=== PATIENT | female | born 1945 | race Caucasian/White ===

== ENCOUNTER → 2016-09-01 | Outpatient (CLI) | payer OTHER, MEDICARE ==
[~2016-09-01] MED LIST: ASPI81TA28 PO; ATOR-26 PO; BIOT1TAB5 PO; BUPR-79 PO; CALC500C70 PO; CHOL2000 PO; IBUP-1050 PO; LANS15CA15 PO; LEVO25TA5 PO; LUTE15CA PO; MILK140C PO; NTRGSL/4 UT; PRED-301 PO; PRED20TA PO; REGADENOSON 0.4 MG/5 ML SYR ONE; TYLER650 PO; VITACAP38 PO
--- NOTE | 2016-09-01 18:57 | MYOCARDIAL PERFUSION SCAN ---
ORDERING PHYSICIAN: Dr. Wyatt Vazquez. TIME: 1830 p.m. PROCEDURES: 1. Myocardial perfusion study performed in multiple views/images. 2. Lexiscan pharmacologic stress test. DATE OF PROCEDURE: 09/01/2016. CONSENT: Informed written consent was obtained prior to the procedure. INDICATIONS: 1. Preoperative cardiac assessment. 2. Poor exercise tolerance. 3. Shortness of breath. ECG AND VITALS: Baseline ECG demonstrated sinus bradycardia at 58 beats per minute. Lexiscan ECG demonstrated no significant ST changes. There were no arrhythmias. No high grade block or pauses. There was no chest pain or shortness of breath. Maximum heart rate was 79 beats per minute representing 52% maximum predicted heart rate. The resting blood pressure was 136/94 mmHg. Peak blood pressure was 142/72 mmHg. PROCEDURAL DETAILS: For the stress portion of the study, Lexiscan 0.4 mg was intravenously administered over 10-15 seconds followed by saline flush. This was followed by 33 mCi of technetium-99m Cardiolite at 11:22 a.m. on 09/01/2016. Thirty minutes following the injection, imaging of the heart was performed in multiple projections. For the rest portion of the study, 11 mCi of technetium-99m Cardiolite was injected intravenously at 9:48 a.m. on the same day. One hour following the injection, imaging of the heart was performed in the same projections. FINDINGS: Rotating raw imaging demonstrated no significant motion artifact or lung uptake. There did appear to be some breast attenuation artifact, more so in the stress compared to the rest imaging. Heart size appeared normal. Myocardial perfusion demonstrated a small area of mildly reduced uptake involving the distal anteroseptum and apex which appeared to be reversible on rest imaging. There was another small area of mildly reduced uptake in the inferolateral nicole from base to apex which was predominantly fixed with a reversible component distally. There was no significant transient ischemic dilation. Ejection fraction was 51%. There was possible mild hypokinesis in the distal anterior septum but otherwise normal wall motion in stress images. IMPRESSION: 1. Abnormal myocardial perfusion study suggesting distal anteroseptal and apical ischemia as well as distal inferolateral ischemia. 2. Fixed inferolateral defect from base to mid left ventricle may be attenuation artifact given normal wall motion in that area but cannot rule out small infarct. 3. Low normal left ventricular systolic function with an ejection fraction of 51%. 4. Possible mild hypokinesis involving the distal anteroseptum, but otherwise normal wall motion. 5. No chest pain or shortness of breath during or following Lexiscan infusion. 6. Nondiagnostic Lexiscan ECG.
== END | disposition home or self-care (01) ==
LOC: C.NUCL 09:06
PROVIDERS: ATTEND Thoracic Surgery (Cardiothoracic Vascular Surgery)
DX: I21.3 ST elevation (STEMI) myocardial infarction of unspecified site (principal); K21.9 Gastro-esophageal reflux disease without esophagitis; R06.02 Shortness of breath; Z01.818 Encounter for other preprocedural examination

== ENCOUNTER → 2016-09-08 | Outpatient (CLI) | payer OTHER, MEDICARE ==
[~2016-09-08] MED LIST changes: -REGADENOSON 0.4 MG/5 ML SYR ONE
--- NOTE | 2016-09-10 10:48 | PULMONARY FUNCTION TEST ---
CLINICAL DATA: A 71-year-old female with height of 61 inches and a weight of 175 pounds referred for presurgical workup for autoimmune lung disease/fibrosis by Dr. Vazquez and August Gipson. Spirometry pre and post-bronchodilator and DLCO were performed. FINDINGS: Prebronchodilator spirometry demonstrates mild obstructive airways disease. FVC was 72% of predicted. FEV1 was 70% of predicted. [id number] was 62% of predicted. There was significant improvement in spirometry after inhaled bronchodilator. FEV1 improved 10% to 78% of predicted. [id number] improved 61% to 100% of predicted. DLCO was severely reduced at 36% of predicted. IMPRESSION: Mild obstructive airways disease with improvement after inhaled bronchodilator with severe reduction in diffusing capacity for carbon monoxide(DLCO). MTDD
== END | disposition home or self-care (01) ==
LOC: C.RC 09:10
PROVIDERS: ATTEND Thoracic Surgery (Cardiothoracic Vascular Surgery)
DX: Z01.818 Encounter for other preprocedural examination (principal); I21.3 ST elevation (STEMI) myocardial infarction of unspecified site; K21.9 Gastro-esophageal reflux disease without esophagitis; R06.02 Shortness of breath

== ENCOUNTER → 2016-11-12 | Outpatient (CLI) | payer OTHER, MEDICARE ==
[2016-11-12 16:43] LABS: BASO % 0.4 %; BASO ABS # 0.03 K/uL (0-0.2); COMPLETE YES; EOS % 4.5 %; HEMATOCRIT 35.6 % (37-47); IG% 0.1 %; LYMPH % 9.4 %; LYMPH ABS # 0.78 K/uL (1.2-3.4); MEAN CELL VOLUME 91.3 fL (80-100); MEAN CORPUSCULAR HEMOGLOBIN 29.7 pg (25-34); MEAN CORPUSCULAR HGB CONC 32.6 g/dl (32-36); MEAN PLATELET VOLUME 9.9 fL (7.4-10.4); MONO % 4.8 %; NEUT % 80.8 %; PLATELET COUNT 178 K/uL (130-400); WHITE BLOOD COUNT 8.31 K/uL (4.8-10.8)
[2016-11-12 16:53] LABS: ALT/SGPT 23 U/L (12-78); BLOOD UREA NITROGEN 21 mg/dl (7-18); BUN/CREATININE RATIO 21.7 (10-20); CALCIUM 8.6 mg/dl (8.5-10.1); CARBON DIOXIDE 28 mmol/L (21-32); CHLORIDE 107 mmol/L (98-107); CREATININE 0.96 mg/dl (0.60-1.20); GLUCOSE 116 mg/dl (70-99); POTASSIUM 3.8 mmol/L (3.5-5.1); SODIUM 143 mmol/L (136-145)
[2016-11-12 16:55] LABS: ALB/GLOB RATIO 1.1 (0.9-2); ALKALINE PHOSPHATASE 78 U/L (45-117); AST/SGOT 18 U/L (15-37)
== END | disposition home or self-care (01) ==
LOC: C.LAB1850 15:26
PROVIDERS: ATTEND Internal Medicine Hematology & Oncology
DX: C83.09 Small cell B-cell lymphoma, extranodal and solid organ sites (principal)

== ENCOUNTER → 2017-01-26 | Outpatient (CLI) | payer OTHER, MEDICARE ==
[~2017-01-26] MED LIST changes: -PRED20TA PO
--- NOTE | 2017-01-26 10:06 | DIAGNOSTIC IMAGING REPORT ---
CT SCAN OF THE CHEST WITHOUT IV CONTRAST CLINICAL HISTORY: Myocardial infarction. COMPARISON STUDY: Chest x-ray dated 06/14/2016. Chest CT dated 11/15/2015. TECHNIQUE: CT scan of the thorax was performed from the thoracic inlet to the upper abdomen. Images are reviewed in the axial, sagittal, and coronal planes. IV contrast was not administered for this examination as per the referring clinician. CT DOSE: 294.73 mGy.cm FINDINGS: Thyroid: Atrophic. Thoracic aorta: The thoracic aorta is normal in caliber and demonstrates standard 3-vessel arch anatomy. Heart: The heart is markedly enlarged and without pericardial effusion. The coronary arteries are densely calcified. The main pulmonary arteries are markedly dilated suggesting pulmonary artery hypertension. Lungs and pleural spaces: There is volume loss in the right lung suggesting a history of surgical resection. Postoperative change and suture material is also seen at the left lung base. Changes of interstitial lung disease are similar appearance to the 11/15/2015 examination. There is extensive subpleural reticulation with associated traction bronchiectasis. This is greatest in the lower lobe. There is associated groundglass change. Foci of honeycombing are present bilaterally, right greater than left. No evidence of superimposed pneumonia is identified. There is no pleural effusion. The trachea is clear. Mediastinum: There are numerous mildly enlarged mediastinal lymph nodes measure up to 1.0 cm in short axis. Neeru: Not well assessed without IV contrast. Axillae: There is no axillary lymphadenopathy. Upper abdomen: There is a large hiatal hernia, with at least half of the stomach located in the thoracic cavity. The visualized kidneys demonstrate cortical atrophy. Skeletal structures: The skeletal structures are osteopenic. Degenerative change and hyperkyphosis are noted in the thoracic spine. There are compression deformities with evidence of previous vertebroplasty in the lower thoracic and upper lumbar spine. No lytic or blastic bony lesions are seen. IMPRESSION: 1. Findings of interstitial lung disease with a usual interstitial pneumonitis (UIP) pattern are similar to 11/15/2015 examination. 2. There is no evidence of superimposed pneumonia and no pleural effusion is seen. 3. Postoperative change is present in both lungs. Correlation with the surgical history will be required. 4. Cardiomegaly with evidence of pulmonary artery hypertension. 5. Mildly enlarged mediastinal lymph nodes are likely related to chronic lung disease. 6. Large hiatal hernia. 7. Additional findings as above. Electronically signed by: Haider Pedersen M.D. 01/26/2017 10:05 AM Dictated Date/Time: 01/26/2017 9:56 AM
== END | disposition home or self-care (01) ==
LOC: C.CTS 09:12
PROVIDERS: ATTEND Internal Medicine Advanced Heart Failure and Transplant Cardiology
DX: M35.1 Other overlap syndromes (principal); I21.29 ST elevation (STEMI) myocardial infarction involving other sites

== ENCOUNTER → 2017-01-27 | Outpatient (CLI) | payer OTHER, MEDICARE ==
[~2017-01-27] MED LIST changes: +REGADENOSON 0.4 MG/5 ML SYR ONE
--- NOTE | 2017-01-28 07:40 | MYOCARDIAL PERFUSION SCAN ---
ORDERING PHYSICIAN: Dr. Wyatt Bravo. PROCEDURE: 1. Myocardial perfusion study performed in multiple views/images. 2. Lexiscan stress ECG. INDICATIONS: 1. Myocardial infarction. 2. Preoperative evaluation. 3. Shortness of breath. CONSENT: Informed written consent was obtained. DATE OF PROCEDURE: 01/27/2017 PROCEDURAL DETAILS: For the stress portion of the study, Lexiscan 0.4 mg was administered, followed by saline flush. This was followed by 31.3 mCi of technetium-99m Cardiolite injected intravenously at 11:40 a.m. on 01/27/2017. Thirty minutes following the injection, imaging of the heart was performed in multiple projections. For the rest portion of the study, 11 mCi of technetium-99m Cardiolite was injected intravenously at 9:40 a.m. on the same day. One hour following the injection, imaging of the heart was performed in the same projections. LEXISCAN ECG: Baseline ECG demonstrated sinus bradycardia at 57 beats per minute. Lexiscan ECG demonstrated no significant ST changes. No arrhythmia. No significant pauses. No symptoms were reported. Maximum heart rate was 80 beats per minute, representing 53% maximum predicted heart rate. Maximum blood pressure was 163/88 mmHg. Minimum blood pressure was 143/78 mmHg. FINDINGS: Rotating raw imaging demonstrated no significant motion artifact or lung uptake. Heart size appeared normal. Myocardial perfusion demonstrated a small area of mildly reduced uptake involving the inferolateral wall from base to distal wall segments. This defect was fixed. There was also a small area of mildly reduced uptake involving the mid to distal anterior septum. This was also fixed in post-stress and rest imaging. Calculated ejection fraction was 83%. Wall motion demonstrated possible hypokinesis of the mid to distal anterior septum, otherwise normal wall motion. IMPRESSION: 1. Abnormal myocardial perfusion study suggesting small mid to distal anteroseptal infarct. 2. Small base to distal inferolateral fixed defect, maybe due to attenuation artifact given normal wall motion. Cannot rule out myocardial infarction. 3. No significant reversible defect to suggest ischemia. 4. No symptoms reported. 5. Hyperdynamic left ventricular systolic function with calculated EF of 83%. 6. Possible hypokinesis of the mid to distal anterior septum, otherwise normal wall motion. 7. Nondiagnostic Lexiscan ECG. [facility]
== END | disposition home or self-care (01) ==
LOC: C.NUCL 09:18
PROVIDERS: ATTEND Thoracic Surgery (Cardiothoracic Vascular Surgery)
DX: I21.3 ST elevation (STEMI) myocardial infarction of unspecified site (principal); K21.9 Gastro-esophageal reflux disease without esophagitis; R06.02 Shortness of breath; Z01.818 Encounter for other preprocedural examination

== ENCOUNTER → 2017-02-17 | Outpatient (CLI) | payer OTHER, MEDICARE ==
[~2017-02-17] MED LIST changes: -REGADENOSON 0.4 MG/5 ML SYR ONE
[2017-02-22 21:29] LABS: ANTI-SS-A <1.0 NEG AI (<1.0 NEG); ANTI-SS-B <1.0 NEG AI (<1.0 NEG); FREE KAPPA/LAMBDA RATIO 1.13 (0.26-1.65); FREE LAMBDA 19.5 MG/L (5.7-26.3)
== END | disposition home or self-care (01) ==
LOC: C.LAB 09:14
PROVIDERS: ATTEND Internal Medicine Rheumatology
DX: Z51.81 Encounter for therapeutic drug level monitoring (principal); M89.9 Disorder of bone, unspecified

== ENCOUNTER → 2017-02-17 | Outpatient (CLI) | payer OTHER, MEDICARE | END | disposition home or self-care (01) | LOC: C.MAMM 10:55 | PROVIDERS: ATTEND Internal Medicine Rheumatology | DX: M85.851 Other specified disorders of bone density and structure, right thigh (principal); M85.852 Other specified disorders of bone density and structure, left thigh; M85.839 Other specified disorders of bone density and structure, unspecified forearm ==

== ENCOUNTER → 2017-04-05 | Outpatient (CLI) | payer OTHER, MEDICARE ==
--- NOTE | 2017-04-06 13:20 | MAMMOGRAPHY REPORT ---
BILATERAL DIGITAL SCREENING MAMMOGRAM 3D/2D WITH CAD: 04/05/2017 CLINICAL HISTORY: Routine screening examination. TECHNIQUE: Breast tomosynthesis in addition to standard 2D mammography was performed. Current study was also evaluated with a Computer Aided Detection (CAD) system. COMPARISON: Comparison is made to exams dated: 04/02/2016 mammogram - [facility], mammogram, 10/31/2012 mammogram, and 10/12/2011 mammogram - [facility]. BREAST COMPOSITION: The tissue of both breasts is heterogeneously dense, which may obscure small mas ses. FINDINGS: There is a stable metallic biopsy marker in the right upper outer quadrant. Stable asymmet ileana in the inferior right breast and superior left breast. No suspicious mass, architectural distor tion or cluster of suspicious microcalcifications is seen. ACR BI-RADS CATEGORY 1: NEGATIVE There is no mammographic evidence of malignancy. A 1 year screening mammogram is recommended. The pa tient will receive written notification of the results. Approximately 10% of breast cancers are not detected with mammography. A negative mammographic report should not delay biopsy if a clinically suggestive mass is present. Екатерина Delacruz M.D. ay/:04/05/2017 16:03:55 Fiber Worker: Debra FISCHER(Lilliana)(Nataliia), [facility] letter sent: Normal 1/2 BI-RADS Code: ACR BI-RADS Category 1: Negative
== END | disposition home or self-care (01) ==
LOC: C.MAMM 10:57
PROVIDERS: ATTEND Internal Medicine
DX: Z12.31 Encounter for screening mammogram for malignant neoplasm of breast (principal)

== ENCOUNTER → 2017-05-26 | Outpatient (CLI) | payer OTHER, MEDICARE ==
[2017-05-26 12:22] LABS: BASO % 0.5 %; BASO ABS # 0.03 K/uL (0-0.2); COMPLETE YES; EOS % 9.1 %; HEMATOCRIT 37.3 % (37-47); IG% 0.2 %; LYMPH % 26.4 %; LYMPH ABS # 1.72 K/uL (1.2-3.4); MEAN CELL VOLUME 89.9 fL (80-100); MEAN CORPUSCULAR HEMOGLOBIN 28.2 pg (25-34); MEAN CORPUSCULAR HGB CONC 31.4 g/dl (32-36); MEAN PLATELET VOLUME 9.3 fL (7.4-10.4); MONO % 10.3 %; NEUT % 53.5 %; PLATELET COUNT 189 K/uL (130-400); RED BLOOD COUNT 4.15 M/uL (4.2-5.4); WHITE BLOOD COUNT 6.51 K/uL (4.8-10.8)
[2017-05-26 12:48] LABS: ALT/SGPT 28 U/L (12-78); AST/SGOT 21 U/L (15-37); BLOOD UREA NITROGEN 23 mg/dl (7-18); BUN/CREATININE RATIO 25.1 (10-20); CALCIUM 9.1 mg/dl (8.5-10.1); CARBON DIOXIDE 28 mmol/L (21-32); CHLORIDE 107 mmol/L (98-107); CREATININE 0.91 mg/dl (0.60-1.20); GLUCOSE 88 mg/dl (70-99); POTASSIUM 3.9 mmol/L (3.5-5.1); SODIUM 142 mmol/L (136-145)
[2017-05-26 12:50] LABS: ALKALINE PHOSPHATASE 79 U/L (45-117)
== END | disposition home or self-care (01) ==
LOC: C.LAB 10:57
PROVIDERS: ATTEND Internal Medicine Hematology & Oncology
DX: C83.09 Small cell B-cell lymphoma, extranodal and solid organ sites (principal)

== ENCOUNTER → 2017-08-04 | Outpatient (CLI) | payer OTHER, MEDICARE ==
[~2017-08-04] MED LIST changes: +AMOX1TAB43 PO; +BUPRTAB51 PO; +FRRS300 PO; +LANS30CA41 PO; +LCTX PO; +MILK175C3 PO; +OSEL75CA12 PO; +OXGN; +PRED10TA PO; +PRVHFAIN PO; +SPACMIS7 PO; +VBRT100 PO
--- NOTE | 2017-08-04 12:08 | DIAGNOSTIC IMAGING REPORT ---
ABD/PELVIS ORAL CONT ONLY CLINICAL HISTORY: 71 years-old Female presenting with K21.9,R06.02, gastroesophageal reflux, shortness of breath. TECHNIQUE: Multidetector CT of the abdomen and pelvis was performed after the administration of oral contrast only. IV contrast: None. A dose lowering technique was used consistent with the principles of ALARA (as low as reasonably achievable). COMPARISON: CT of the pelvis from 12/09/2015. CT DOSE (mGy.cm): The estimated cumulative dose is 1020.36. FINDINGS: Director Project Management topogram: Cardiomegaly and kyphoplasty. Lung bases: Extensive honeycombing at the lung bases, right greater than left. Multichamber enlargement of the heart. Coronary artery calcification. No pericardial or pleural effusion. Liver: Normal morphology. Normal density. Biliary: No gross biliary ductal dilatation allowing for noncontrast technique. Gallbladder contains gallstones. Pancreas: Mild parenchymal atrophy. Spleen: Normal noncontrast appearance. Splenule noted. Adrenal glands: Normal noncontrast appearance. Kidneys and ureters: Normal noncontrast appearance. No nephrolithiasis. No hydronephrosis. Normal ureters. Bladder: Incompletely evaluated secondary to underdistention. Pelvic organs: Uterus surgically absent. No adnexal masses. Bowel: Limited diverticulosis of the descending colon. Oral contrast has transited to the descending colon. No bowel obstruction. The appendix is normal. Moderate hiatal hernia. Peritoneal cavity: No free fluid or intraperitoneal gas. Lymph nodes: No gross lymphadenopathy allowing for noncontrast technique. Vasculature: Atherosclerosis of the normal caliber abdominal aorta. Abdominal wall: Small fat-containing umbilical hernia. Nonspecific minimal edema in the lumbar region. Musculoskeletal: Degenerative changes of the spine. Evidence of old right inferior pubic ramus fracture. Evidence of kyphoplasty at multiple levels including the sacrum. Osteopenia. IMPRESSION: 1. Findings consistent with usual interstitial pneumonia pattern. 2. No acute intra-abdominal pathology allowing for noncontrast technique. 3. Diverticulosis. 4. Moderate hiatal hernia. Electronically signed by: Fernie Kendrick M.D. 08/04/2017 12:07 PM Dictated Date/Time: 08/04/2017 11:59 AM
--- NOTE | 2017-08-04 12:26 | DIAGNOSTIC IMAGING REPORT ---
(CHEST) THORAX WITHOUT CT DOSE: 1020.36 mGy.cm HISTORY: Emphysema. Reflux. Dyspnea. K21.9,R06.02 TECHNIQUE: Multiaxial CT images of the chest were performed without contrast. A dose lowering technique was utilized adhering to the principles of ALARA. COMPARISON: 06/09/2017 FINDINGS: Diffuse emphysematous changes again noted. Superimposed extensive fibrotic changes noted primarily in the mid to lower lung regions. Honeycombing at the right base is stable. There does not appear to be a significant change from the prior exam. Buckle findings present potentially are chronic. Moderate abscess chronic change thoracic aorta. Moderate stable cardiomegaly. Calcification of the coronary arterial vasculature. Fixed lateral hernia unchanged. Degenerative changes of the thoracic spine including prior vertebroplasty is unchanged. Shoulder degenerative changes stable. IMPRESSION: 1. Diffuse emphysematous change with extensive fibrosis and bronchiectasis considered unaltered from the prior study. 2. No evidence for superimposed infiltrative process based on the unchanged exam. 3. Stable moderate cardiomegaly and fixed lateral hernia. The above report was generated using voice recognition software. It may contain grammatical, syntax or spelling errors. Electronically signed by: Jose Ascencio M.D. 08/04/2017 12:24 PM Dictated Date/Time: 08/04/2017 12:19 PM
== END | disposition home or self-care (01) ==
LOC: C.CTS 11:41
PROVIDERS: ATTEND Thoracic Surgery (Cardiothoracic Vascular Surgery)
DX: K21.9 Gastro-esophageal reflux disease without esophagitis (principal); R06.02 Shortness of breath; K57.90 Diverticulosis of intestine, part unspecified, without perforation or abscess without bleeding; K44.9 Diaphragmatic hernia without obstruction or gangrene; I51.7 Cardiomegaly; J43.9 Emphysema, unspecified

== ENCOUNTER → 2017-08-06 | Outpatient (CLI) | payer OTHER, MEDICARE ==
[~2017-08-06] MED LIST changes: -AMOX1TAB43 PO; -BUPRTAB51 PO; -FRRS300 PO; -LANS30CA41 PO; -LCTX PO; -MILK175C3 PO; -OSEL75CA12 PO; -OXGN; -PRED10TA PO; -PRVHFAIN PO; -SPACMIS7 PO; -VBRT100 PO
--- NOTE | 2017-08-06 11:48 | DIAGNOSTIC IMAGING REPORT ---
LEFT KNEE MRI HISTORY: LEFT KNEE PAIN COMPARISON STUDY: None. TECHNIQUE: Multiplanar multisequence MRI of the left knee was performed according to standard department protocol without the use of contrast. FINDINGS: Menisci: Near nondiagnostic evaluation due to the extensive metallic artifact. Suspect a complex tear within the majority of the medial meniscus. There appear to be free edge tears within the majority of the lateral meniscus. Ligaments: Nondiagnostic evaluation of the cruciate ligaments and MCL due to the metallic artifact. The LCL is intact. Extensor mechanism: The quadriceps tendon and patellar ligament are intact. Articular cartilage and bone: Nondiagnostic evaluation the distal femur due to the metallic artifact. There appears to be severe cartilage space narrowing within the medial and lateral compartment of the knee with mild to moderate cartilage space narrowing at the patellofemoral joint. However, these areas are suboptimally evaluated. Multiple screws through the distal femur. Large tricompartmental osteophytes. No fractures within the proximal tibia or fibula. Joint effusion: Moderate. Soft tissues: A 2.8 x 1.7 cm cyst adjacent to the popliteus musculotendinous junction. This contains multiple loose bodies. IMPRESSION: 1. Near nondiagnostic evaluation of the knee due to the extensive metallic artifact within the distal femur. 2. There appear to be bilateral meniscal tears as described above. 3. The cruciate ligaments and medial collateral ligament are obscured by the artifact. 4. Moderate joint effusion. 5. Moderate to severe tricompartmental osteoarthritis. Electronically signed by: Mert Mcleod M.D. 08/06/2017 11:46 AM Dictated Date/Time: 08/06/2017 11:39 AM
== END | disposition home or self-care (01) ==
LOC: C.MRI 09:46
PROVIDERS: ATTEND Physician Assistant
DX: M17.12 Unilateral primary osteoarthritis, left knee (principal); Z96.7 Presence of other bone and tendon implants

== ENCOUNTER → 2017-09-27 | Outpatient (CLI) | payer OTHER, MEDICARE | LOC: C.RDSM 11:30 | PROVIDERS: ATTEND Physical Medicine & Rehabilitation Sports Medicine | DX: M25.562 Pain in left knee (principal) ==

== ENCOUNTER → 2017-11-01 | Outpatient (CLI) | payer OTHER, MEDICARE ==
[~2017-11-01] MED LIST changes: +BUPRTAB51 PO; +MILK175C3 PO; +OSEL75CA12 PO; +VBRT100 PO
[2017-11-01 14:37] LABS: BASO % 0.2 %; BASO ABS # 0.02 K/uL (0-0.2); EOS % 1.5 %; EOS ABS # 0.13 K/uL (0-0.5); HEMATOCRIT 35.3 % (37-47); HEMOGLOBIN 10.9 g/dL (12.0-16.0); IG# 0.02 K/uL (0.00-0.02); LYMPH % 7.8 %; LYMPH ABS # 0.66 K/uL (1.2-3.4); MEAN CELL VOLUME 86.3 fL (80-100); MEAN CORPUSCULAR HEMOGLOBIN 26.7 pg (25-34); MEAN CORPUSCULAR HGB CONC 30.9 g/dl (32-36); MEAN PLATELET VOLUME 8.8 fL (7.4-10.4); MONO % 2.8 %; MONO ABS # 0.24 K/uL (0.11-0.59); NEUT % 87.5 %; NEUT ABS # 7.44 K/uL (1.4-6.5); PLATELET COUNT 196 K/uL (130-400); RED CELL DISTRIBUTION WIDTH CV 16.6 % (11.5-14.5); WHITE BLOOD COUNT 8.51 K/uL (4.8-10.8)
[2017-11-01 15:05] LABS: ALBUMIN 3.4 gm/dl (3.4-5.0); ALT/SGPT 25 U/L (12-78); BLOOD UREA NITROGEN 20 mg/dl (7-18); CARBON DIOXIDE 28 mmol/L (21-32); CREATININE 0.96 mg/dl (0.60-1.20); GLUCOSE 156 mg/dl (70-99); POTASSIUM 3.9 mmol/L (3.5-5.1); SODIUM 137 mmol/L (136-145)
[2017-11-01 15:08] LABS: ALKALINE PHOSPHATASE 95 U/L (45-117); AST/SGOT 26 U/L (15-37); TOTAL PROTEIN 7.7 gm/dl (6.4-8.2)
== END | disposition home or self-care (01) ==
LOC: C.LAB 14:04
PROVIDERS: ATTEND Internal Medicine Hematology & Oncology
DX: C83.09 Small cell B-cell lymphoma, extranodal and solid organ sites (principal)

== ENCOUNTER 2017-11-06 13:31 | Emergency (ER) | payer OTHER, MEDICARE ==
[~2017-11-06] VITALS: Ht 154.9 cm; Wt 78.0 kg
[~2017-11-06 13:31] MED LIST changes: -BUPRTAB51 PO; -MILK175C3 PO; -OSEL75CA12 PO; -VBRT100 PO
[2017-11-06 13:41] VITALS: TEMP 37.5; Ht 154.9 cm; Wt 78.0 kg
--- NOTE | 2017-11-06 14:12 | EMERGENCY ROOM VISIT NOTE ---
History Report prepared by Brock: Kim Tamayo Under the Supervision of: Dr. Ted Arnold M.D. First contact with patient: 14:05 Chief Complaint: FLU LIKE SX Stated Complaint: FLU/COLD - LUNGS History of Present Illness The patient is a 72 year old female who presents to the Emergency Room with complaints of worsening flu symptoms for the past 2 to 3 days. She believes she developed a fever last night. She also complains of a productive cough and body aches. She states her granddaughter has been sick with similar symptoms recently. The patient has a history of pulmonary fibrosis and uses Oxygen as needed, mostly when she's up and moving around. She does not use Nebulizers. NyQuil has provided minimal relief for her symptoms. Her states her PCP placed her on Doxycycline 2 days ago. The patient admits to a sore throat last night but states it has resolved. She denies any vomiting or swelling in her legs but has been nauseous. 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 A total of 10 systems reviewed and were otherwise negative. Past Medical & Surgical Medical Problems: (1) Pulmonary fibrosis Social History Smoking Status: Never Smoker Alcohol Use: none Drug Use: none Marital Status: Housing Status: lives with family Occupation Status: retired Current/Historical Medications Scheduled Aspirin (Aspirin Ec), 81 MG PO QAM Atorvastatin (Lipitor), 80 MG PO HS Bupropion (Wellbutrin-Xl), 300 MG PO QAM Calcium/Vitamin D (Os-Young 500 Plus D), 1 TAB PO QAM Cholecalciferol (Vitamin D3), 1 CAP PO QAM Doxycycline Hyclate (Doxycycline Hyclate), 100 MG PO BID Lansoprazole (Prevacid), 1 CAP PO QAM Levothyroxine Sodium (Levothyroxine Sodium), 1 TAB PO QAM Lutein-Zeaxanthin (Lutein), 1 CAP PO QAM Milk Thistle (Silybum Marianum (Milk Thistle), 1 CAP PO QAM Nitroglycerin (Nitrostat), 0.4 MG UT PRN Oseltamivir (Tamiflu), 75 MG PO BID Prednisone (Prednisone), 7.5 MG PO QAM Vitamin E (E-1000), 1,000 UNITS PO QAM Scheduled PRN Ibuprofen (Advil), 200-600 MG PO Q4H PRN for Pain Allergies Coded Allergies: Tramadol (Verified Allergy, Intermediate, rash, 11/06/17) Uncoded Allergies: TAPE (Allergy, Intermediate, blisters from "old fashioned medical tape", ) Physical Exam Vital Signs Date Time Temp Pulse Resp B/P (MAP) Pulse Ox O2 Delivery O2 Flow Rate FiO2 11/06/17 15:40 71 16 131/66 99 11/06/17 13:41 37.5 78 18 116/75 96 Nasal Cannula 4.0 Physical Exam GENERAL: Patient is well appearing and in mild distress with noted rhinorrhea. EYES: No scleral icterus, unremarkable pupils. ENT: Mucous membranes moist, no nasal congestion. NECK: No masses appreciated, no meningismus, trachea is midline. RESPIRATORY: No dyspnea. Mildly prolonged expiratory phase. No crackles, no wheeze, no rhonchi. CARDIOVASCULAR: Regular rate and rhythm. No murmurs, rubs, gallops appreciated. GASTROINTESTINAL: Abdomen soft, nontender, no peritonitis. Bowel sounds positive. No masses appreciated. BACK: No midline tenderness, no CVA tenderness EXTREMITIES: Normal motion all extremities, no cyanosis, no edema. NEUROLOGIC: Alert and oriented, no acute motor or sensory deficits, no focal weakness, cranial nerves grossly intact. SKIN: No rash, no jaundice, no diaphoresis. Medical Decision & Procedures Medications Administered Medications (Trade) Dose Ordered Sig/Gordon Route Start Time Stop Time Status Last Admin Dose Admin Oseltamivir Phosphate (Tamiflu Cap) 75 mg NOW STAT PO 11/06/17 15:14 11/06/17 15:15 DC 11/06/17 15:34 75 MG ED Course 1406: The patient was evaluated in room A10. A complete history and physical exam was performed. 1514: Tamiflu Cap 75 mg PO. 1517: I reevaluated the patient. She is feeling well and resting comfortably. I discussed her results and discharge instructions and she verbalized complete understanding and agreement. Medical Decision Differential: Infectious, Reactive Airway Disease, Pneumonia, Pneumothorax, COPD , CHF, ACS, Pulmonary Embolism, MSK, GI, Dissection, amongst other etiologies entertained. 71 yr old female arrives for evaluation of productive cough. Quite severe pulm fibrosis already known and was just started on Doxy for presumed infection. She is not wheezing here and is not in respiratory distress. Her symptoms are consistent with influenza and she has exposure to such. CXR without evidence of clear infiltrate though possible lower lobe which I advised will need repeat imaging for check. Vitals look good and patient prefers to avoid labs thus will hold on them. No evidence this is PE, CHF, dissection. Symptoms not consistent with ACS. Will empirically start Tamiflu and I noted that continued doxy seems reasonable. Comfortable with discharge and monitoring. Tolerating PO without issue per patient. Medication Reconcilliation Current Medication List: was personally reviewed by me Blood Pressure Screening Patient's blood pressure: Normal blood pressure Blood pressure disposition: Did not require urgent referral Impression Primary Impression: Influenza Additional Impression: Pulmonary fibrosis Scribe Attestation The scribe's documentation has been prepared under my direction and personally reviewed by me in its entirety. I confirm that the note above accurately reflects all work, treatment, procedures, and medical decision making performed by me. Departure Information Dispostion Home / Self-Care Prescriptions Oseltamivir (Tamiflu) 75 Mg Cap 75 MG PO BID, #10 CAP Prov: Ted Arnold M.D. 11/06/17 Referrals No Doctor, Assigned (PCP) Patient Instructions ED Flu, My [facility] Problem Qualifiers
[2017-11-06] MEDS ORDERED: VBRT100 PO (14:36)
[2017-11-06] MEDS ORDERED: BUPRTAB51 PO (14:36)
--- NOTE | 2017-11-06 14:57 | DIAGNOSTIC IMAGING REPORT ---
SINGLE VIEW CHEST CLINICAL HISTORY: Productive cough FINDINGS: An AP, portable, upright chest radiograph is compared to study dated 06/14/2016 and correlated with chest CT dated 08/04/2017. The examination is degraded by portable technique and patient rotation. The cardiomediastinal silhouette is unremarkable. Changes of chronic interstitial lung disease/fibrosis are similar to prior studies. There are questionable superimposed airspace opacities at the left lung base. No large pleural effusion or pneumothorax is seen. The skeletal structures are osteopenic. Numerous thoracolumbar compression deformities are identified with evidence of previous multilevel vertebroplasty. Hyperkyphosis is noted in the thoracic spine. IMPRESSION: 1. Advanced chronic interstitial/fibrotic lung disease is similar to prior studies. 2. Question superimposed airspace consolidation at the left lung base. Correlate clinically for evidence of pneumonia/aspiration pneumonitis. Short-term radiographic follow-up is recommended. Electronically signed by: Haider Pedersen M.D. 11/06/2017 2:56 PM Dictated Date/Time: 11/06/2017 2:53 PM
[2017-11-06] MEDS ORDERED: OSELTAMIVIR PHOSPHATE 75 MG CAP PO STA (15:14)
[2017-11-06] MEDS ORDERED: OSEL75CA12 PO (15:15)
[2017-11-06 15:40] VITALS: BP 131/66; PULSE 71; O2SAT 99
== END 2017-11-06 15:40 | disposition home or self-care (01) ==
LOC: C.EDB 13:32 → C.EDA 15:40
DX: J11.1 Influenza due to unidentified influenza virus with other respiratory manifestations (principal); J84.10 Pulmonary fibrosis, unspecified; Z79.82 Long term (current) use of aspirin; Z79.899 Other long term (current) drug therapy; Z88.6 Allergy status to analgesic agent; Z88.8 Allergy status to other drugs, medicaments and biological substances

== ENCOUNTER 2017-11-16 20:49 | Inpatient (IN) | payer OTHER, MEDICARE ==
[~2017-11-16] VITALS: Ht 154.9 cm; Wt 75.6 kg
[~2017-11-16 20:49] MED LIST changes: -BIOT1TAB5 PO; -BUPR-79 PO; +BUPRTAB51 PO; +OSEL75CA12 PO; -TYLER650 PO; +VBRT100 PO
[2017-11-16] MEDS ORDERED: ALBUT/IPRATROP 3MG/0.5MG NEB 3 ML VIAL INH STA (21:44)
[2017-11-16] MEDS ORDERED: SODIUM CHLORIDE 0.9% 500ML 500 ML IV STA (21:44)
[2017-11-16] MEDS ORDERED: DEXAMETHASONE **PF** INJ 10 MG/ML VIAL IV ONE (21:45)
[2017-11-16] MEDS ORDERED: CEFTRIAXONE SOD INJ 1 GM ADDVIAL IV STA (22:07)
[2017-11-16] MEDS ORDERED: LEVAQUIN 750MG / 150ML D5W IV STA (22:07)
[2017-11-16 22:46] LABS: INFLUENZA B ANTIGEN Neg for Influ B (NEG)
--- NOTE | 2017-11-16 22:46 | DIAGNOSTIC IMAGING REPORT ---
CHEST ONE VIEW PORTABLE HISTORY: 72 years-old Female Sepsis acute sepsis COMPARISON: Chest radiographs 11/06/2017 TECHNIQUE: Portable AP view of the chest FINDINGS: Study is limited secondary to patient positioning and rotation. Cardiac silhouette is within normal limits and unchanged. There is no pneumothorax or large pleural effusion. Chronic reticular opacities are again seen within the bilateral lungs, right greater than left. There are new superimposed patchy alveolar opacities throughout the right lung. Degenerative changes are noted throughout the spine and shoulders. Multiple vertebral plasties. IMPRESSION: Chronic interstitial lung disease with new superimposed patchy alveolar opacities throughout the right lung suspicious for superimposed pneumonia The above report was generated using voice recognition software. It may contain grammatical, syntax or spelling errors. Electronically signed by: Franc Bermudez M.D. 11/16/2017 10:44 PM Dictated Date/Time: 11/16/2017 10:42 PM
[2017-11-16] MEDS ORDERED: MILK175C3 PO (22:59)
[2017-11-16 23:28] LABS: BASO % 0.2 %; BASO ABS # 0.01 K/uL (0-0.2); EOS % 0.7 %; EOS ABS # 0.04 K/uL (0-0.5); HEMATOCRIT 33.2 % (37-47); HEMOGLOBIN 10.4 g/dL (12.0-16.0); IG# 0.01 K/uL (0.00-0.02); LYMPH % 7.3 %; LYMPH ABS # 0.42 K/uL (1.2-3.4); MEAN CELL VOLUME 84.3 fL (80-100); MEAN CORPUSCULAR HEMOGLOBIN 26.4 pg (25-34); MEAN CORPUSCULAR HGB CONC 31.3 g/dl (32-36); MONO % 5.4 %; MONO ABS # 0.31 K/uL (0.11-0.59); NEUT % 86.2 %; NEUT ABS # 4.93 K/uL (1.4-6.5); PLATELET COUNT 329 K/uL (130-400); RED CELL DISTRIBUTION WIDTH CV 16.9 % (11.5-14.5); RED CELL DISTRIBUTION WIDTH SD 51.6 fL (36.4-46.3); WHITE BLOOD COUNT 5.72 K/uL (4.8-10.8)
[2017-11-16 23:39] LABS: PTT PATIENT 26.6 SECONDS (21.0-31.0)
[2017-11-16 23:49] LABS: ALBUMIN 2.7 gm/dl (3.4-5.0); ALT/SGPT 35 U/L (12-78); AST/SGOT 46 U/L (15-37); BLOOD UREA NITROGEN 11 mg/dl (7-18); CALCIUM 8.5 mg/dl (8.5-10.1); CARBON DIOXIDE 27 mmol/L (21-32); CREATININE 0.63 mg/dl (0.60-1.20); GLUCOSE 137 mg/dl (70-99); POTASSIUM 4.1 mmol/L (3.5-5.1); SODIUM 136 mmol/L (136-145)
[2017-11-16 23:54] LABS: ALKALINE PHOSPHATASE 100 U/L (45-117); TOTAL PROTEIN 6.5 gm/dl (6.4-8.2)
[2017-11-17] VITALS (12 sets, daily range): BP systolic 99–141; BP diastolic 63–91; PULSE 66–95; TEMP 36.5–36.8; O2SAT 90–99; Ht 154.9 cm; Wt 75.6 kg
--- NOTE | 2017-11-17 01:10 | EMERGENCY ROOM VISIT NOTE ---
History First contact with patient: 21:29 Chief Complaint: COUGH Stated Complaint: SEVERE COUGHING, FLU Nursing Triage Summary: Patient states she was seen in the ER one week ago flu like symptoms nausea, aches chills cough. patient states she continues with cough. History of pulmonary fibrosis on chronic O2. History of Present Illness The patient is a 72 year old female who presents to the Emergency Room with complaints of subjective fever and chills with worsening cough and congestion for the past week and a half that was seen here last week and placed on Tamiflu. Patient was on doxycycline prior to this by the family care doctor. Patient states she feels worse. She has pulmonary fibrosis. She follows in [place] for this. No recent temperature was taken. Patient denies exertional chest pain, abdominal pain, diarrhea, sore throat, leg pain or swelling. No history of heart failure. She has a history of heart disease. She has received her pneumonia and flu vaccines. Review of Systems An 10 system review of systems was completed with positives and pertinent negatives listed in the HPI. Past Medical/Surgical History Medical Problems: (1) Pulmonary fibrosis Coronary artery disease, lymphoma, hyperlipidemia Social History Smoking Status: Never Smoker Alcohol Use: none Drug Use: none Marital Status: Housing Status: lives with family Occupation Status: retired Current/Historical Medications Scheduled Aspirin (Aspirin Ec), 81 MG PO QAM Atorvastatin (Lipitor), 80 MG PO HS Bupropion (Wellbutrin-Xl), 300 MG PO QAM Calcium/Vitamin D (Os-Young 500 Plus D), 1 TAB PO QAM Cholecalciferol (Vitamin D3), 1 CAP PO QAM Lansoprazole (Prevacid), 1 CAP PO QAM Levothyroxine Sodium (Levothyroxine Sodium), 1 TAB PO QAM Lutein-Zeaxanthin (Lutein), 1 CAP PO QAM Milk Thistle (Silybum Marianum (Milk Thistle), 175 MG PO QAM Nitroglycerin (Nitrostat), 0.4 MG UT PRN Prednisone (Prednisone), 7.5 MG PO QAM Vitamin E (E-1000), 1,000 UNITS PO QAM Scheduled PRN Ibuprofen (Advil), 200-600 MG PO Q4H PRN for Pain Physical Exam Vital Signs Date Time Temp Pulse Resp B/P (MAP) Pulse Ox O2 Delivery O2 Flow Rate FiO2 11/16/17 22:44 77 18 107/73 100 Nasal Cannula 4.0 11/16/17 22:11 98 Nasal Cannula 4.0 11/16/17 20:59 Nasal Cannula 11/16/17 20:56 36.7 87 16 90/68 98 Nasal Cannula Physical Exam PHYSICAL EXAM: Vital Signs: Reviewed Nurse's notes. Oxygen saturation was 98% on 4L NC. GENERAL: pleasant female with audible wheeze, Alert, oriented and coherent. The patient is able to speak in complete sentences. NECK: Supple, non -tender. CHEST: Symmetrical expansion. no retractions no accessory muscle use. HEART: Regular rate and normal heart sounds LUNGS: Breath sounds equal but significantly diminished in intensity on both sides. Bilateral wheezes heard but no rales or pleuritic rub. SKIN: The skin was without rashes, erythema, edema, or bruising. There is no tenting of the skin. Capillary reflex less than 2 seconds. HEAD: Normocephalic atraumatic. EARS: External auditory canals clear, tympanic membranes pearly mercado without erythema or effusion bilaterally. EYES: Pupils equal round and reactive to light and accommodation. Conjunctivae without injection, sclerae without icterus. Extraocular movements intact. NOSE: Patent, turbinates without inflammation or discharge. MOUTH: Mucous membranes moist. Pharynx without erythema or exudate. Uvula midline. Airway patent. Tongue does not deviate. ABDOMEN: Positive bowel sounds x 4. Normal tympanic percussion. Soft, nontender, without masses or organomegaly. Navarro sign negative. No guarding or rebound tenderness. MUSCULOSKELETAL: No muscle atrophy, erythema, or edema noted. NEURO: Patient was alert and oriented to person place and time. Normal sensation to light and sharp touch. No focal neurological deficits. Medical Decision & Procedures Laboratory Results 11/16/17 22:16 Red Blood Count 3.94, Mean Corpuscular Volume 84.3, Mean Corpuscular Hemoglobin 26.4, Mean Corpuscular Hemoglobin Concent 31.3, Mean Platelet Volume 10.0, Neutrophils (%) (Auto) 86.2, Lymphocytes (%) (Auto) 7.3, Monocytes (%) (Auto) 5.4, Eosinophils (%) (Auto) 0.7, Basophils (%) (Auto) 0.2, Neutrophils # (Auto) 4.93, Lymphocytes # (Auto) 0.42, Monocytes # (Auto) 0.31, Eosinophils # (Auto) 0.04, Basophils # (Auto) 0.01 11/16/17 22:16 Test 11/16/17 22:02 11/16/17 22:16 11/16/17 23:15 11/16/17 23:16 Influenza Type A Antigen Neg for Influ A (NEG) Influenza Type B Antigen Neg for Influ B (NEG) White Blood Count 5.72 K/uL (4.8-10.8) Red Blood Count 3.94 M/uL (4.2-5.4) Hemoglobin 10.4 g/dL (12.0-16.0) Hematocrit 33.2 % (37-47) Mean Corpuscular Volume 84.3 fL (80-100) Mean Corpuscular Hemoglobin 26.4 pg (25-34) Mean Corpuscular Hemoglobin Concent 31.3 g/dl (32-36) Platelet Count 329 K/uL (130-400) Mean Platelet Volume 10.0 fL (7.4-10.4) Neutrophils (%) (Auto) 86.2 % Lymphocytes (%) (Auto) 7.3 % Monocytes (%) (Auto) 5.4 % Eosinophils (%) (Auto) 0.7 % Basophils (%) (Auto) 0.2 % Neutrophils # (Auto) 4.93 K/uL (1.4-6.5) Lymphocytes # (Auto) 0.42 K/uL (1.2-3.4) Monocytes # (Auto) 0.31 K/uL (0.11-0.59) Eosinophils # (Auto) 0.04 K/uL (0-0.5) Basophils # (Auto) 0.01 K/uL (0-0.2) RDW Standard Deviation 51.6 fL (36.4-46.3) RDW Coefficient of Variation 16.9 % (11.5-14.5) Immature Granulocyte % (Auto) 0.2 % Immature Granulocyte # (Auto) 0.01 K/uL (0.00-0.02) Prothrombin Time 11.0 SECONDS (9.0-12.0) Prothromb Time International Ratio 1.0 (0.9-1.1) Activated Partial Thromboplast Time 26.6 SECONDS (21.0-31.0) Partial Thromboplastin Ratio 1.0 Anion Gap 5.0 mmol/L (3-11) Est Creatinine Clear Calc Drug Dose 74.3 ml/min Estimated GFR () 104.6 Estimated GFR (Non- 90.2 BUN/Creatinine Ratio 17.0 (10-20) Calcium Level 8.5 mg/dl (8.5-10.1) Magnesium Level 1.8 mg/dl (1.8-2.4) Total Bilirubin 0.6 mg/dl (0.2-1) Aspartate Amino Transf (AST/SGOT) 46 U/L (15-37) Alanine Aminotransferase (ALT/SGPT) 35 U/L (12-78) Alkaline Phosphatase 100 U/L (45-117) Troponin I < 0.015 ng/ml (0-0.045) Pro-B-Type Natriuretic Peptide 191 pg/ml (0-900) Total Protein 6.5 gm/dl (6.4-8.2) Albumin 2.7 gm/dl (3.4-5.0) Globulin 3.8 gm/dl (2.5-4.0) Albumin/Globulin Ratio 0.7 (0.9-2) Bedside Lactic Acid Venous 1.24 mmol/L (0.90-1.70) Bedside Troponin I < 0.030 ng/ml (0-0.045) Medications Administered Medications (Trade) Dose Ordered Sig/Gordon Route Start Time Stop Time Status Last Admin Dose Admin Albuterol/ Ipratropium (Duoneb) 3 ml NOW STAT INH 11/16/17 21:44 11/16/17 21:46 DC 11/16/17 22:08 3 ML Sodium Chloride 500 ml @ 999 mls/hr Q31M STAT IV 11/16/17 21:44 11/16/17 22:14 DC 11/16/17 22:17 999 MLS/HR Dexamethasone Sodium Phosphate (Dexamethasone Inj Pf) 10 mg NOW ONCE IV 11/16/17 21:45 11/16/17 21:46 DC 11/16/17 22:18 10 MG Ceftriaxone Sodium (Rocephin Inj) 1 gm NOW STAT IV 11/16/17 22:07 11/16/17 22:08 DC 11/16/17 23:26 1 GM Levofloxacin (Levaquin / D5W) 750 mg NOW STAT IV 11/16/17 22:07 11/16/17 22:08 DC 11/16/17 23:27 750 MG ED Course Prior records/ancillary studies reviewed. Triage Nursing notes reviewed. Additional history obtained from the family. The patient's history was concerning for respiratory difficulties. Differential diagnosis: Etiologies such as infections, reactive airway disease, pneumonia, pneumothorax , COPD, CHF, cardiac ischemia, pulmonary embolism, musculoskeletal, gastrointestinal, as well as others were entertained. Physical examination: As above. ER treatment provided: Nebulizer, Decadron, IV fluids, Rocephin, Levaquin On reassessment the patient felt better. Diagnostic interpretation by me: The electrocardiogram was negative for acute ischemic or pathologic change. Normal sinus, normal intervals, no acute ST-T wave changes, rate of 72. Impression normal sinus rhythm interpreted by myself The labs revealed no worrisome leukocytosis. Blood cultures pending. Negative lactic acid Imaging studies: Chest x-ray as above. CHEST ONE VIEW PORTABLE HISTORY: 72 years-old Female Sepsis acute sepsis COMPARISON: Chest radiographs 11/06/2017 TECHNIQUE: Portable AP view of the chest FINDINGS: Study is limited secondary to patient positioning and rotation. Cardiac silhouette is within normal limits and unchanged. There is no pneumothorax or large pleural effusion. Chronic reticular opacities are again seen within the bilateral lungs, right greater than left. There are new superimposed patchy alveolar opacities throughout the right lung. Degenerative changes are noted throughout the spine and shoulders. Multiple vertebral plasties. IMPRESSION: Chronic interstitial lung disease with new superimposed patchy alveolar opacities throughout the right lung suspicious for superimposed pneumonia The above report was generated using voice recognition software. It may contain grammatical, syntax or spelling errors. Electronically signed by: Franc Bermudez M.D. 11/16/2017 10:44 PM Consultation: A consultation was placed with Dr Villarreal, hospitalist. This appears to be consistent with pneumonia who has already been on Tamiflu and doxycycline. Patient felt better after being medicated as above. She does suffer from pulmonary hypoxic and is on chronic oxygen as needed. She follows with pulmonology in [place]. Blood cultures are pending. No leukocytosis. She is on chronic prednisone. Negative flu. She will be evaluated by medicine for possible admission. By the evaluation outlined above emergent etiologies such as CHF, cardiac ischemia, pulmonary embolism, pneumothorax, musculoskeletal , as well as others were deemed relatively unlikely. The pt informed about the findings as listed above. All questions were answered and pleased with the treatment. Case reviewed with my attending The chart was completed utilizing [employer] Speech voice recognition software. Grammatical errors, random word insertions, pronoun errors, and incomplete sentences are an occassional consequence of this system due to software limitations, ambient noise, and hardware issues. Any formal questions or concerns about the content, text, or information contained within the body of this dictation should be directly addressed to the physician emergency veterinary assistant for clarification. Medical Decision As above Medication Reconcilliation Current Medication List: was personally reviewed by me Blood Pressure Screening Patient's blood pressure: Normal blood pressure Impression Primary Impression: Pneumonia Additional Impression: Failure of outpatient treatment Departure Information Dispostion Being Evaluated By Hospitalist Condition FAIR Referrals Fernie Alas M.D. (PCP) Patient Instructions My [facility] Problem Qualifiers Primary Impression: Pneumonia Pneumonia type: due to unspecified organism Laterality: right Lung location : unspecified part of lung Qualified Codes: J18.9 - Pneumonia, unspecified organism
--- NOTE | 2017-11-17 01:31 | EMERGENCY ROOM VISIT NOTE ---
ED Visit Note First contact with patient: 21:29 Physician Material Specialist Supervision Note: I interviewed and examined the patient. Discussed with Joelle Dawson PA-C and agree with findings and plan as documented in the note. Any exceptions or clarifications are listed here: [None] Documented By: Nori Craig
[2017-11-17] MEDS ORDERED: ALBUTEROL 0.083% NEBU SOLN 3 ML VIAL INH PRN (04:30)
[2017-11-17] MEDS ORDERED: MAGNESIUM HYDROXIDE SUSP 30 ML UDC PO PRN (04:30)
[2017-11-17] MEDS ORDERED: ACETAMINOPHEN 325 MG TAB PO PRN (04:30)
[2017-11-17] MEDS ORDERED: IBUPROFEN 200 MG TAB PO PRN (04:30)
[2017-11-17] MEDS ORDERED: ONDANSETRON INJ 2 MG/ML 2 ML VIAL IV PRN (04:30)
[2017-11-17] MEDS ORDERED: ALUMINUM/MAGNESIUM/SIMETH (MAALOX MAX) 30 ML UDC PO PRN (04:30)
[2017-11-17] MEDS ORDERED: POLYETHYLENE (MIRALAX) 17 GM PACK PO PRN (04:30)
--- NOTE | 2017-11-17 05:23 | History and Physical ---
History & Physical Date & Time of Service: Nov 17, 2017 at 04:49 Chief Complaint: Severe Coughing, Flu Primary Care Physician: Fernie Alas M.D. History of Present Illness Source: patient 73 y/o F Hx Hypothyroidism, CAD, HPL, pulmonary fibrosis - 2l home 02. Pt was recently treated for influenza and presumed PNM with Tamiflu and Doxycycline. Despite compliance, she relates progressive SOB and states that her 02 requirements have increased to 4l. She reports a productive cough. She could not confirm a fever. A CXR is consistent with R sided pneumonia. Initial labs are notable for anemia. She denies CP, N/V/D or dysuria. Past Medical/Surgical History 1) Pulmonary fibrosis - diagnosed 2008 - 2L home 02 2) CAD - [place] and 3 stents 2013 3) HPL 4) GERD 5) Hypothyroidism Family History Mother had breast CA Daughter has breast CA and underwent BL mastectomy due to (+) BRCA Her father and one daughter from an unidentified lung disease Social History Smoking Status: Never Smoker Drug Use: none Marital Status: Occupational Status: retired Allergies Coded Allergies: Adhesives (Verified Allergy, Intermediate, ITCHY, "BLISTERY" SKIN, 11/16/17 ) Tramadol (Verified Allergy, Intermediate, rash, 11/16/17) Home Medications Scheduled Aspirin (Aspirin Ec), 81 MG PO QAM Atorvastatin (Lipitor), 80 MG PO HS Bupropion (Wellbutrin-Xl), 300 MG PO QAM Calcium/Vitamin D (Os-Young 500 Plus D), 1 TAB PO QAM Cholecalciferol (Vitamin D3), 1 CAP PO QAM Lansoprazole (Prevacid), 1 CAP PO QAM Levothyroxine Sodium (Levothyroxine Sodium), 1 TAB PO QAM Lutein-Zeaxanthin (Lutein), 1 CAP PO QAM Milk Thistle (Silybum Marianum (Milk Thistle), 175 MG PO QAM Nitroglycerin (Nitrostat), 0.4 MG UT PRN Prednisone (Prednisone), 7.5 MG PO QAM Vitamin E (E-1000), 1,000 UNITS PO QAM Scheduled PRN Ibuprofen (Advil), 200-600 MG PO Q4H PRN for Pain Review of Systems Constitutional: No fever, No chills, No sweats Eyes: No worsening of vision ENT: No hearing loss, No unusual epistaxis, No nasal symptoms Respiratory: + cough, + sputum, + shortness of breath, + dyspnea on exertion, + dyspnea at rest Cardiovascular: No chest pain, No orthopnea, No PND Abdomen: No pain, No nausea, No vomiting Musculoskeletal: No joint pain Genitourinary - Female: No dysuria, No urinary frequency Neurologic: No memory loss, No paralysis Psychiatric: No depression symptoms Endocrine: + fatigue Hematologic / Lymphatic: No abnormal bleeding/bruising Integumentary: No rash Physical Exam Vital Signs Date Time Temp Pulse Resp B/P (MAP) Pulse Ox O2 Delivery O2 Flow Rate FiO2 11/17/17 02:37 68 17 100/65 100 Nasal Cannula 2.0 11/17/17 01:30 70 18 105/69 100 Nasal Cannula 2.0 11/17/17 00:40 71 17 127/80 100 Room Air 11/16/17 22:44 77 18 107/73 100 Nasal Cannula 4.0 11/16/17 22:11 98 Nasal Cannula 4.0 11/16/17 20:59 Nasal Cannula 11/16/17 20:56 36.7 87 16 90/68 98 Nasal Cannula General Appearance: WD/WN, no apparent distress, + pertinent finding (PLeasant , elderly female in no distress) Head: normocephalic ENT: normal ENT inspection Neck: supple, no JVD Respiratory/Chest: chest non-tender, + pertinent finding (Poor air movement - BL crackles, mild end expiratory wheezing) Cardiovascular: regular rate, rhythm, no edema, no gallop Abdomen/GI: normal bowel sounds, non tender, soft Back: normal inspection, no CVA tenderness Extremities/Musculoskelatal: normal inspection, no calf tenderness, normal capillary refill Neurologic/Psych: transition program manager II-XII nml as tested, no motor/sensory deficits, alert, oriented x 3 Skin: + pallor Diagnostics Laboratory Results Results Past 24 Hours Test 11/16/17 22:02 11/16/17 22:16 11/16/17 23:15 11/16/17 23:16 Range/Units Influenza Type A Antigen Neg for Influ A NEG Influenza Type B Antigen Neg for Influ B NEG White Blood Count 5.72 4.8-10.8 K/uL Red Blood Count 3.94 4.2-5.4 M/uL Hemoglobin 10.4 12.0-16.0 g/dL Hematocrit 33.2 37-47 % Mean Corpuscular Volume 84.3 80-100 fL Mean Corpuscular Hemoglobin 26.4 25-34 pg Mean Corpuscular Hemoglobin Concent 31.3 32-36 g/dl Platelet Count 329 130-400 K/uL Mean Platelet Volume 10.0 7.4-10.4 fL Neutrophils (%) (Auto) 86.2 % Lymphocytes (%) (Auto) 7.3 % Monocytes (%) (Auto) 5.4 % Eosinophils (%) (Auto) 0.7 % Basophils (%) (Auto) 0.2 % Neutrophils # (Auto) 4.93 1.4-6.5 K/uL Lymphocytes # (Auto) 0.42 1.2-3.4 K/uL Monocytes # (Auto) 0.31 0.11-0.59 K/uL Eosinophils # (Auto) 0.04 0-0.5 K/uL Basophils # (Auto) 0.01 0-0.2 K/uL RDW Standard Deviation 51.6 36.4-46.3 fL RDW Coefficient of Variation 16.9 11.5-14.5 % Immature Granulocyte % (Auto) 0.2 % Immature Granulocyte # (Auto) 0.01 0.00-0.02 K/uL Prothrombin Time 11.0 9.0-12.0 SECONDS Prothromb Time International Ratio 1.0 0.9-1.1 Activated Partial Thromboplast Time 26.6 21.0-31.0 SECONDS Partial Thromboplastin Ratio 1.0 Sodium Level 136 136-145 mmol/L Potassium Level 4.1 3.5-5.1 mmol/L Chloride Level 104 98-107 mmol/L Carbon Dioxide Level 27 21-32 mmol/L Anion Gap 5.0 3-11 mmol/L Blood Urea Nitrogen 11 7-18 mg/dl Creatinine 0.63 0.60-1.20 mg/dl Est Creatinine Clear Calc Drug Dose 74.3 ml/min Estimated GFR () 104.6 Estimated GFR (Non- 90.2 BUN/Creatinine Ratio 17.0 10-20 Random Glucose 137 70-99 mg/dl Calcium Level 8.5 8.5-10.1 mg/dl Magnesium Level 1.8 1.8-2.4 mg/dl Total Bilirubin 0.6 0.2-1 mg/dl Aspartate Amino Transf (AST/SGOT) 46 15-37 U/L Alanine Aminotransferase (ALT/SGPT) 35 12-78 U/L Alkaline Phosphatase 100 45-117 U/L Troponin I < 0.015 0-0.045 ng/ml Pro-B-Type Natriuretic Peptide 191 0-900 pg/ml Total Protein 6.5 6.4-8.2 gm/dl Albumin 2.7 3.4-5.0 gm/dl Globulin 3.8 2.5-4.0 gm/dl Albumin/Globulin Ratio 0.7 0.9-2 Bedside Lactic Acid Venous 1.24 0.90-1.70 mmol/L Bedside Troponin I < 0.030 0-0.045 ng/ml Microbiology Results 11/16/17 Blood Culture, Received Pending 11/16/17 Blood Culture, Received Pending Diagnostic Radiology CXR: IMPRESSION: Chronic interstitial lung disease with new superimposed patchy alveolar opacities throughout the right lung suspicious for superimposed pneumonia. Impression Assessment and Plan 73 y/o F Hx Hypothyroidism, CAD, HPL, pulmonary fibrosis - 2l home 02. Pt was recently treated for influenza and presumed PNM with Tamiflu and Doxycycline. Despite compliance, she relates progressive SOB and states that her 02 requirements have increased to 4l. She reports a productive cough. She could not confirm a fever. A CXR is consistent with R sided pneumonia. She denies CP , N/V/D or dysuria. 1) SOB - URI - pulmonary fibrosis. It is difficult to discern if her infiltrates represent an acute PNM or if her increased 02 requirement are residual owing to her recent flu and presumed PNM. Pending culture results, we will treat with broad spectrum antibiotics. We will include Vancomycin for possible post-viral PNM. Due to her underlying lung disease and increased 02 requirements, we will treat with scheduled nebs and steroids. 2) CAD - no evidence of ACS - cont ASA, statin, NTG PRN. 3) Hypothyroidism - cont Synthroid 4) Hyperlipidemia - cont Lipitor 5) Anemia is present on labs - worsening from previous - we will trend her HB, check iron level, stool guiac and TIBC Full code - Lovenox prophylaxis Total time for this admit including review of labs, meds, imaging - discussion with pt and ER attending - 40 min Resuscitation Status VTE Prophylaxis Will order VTE Prophylaxis: Yes
[2017-11-17] MEDS ORDERED: VANCOMYCIN CONSULT ACTIVE PRN (05:30)
[2017-11-17] MEDS ORDERED: VANCOMYCIN IV 1,750 MG in SODIUM CHLORIDE 0.9% 500ML 500 ML IV SCH (06:00)
[2017-11-17] MEDS: METHYLPREDNISOLONE IV 40 MG in SYRINGE 0 ML IV SCH ×3 (06:16→17:53)
[2017-11-17] MEDS: LEVOTHYROXINE 25 MCG TAB PO SCH (06:19)
[2017-11-17] MEDS: ALBUT/IPRATROP 3MG/0.5MG NEB 3 ML VIAL INH SCH ×3 (07:18→19:24)
[2017-11-17] MEDS: CEFEPIME IV 1,000 MG in SYRINGE 0 ML IV SCH ×2 (08:12→15:49)
[2017-11-17] MEDS: BuPROPion XL 300 MG TABCR PO SCH (08:13)
[2017-11-17] MEDS: ASPIRIN 81 MG ECTAB PO SCH (08:13)
[2017-11-17] MEDS: CALCIUM 600MG + VIT D 400 IU TAB PO SCH (08:13)
[2017-11-17] MEDS: PANTOprazole SOD 40 MG TAB PO SCH (08:14)
[2017-11-17] MEDS: ENOXAPARIN 40 MG/0.4 ML SYR SQ SCH (08:14)
[2017-11-17 08:22] LABS: HEMATOCRIT 32.1 % (37-47); HEMOGLOBIN 10.1 g/dL (12.0-16.0); MEAN CELL VOLUME 84.3 fL (80-100); MEAN CORPUSCULAR HEMOGLOBIN 26.5 pg (25-34); MEAN CORPUSCULAR HGB CONC 31.5 g/dl (32-36); MEAN PLATELET VOLUME 9.4 fL (7.4-10.4); PLATELET COUNT 305 K/uL (130-400); RED CELL DISTRIBUTION WIDTH CV 16.5 % (11.5-14.5); RED CELL DISTRIBUTION WIDTH SD 50.4 fL (36.4-46.3); WHITE BLOOD COUNT 3.87 K/uL (4.8-10.8)
[2017-11-17 08:57] LABS: CALCIUM 8.5 mg/dl (8.5-10.1); CREATININE 0.69 mg/dl (0.60-1.20); POTASSIUM 3.2 mmol/L (3.5-5.1)
--- NOTE | 2017-11-17 09:45 | Pharmacy Progress Note ---
Pharmacy Antibiotic Consult Date of Service: Nov 17, 2017. Pharmacy Dosing Scope Pharmacy is consulted to initiate vancomycin IV dosing therapy, order appropriate labs and adjust drug dose/frequency. Subjective The patient is a 72 year old female admitted on Nov 17, 2017 at 04:30. Objective Height (Feet): 5 Height (Inches): 1.00 Weight (Kilograms): 73.900 Lab Results (24hrs): Test 11/16/17 22:02 11/16/17 22:16 11/16/17 23:15 11/16/17 23:16 Influenza Type A Antigen Neg for Influ A (NEG) Influenza Type B Antigen Neg for Influ B (NEG) White Blood Count 5.72 K/uL (4.8-10.8) Red Blood Count 3.94 M/uL (4.2-5.4) Hemoglobin 10.4 g/dL (12.0-16.0) Hematocrit 33.2 % (37-47) Mean Corpuscular Volume 84.3 fL (80-100) Mean Corpuscular Hemoglobin 26.4 pg (25-34) Mean Corpuscular Hemoglobin Concent 31.3 g/dl (32-36) Platelet Count 329 K/uL (130-400) Mean Platelet Volume 10.0 fL (7.4-10.4) Neutrophils (%) (Auto) 86.2 % Lymphocytes (%) (Auto) 7.3 % Monocytes (%) (Auto) 5.4 % Eosinophils (%) (Auto) 0.7 % Basophils (%) (Auto) 0.2 % Neutrophils # (Auto) 4.93 K/uL (1.4-6.5) Lymphocytes # (Auto) 0.42 K/uL (1.2-3.4) Monocytes # (Auto) 0.31 K/uL (0.11-0.59) Eosinophils # (Auto) 0.04 K/uL (0-0.5) Basophils # (Auto) 0.01 K/uL (0-0.2) RDW Standard Deviation 51.6 fL (36.4-46.3) RDW Coefficient of Variation 16.9 % (11.5-14.5) Immature Granulocyte % (Auto) 0.2 % Immature Granulocyte # (Auto) 0.01 K/uL (0.00-0.02) Prothrombin Time 11.0 SECONDS (9.0-12.0) Prothromb Time International Ratio 1.0 (0.9-1.1) Activated Partial Thromboplast Time 26.6 SECONDS (21.0-31.0) Partial Thromboplastin Ratio 1.0 Sodium Level 136 mmol/L (136-145) Potassium Level 4.1 mmol/L (3.5-5.1) Chloride Level 104 mmol/L (98-107) Carbon Dioxide Level 27 mmol/L (21-32) Anion Gap 5.0 mmol/L (3-11) Blood Urea Nitrogen 11 mg/dl (7-18) Creatinine 0.63 mg/dl (0.60-1.20) Est Creatinine Clear Calc Drug Dose 74.3 ml/min Estimated GFR () 104.6 Estimated GFR (Non- 90.2 BUN/Creatinine Ratio 17.0 (10-20) Random Glucose 137 mg/dl (70-99) Calcium Level 8.5 mg/dl (8.5-10.1) Magnesium Level 1.8 mg/dl (1.8-2.4) Total Bilirubin 0.6 mg/dl (0.2-1) Aspartate Amino Transf (AST/SGOT) 46 U/L (15-37) Alanine Aminotransferase (ALT/SGPT) 35 U/L (12-78) Alkaline Phosphatase 100 U/L (45-117) Troponin I < 0.015 ng/ml (0-0.045) Pro-B-Type Natriuretic Peptide 191 pg/ml (0-900) Total Protein 6.5 gm/dl (6.4-8.2) Albumin 2.7 gm/dl (3.4-5.0) Globulin 3.8 gm/dl (2.5-4.0) Albumin/Globulin Ratio 0.7 (0.9-2) Bedside Lactic Acid Venous 1.24 mmol/L (0.90-1.70) Bedside Troponin I < 0.030 ng/ml (0-0.045) Test 11/17/17 08:15 White Blood Count 3.87 K/uL (4.8-10.8) Red Blood Count 3.81 M/uL (4.2-5.4) Hemoglobin 10.1 g/dL (12.0-16.0) Hematocrit 32.1 % (37-47) Mean Corpuscular Volume 84.3 fL (80-100) Mean Corpuscular Hemoglobin 26.5 pg (25-34) Mean Corpuscular Hemoglobin Concent 31.5 g/dl (32-36) RDW Standard Deviation 50.4 fL (36.4-46.3) RDW Coefficient of Variation 16.5 % (11.5-14.5) Platelet Count 305 K/uL (130-400) Mean Platelet Volume 9.4 fL (7.4-10.4) Sodium Level 136 mmol/L (136-145) Potassium Level 3.2 mmol/L (3.5-5.1) Chloride Level 103 mmol/L (98-107) Carbon Dioxide Level 24 mmol/L (21-32) Anion Gap 9.0 mmol/L (3-11) Blood Urea Nitrogen 8 mg/dl (7-18) Creatinine 0.69 mg/dl (0.60-1.20) Est Creatinine Clear Calc Drug Dose 68.7 ml/min Estimated GFR () 101.5 Estimated GFR (Non- 87.6 BUN/Creatinine Ratio 11.9 (10-20) Random Glucose 211 mg/dl (70-99) Calcium Level 8.5 mg/dl (8.5-10.1) Magnesium Level 1.7 mg/dl (1.8-2.4) Iron Level 33 mcg/dl (35-150) Total Iron Binding Capacity 212 mcg/dl (250-450) Hepatitis C Antibody Screen NEG (NEG) Micro Results: Date/Time Source Procedure Growth Status 11/16/17 23:07 Blood Blood Culture Pending Received 11/16/17 22:16 Blood Blood Culture Pending Received Recent Pertinent Medications Doxycycline, tamiflu Assessment & Plan Assessment: 73 yo F with recent treatment for influenza/pneumonia with tamiflu doxycycline presenting with SOB, increased O2 requirements and productive cough CXR with "with new superimposed patchy alveolar opacities throughout the right lung suspicious for superimposed pneumonia" WBC 3.9, Afebrile Starting vancomycin, levofloxacin, cefepime Plan Loading dose: 1750 mg (25 mg/kg) IV X 1 dose then: 750 mg (10 mg/kg) IV every 12 hours. Population PK: estimated T1/2 ~11-13 hours Goal trough level estimate: between 15-20 mcg/mL. Trough has been ordered for 11/19 @ 0330 Pharmacy will continue to follow and will adjust dose/frequency as necessary. Thank you
--- NOTE | 2017-11-17 13:01 | Hospitalist Progress Note ---
Hospitalist Progress Note Date of Service Nov 17, 2017. (Breanne Butler PA-C) Subjective Pt evaluation today including: conversation w/ patient, physical exam, chart review, lab review, review of studies, review of inpatient medication list Pain: None PO Intake: Adequate Voiding: no voiding problems Patient seen and evaluated. Admitted early this AM. Reporting improvement already but lungs very course with crackles and exp. wheeze with generally poor aeration. She is sitting in room without O2 on and states she actually ambulated to the bathroom without it and felt ok but not completely baseline. She does use baseline 2 L Patient follows with [facility] at [facility] and reports they are considering lung transplantation in the future. Constitutional: No fever, No chills Respiratory: + cough, + sputum, + wheezing, + shortness of breath Cardiovascular: No chest pain Abdomen: + diarrhea (2 days ago but currently resolving), No pain, No nausea , No vomiting, No GI bleeding Musculoskeletal: No swelling, No calf pain Female : No dysuria Heme: No abnormal bleeding/bruising Skin: No rash (Breanne Butler, VAC) Medications Current Inpatient Medications Medications (Trade) Dose Ordered Sig/Gordon Route Start Time Stop Time Status Last Admin Dose Admin Aspirin (Ecotrin Tab) 81 mg QAM PO 11/17/17 08:00 12/17/17 08:59 11/17/17 08:13 81 MG Atorvastatin Calcium (Lipitor Tab) 80 mg HS PO 11/17/17 21:00 12/17/17 20:59 Bupropion HCl (Wellbutrin-Xl Tab) 300 mg QAM PO 11/17/17 08:00 12/17/17 08:59 11/17/17 08:13 300 MG Calcium/Vitamin D (Caltrate Plus Tab) 1 tab QAM PO 11/17/17 08:00 12/17/17 08:59 11/17/17 08:13 1 TAB Ibuprofen (Advil Tab) 400 mg Q4H PRN PO 11/17/17 04:30 12/17/17 04:29 Levothyroxine Sodium (Synthroid Tab) 25 mcg DAILYBB PO 11/17/17 06:30 12/17/17 06:59 11/17/17 06:19 25 MCG Prednisone (PredniSONE TAB) 7.5 mg QAM PO 11/17/17 08:00 12/17/17 08:59 Future Hold Pantoprazole Sodium (Protonix Tab) 40 mg QAM PO 11/17/17 08:00 12/17/17 08:59 11/17/17 08:14 40 MG Enoxaparin Sodium (Lovenox Inj) 40 mg Q24H SQ 11/17/17 09:00 12/17/17 08:59 11/17/17 08:14 40 MG Acetaminophen (Tylenol Tab) 650 mg Q4H PRN PO 11/17/17 04:30 12/17/17 04:29 Al Hydrox/Mg Hydrox/Simethicone (Maalox Max Susp) 15 ml Q4H PRN PO 11/17/17 04:30 12/17/17 04:29 Magnesium Hydroxide (Milk Of Magnesia Susp) 30 ml Q6H PRN PO 11/17/17 04:30 12/17/17 04:29 Polyethylene (Miralax Powder Packet) 17 gm DAILY PRN PO 11/17/17 04:30 12/17/17 04:29 Ondansetron HCl (Zofran Inj) 4 mg Q6H PRN IV 11/17/17 04:30 12/17/17 04:29 Albuterol/ Ipratropium (Duoneb) 3 ml Q6R INH 11/17/17 09:00 12/17/17 08:59 11/17/17 07:18 3 ML Albuterol Sulfate (Ventolin 0.083% 2.5MG/3ML Neb) 2.5 mg Q4H PRN INH 11/17/17 04:30 12/17/17 04:29 Methylprednisolone Sodium Succinate 40 mg/Syringe 0.64 ml @ 1.5 mls/min Q6H IV 11/17/17 04:45 12/17/17 04:44 11/17/17 11:22 1.5 MLS/MIN Cefepime HCl 1000 mg/Syringe 11 ml @ 5.5 mls/min Q8H IV 11/17/17 08:00 11/24/17 07:59 11/17/17 08:12 5.5 MLS/MIN Levofloxacin 750 mg/Prmx 150 ml @ 100 mls/hr Q24H IV 11/17/17 23:00 11/24/17 22:59 Miscellaneous Information (Consult) 1 ea UD PRN N/A 11/17/17 05:30 12/17/17 05:29 Vancomycin HCl 750 mg/Sodium Chloride 265 ml @ 125 mls/hr Q12H IV 11/17/17 16:00 11/24/17 15:59 (Breanne Butler PA-C) Objective Vital Signs Date Time Temp Pulse Resp B/P (MAP) Pulse Ox O2 Delivery O2 Flow Rate FiO2 11/17/17 11:33 36.8 85 18 112/72 (85) 90 Room Air 11/17/17 08:00 95 Nasal Cannula 2.0 11/17/17 07:28 36.6 66 16 120/74 (89) 95 Nasal Cannula 2.0 11/17/17 05:51 36.6 75 18 130/83 97 Nasal Cannula 2.0 11/17/17 05:17 36.7 68 17 114/75 100 11/17/17 04:37 123/80 100 11/17/17 02:37 68 17 100/65 100 Nasal Cannula 2.0 11/17/17 01:30 70 18 105/69 100 Nasal Cannula 2.0 11/17/17 00:40 71 17 127/80 100 Room Air 11/16/17 22:44 77 18 107/73 100 Nasal Cannula 4.0 11/16/17 22:11 98 Nasal Cannula 4.0 11/16/17 20:59 Nasal Cannula 11/16/17 20:56 36.7 87 16 90/68 98 Nasal Cannula (Breanne Butler PA-C) Physical Exam General Appearance: WD/WN, no apparent distress Eyes: sclerae normal ENT: hearing grossly normal Neck: supple, no JVD, trachea midline Respiratory/Chest: no respiratory distress, no accessory muscle use, + crackles (b/l), + wheezing (exp. diffuse), + pertinent finding (poor aeration diffusely) Cardiovascular: regular rate, rhythm, no gallop, no murmur Abdomen: normal bowel sounds, non tender, soft Extremities: no pedal edema Neurologic/Psychiatric: alert, oriented x 3 Skin: normal color, warm/dry (Breanne Butler PA-C) Laboratory Results Last 24 Hours Test 11/16/17 22:02 11/16/17 22:16 11/16/17 23:15 11/16/17 23:16 Influenza Type A Antigen Neg for Influ A Influenza Type B Antigen Neg for Influ B White Blood Count 5.72 K/uL Red Blood Count 3.94 M/uL Hemoglobin 10.4 g/dL Hematocrit 33.2 % Mean Corpuscular Volume 84.3 fL Mean Corpuscular Hemoglobin 26.4 pg Mean Corpuscular Hemoglobin Concent 31.3 g/dl Platelet Count 329 K/uL Mean Platelet Volume 10.0 fL Neutrophils (%) (Auto) 86.2 % Lymphocytes (%) (Auto) 7.3 % Monocytes (%) (Auto) 5.4 % Eosinophils (%) (Auto) 0.7 % Basophils (%) (Auto) 0.2 % Neutrophils # (Auto) 4.93 K/uL Lymphocytes # (Auto) 0.42 K/uL Monocytes # (Auto) 0.31 K/uL Eosinophils # (Auto) 0.04 K/uL Basophils # (Auto) 0.01 K/uL RDW Standard Deviation 51.6 fL RDW Coefficient of Variation 16.9 % Immature Granulocyte % (Auto) 0.2 % Immature Granulocyte # (Auto) 0.01 K/uL Prothrombin Time 11.0 SECONDS Prothromb Time International Ratio 1.0 Activated Partial Thromboplast Time 26.6 SECONDS Partial Thromboplastin Ratio 1.0 Sodium Level 136 mmol/L Potassium Level 4.1 mmol/L Chloride Level 104 mmol/L Carbon Dioxide Level 27 mmol/L Anion Gap 5.0 mmol/L Blood Urea Nitrogen 11 mg/dl Creatinine 0.63 mg/dl Est Creatinine Clear Calc Drug Dose 74.3 ml/min Estimated GFR () 104.6 Estimated GFR (Non- 90.2 BUN/Creatinine Ratio 17.0 Random Glucose 137 mg/dl Calcium Level 8.5 mg/dl Magnesium Level 1.8 mg/dl Total Bilirubin 0.6 mg/dl Aspartate Amino Transf (AST/SGOT) 46 U/L Alanine Aminotransferase (ALT/SGPT) 35 U/L Alkaline Phosphatase 100 U/L Troponin I < 0.015 ng/ml Pro-B-Type Natriuretic Peptide 191 pg/ml Total Protein 6.5 gm/dl Albumin 2.7 gm/dl Globulin 3.8 gm/dl Albumin/Globulin Ratio 0.7 Bedside Lactic Acid Venous 1.24 mmol/L Bedside Troponin I < 0.030 ng/ml Test 11/17/17 08:15 White Blood Count 3.87 K/uL Red Blood Count 3.81 M/uL Hemoglobin 10.1 g/dL Hematocrit 32.1 % Mean Corpuscular Volume 84.3 fL Mean Corpuscular Hemoglobin 26.5 pg Mean Corpuscular Hemoglobin Concent 31.5 g/dl RDW Standard Deviation 50.4 fL RDW Coefficient of Variation 16.5 % Platelet Count 305 K/uL Mean Platelet Volume 9.4 fL Sodium Level 136 mmol/L Potassium Level 3.2 mmol/L Chloride Level 103 mmol/L Carbon Dioxide Level 24 mmol/L Anion Gap 9.0 mmol/L Blood Urea Nitrogen 8 mg/dl Creatinine 0.69 mg/dl Est Creatinine Clear Calc Drug Dose 68.7 ml/min Estimated GFR () 101.5 Estimated GFR (Non- 87.6 BUN/Creatinine Ratio 11.9 Random Glucose 211 mg/dl Calcium Level 8.5 mg/dl Magnesium Level 1.7 mg/dl Iron Level 33 mcg/dl Total Iron Binding Capacity 212 mcg/dl Hepatitis C Antibody Screen NEG (Breanne Butler, HANNAH) Assessment and Plan 73 y/o F Hx Hypothyroidism, CAD, HPL, pulmonary fibrosis - 2l home 02. Pt was recently treated for influenza and presumed PNM with Tamiflu and Doxycycline. Despite compliance, she relates progressive SOB and states that her 02 requirements have increased to 4l. She reports a productive cough. She could not confirm a fever. A CXR is consistent with R sided pneumonia. She denies CP , N/V/D or dysuria. Acute on Chronic Hypoxic Respiratory Failure 2/2 Pneumonia vs Pulmonary Fibrosis vs Aspiration Pneumonitis: - Patient reports already starting to feel better since arriving to hospital; after discussion she does state she gets a lot of reflux and is due to Omid Fundiplication in the future and also reports intermittent chocking on foods; Question of possible supperimposed aspiration; given reduction in WBC question of possible viral component - Cefepime 1 g IV Q8H and Levaquin 750 mg IV daily and Vancomycin - Solu-Medrol 40 mg IV Q6H - Continue Duonbes CAD: STABLE - ASA 81 mg daily, Lipitor 80 mg daily Depression/Anxiety: - Wellbutrin 300 mg daily Hypothryoidism: - Synthroid 25 mcg daily Anemia - Normocytic: Baseline 10.9-11.7 - Mild reduction but no active signs of bleeding - Iron is mildly reduced on labs DVT Prophylaxis: Lovenox Code Status: FULL RESUSCITATION Disposition: Await clinical improvement Continued [facility] stay due to: multiple IV medications needed Discharge planning: home (Breanne Butler PA-C) Reviewed: Pt Seen/Exam by Me (Chantel Campoverde MD) 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 Discussed with CHLOE Butler and agree with findings and plan as documented in the note. Any exceptions or clarifications are listed here: Patient already feeling better, wean down to her home oxygen requirement of 2 L. She is a long history of severe reflux and is planning on undergoing a Dinh fundoplication in the near future. That is required prior to her lung transplantation. Cough is minimally productive. Afebrile here. Vitals reviewed Gen: AAOx3, NAD HEENT: anicteric sclerae, EOMI CV: RRR 2/6 systolic ejection murmur at the RUSB, nl S1S2 Pulm: Diffuse Velcro-like crackles in the lower and middle lung eaton bilaterally, some mild expiratory wheezes Abd: +BS soft NT ND no masses or hernias Ext: no edema, 2+ DP pulses Skin: no rashes, warm/dry Neuro: full strength throughout Patient is a 72-year-old female with history of interstitial lung disease, mild obstructive disease with reversibility with bronchodilators as on PFTs in 09/2016 , severe GERD with hiatal hernia, pulmonary lymphoma (patient thinks B-cell lymphoma, followed by Dr. Freire of oncology), and other history as above, admitted with right-sided post viral pneumonia. Suspect aspiration may play a role as well. -Add on clindamycin to cover for aspiration, continue Levaquin for community- acquired pneumonia and cover for atypicals, continue vancomycin for MRSA coverage given recent flulike symptoms -Continue supplemental O2 -Supportive care -Pulmonary consultation to ensure no further evaluation or treatment needs to be done given her considerable underlying chronic lung disease Documented By: Chantel Campoverde (Chantel Campoverde MD)
[2017-11-17] MEDS ORDERED: MAGNESIUM OXIDE 400 MG TAB PO ONE (13:15)
[2017-11-17] MEDS ORDERED: POTASSIUM CHLORIDE 20 MEQ TABCR PO ONE (13:15)
[2017-11-17] MEDS ORDERED: GLUCOSE 40% GEL 15 GM TUBE PO PRN (13:45)
[2017-11-17] MEDS ORDERED: GLUCAGON FOR INJ 1 MG VIAL SQ PRN (13:45)
[2017-11-17] MEDS ORDERED: GLUCOSE 10 TABS/TUBE PO PRN (13:45)
[2017-11-17] MEDS ORDERED: DEXTROSE 50% 50 ML SYR IV PRN (13:45)
[2017-11-17] MEDS: VANCOMYCIN IV 750 MG in SODIUM CHLORIDE 0.9% 250ML 250 ML IV SCH (15:49)
[2017-11-17] MEDS: INSULIN ASPART 100 UNITS/ML 3 ML PEN SC SCH ×2 (17:21→21:08)
[2017-11-17] MEDS: CLINDAMYCIN IV 600 MG in DEXTROSE 5% 50ML 50 ML IV SCH (17:56)
[2017-11-17] MEDS ORDERED: LACTOBACILLUS ACIDOPHILUS (FLORANEX) TAB PO ONE (19:30)
[2017-11-17] MEDS: ATORVASTATIN 40 MG TAB PO SCH (20:58)
[2017-11-17] MEDS ORDERED: LEVOFLOXACIN / D5W 750 MG in PREMIXED IN D5W 150 ML IV SCH (23:00)
[2017-11-18] VITALS (10 sets, daily range): BP systolic 100–135; BP diastolic 65–83; PULSE 68–90; TEMP 36.6–37.3; O2SAT 94–100
[2017-11-18] MEDS: METHYLPREDNISOLONE IV 40 MG in SYRINGE 0 ML IV SCH ×4 (00:04→18:08)
[2017-11-18] MEDS: ALBUT/IPRATROP 3MG/0.5MG NEB 3 ML VIAL INH SCH ×4 (01:41→19:23)
[2017-11-18] MEDS: VANCOMYCIN IV 750 MG in SODIUM CHLORIDE 0.9% 250ML 250 ML IV SCH (03:56)
[2017-11-18 06:03] LABS: BASO % 0.1 %; BASO ABS # 0.01 K/uL (0-0.2); HEMATOCRIT 26.2 % (37-47); HEMOGLOBIN 8.1 g/dL (12.0-16.0); IG# 0.07 K/uL (0.00-0.02); LYMPH % 3.4 %; LYMPH ABS # 0.46 K/uL (1.2-3.4); MEAN CELL VOLUME 84.8 fL (80-100); MEAN CORPUSCULAR HEMOGLOBIN 26.2 pg (25-34); MEAN CORPUSCULAR HGB CONC 30.9 g/dl (32-36); MEAN PLATELET VOLUME 9.3 fL (7.4-10.4); MONO % 3.1 %; MONO ABS # 0.43 K/uL (0.11-0.59); NEUT % 92.9 %; NEUT ABS # 12.74 K/uL (1.4-6.5); PLATELET COUNT 336 K/uL (130-400); RED CELL DISTRIBUTION WIDTH CV 16.9 % (11.5-14.5); RED CELL DISTRIBUTION WIDTH SD 52.2 fL (36.4-46.3); WHITE BLOOD COUNT 13.71 K/uL (4.8-10.8)
[2017-11-18] MEDS: LEVOTHYROXINE 25 MCG TAB PO SCH (06:18)
[2017-11-18] MEDS: CLINDAMYCIN IV 600 MG in DEXTROSE 5% 50ML 50 ML IV SCH (06:18)
[2017-11-18 06:48] LABS: CALCIUM 8.6 mg/dl (8.5-10.1); CREATININE 0.75 mg/dl (0.60-1.20); POTASSIUM 4.7 mmol/L (3.5-5.1)
[2017-11-18] MEDS: ASPIRIN 81 MG ECTAB PO SCH (08:40)
[2017-11-18] MEDS: CALCIUM 600MG + VIT D 400 IU TAB PO SCH (08:40)
[2017-11-18] MEDS: LACTOBACILLUS ACIDOPHILUS (FLORANEX) TAB PO SCH ×3 (08:40→17:11)
[2017-11-18] MEDS: PANTOprazole SOD 40 MG TAB PO SCH (08:40)
[2017-11-18] MEDS: ENOXAPARIN 40 MG/0.4 ML SYR SQ SCH (08:41)
[2017-11-18] MEDS: BuPROPion XL 300 MG TABCR PO SCH (08:41)
[2017-11-18] MEDS: INSULIN ASPART 100 UNITS/ML 3 ML PEN SC SCH ×4 (08:49→21:13)
--- NOTE | 2017-11-18 10:10 | Pulmonary Consultation ---
History General Date of Service: Nov 18, 2017. Stated Complaint: Pneumonia HPI The patient is a 72 year old female who presents to [facility] with complaints of Pneumonia. The patient's primary care provider is Fernie Alas M.D.. Previously followed by Dr. Angel Luis Rubin 72-year-old female admitted with acute on chronic respiratory insufficiency and possible pneumonia. Patient has a very complex PmHx: Has been followed by [facility] Dr. Albino Gipson for ILD/UIP/LIP and chronically on steroids at 7.5 mg daily. Patient initially underwent evaluation for biopsies in 2008 at [facility] with a possible diagnosis of mixed connective tissue disease. After the patient's pathology had been reviewed by Dr. Burroughs/pulmonary pathologist a diagnosis of LIP and UIP with made. Along with this the patient has been chronically steroid dependent with a diagnosis of chronic GERD/aspiration currently being worked up for Dinh fundoplication with CTS at [facility] and doctor Vazquez. Patient did undergo right heart catheterization: Pulmonary arterial pressures 27/8--14, PCWP-2, cardiac index 2.76, cardiac output by thermodilution 4.91. Along with this the patient has had multiple repeat pulmonary function studies both urine at [facility] the last performed at [facility] on 09/08/2016 and the previous 1 on 01/08/2016. Both of these pulmonary function studies show a mild restrictive possibly obstructive ventilatory disease with minimal reduction in lung volumes but a dramatic drop/ severe decrease in patient's diffusion capacity. Patient also underwent an EGD on 03/2016 with diagnosis of Schatzki's ring requiring dilation at that time. She has been evaluated multiple times for oxygen supplementation required 2 L at rest and 3-5 L with exertion which the patient is not notably poorly compliant. Once again the patient is chronically treated with prednisone, Advair and Flonase, antihistamines as well as aggressive dietary habits to reduce GERD intact. Patient is noting an overall increase in her pulmonary status but is not back to her baseline but does continue to have a mildly productive cough but currently denies: Fever, chills, pleurisy or classic cardiac chest pain. Work-up WBC: [id number] H/H: 04/03 Albumin: 2.7 Procalcitonin: <0.05 UA: Trace leukocyte esterase, WBCs 10--30, urine nitrite positive Influenza a and B antigen: Negative CXR compared to 11/06/2017 Chronic interstitial lung disease, new superimposed patchy alveolar opacifications throughout the right lung suspicious for superimposed pneumonia Treatment: 1. Levofloxacin 750 mg 2. Clindamycin 600 mg Q 12 3. Enoxaparin 40 mg subcutaneous 4. Duo nebs q.6 hours 5. Pantoprazole 40 mg 6. Methylprednisolone 40 mg q.6 hours 7. Albuterol nebulizer Q 4 p.r.n. shortness of breath PmHx: 1. CAD/3-vessel: PTCI-VIOLA 2. Sjogren syndrome 3. Lymphocytic interstitial pneumonitis 4. Depression 5. Gastroparesis 6. Hiatal hernia with gastroesophageal reflux 7. Hyperlipidemia 8. Hypothyroidism 9. Idiopathic lymphocytic interstitial pneumonitis 10. Lumbar compression fracture 11. Chronic prednisone therapy 12. Osteoporosis 13. Osteoporotic compression fracture of spine 14. Pelvic fracture 15. Post-nasal drainage 16. History of negative PPD 17. Primary pulmonary lymphoma 18. Schatzki's ring 19. Possible mixed connective tissue diseases lung Surgical History 1. Back Surgery 2. Section 3. Femur Repair--2006 4. Hysterectomy--1997 5. Knee Replacement 6. PCI 7. EGD 03/2016 undergoing dilation 8. Open lung biopsy [facility]--suggested mixed connective tissue disease Family History 1. Mother--breast cancer 2. Father-- Lung i disease 3. Older sister chronic dementia 4. asthma Social History Never a smoker/secondhand exposure from father and sister Retired [place] in [place] she lived until the age of 22, great deal exposure to animals/Gib[place], home heated by coal Two children: Current Meds 1. BuPROPion HCl ER (XL) 300 MG Oral Tablet Extended Release 24 Hour; QD 2. Nitrostat 0.4 MG Sublingual Tablet Sublingual; PLACE 1 TABLET UNDER THE TONGUE EVERY 5 MINUTES FOR UP TO 3 DOSES NEEDED FOR CHEST PAIN.CALL 3. Atorvastatin Calcium 80 MG Oral Tablet; TAKE ONE TABLET BY MOUTH ONCE DAILY; 4. Levothyroxine Sodium 25 MCG Oral Tablet; TAKE 1 TABLET Every morning 1 tab Q am on 5. PredniSONE 2.5 MG Oral Tablet; TAKE ONE TABLET BY MOUTH DAILY IN ADDITION TO 5MG TABLET 6. PredniSONE 5 MG Oral Tablet; TAKE 2 TABLET Daily 7. Diclofenac Sodium 1 % Transdermal Gel; APPLY TO LOWER EXTREMITIES, 4 GM OF GEL TO AFFECTED AREA 4 TIMES DAILY. DO NOT APPLY MORE THAN 16 GM DAILY TO ANY ONE AFFECTED JOINT; 8. Hydrocodone-Acetaminophen 5-325 MG Oral Tablet; TAKE 1 TABLET EVERY 6 HOURS 9. Azelastine HCl - 0.1 % Nasal Solution; INSTILL 1 SPRAY Twice daily in each nostril; 10. Advair Diskus 100-50 MCG/DOSE Inhalation BID 11. Aspirin 81 MG TABS; Take 1 tablet daily; 12. Calcium 1000 + D 1000-800 MG-UNIT Oral Tablet; Take 1 tablet daily; 13. Ibuprofen PM 200-38 MG Oral Tablet; TAKE 2 TABLETS AT BEDTIME; 14. Lutein CAPS 15. Milk Thistle 175 MG Oral Capsule; TAKE 1 CAPSULE Daily; 16. Prevacid 15 MG Oral Capsule Delayed Release; TAKE 1 CAPSULE Daily; 17. Stress B/Zinc Oral Tablet; TAKE 1 TABLET DAILY DIRECTED; 18. Vitamin D3 1000 UNIT Oral Tablet; Take 1 tablet daily; 19. Vitamin E 1000 UNIT Oral Capsule; TAKE 1 CAPSULE DAILY; Allergies 1. Adhesive Tape TAPE Review of Systems Constitutional: reports: as stated in HPI, weakness Eyes: reports: no symptoms ENT: reports: no symptoms Cardiovascular: reports: as stated in HPI Respiratory: reports: as stated in HPI Gastrointestinal: reports: no symptoms Genitourinary - Female: reports: no symptoms Musculoskeletal: reports: no symptoms Integumentary: reports: no symptoms Neurologic: reports: no symptoms Endocrine: no symptoms Hematologic / Lymphatic: no symptoms Allergic / Immunologic: no symptoms Past Medical History Past Medical History: Please refer to HPI Past Surgical History: Please refer to HPI Family History Please refer to HPI Social History Hx Tobacco Use In Past Year?: No Smoking Status: Never Smoker Marital status: Occupational Status: retired Allergies Coded Allergies: Adhesives (Verified Allergy, Intermediate, ITCHY, "BLISTERY" SKIN, 11/16/17 ) Tramadol (Verified Allergy, Intermediate, rash, 11/16/17) Current Medications Reported Home Medications Medications Dose Route/Sig Max Daily Dose Days Date Category Milk Thistle (Milk Thistle (Silybum Marianum) 175 Mg Cap 175 Mg PO QAM 11/16/17 Reported Wellbutrin-Xl (Bupropion HCl) 300 Mg Tabcr 300 Mg PO QAM 11/06/17 Reported Vitamin D3 (Cholecalciferol) 2,000 Unit Cap 1 Cap PO QAM 06/14/16 Reported E-1000 (Vitamin E) 1,000 Unit Cap 1,000 Units PO QAM 06/14/16 Reported Advil (Ibuprofen) 200 Mg Tab 200-600 Mg PO Q4H PRN 02/20/16 Reported Prednisone 5 Mg Tab 7.5 Mg PO QAM 02/20/16 Reported Nitrostat (Nitroglycerin) 0.4 Mg Tab 0.4 Mg UT PRN 02/20/16 Reported Lutein (Lutein-Zeaxanthin) 1 Cap Cap 1 Cap PO QAM 02/20/16 Reported Levothyroxine Sodium 25 Mcg Tab 1 Tab PO QAM 02/20/16 Reported Os-Young 500 Plus D (Calcium/Vitamin D) Tab 1 Tab PO QAM 02/20/16 Reported Prevacid (Lansoprazole) 15 Mg Cap 1 Cap PO QAM 11/21/15 Reported Lipitor (Atorvastatin Calcium) 80 Mg Tab 80 Mg PO HS 11/21/15 Reported Aspirin Ec (Aspirin) 81 Mg Tab 81 Mg PO QAM 11/21/15 Reported Physical Physical Exam Vital Signs: Date Time Temp Pulse Resp B/P (MAP) Pulse Ox O2 Delivery O2 Flow Rate FiO2 11/18/17 07:24 36.6 79 20 100/65 (77) 94 Nasal Cannula 2.0 11/18/17 07:04 70 16 94 Nasal Cannula 2.0 11/18/17 04:05 36.6 85 18 109/73 (85) 94 Room Air 11/18/17 01:41 90 16 95 Nasal Cannula 2.0 11/18/17 00:00 Nasal Cannula 2.0 11/17/17 23:11 36.8 89 18 102/67 (79) 94 Nasal Cannula 2.0 11/17/17 19:24 84 16 95 Nasal Cannula 2.0 11/17/17 19:19 36.6 84 20 99/63 (75) 95 Nasal Cannula 2.0 11/17/17 16:03 36.8 95 18 102/67 (79) 94 Nasal Cannula 2.0 11/17/17 16:00 94 Nasal Cannula 2.0 11/17/17 14:12 74 14 99 Nasal Cannula 2.0 11/17/17 11:33 36.8 85 18 112/72 (85) 90 Room Air General Appearance: WELL-APPEARING Head: NORMOCEPHALIC, ATRAUMATIC Eyes: PERRLA, NO DISCHARGE, EOMI ENT: NORMAL EAR EXAM, NORMAL NASAL EXAM, NORMAL MOUTH EXAM, NORMAL THROAT EXAM Neck: NORMAL RANGE OF MOTION, NO TENDERNESS, TRACHEA MIDLINE, NO STRIDOR Respiratory: other (Inspiratory Velcro rales bilaterally with some mild expiratory rhonchi) Cardiovasular: REGULAR RATE/RHYTHM, NORMAL S1S2, NO M/G/R, NO MURMUR Abdomen: NON TENDER, NORMAL BOWEL SOUNDS, NO REBOUND, NO MASSES, NO GUARDING Genitourinary - Female: EXTERNAL GENITALIA NORMAL Back: other (Moderate to severe kyphosis) Upper Extremities: NO EDEMA, NO DEFORMITY, NORMAL ROM Lower Extremities: NO EDEMA, NO DEFORMITY, NORMAL ROM Pulses: carotid (R) (2+), carotid (L) (2+), posterior tibial (R), posterior tibial (L) (2+) Neuro: ALERT, ORIENTED x 3, NORMAL MOTOR EXAM, NORMAL SENSATION, NORMAL CEREBELLAR EXAM Reflexes: biceps (R) (2+), bicpes (L) (2+), achilles (R) (2+), achilles (L) (2+ ) Babinski Testing: right (downgoing), left (downgoing) Psychiatric: NORMAL AFFECT, NO SUICIDAL IDEATION, CONTRACTS FOR SAFETY Diagnostics Labs Results Past 24 Hours Test 11/17/17 16:00 11/17/17 16:38 11/17/17 20:31 11/18/17 05:50 Range/Units Urine Color DK YELLOW Urine Appearance CLEAR CLEAR Urine pH 6.0 4.5-7.5 Urine Specific [place] 1.032 1.000-1.030 Urine Protein TRACE NEG Urine Glucose (UA) NEG NEG Urine Ketones TRACE NEG Urine Occult Blood NEG NEG Urine Nitrite POS NEG Urine Bilirubin NEG NEG Urine Urobilinogen NEG NEG Urine Leukocyte Esterase TRACE NEG Urine WBC (Auto) 10-30 0-5 /hpf Urine RBC (Auto) 0-4 0-4 /hpf Urine Hyaline Casts (Auto) 1-5 0-5 /lpf Urine Epithelial Cells (Auto) 10-20 0-5 /lpf Urine Bacteria (Auto) NEG NEG Bedside Glucose 172 203 70-90 mg/dl White Blood Count 13.71 4.8-10.8 K/uL Red Blood Count 3.09 4.2-5.4 M/uL Hemoglobin 8.1 12.0-16.0 g/dL Hematocrit 26.2 37-47 % Mean Corpuscular Volume 84.8 80-100 fL Mean Corpuscular Hemoglobin 26.2 25-34 pg Mean Corpuscular Hemoglobin Concent 30.9 32-36 g/dl Platelet Count 336 130-400 K/uL Mean Platelet Volume 9.3 7.4-10.4 fL Neutrophils (%) (Auto) 92.9 % Lymphocytes (%) (Auto) 3.4 % Monocytes (%) (Auto) 3.1 % Eosinophils (%) (Auto) 0.0 % Basophils (%) (Auto) 0.1 % Neutrophils # (Auto) 12.74 1.4-6.5 K/uL Lymphocytes # (Auto) 0.46 1.2-3.4 K/uL Monocytes # (Auto) 0.43 0.11-0.59 K/uL Eosinophils # (Auto) 0.00 0-0.5 K/uL Basophils # (Auto) 0.01 0-0.2 K/uL RDW Standard Deviation 52.2 36.4-46.3 fL RDW Coefficient of Variation 16.9 11.5-14.5 % Immature Granulocyte % (Auto) 0.5 % Immature Granulocyte # (Auto) 0.07 0.00-0.02 K/uL Hypochromasia PRESENT Ovalocytes 1+ Sodium Level 137 136-145 mmol/L Potassium Level 4.7 3.5-5.1 mmol/L Chloride Level 105 98-107 mmol/L Carbon Dioxide Level 28 21-32 mmol/L Anion Gap 4.0 3-11 mmol/L Blood Urea Nitrogen 35 7-18 mg/dl Creatinine 0.75 0.60-1.20 mg/dl Est Creatinine Clear Calc Drug Dose 63.7 ml/min Estimated GFR () 92.9 Estimated GFR (Non- 80.2 BUN/Creatinine Ratio 46.5 10-20 Random Glucose 175 70-99 mg/dl Calcium Level 8.6 8.5-10.1 mg/dl Magnesium Level 2.2 1.8-2.4 mg/dl Procalcitonin < 0.05 0-0.5 ng/ml Thyroid Stimulating Hormone (TSH) 0.322 0.300-4.500 uIu/ml Test 11/18/17 07:30 Range/Units Bedside Glucose 200 70-90 mg/dl Microbiology Results 11/17/17 MRSA DNA Surveillance Screen - Final, Complete Specimen Negative for MRSA by DNA Probe 11/17/17 Urine Culture, Received Pending Diagnostic Radiology Please refer to HPI EKG Interpretation: NORMAL EKG Impression Assessment and Plan The 72-year-old female admitted for acute on chronic respiratory insufficiency with changing her CXR: 1. Respiratory insufficiency: Patient at baseline is oxygen dependent secondary to ILD/UIP/LIP and chronically steroid dependent. It is possible the patient an acute pneumonia even possible aspiration. But is 90% of aspirations are chemical in nature and her procalcitonin is within normal limits I would like to discontinue her clindamycin at this time and continue the levofloxacin for a 7 day course. Along with this I will drop her prednisone down to 40 mg daily starting tomorrow. 2. 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 At this time would like to decrease the patient's prednisone starting 11/19/2017 down to 40 mg daily. Also like to continue on her outpatient medications with Advair, Flonase and antihistamines supplementation. [facility] has been working this patient aggressively to undergo Dinh fundoplication to help decrease the risk of chronic aspiration and UIP/ ILD/L IP exacerbations. Patient notes she like to go to [facility] after discharge to move forward with this intervention. 3. Hypoxemia: Prior to patient's discharge we should perform a 2 step to properly titrate her oxygen supplementation. Along with this I would like to perform an echo cardiogram/bubble study as I do not have report suggesting a shunt study was performed during the patient's right heart catheterization or previous bubble studies have been performed. If there is a shunt physiology this will better explain the patient's underlying hypoxemia/decreased diffusion capacity which is out of proportion to her current restrictive ventilatory disease.
--- NOTE | 2017-11-18 12:25 | ECHOCARDIOGRAM REPORT ---
*NOTICE TO RECEIVING CONSTITUTION PARTY AGENCY This information is strictly Confidential and protected under [place] law. [place] law prohibits you from making any further disclosure of this information unless further disclosure is expressly permitted by the written consent of the person to whom it pertains or is authorized by law. A general authorization for the release of medical or other information is not sufficient for this purpose. Hospital accepts no responsibility if the information is made available to any other person, INCLUDING THE PATIENT. Interpretation Summary * Name: ELDA CARTAGENA Study Date: 11/18/2017 10:34 AM BP: 100/65 mmHg * Patient Location: 4E\S\E415\S\1 HR: 97 * : 1945 (M/d/yyyy) Gender: Female Height: 61 in * Age: 72 yrs Ethnicity: CA Weight: 165 lb * Ordering Physician: Thang Sotelo * Referring Physician: Self, Referred * Performed By: Ermelinda Serrano RCS * * Reason For Study: HYPOXEMIA / BUBBLE STUDY EVAL FOR ABN SHUNT PHYSIOLOGY * BSA: 1.7 m2 * -- Conclusions -- * There is borderline concentric left ventricular hypertrophy. * Left ventricular systolic function is normal. * Grade I diastolic dysfunction, (abnormal relaxation pattern). * Borderline left atrial enlargement. * Injection of contrast documented no interatrial shunt. * No shunt identified with bubble study * Right ventricular systolic pressure is elevated at 30-40mmHg. * Compared to study from 2016, there is no current evidence of mitral regurgitation. Procedure Details * A complete two-dimensional transthoracic echocardiogram was performed (2D, M-mode, Doppler and color flow Doppler). * A saline contrast injection was performed to assess for cardiac shunting. * The injection was performed through an intravenous line in the right arm. * The attending nurse who injected the saline contrast was JOAN MENDES RN. * A total of 20 cc of agitated saline was given. Left Ventricle * The left ventricle is normal in size. * Focal thickening of the basal septum with no evidence of left ventricular outflow obstruction. * There is borderline concentric left ventricular hypertrophy. * Left ventricular systolic function is normal. * Ejection Fraction = 60-65%. * Grade I diastolic dysfunction, (abnormal relaxation pattern). * The left ventricular wall motion is normal. Right Ventricle * The right ventricle is grossly normal size. Atria * Borderline left atrial enlargement. * Right atrial size is normal. * Injection of contrast documented no interatrial shunt. * No shunt identified with bubble study Mitral Valve * The mitral valve is grossly normal. * Significant mitral regurgitation is absent. Tricuspid Valve * The tricuspid valve is not well visualized, but is grossly normal. * There is trace tricuspid regurgitation. * Right ventricular systolic pressure is elevated at 30-40mmHg. Aortic Valve * The aortic valve is normal in structure and function. * No hemodynamically significant valvular aortic stenosis. * No aortic regurgitation is present. Pulmonic Valve * The pulmonic valve is not well visualized. Great Vessels * The aortic root is normal size. Pericardium/Pleural * There is no pericardial effusion. Great Vessels * Normal inferior vena cava diameter and respiratory variation suggests normal central venous pressure. MMode 2D Measurements and Calculations IVSd 1.7 cm IVSs 2.0 cm LVIDd 3.0 cm LVIDs 2.1 cm LVPWd 1.3 cm LVPWs 1.2 cm IVS/LVPW 1.3 FS 28.4 % EDV(Teich) 33.8 ml ESV(Teich) 14.7 ml EF(Teich) 56.5 % EDV(cubed) 25.9 ml ESV(cubed) 9.5 ml EF(cubed) 63.3 % % IVS thick 15.8 % % LVPW thick -8.41 % LV mass(C)d 154.9 grams LV mass(C)dI 89.0 grams/m\S\2 LV mass(C)s 114.8 grams LV mass(C)sI 65.9 grams/m\S\2 SV(Teich) 19.1 ml SI(Teich) 11.0 ml/m\S\2 SV(cubed) 16.4 ml SI(cubed) 9.4 ml/m\S\2 Ao root diam 3.3 cm Ao root area 8.7 cm\S\2 ACS 2.4 cm LA dimension 4.0 cm LA/Ao 1.2 LVOT diam 2.0 cm LVOT area 3.2 cm\S\2 LVAd ap4 31.5 cm\S\2 LVLd ap4 8.1 cm EDV(MOD-sp4) 98.5 ml EDV(sp4-el) 104.2 ml LVAs ap4 17.5 cm\S\2 LVLs ap4 6.6 cm ESV(MOD-sp4) 39.2 ml ESV(sp4-el) 39.8 ml EF(MOD-sp4) 60.1 % EF(sp4-el) 61.8 % LVAd ap2 30.4 cm\S\2 LVLd ap2 7.9 cm EDV(MOD-sp2) 95.5 ml EDV(sp2-el) 99.2 ml LVAs ap2 15.1 cm\S\2 LVLs ap2 6.1 cm ESV(MOD-sp2) 30.6 ml ESV(sp2-el) 31.8 ml EF(MOD-sp2) 67.9 % EF(sp2-el) 68.0 % LVLd %diff -2.27 % EDV(MOD-bp) 96.4 ml LVLs %diff -7.80 % ESV(MOD-bp) 35.1 ml EF(MOD-bp) 63.6 % SV(MOD-sp4) 59.2 ml SI(MOD-sp4) 34.0 ml/m\S\2 SV(MOD-sp2) 64.8 ml SI(MOD-sp2) 37.2 ml/m\S\2 SV(MOD-bp) 61.2 ml SI(MOD-bp) 35.2 ml/m\S\2 SV(sp4-el) 64.4 ml SI(sp4-el) 37.0 ml/m\S\2 SV(sp2-el) 67.5 ml SI(sp2-el) 38.8 ml/m\S\2 Doppler Measurements and Calculations MV E max mari 74.4 cm/sec MV A max mari 109.5 cm/sec MV E/A 0.68 MV P1/2t max mari 91.8 cm/sec MV P1/2t 94.6 msec MVA(P1/2t) 2.3 cm\S\2 MV dec slope 284.2 cm/sec\S\2 MV dec time 0.40 sec Ao V2 max 128.3 cm/sec Ao max PG 6.6 mmHg Ao max PG (full) 0.95 mmHg LANCE(V,A) 3.0 cm\S\2 LANCE(V,D) 3.0 cm\S\2 LV V1 max PG 5.6 mmHg LV V1 max 118.6 cm/sec PA V2 max 116.5 cm/sec PA max PG 5.4 mmHg TR max mari 297.8 cm/sec
--- NOTE | 2017-11-18 15:38 | Hospitalist Progress Note ---
Hospitalist Progress Note Date of Service Nov 18, 2017. (Breanne Butler PA-C) Subjective Pt evaluation today including: conversation w/ patient, physical exam, lab review, review of inpatient medication list Patient seen and evaluated. Feeling much better today than yesterday and continues to improve. Lung sounds are better but still course which would suspect this may be baseline. Pulmonology is on the case. Procalcitonin negative and antibiotics are being reduced. Constitutional: No fever, No chills Respiratory: + cough, No sputum, No shortness of breath Cardiovascular: No chest pain Abdomen: No pain, No nausea, No vomiting, No diarrhea, No constipation Musculoskeletal: No swelling, No calf pain Female : No dysuria Heme: No abnormal bleeding/bruising (Breanne Butler PA-C) Medications Current Inpatient Medications Medications (Trade) Dose Ordered Sig/Gordon Route Start Time Stop Time Status Last Admin Dose Admin Aspirin (Ecotrin Tab) 81 mg QAM PO 11/17/17 08:00 12/17/17 08:59 11/18/17 08:40 81 MG Atorvastatin Calcium (Lipitor Tab) 80 mg HS PO 11/17/17 21:00 12/17/17 20:59 11/17/17 20:58 80 MG Bupropion HCl (Wellbutrin-Xl Tab) 300 mg QAM PO 11/17/17 08:00 12/17/17 08:59 11/18/17 08:41 300 MG Calcium/Vitamin D (Caltrate Plus Tab) 1 tab QAM PO 11/17/17 08:00 12/17/17 08:59 11/18/17 08:40 1 TAB Ibuprofen (Advil Tab) 400 mg Q4H PRN PO 11/17/17 04:30 12/17/17 04:29 Levothyroxine Sodium (Synthroid Tab) 25 mcg DAILYBB PO 11/17/17 06:30 12/17/17 06:59 11/18/17 06:18 25 MCG Pantoprazole Sodium (Protonix Tab) 40 mg QAM PO 11/17/17 08:00 12/17/17 08:59 11/18/17 08:40 40 MG Enoxaparin Sodium (Lovenox Inj) 40 mg Q24H SQ 11/17/17 09:00 12/17/17 08:59 11/18/17 08:41 40 MG Acetaminophen (Tylenol Tab) 650 mg Q4H PRN PO 11/17/17 04:30 12/17/17 04:29 Al Hydrox/Mg Hydrox/Simethicone (Maalox Max Susp) 15 ml Q4H PRN PO 11/17/17 04:30 12/17/17 04:29 11/18/17 01:39 15 ML Magnesium Hydroxide (Milk Of Magnesia Susp) 30 ml Q6H PRN PO 11/17/17 04:30 12/17/17 04:29 Polyethylene (Miralax Powder Packet) 17 gm DAILY PRN PO 11/17/17 04:30 12/17/17 04:29 Ondansetron HCl (Zofran Inj) 4 mg Q6H PRN IV 11/17/17 04:30 12/17/17 04:29 11/18/17 00:11 4 MG Albuterol/ Ipratropium (Duoneb) 3 ml Q6R INH 11/17/17 09:00 12/17/17 08:59 11/18/17 14:41 3 ML Albuterol Sulfate (Ventolin 0.083% 2.5MG/3ML Neb) 2.5 mg Q4H PRN INH 11/17/17 04:30 12/17/17 04:29 Methylprednisolone Sodium Succinate 40 mg/Syringe 0.64 ml @ 1.5 mls/min Q6H IV 11/17/17 04:45 11/19/17 08:00 11/18/17 12:15 1.5 MLS/MIN Levofloxacin 750 mg/Prmx 150 ml @ 100 mls/hr Q24H IV 11/17/17 23:00 11/24/17 22:59 11/17/17 22:31 100 MLS/HR Insulin Aspart (novoLOG ASPART) SLIDING SCALE If C... ACHS SC 11/17/17 16:30 12/17/17 16:29 11/18/17 17:14 2 UNITS Glucose (Glucose 40% Gel) 15-30 GRAMS 15 GRAMS... UD PRN PO 11/17/17 13:45 12/17/17 13:44 Glucose (Glucose Chew Tab) 4-8 Tablets 4 Tabl... UD PRN PO 11/17/17 13:45 5/11/18 13:44 Dextrose (Dextrose 50% 50ML Syringe) 25-50ML OF 50% DW IV FOR... UD PRN IV 11/17/17 13:45 12/17/17 13:44 Glucagon (Glucagon Inj) 1 mg UD PRN SQ 11/17/17 13:45 12/17/17 13:44 Lactobacillus Acidophilus (Floranex Tab) 4 tab TIDM PO 11/18/17 08:00 12/18/17 07:59 11/18/17 17:11 4 TAB Prednisone (PredniSONE TAB) 40 mg DAILY PO 11/19/17 08:00 12/01/17 10:09 (Breanne Butler PA-C) Objective Vital Signs Date Time Temp Pulse Resp B/P (MAP) Pulse Ox O2 Delivery O2 Flow Rate FiO2 11/18/17 14:41 78 16 98 Nasal Cannula 2.0 11/18/17 11:39 36.6 77 18 109/71 (84) 98 Nasal Cannula 2.0 11/18/17 08:45 94 Nasal Cannula 2.0 11/18/17 07:24 36.6 79 20 100/65 (77) 94 Nasal Cannula 2.0 11/18/17 07:04 70 16 94 Nasal Cannula 2.0 11/18/17 04:05 36.6 85 18 109/73 (85) 94 Room Air 11/18/17 01:41 90 16 95 Nasal Cannula 2.0 11/18/17 00:00 Nasal Cannula 2.0 11/17/17 23:11 36.8 89 18 102/67 (79) 94 Nasal Cannula 2.0 11/17/17 19:24 84 16 95 Nasal Cannula 2.0 11/17/17 19:19 36.6 84 20 99/63 (75) 95 Nasal Cannula 2.0 11/17/17 16:03 36.8 95 18 102/67 (79) 94 Nasal Cannula 2.0 11/17/17 16:00 94 Nasal Cannula 2.0 (Breanne Butler PA-C) Physical Exam General Appearance: WD/WN, no apparent distress Eyes: sclerae normal ENT: hearing grossly normal Neck: supple, no JVD, trachea midline Respiratory/Chest: no respiratory distress, no accessory muscle use, + wheezing (exp.), + pertinent finding (improving aeration) Cardiovascular: regular rate, rhythm Abdomen: normal bowel sounds, non tender, soft Neurologic/Psychiatric: alert Skin: normal color, warm/dry (Breanne Butler, HANNAH) Laboratory Results Last 24 Hours Test 11/17/17 16:00 11/17/17 16:38 11/17/17 20:31 11/18/17 05:50 Urine Color DK YELLOW Urine Appearance CLEAR Urine pH 6.0 Urine Specific Jackson 1.032 Urine Protein TRACE Urine Glucose (UA) NEG Urine Ketones TRACE Urine Occult Blood NEG Urine Nitrite POS Urine Bilirubin NEG Urine Urobilinogen NEG Urine Leukocyte Esterase TRACE Urine WBC (Auto) 10-30 /hpf Urine RBC (Auto) 0-4 /hpf Urine Hyaline Casts (Auto) 1-5 /lpf Urine Epithelial Cells (Auto) 10-20 /lpf Urine Bacteria (Auto) NEG Bedside Glucose 172 mg/dl 203 mg/dl White Blood Count 13.71 K/uL Red Blood Count 3.09 M/uL Hemoglobin 8.1 g/dL Hematocrit 26.2 % Mean Corpuscular Volume 84.8 fL Mean Corpuscular Hemoglobin 26.2 pg Mean Corpuscular Hemoglobin Concent 30.9 g/dl Platelet Count 336 K/uL Mean Platelet Volume 9.3 fL Neutrophils (%) (Auto) 92.9 % Lymphocytes (%) (Auto) 3.4 % Monocytes (%) (Auto) 3.1 % Eosinophils (%) (Auto) 0.0 % Basophils (%) (Auto) 0.1 % Neutrophils # (Auto) 12.74 K/uL Lymphocytes # (Auto) 0.46 K/uL Monocytes # (Auto) 0.43 K/uL Eosinophils # (Auto) 0.00 K/uL Basophils # (Auto) 0.01 K/uL RDW Standard Deviation 52.2 fL RDW Coefficient of Variation 16.9 % Immature Granulocyte % (Auto) 0.5 % Immature Granulocyte # (Auto) 0.07 K/uL Hypochromasia PRESENT Ovalocytes 1+ Sodium Level 137 mmol/L Potassium Level 4.7 mmol/L Chloride Level 105 mmol/L Carbon Dioxide Level 28 mmol/L Anion Gap 4.0 mmol/L Blood Urea Nitrogen 35 mg/dl Creatinine 0.75 mg/dl Est Creatinine Clear Calc Drug Dose 63.7 ml/min Estimated GFR () 92.9 Estimated GFR (Non- 80.2 BUN/Creatinine Ratio 46.5 Random Glucose 175 mg/dl Calcium Level 8.6 mg/dl Magnesium Level 2.2 mg/dl Procalcitonin < 0.05 ng/ml Thyroid Stimulating Hormone (TSH) 0.322 uIu/ml Test 11/18/17 07:30 11/18/17 11:42 Bedside Glucose 200 mg/dl 200 mg/dl (Breanne Butler, VAC) Assessment and Plan 73 y/o F Hx Hypothyroidism, CAD, HPL, pulmonary fibrosis - 2l home 02. Pt was recently treated for influenza and presumed PNM with Tamiflu and Doxycycline. Despite compliance, she relates progressive SOB and states that her 02 requirements have increased to 4l. She reports a productive cough. She could not confirm a fever. A CXR is consistent with R sided pneumonia. She denies CP , N/V/D or dysuria. Acute on Chronic Hypoxic Respiratory Failure 2/2 Pneumonia vs Pulmonary Fibrosis vs Aspiration Pneumonitis: - Due to Dinh Fundoplication in the future; does report significant reflux and intermittent chocking episodes but no overt aspiration - Levaquin 750 mg IV daily and Prednisone 40 mg po daily - Continue Duonebs Steroid-Induced Hyperglycemia: - Last A1c was 5.7 but will obtain updated labs - Continue SSI and hopefully will improve with reduction in steroids CAD: STABLE - ASA 81 mg daily, Lipitor 80 mg daily Depression/Anxiety: - Wellbutrin 300 mg daily Hypothyroidism: - Synthroid 25 mcg daily Anemia - Normocytic: Baseline 10.9-11.7 - Mild reduction but no active signs of bleeding - Iron is mildly reduced on labs DVT Prophylaxis: Lovenox Code Status: FULL RESUSCITATION Disposition: PT/OT evaluations - Possible D/C next 2-3 days Continued [facility] stay due to: abnormal vital signs, multiple IV medications needed Discharge planning: home (Breanne Butler, VAC) Attending Attestation - Pt seen/examined, chart reviewed, care plan d/w CHLOE Butler. I agree w/ the howard components of her documentation. Pt feels better Breathing improved Appetite better Cough less productive Confirms she is hoping to go back on lung transplant list in the future VSS afebrile gen - nad neck - no JVD heart - RRR lungs - bibasilar rales, no increased WOB abd - soft, NT ext - no edema A/P: Pulmonary fibrosis with exacerbation right-sided pneumonia Agree with tapering of steroids Cont antibiotics Agree with echo, r/o cor pulmonale & pulm HTN appreciate pulmonary consult PT, OT candelario SULLIVAN MD (Wyatt Sullivan MD)
[2017-11-18] MEDS ORDERED: LEVOFLOXACIN 750 MG TAB PO ONE (17:36)
[2017-11-18] MEDS: ATORVASTATIN 40 MG TAB PO SCH (21:07)
[2017-11-19] VITALS (11 sets, daily range): BP systolic 96–106; BP diastolic 62–68; PULSE 68–85; TEMP 36.5–36.8; O2SAT 90–100
[2017-11-19] MEDS: METHYLPREDNISOLONE IV 40 MG in SYRINGE 0 ML IV SCH ×2 (00:27→06:23)
[2017-11-19] MEDS: ALBUT/IPRATROP 3MG/0.5MG NEB 3 ML VIAL INH SCH ×4 (02:07→19:40)
[2017-11-19] MEDS ORDERED: VANCOMYCIN TROUGH ONE (03:30)
[2017-11-19] MEDS: LEVOTHYROXINE 25 MCG TAB PO SCH (06:23)
[2017-11-19 07:49] LABS: HEMOGLOBIN A1C 6.5 % (4.5-5.6)
[2017-11-19 07:50] LABS: CREATININE 0.8 mg/dl (0.60-1.20)
[2017-11-19] MEDS: CALCIUM 600MG + VIT D 400 IU TAB PO SCH (07:52)
[2017-11-19] MEDS: BuPROPion XL 300 MG TABCR PO SCH (07:52)
[2017-11-19] MEDS: LACTOBACILLUS ACIDOPHILUS (FLORANEX) TAB PO SCH ×3 (07:52→17:30)
[2017-11-19] MEDS: PANTOprazole SOD 40 MG TAB PO SCH (07:52)
[2017-11-19] MEDS: ENOXAPARIN 40 MG/0.4 ML SYR SQ SCH (07:53)
[2017-11-19] MEDS: ASPIRIN 81 MG ECTAB PO SCH (07:53)
[2017-11-19] MEDS: INSULIN ASPART 100 UNITS/ML 3 ML PEN SC SCH ×4 (08:40→20:42)
--- NOTE | 2017-11-19 10:25 | Pulmonology Progress Note ---
Pulmonary Progress Note Date of Service Nov 19, 2017. Attending Dr. Sotelo Subjective Patient is sitting up in a chair today doing well. She notes she has increasing cough but is unable to expectorate the sputum but notes overall decreased work of breathing Objective Patient is sitting up at the chair coughing intermittently withmucus production : Denies fever, chills, pleurisy, classic cardiac chest pain, [place] Vital signs: Stable on 2 L nasal cannula afebrile Respiratory: Inspiratory Velcro rales with some mild rhonchi Cardiac: S1-S2 regular rate regular rhythm but distant heart sounds unable to auscultate for murmurs rubs or gallops Abdomen: Positive bowel sounds soft nontender Extremities: No clubbing cyanosis or edema [employer] 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 Respiratory Insufficiency: Patient at baseline is oxygen dependent secondary to ILD/UIP/LIP and chronically steroid dependent. Patient did have an increase in her WBC count to 14K which is worrisome because of her history of aspiration as well as underlying pulmonary dysfunction. Patient is not showing signs of active infection clinically she is improving on her oxygen supplementation requiring is back to baseline. But due to her underlying history I like to initiate on a 10 day course of Augmentin at this time she does notably have a prolonged history of regurgitation. Patient has been moved to 40 mg of prednisone. 2. 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 At this time would like to decrease the patient's prednisone starting 11/19/2017 down to 40 mg daily. Also like to continue on her outpatient medications with Advair, Flonase and antihistamines supplementation. [facility] has been working this patient aggressively to undergo Dinh fundoplication to help decrease the risk of chronic aspiration and UIP/ ILD/L IP exacerbations. Patient notes she like to go to [facility] after discharge to move forward with this intervention. 3. Hypoxemia: Prior to patient's discharge we should perform a 2 step to properly titrate her oxygen supplementation. Bubble study shows no signs of intracardiac or intrapulmonary physiologically significant shunts. This time patient can follow-up with [facility] for repeat right heart cath if they feel warranted that she has had increasing oxygen requirements and does have known Sjogren's syndrome which has a higher propensity for pulmonary hypertension. Data Medications: Current Inpatient Medications Medications (Trade) Dose Ordered Sig/Gordon Route Start Time Stop Time Status Last Admin Dose Admin Aspirin (Ecotrin Tab) 81 mg QAM PO 11/17/17 08:00 12/17/17 08:59 11/19/17 07:53 81 MG Atorvastatin Calcium (Lipitor Tab) 80 mg HS PO 11/17/17 21:00 12/17/17 20:59 11/18/17 21:07 80 MG Bupropion HCl (Wellbutrin-Xl Tab) 300 mg QAM PO 11/17/17 08:00 12/17/17 08:59 11/19/17 07:52 300 MG Calcium/Vitamin D (Caltrate Plus Tab) 1 tab QAM PO 11/17/17 08:00 12/17/17 08:59 11/19/17 07:52 1 TAB Ibuprofen (Advil Tab) 400 mg Q4H PRN PO 11/17/17 04:30 12/17/17 04:29 Levothyroxine Sodium (Synthroid Tab) 25 mcg DAILYBB PO 11/17/17 06:30 12/17/17 06:59 11/19/17 06:23 25 MCG Pantoprazole Sodium (Protonix Tab) 40 mg QAM PO 11/17/17 08:00 12/17/17 08:59 11/19/17 07:52 40 MG Enoxaparin Sodium (Lovenox Inj) 40 mg Q24H SQ 11/17/17 09:00 12/17/17 08:59 11/19/17 07:53 40 MG Acetaminophen (Tylenol Tab) 650 mg Q4H PRN PO 11/17/17 04:30 12/17/17 04:29 Al Hydrox/Mg Hydrox/Simethicone (Maalox Max Susp) 15 ml Q4H PRN PO 11/17/17 04:30 12/17/17 04:29 11/18/17 01:39 15 ML Magnesium Hydroxide (Milk Of Magnesia Susp) 30 ml Q6H PRN PO 11/17/17 04:30 12/17/17 04:29 Polyethylene (Miralax Powder Packet) 17 gm DAILY PRN PO 11/17/17 04:30 5/11/18 04:29 Ondansetron HCl (Zofran Inj) 4 mg Q6H PRN IV 11/17/17 04:30 12/17/17 04:29 11/18/17 00:11 4 MG Albuterol/ Ipratropium (Duoneb) 3 ml Q6R INH 11/17/17 09:00 12/17/17 08:59 11/19/17 07:16 3 ML Albuterol Sulfate (Ventolin 0.083% 2.5MG/3ML Neb) 2.5 mg Q4H PRN INH 11/17/17 04:30 12/17/17 04:29 Insulin Aspart (novoLOG ASPART) SLIDING SCALE If C... ACHS SC 11/17/17 16:30 12/17/17 16:29 11/19/17 08:40 1 UNITS Glucose (Glucose 40% Gel) 15-30 GRAMS 15 GRAMS... UD PRN PO 11/17/17 13:45 12/17/17 13:44 Glucose (Glucose Chew Tab) 4-8 Tablets 4 Tabl... UD PRN PO 11/17/17 13:45 12/17/17 13:44 Dextrose (Dextrose 50% 50ML Syringe) 25-50ML OF 50% DW IV FOR... UD PRN IV 11/17/17 13:45 12/17/17 13:44 Glucagon (Glucagon Inj) 1 mg UD PRN SQ 11/17/17 13:45 12/17/17 13:44 Lactobacillus Acidophilus (Floranex Tab) 4 tab TIDM PO 11/18/17 08:00 12/18/17 07:59 11/19/17 07:52 4 TAB Prednisone (PredniSONE TAB) 40 mg DAILY PO 11/19/17 08:00 12/01/17 10:09 11/19/17 07:52 40 MG Levofloxacin (Levaquin Tab) 750 mg DAILY@11 PO 11/19/17 11:00 11/26/17 10:59 Vital Signs: Date Time Temp Pulse Resp B/P (MAP) Pulse Ox O2 Delivery O2 Flow Rate FiO2 11/19/17 08:30 99 Nasal Cannula 2.0 11/19/17 07:19 73 18 98 Nasal Cannula 2.0 11/19/17 06:55 36.5 68 19 105/68 (80) 99 Nasal Cannula 2.0 11/19/17 04:09 36.7 70 18 102/65 (77) 98 Nasal Cannula 2.0 11/19/17 00:00 Nasal Cannula 2.0 11/18/17 23:04 37.1 79 18 115/72 (86) 96 Nasal Cannula 2.0 11/18/17 19:23 68 16 94 Nasal Cannula 2.0 11/18/17 18:31 37.3 80 18 135/83 (100) 100 11/18/17 17:15 Room Air 11/18/17 14:41 78 16 98 Nasal Cannula 2.0 11/18/17 11:39 36.6 77 18 109/71 (84) 98 Nasal Cannula 2.0 Laboratory Results: Last 24 Hours Test 11/18/17 11:42 11/18/17 16:34 11/18/17 20:17 11/19/17 06:45 Bedside Glucose 200 mg/dl 213 mg/dl 193 mg/dl Creatinine 0.80 mg/dl Est Creatinine Clear Calc Drug Dose 59.7 ml/min Estimated GFR () 86.0 Estimated GFR (Non- 74.2 Estimated Average Glucose 140 mg/dl Hemoglobin A1c 6.5 % Test 11/19/17 07:26 Bedside Glucose 187 mg/dl
[2017-11-19] MEDS ORDERED: LEVOFLOXACIN 750 MG TAB PO SCH (11:00)
[2017-11-19] MEDS ORDERED: AMOXICILLIN/CLAVULANATE TAB 875 MG TAB PO ONE (11:00)
--- NOTE | 2017-11-19 15:39 | Hospitalist Progress Note ---
Hospitalist Progress Note Date of Service Nov 19, 2017. (Breanne Butler PA-C) Subjective Pt evaluation today including: conversation w/ patient, physical exam, lab review, review of inpatient medication list Patient seen and evaluated. No acute events overnight. Reports her cough is finally beginning to be productive of white sputum. Breathing much better. Pulmonology following. Dropped to 75% on 2 L with ambulation during PT evaluation Will need two step prior to D/C to assist with O2 titration Constitutional: No fever, No chills Respiratory: + cough, + sputum, + dyspnea on exertion, No dyspnea at rest Cardiovascular: No chest pain Abdomen: No pain, No nausea, No vomiting, No diarrhea, No constipation Musculoskeletal: No joint pain, No calf pain Female : No dysuria Heme: No abnormal bleeding/bruising Skin: No rash (Breanne Butler, VAC) Medications Current Inpatient Medications Medications (Trade) Dose Ordered Sig/Gordon Route Start Time Stop Time Status Last Admin Dose Admin Aspirin (Ecotrin Tab) 81 mg QAM PO 11/17/17 08:00 12/17/17 08:59 11/19/17 07:53 81 MG Atorvastatin Calcium (Lipitor Tab) 80 mg HS PO 11/17/17 21:00 12/17/17 20:59 11/18/17 21:07 80 MG Bupropion HCl (Wellbutrin-Xl Tab) 300 mg QAM PO 11/17/17 08:00 12/17/17 08:59 11/19/17 07:52 300 MG Calcium/Vitamin D (Caltrate Plus Tab) 1 tab QAM PO 11/17/17 08:00 12/17/17 08:59 11/19/17 07:52 1 TAB Ibuprofen (Advil Tab) 400 mg Q4H PRN PO 11/17/17 04:30 12/17/17 04:29 Levothyroxine Sodium (Synthroid Tab) 25 mcg DAILYBB PO 11/17/17 06:30 12/17/17 06:59 11/19/17 06:23 25 MCG Pantoprazole Sodium (Protonix Tab) 40 mg QAM PO 11/17/17 08:00 12/17/17 08:59 11/19/17 07:52 40 MG Enoxaparin Sodium (Lovenox Inj) 40 mg Q24H SQ 11/17/17 09:00 12/17/17 08:59 11/19/17 07:53 40 MG Acetaminophen (Tylenol Tab) 650 mg Q4H PRN PO 11/17/17 04:30 12/17/17 04:29 Al Hydrox/Mg Hydrox/Simethicone (Maalox Max Susp) 15 ml Q4H PRN PO 11/17/17 04:30 12/17/17 04:29 11/18/17 01:39 15 ML Magnesium Hydroxide (Milk Of Magnesia Susp) 30 ml Q6H PRN PO 11/17/17 04:30 12/17/17 04:29 Polyethylene (Miralax Powder Packet) 17 gm DAILY PRN PO 11/17/17 04:30 12/17/17 04:29 Ondansetron HCl (Zofran Inj) 4 mg Q6H PRN IV 11/17/17 04:30 12/17/17 04:29 11/18/17 00:11 4 MG Albuterol/ Ipratropium (Duoneb) 3 ml Q6R INH 11/17/17 09:00 12/17/17 08:59 11/19/17 14:19 3 ML Albuterol Sulfate (Ventolin 0.083% 2.5MG/3ML Neb) 2.5 mg Q4H PRN INH 11/17/17 04:30 12/17/17 04:29 Insulin Aspart (novoLOG ASPART) SLIDING SCALE If C... ACHS SC 11/17/17 16:30 12/17/17 16:29 11/19/17 11:43 1 UNITS Glucose (Glucose 40% Gel) 15-30 GRAMS 15 GRAMS... UD PRN PO 11/17/17 13:45 12/17/17 13:44 Glucose (Glucose Chew Tab) 4-8 Tablets 4 Tabl... UD PRN PO 11/17/17 13:45 12/17/17 13:44 Dextrose (Dextrose 50% 50ML Syringe) 25-50ML OF 50% DW IV FOR... UD PRN IV 11/17/17 13:45 12/17/17 13:44 Glucagon (Glucagon Inj) 1 mg UD PRN SQ 11/17/17 13:45 12/17/17 13:44 Lactobacillus Acidophilus (Floranex Tab) 4 tab TIDM PO 11/18/17 08:00 12/18/17 07:59 11/19/17 11:38 4 TAB Prednisone (PredniSONE TAB) 40 mg DAILY PO 11/19/17 08:00 12/01/17 10:09 11/19/17 07:52 40 MG Levofloxacin (Levaquin Tab) 750 mg DAILY@11 PO 11/19/17 11:00 11/26/17 10:59 11/19/17 11:16 750 MG Amoxicillin/ Clavulanate Potassium (Augmentin Tab) 875 mg BIDM PO 11/19/17 17:00 11/26/17 16:59 (Breanne Butler PA-C) Objective Vital Signs Date Time Temp Pulse Resp B/P (MAP) Pulse Ox O2 Delivery O2 Flow Rate FiO2 11/19/17 14:57 36.5 80 16 104/67 (79) 98 2.0 11/19/17 14:21 83 18 90 Nasal Cannula 2.0 11/19/17 14:07 95 11/19/17 11:52 36.8 85 20 96/62 (73) 95 Nasal Cannula 2.0 11/19/17 08:30 99 Nasal Cannula 2.0 11/19/17 07:19 73 18 98 Nasal Cannula 2.0 11/19/17 06:55 36.5 68 19 105/68 (80) 99 Nasal Cannula 2.0 11/19/17 04:09 36.7 70 18 102/65 (77) 98 Nasal Cannula 2.0 11/19/17 00:00 Nasal Cannula 2.0 11/18/17 23:04 37.1 79 18 115/72 (86) 96 Nasal Cannula 2.0 11/18/17 19:23 68 16 94 Nasal Cannula 2.0 11/18/17 18:31 37.3 80 18 135/83 (100) 100 11/18/17 17:15 Room Air (Breanne Butler PA-C) Physical Exam General Appearance: WD/WN, no apparent distress Eyes: sclerae normal ENT: hearing grossly normal Neck: supple, no JVD, trachea midline Respiratory/Chest: no respiratory distress, no accessory muscle use, + decreased breath sounds (bases b/l), + pertinent finding (improving aeration at mid-lung b/l but remains largely course) Cardiovascular: regular rate, rhythm Abdomen: normal bowel sounds, non tender, soft Extremities: no pedal edema Neurologic/Psychiatric: alert Skin: normal color (Breanne Butler PA-C) Laboratory Results Last 24 Hours Test 11/18/17 16:34 11/18/17 20:17 11/19/17 06:45 11/19/17 07:26 Bedside Glucose 213 mg/dl 193 mg/dl 187 mg/dl Creatinine 0.80 mg/dl Est Creatinine Clear Calc Drug Dose 59.7 ml/min Estimated GFR () 86.0 Estimated GFR (Non- 74.2 Estimated Average Glucose 140 mg/dl Hemoglobin A1c 6.5 % Test 11/19/17 11:30 Bedside Glucose 208 mg/dl (Breanne Butler PA-C) Assessment and Plan 73 y/o F Hx Hypothyroidism, CAD, HPL, pulmonary fibrosis - 2l home 02. Pt was recently treated for influenza and presumed PNM with Tamiflu and Doxycycline. Despite compliance, she relates progressive SOB and states that her 02 requirements have increased to 4l. She reports a productive cough. She could not confirm a fever. A CXR is consistent with R sided pneumonia. She denies CP , N/V/D or dysuria. Acute on Chronic Hypoxic Respiratory Failure 2/2 Pneumonia vs Pulmonary Fibrosis vs Aspiration Pneumonitis: - Due to Dinh Fundoplication in the future; does report significant reflux and intermittent chocking episodes but no overt aspiration - Desat to 75% with ambulation with PT evaluation even with 2 L NC - will need 2 -step prior to D/C for better titration - Echo did not reveal findings of shunt; EF 60-65% with grade I diastolic dysfunction; R ventricle systolic pressure mildly elevated to 30-40% - Augmentin BID x 10 day course and Prednisone 40 mg po daily - Continue Duonebs - Pulmonology following - plan as above - appreciate assistance Steroid-Induced Hyperglycemia: - A1c is 6.5 - Continue SSI and hopefully will improve with reduction in steroids CAD: STABLE - ASA 81 mg daily, Lipitor 80 mg daily Depression/Anxiety: - Wellbutrin 300 mg daily Hypothyroidism: - Synthroid 25 mcg daily Anemia - Normocytic: Baseline 10.9-11.7 - Mild reduction but no active signs of bleeding - Iron is mildly reduced on labs DVT Prophylaxis: Lovenox Code Status: FULL RESUSCITATION Disposition: PT/OT evaluations - Possible D/C next 2-3 days Continued [facility] stay due to: abnormal vital signs (desaturations with ambulation ) Discharge planning: home (Breanne Butler, PA-C) Attending Attestation - Pt seen/examined, chart reviewed, care plan d/w CHLOE Butler. I agree w/ the howard components of her documentation. again reports feeling better less cough main complaint actually is dysphagia - last EGD about 4 years ago to her knowledge showing Schatski's ring had dilatation at that time ambulating VSS afebrile gen - nad neck - no JVD heart - RRR lungs - bibasilar rales but actually improved today, no increased WOB abd - soft, NT ext - no edema A/P: Pulmonary fibrosis with exacerbation - weaning steroids right-sided pneumonia - augmentin course x 10 days; stop levaquin dysphagia - speech consult; change diet to mech soft in meantime; will investigate records and see how performed last EGD hopeful for d/c tomorrow Erin SULLIVAN MD (Wyatt Sullivan MD)
[2017-11-19] MEDS: AMOXICILLIN/CLAVULANATE TAB 875 MG TAB PO SCH (17:29)
[2017-11-19] MEDS: ATORVASTATIN 40 MG TAB PO SCH (20:39)
[2017-11-20] VITALS (17 sets, daily range): BP systolic 105–122; BP diastolic 62–79; PULSE 67–83; TEMP 36.4–37; O2SAT 95–100
[2017-11-20] MEDS: ALBUT/IPRATROP 3MG/0.5MG NEB 3 ML VIAL INH SCH ×4 (02:05→19:01)
[2017-11-20] MEDS: INSULIN ASPART 100 UNITS/ML 3 ML PEN SC SCH ×4 (06:30→21:43)
[2017-11-20] MEDS: LEVOTHYROXINE 25 MCG TAB PO SCH (06:31)
[2017-11-20 06:44] LABS: CREATININE 0.73 mg/dl (0.60-1.20)
[2017-11-20] MEDS: ASPIRIN 81 MG ECTAB PO SCH (07:47)
[2017-11-20] MEDS: BuPROPion XL 300 MG TABCR PO SCH (07:47)
[2017-11-20] MEDS: PANTOprazole SOD 40 MG TAB PO SCH (07:47)
[2017-11-20] MEDS: CALCIUM 600MG + VIT D 400 IU TAB PO SCH (07:47)
[2017-11-20] MEDS: ENOXAPARIN 40 MG/0.4 ML SYR SQ SCH (07:48)
[2017-11-20] MEDS: AMOXICILLIN/CLAVULANATE TAB 875 MG TAB PO SCH ×2 (07:48→17:05)
[2017-11-20] MEDS: LACTOBACILLUS ACIDOPHILUS (FLORANEX) TAB PO SCH ×3 (07:48→17:05)
[2017-11-20] MEDS ORDERED: PRED10TA PO (12:13)
[2017-11-20] MEDS ORDERED: AMOX1TAB43 PO (12:13)
[2017-11-20] MEDS ORDERED: LANS30CA41 PO ×2 (12:13→14:19)
[2017-11-20] MEDS ORDERED: LCTX PO (12:13)
[2017-11-20] MEDS ORDERED: OXGN (12:14)
--- NOTE | 2017-11-20 12:28 | Discharge Instructions ---
Discharge Instructions Date of Service Nov 20, 2017. Admission Reason for Admission: Pneumonia Discharge Discharge Diagnosis / Problem: Pulmonary Fibrosis "exacerbation"; pneumonia. Discharge Goals Goal(s): Learn about illness, Diagnostic testing, Therapeutic intervention Activity Recommendations Activity Limitations: resume your previous activity (as tolerated ) . Instructions / Follow-Up Instructions / Follow-Up From Dr. Mcrae - 1. For your pulmonary fibrosis "exacerbation" please take a prednisone "taper. " I called the prednisone taper to [facility] for you. Take as follows - * Starting 11/23/17, take as follows - day 1 take 3 tabs, days 2 and 3 take 2 tabs, days 4 and 5 take 1 tab * Any extra prednisone 10mg tabs from the new bottle simply discard * Then resume your normal, prior daily dose thereafter * Take the prednisone with food 2. For your suspected pneumonia - * amoxicillin-clavulanate 875mg by mouth twice a day for 5 more days * start this TONIGHT * the antibiotics can cause diarrhea so please take the probiotics (lactinex) tablets for 5 days * both the antibiotic and probiotic were sent to [facility] for you 3. Oxygen - * continue 2 liters at rest and sleep * use 3 liters with activity and when you leave your home 4. Swallowing difficulties - * please follow the recommendations of the speech therapist for your diet as follows - 1. SLIPPERY Mechanical soft diet 2. GERD ("heartburn"/reflux) / Esophageal dysmotility Precautions: Sit fully upright when eating and drinking, eat small frequent meals, alternate bites of solids and sips of liquids, take small bites, eat at a slow rate, avoid thick dry doughy or pasty foods * INCREASE your prevacid to 30mg twice a day; new prescription sent to [facility] for you * because of the iron deficiency please purchase [id number] iron (ferrous sulfate) and take 325mg twice a day on empty stomach if possible * you will likely have to take the iron for 2-3 months 5. Please stop any motrin at this time. Also do not take [id number] ibuprofen, naprosyn, alleve. TYLENOL IS OK FOR PAIN as this will not cause irritation to your GI tract. 6. STOP your aspirin for 1 week then may resume. 7. Constipation - use miralax once-twice daily. If needed you can also take senna (senakot) daily. Both products are [id number]. 8. Some of your blood work suggests you are at the cusp of being a full-blown, type 2 diabetic[address] Please speak with [address] Alas further about this. The prednisone has likely led to the diabetic state. This can likely be diet-controlled. 9. Follow-up - * see Dr. Alas THIS WEEK * see Dr. Sotelo within 1-2 weeks * see Dr. Wyatt Zepeda within 2-3 weeks as scheduled or directed 10. Return to [facility] if - * you have worsening shortness of breath despite taking all of your medications as directed * you have increasing oxygen requirements (that is, you have to turn up the oxygen on your tank at home because of worsening breathing) * severe diarrhea * fever over 100.5 degrees * recurrent black or tarry stools (note that iron supplementation can cause dark stools but typically not tarry or black) * any other concerns Current Hospital Diet Patient's current hospital diet: Regular Diet Discharge Diet Recommended Diet: Full Liquid Diet (for the next 2-3 days gradually increase the amount of solids in your diet; avoid caffeinated beverages, spicy foods, fried foods, fast foods; follow a "bland diet" for at least 1 week) Procedures Procedures Performed: chest x-ray echocardiogram - normal heart function; mild "pulmonary hypertension" related to your pulmonary fibrosis. Pending Studies Studies pending at discharge: no Laboratory Results Hemoglobin A1c Test 11/19/17 06:45 Range/Units Estimated Average Glucose 140 mg/dl Hemoglobin A1c 6.5 H 4.5-5.6 % Medical Emergencies . Who to Call and When: Medical Emergencies: If at any time you feel your situation is an emergency, please call 911 immediately. . Non-Emergent Contact Non-Emergency issues call your: Primary Care Provider, Dock Boss Call Non-Emergent contact if: temperature is above 100.5, you have any medication questions . . "Provider Documentation" section prepared by Wyatt Mcrae. .
[2017-11-20 12:44] LABS: HEMATOCRIT 24.8 % (37-47); HEMOGLOBIN 7.9 g/dL (12.0-16.0); MEAN CELL VOLUME 84.1 fL (80-100); MEAN CORPUSCULAR HEMOGLOBIN 26.8 pg (25-34); MEAN CORPUSCULAR HGB CONC 31.9 g/dl (32-36); MEAN PLATELET VOLUME 8.4 fL (7.4-10.4); PLATELET COUNT 304 K/uL (130-400); RED CELL DISTRIBUTION WIDTH CV 17.4 % (11.5-14.5); RED CELL DISTRIBUTION WIDTH SD 52.4 fL (36.4-46.3); WHITE BLOOD COUNT 10.38 K/uL (4.8-10.8)
--- NOTE | 2017-11-20 13:24 | Pulmonology Progress Note ---
Pulmonary Progress Note Date of Service Nov 20, 2017. Attending Dr. Sotelo Subjective Patient notes she is back to her baseline respiratory status Objective Patient is sitting up in a chair and her cough is notably improved as well as her mucus production: Denies fever, chills, pleurisy, classic cardiac chest pain , [place] Vital signs: Stable on 2 L nasal cannula afebrile Respiratory: Inspiratory Velcro rales with some mild rhonchi Cardiac: S1-S2 regular rate regular rhythm but distant heart sounds unable to auscultate for murmurs rubs or gallops Abdomen: Positive bowel sounds soft nontender Extremities: No clubbing cyanosis or edema [employer]ILD[employer]: Cranial nerves II through XII grossly intact orientated 3 Assessment & Plan The 72-year-old female admitted for acute on chronic respiratory insufficiency with changing her CXR: 1. Respiratory Insufficiency: Patient at baseline is oxygen dependent secondary to ILD/UIP/LIP and chronically steroid dependent. Patient did have an increase in her WBC count to 14K which is worrisome because of her history of aspiration as well as underlying pulmonary dysfunction. Patient is not showing signs of active infection clinically she is improving on her oxygen supplementation requiring is back to baseline. But due to her underlying history I like to initiate on a 10 day course of Augmentin at this time she does notably have a prolonged history of regurgitation. Patient has been moved to 40 mg of prednisone. 2. 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 At this time would like to decrease the patient's prednisone starting 11/19/2017 down to 40 mg daily. Also like to continue on her outpatient medications with Advair, Flonase and antihistamines supplementation. [facility] has been working this patient aggressively to undergo Dinh fundoplication to help decrease the risk of chronic aspiration and UIP/ ILD/L IP exacerbations. Patient notes she like to go to [facility] after discharge to move forward with this intervention. 3. Hypoxemia: Prior to patient's discharge we should perform a 2 step to properly titrate her oxygen supplementation. Bubble study shows no signs of intracardiac or intrapulmonary physiologically significant shunts. This time patient can follow-up with [facility] for repeat right heart cath if they feel warranted that she has had increasing oxygen requirements and does have known Sjogren's syndrome which has a higher propensity for pulmonary hypertension. Agree with discharge patient can be followed up by the [facility] Pulmonary Division or locally if she chooses Data Medications: Current Inpatient Medications Medications (Trade) Dose Ordered Sig/Gordon Route Start Time Stop Time Status Last Admin Dose Admin Aspirin (Ecotrin Tab) 81 mg QAM PO 11/17/17 08:00 12/17/17 08:59 11/20/17 07:47 81 MG Atorvastatin Calcium (Lipitor Tab) 80 mg HS PO 11/17/17 21:00 12/17/17 20:59 11/19/17 20:39 80 MG Bupropion HCl (Wellbutrin-Xl Tab) 300 mg QAM PO 11/17/17 08:00 12/17/17 08:59 11/20/17 07:47 300 MG Calcium/Vitamin D (Caltrate Plus Tab) 1 tab QAM PO 11/17/17 08:00 12/17/17 08:59 11/20/17 07:47 1 TAB Ibuprofen (Advil Tab) 400 mg Q4H PRN PO 11/17/17 04:30 12/17/17 04:29 Levothyroxine Sodium (Synthroid Tab) 25 mcg DAILYBB PO 11/17/17 06:30 12/17/17 06:59 11/20/17 06:31 25 MCG Pantoprazole Sodium (Protonix Tab) 40 mg QAM PO 11/17/17 08:00 12/17/17 08:59 11/20/17 07:47 40 MG Enoxaparin Sodium (Lovenox Inj) 40 mg Q24H SQ 11/17/17 09:00 12/17/17 08:59 11/20/17 07:48 40 MG Acetaminophen (Tylenol Tab) 650 mg Q4H PRN PO 11/17/17 04:30 12/17/17 04:29 Al Hydrox/Mg Hydrox/Simethicone (Maalox Max Susp) 15 ml Q4H PRN PO 11/17/17 04:30 12/17/17 04:29 11/18/17 01:39 15 ML Magnesium Hydroxide (Milk Of Magnesia Susp) 30 ml Q6H PRN PO 11/17/17 04:30 12/17/17 04:29 Polyethylene (Miralax Powder Packet) 17 gm DAILY PRN PO 11/17/17 04:30 12/17/17 04:29 11/19/17 17:31 17 GM Ondansetron HCl (Zofran Inj) 4 mg Q6H PRN IV 11/17/17 04:30 12/17/17 04:29 11/18/17 00:11 4 MG Albuterol/ Ipratropium (Duoneb) 3 ml Q6R INH 11/17/17 09:00 12/17/17 08:59 11/20/17 07:23 3 ML Albuterol Sulfate (Ventolin 0.083% 2.5MG/3ML Neb) 2.5 mg Q4H PRN INH 11/17/17 04:30 12/17/17 04:29 Insulin Aspart (novoLOG ASPART) SLIDING SCALE If C... ACHS SC 11/17/17 16:30 12/17/17 16:29 11/19/17 20:42 2 UNITS Glucose (Glucose 40% Gel) 15-30 GRAMS 15 GRAMS... UD PRN PO 11/17/17 13:45 12/17/17 13:44 Glucose (Glucose Chew Tab) 4-8 Tablets 4 Tabl... UD PRN PO 11/17/17 13:45 12/17/17 13:44 Dextrose (Dextrose 50% 50ML Syringe) 25-50ML OF 50% DW IV FOR... UD PRN IV 11/17/17 13:45 12/17/17 13:44 Glucagon (Glucagon Inj) 1 mg UD PRN SQ 11/17/17 13:45 12/17/17 13:44 Lactobacillus Acidophilus (Floranex Tab) 4 tab TIDM PO 11/18/17 08:00 12/18/17 07:59 11/20/17 12:52 4 TAB Prednisone (PredniSONE TAB) 40 mg DAILY PO 11/19/17 08:00 12/01/17 10:09 11/20/17 07:48 40 MG Amoxicillin/ Clavulanate Potassium (Augmentin Tab) 875 mg BIDM PO 11/19/17 17:00 11/26/17 16:59 11/20/17 07:48 875 MG Vital Signs: Date Time Temp Pulse Resp B/P (MAP) Pulse Ox O2 Delivery O2 Flow Rate FiO2 11/20/17 11:03 36.7 72 18 106/70 (82) 100 Nasal Cannula 2.0 4/14/18 08:00 99 Nasal Cannula 2.0 11/20/17 07:25 36.7 67 20 107/66 (80) 99 Nasal Cannula 2.0 11/20/17 07:23 72 18 98 Nasal Cannula 2.0 11/20/17 03:59 36.5 80 20 115/72 (86) 95 Nasal Cannula 2.0 11/20/17 00:00 Nasal Cannula 2.0 11/19/17 23:03 36.8 75 18 106/67 (80) 98 Nasal Cannula 2.0 11/19/17 19:43 79 18 98 Nasal Cannula 2.0 11/19/17 19:18 36.7 82 18 105/66 (79) 100 Room Air 11/19/17 16:00 Nasal Cannula 2.0 11/19/17 14:57 36.5 80 16 104/67 (79) 98 2.0 11/19/17 14:21 83 18 90 Nasal Cannula 2.0 11/19/17 14:07 95 Laboratory Results: Last 24 Hours Test 11/19/17 16:43 11/19/17 20:02 11/20/17 05:27 11/20/17 07:33 Bedside Glucose 165 mg/dl 233 mg/dl 132 mg/dl Creatinine 0.73 mg/dl Est Creatinine Clear Calc Drug Dose 65.8 ml/min Estimated GFR () 96.0 Estimated GFR (Non- 82.9 Test 11/20/17 11:48 11/20/17 12:35 Bedside Glucose 131 mg/dl White Blood Count 10.38 K/uL Red Blood Count 2.95 M/uL Hemoglobin 7.9 g/dL Hematocrit 24.8 % Mean Corpuscular Volume 84.1 fL Mean Corpuscular Hemoglobin 26.8 pg Mean Corpuscular Hemoglobin Concent 31.9 g/dl RDW Standard Deviation 52.4 fL RDW Coefficient of Variation 17.4 % Platelet Count 304 K/uL Mean Platelet Volume 8.4 fL Iron Level 17 mcg/dl Total Iron Binding Capacity 252 mcg/dl Transferrin 199 mg/dl Transferrin % Saturation 6 % Ferritin 31.5 ng/ml Vitamin B12 Level 1481 pg/mL Folate 12.15 ng/mL
[2017-11-20] MEDS ORDERED: PANTOprazole INJ 40 MG in SYRINGE 0 ML IV SCH (15:30)
[2017-11-20] MEDS: SUCRALFATE 1 GM/10 ML UDC PO SCH ×2 (17:05→21:44)
[2017-11-20 18:30] LABS: HEMATOCRIT 22.7 % (37-47)
[2017-11-20] MEDS: FERROUS SULFATE 325 MG TAB PO SCH ×2 (21:00→21:44)
--- NOTE | 2017-11-20 21:20 | Progress Note ---
Subjective Date of Service: Nov 20, 2017. Subjective Pt evaluation today including: conversation w/ patient, conversation w/ family ( at bedside), physical exam, chart review, lab review, conversation w/ senior information security consultant (GI by phone), review of inpatient medication list Pain: dysphagia; no abdominal pain PO Intake: tolerating liquids (patient restricting her own diet due to dysphagia) Voiding: no voiding problems I saw the patient 3 separate times today. During AM rounds she reported feeling well - cough was at baseline, dyspnea was at baseline, and 2-step showed need for 2 L NC at rest & 3 L w/ activity. She was excited for d/c home. I elected to check a CBC and iron studies/b12/folate today. CBC showed Hb 7.9 (was 8.1 two days ago). Iron studies c/w iron deficiency. about the time the labs came back the patient finally, after 5 days of constipation, had a large, melena, tarry stool. I went and visited with her a 2nd time - we discussed that the tarry stool indicates a likely upper GI bleed. I explained to her that the iron deficiency would suggest she had been losing blood in her stools for some time (months). she denied gross melena at home. she admitted to taking motrin multiple times each week in addition to her aspirin and daily prednisone. no etoh. during this visit I suggested she remain hospitalized rather than d/c home. I discussed the need for serial H/H's and GI consultation. during 3rd visit I obtained blood consent due to Hb of 7 late today. she gave permission for blood. denied any further melena stools. Problem List Medical Problems: (1) COPD exacerbation Status: Acute (2) Failure of outpatient treatment Status: Acute (3) Influenza Status: Acute (4) Pneumonia Status: Acute Review of Systems Constitutional: No fever, No chills Respiratory: + cough, + dyspnea on exertion, No sputum, No wheezing, No shortness of breath, No dyspnea at rest, No hemoptysis Cardiac: No chest pain Abdomen: + GI bleeding, No pain, No nausea, No vomiting Objective Vital Signs Date Time Temp Pulse Resp B/P (MAP) Pulse Ox O2 Delivery O2 Flow Rate FiO2 11/20/17 21:00 36.9 77 18 119/79 98 2.0 11/20/17 20:45 37.0 76 18 114/75 100 2.0 11/20/17 20:30 36.8 83 20 114/72 98 2.0 11/20/17 19:19 36.4 79 20 105/62 (76) 99 Nasal Cannula 2.0 11/20/17 19:01 78 18 99 Nasal Cannula 2.0 11/20/17 16:00 98 Nasal Cannula 2.0 11/20/17 15:17 36.6 81 20 112/72 (85) 97 Nasal Cannula 2.0 11/20/17 14:46 80 18 98 Nasal Cannula 2.0 11/20/17 11:03 36.7 72 18 106/70 (82) 100 Nasal Cannula 2.0 11/20/17 08:00 99 Nasal Cannula 2.0 11/20/17 07:25 36.7 67 20 107/66 (80) 99 Nasal Cannula 2.0 11/20/17 07:23 72 18 98 Nasal Cannula 2.0 11/20/17 03:59 36.5 80 20 115/72 (86) 95 Nasal Cannula 2.0 11/20/17 00:00 Nasal Cannula 2.0 11/19/17 23:03 36.8 75 18 106/67 (80) 98 Nasal Cannula 2.0 Physical Exam General Appearance: no apparent distress ENT: pharynx normal Neck: no JVD Respiratory/Chest: no respiratory distress, no accessory muscle use, + crackles (both bases - unchanged) Cardiovascular: regular rate, rhythm, no gallop Abdomen: normal bowel sounds, non tender, soft, no organomegaly Extremities: no pedal edema Neurologic/Psychiatric: alert, oriented x 3 Skin: + pallor Laboratory Results Last 24 Hours Test 11/20/17 05:27 11/20/17 07:33 11/20/17 11:48 11/20/17 12:35 Creatinine 0.73 mg/dl Est Creatinine Clear Calc Drug Dose 65.8 ml/min Estimated GFR () 96.0 Estimated GFR (Non- 82.9 Bedside Glucose 132 mg/dl 131 mg/dl White Blood Count 10.38 K/uL Red Blood Count 2.95 M/uL Hemoglobin 7.9 g/dL Hematocrit 24.8 % Mean Corpuscular Volume 84.1 fL Mean Corpuscular Hemoglobin 26.8 pg Mean Corpuscular Hemoglobin Concent 31.9 g/dl RDW Standard Deviation 52.4 fL RDW Coefficient of Variation 17.4 % Platelet Count 304 K/uL Mean Platelet Volume 8.4 fL Iron Level 17 mcg/dl Total Iron Binding Capacity 252 mcg/dl Transferrin 199 mg/dl Transferrin % Saturation 6 % Ferritin 31.5 ng/ml Vitamin B12 Level 1481 pg/mL Folate 12.15 ng/mL Test 11/20/17 16:51 11/20/17 18:21 11/20/17 20:06 Bedside Glucose 195 mg/dl 214 mg/dl Hemoglobin 7.0 g/dL Hematocrit 22.7 % Assessment and Plan 72yo female - 1. acute blood loss anemia in setting of chronic iron deficiency anemia (Hb was 13 in 2016, 11 or so in 2017, and has been continuing to trend down). Acute blood loss likely from upper GI bleeding (could have PUD, gastritis, etc from asa, motrin, prednisone usage). Iron studies c/w iron deficiency. B12/folate wnl. Repeat Hb late today 7 -- will transfuse 2 units PRBCs. Make full NPO. IV PPI. GI consult in AM for consideration of EGD. STOP aspirin; STOP motrin; CONTINUE prednisone (has been on such for years). Needs iron supplementation. 2. Pulmonary fibrosis with exacerbation - latter improved; cont to wean steroids; finish abx course. Patient reports NO improvement in any pulmonary symptom with nebs - will d/c. 3. right-sided pneumonia - augmentin course x 10 days; levaquin stopped. 4. dysphagia - speech consult appreciated; has previous h/o Schatzki's ring requiring dilatation; NPO for now due to the above. Needs EGD. 5. presumed upper GI bleeding w/ acute blood loss anemia - move to telemetry due to bleeding. 6. constipation - resolved. 7. hypothyroidism - continue synthroid. 8. CAD s/p stents several years ago - unfortunately need to hold aspirin due to GI bleeding. Cont statin. 9. 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 10. FEN - once PRBCs have completed start gentle hydration, NPO, and BMP in am. 11. DVT proph - STOP lovenox. SCDs only as chemical means are contraindicated. updated total time over 3 separate visits today about 70 minutes Continued [facility] stay due to: multiple IV medications needed, other (GI bleeding) Discharge planning: home
[2017-11-20] MEDS: ATORVASTATIN 40 MG TAB PO SCH (21:44)
[2017-11-21] VITALS (20 sets, daily range): BP systolic 95–123; BP diastolic 54–76; PULSE 65–86; TEMP 36.6–37.1; O2SAT 93–99
[2017-11-21] MEDS: ALBUT/IPRATROP 3MG/0.5MG NEB 3 ML VIAL INH SCH ×4 (03:00→21:25)
[2017-11-21 04:16] LABS: HEMATOCRIT 28.4 % (37-47); HEMOGLOBIN 9.4 g/dL (12.0-16.0)
[2017-11-21] MEDS: SUCRALFATE 1 GM/10 ML UDC PO SCH ×4 (06:30→20:43)
[2017-11-21] MEDS: LEVOTHYROXINE 25 MCG TAB PO SCH (06:30)
[2017-11-21 06:45] LABS: HEMATOCRIT 28.7 % (37-47); HEMOGLOBIN 9.3 g/dL (12.0-16.0)
[2017-11-21 07:12] LABS: CALCIUM 8.3 mg/dl (8.5-10.1); CREATININE 0.67 mg/dl (0.60-1.20); POTASSIUM 4.1 mmol/L (3.5-5.1)
[2017-11-21] MEDS: AMOXICILLIN/CLAVULANATE TAB 875 MG TAB PO SCH ×3 (08:00→16:27)
[2017-11-21] MEDS: LACTOBACILLUS ACIDOPHILUS (FLORANEX) TAB PO SCH ×3 (08:00→16:27)
[2017-11-21] MEDS: CALCIUM 600MG + VIT D 400 IU TAB PO SCH ×2 (08:41→11:08)
[2017-11-21] MEDS: FERROUS SULFATE 325 MG TAB PO SCH ×4 (08:41→20:44)
[2017-11-21] MEDS: INSULIN ASPART 100 UNITS/ML 3 ML PEN SC SCH ×4 (08:41→20:46)
[2017-11-21] MEDS: BuPROPion XL 300 MG TABCR PO SCH ×2 (08:42→11:08)
[2017-11-21] MEDS: PANTOprazole INJ 40 MG in SYRINGE 0 ML IV SCH ×2 (08:47→20:43)
[2017-11-21 12:26] LABS: HEMATOCRIT 31.6 % (37-47); HEMOGLOBIN 10.2 g/dL (12.0-16.0)
--- NOTE | 2017-11-21 14:14 | GASTROINTESTINAL CONSULTATION ---
DATE OF CONSULTATION: 11/21/2017 REFERRING PHYSICIAN: Wyatt Mcrae MD. I was asked by Dr. Mcrae to consult on this woman for GI bleeding. HISTORY OF PRESENT ILLNESS: The patient is a 72-year-old who is being discharged home yesterday and she had a melenic bowel movement. She had been on high dose prednisone and aspirin. She has a history of hiatal hernia. She had no abdominal pain. Overnight they gave her blood transfusion, stopped her aspirin, put her on b.i.d. Protonix and she has done well. She has had no bowel movements today. She is tolerating clears. She has had no further evidence of bleeding and her hemoglobin after transfusion has been stable at 10. At this point, I would just recommend that she go on twice a day oral PPI. She should stay on this for 2 months and then go on daily PPI. Her aspirin should be held for another week and she will follow up with her regular brim pouncing machine operator who knows her well. I would slowly advance her diet.
[2017-11-21] MEDS ORDERED: POTASSIUM CHLORIDE 10 MEQ TABCR PO STA (15:48)
[2017-11-21] MEDS ORDERED: FUROSEMIDE 20 MG TAB PO ONE (16:00)
[2017-11-21] MEDS: ATORVASTATIN 40 MG TAB PO SCH (20:44)
--- NOTE | 2017-11-21 20:46 | Progress Note ---
Subjective Date of Service: Nov 21, 2017. Subjective Pt evaluation today including: conversation w/ patient, conversation w/ family ( by phone), physical exam, chart review, lab review, review of inpatient medication list Pain: no abd pain PO Intake: tolerating clears Voiding: no voiding problems tele stable overnight no stools no overt GI bleeding tolerated PRBCs breathing is comfortable FERNANDEZ is at baseline Problem List Medical Problems: (1) COPD exacerbation Status: Acute (2) Failure of outpatient treatment Status: Acute (3) Influenza Status: Acute (4) Pneumonia Status: Acute Review of Systems Constitutional: No fever Respiratory: + cough, + dyspnea on exertion, No sputum, No wheezing, No shortness of breath, No dyspnea at rest Cardiac: + edema (minimal - legs) Objective Vital Signs Date Time Temp Pulse Resp B/P (MAP) Pulse Ox O2 Delivery O2 Flow Rate FiO2 11/21/17 20:00 98 Nasal Cannula 2.0 11/21/17 19:43 36.6 84 18 118/72 (87) 98 Nasal Cannula 2.0 11/21/17 16:15 36.8 80 18 123/76 (92) 93 Nasal Cannula 2.0 11/21/17 16:00 98 Nasal Cannula 2.0 11/21/17 14:50 74 18 98 Nasal Cannula 2.0 11/21/17 13:04 36.9 78 16 116/70 (85) 98 Room Air 11/21/17 12:00 98 Nasal Cannula 2.0 11/21/17 08:00 98 Nasal Cannula 2.0 11/21/17 07:27 65 18 98 Nasal Cannula 2.0 11/21/17 07:18 36.7 71 16 110/60 (77) 99 Nasal Cannula 2.0 11/21/17 06:00 36.8 66 18 115/75 (88) 97 Nasal Cannula 2.0 11/21/17 04:00 Nasal Cannula 2.0 11/21/17 02:56 36.9 71 16 118/70 97 2.0 11/21/17 02:20 37.0 70 18 117/71 97 2.0 11/21/17 01:20 37.1 72 18 122/75 96 2.0 11/21/17 00:50 36.8 73 20 123/75 97 2.0 11/21/17 00:20 36.9 73 20 118/63 97 2.0 4/15/18 00:05 36.9 74 18 119/72 96 2.0 11/21/17 00:03 37.0 74 18 118/69 (85) 96 Nasal Cannula 2.0 11/21/17 00:00 Nasal Cannula 2.0 11/20/17 23:47 37.0 74 18 118/69 96 11/20/17 23:00 37.0 74 18 122/74 96 2.0 11/20/17 22:00 37.0 76 20 115/72 97 2.0 11/20/17 21:30 36.9 73 18 116/69 97 2.0 11/20/17 21:00 36.9 77 18 119/79 98 2.0 11/20/17 20:45 Nasal Cannula 2.0 11/20/17 20:45 37.0 76 18 114/75 100 2.0 Physical Exam General Appearance: no apparent distress ENT: pharynx normal Neck: no JVD Respiratory/Chest: no respiratory distress, no accessory muscle use, + crackles (extensive, b/l, no change from prior exams) Cardiovascular: regular rate, rhythm, no gallop, no murmur Abdomen: normal bowel sounds, non tender, soft, no organomegaly Extremities: + pedal edema (trace b./l ) Neurologic/Psychiatric: alert, oriented x 3 Laboratory Results Last 24 Hours Test 11/21/17 04:05 11/21/17 06:21 11/21/17 07:42 11/21/17 11:52 Hemoglobin 9.4 g/dL 9.3 g/dL Hematocrit 28.4 % 28.7 % Sodium Level 137 mmol/L Potassium Level 4.1 mmol/L Chloride Level 104 mmol/L Carbon Dioxide Level 29 mmol/L Anion Gap 4.0 mmol/L Blood Urea Nitrogen 17 mg/dl Creatinine 0.67 mg/dl Est Creatinine Clear Calc Drug Dose 71.7 ml/min Estimated GFR () 102.5 Estimated GFR (Non- 88.4 BUN/Creatinine Ratio 25.3 Random Glucose 90 mg/dl Calcium Level 8.3 mg/dl Bedside Glucose 89 mg/dl 107 mg/dl Test 11/21/17 12:11 11/21/17 16:31 Hemoglobin 10.2 g/dL Hematocrit 31.6 % Bedside Glucose 185 mg/dl Assessment and Plan 72yo female - 1. acute blood loss anemia in setting of chronic iron deficiency anemia (Hb was 13 in 2016, 11 or so in 2017, and has been continuing to trend down) - s/p 2 units PRBCs overnight. H/H improved & stable since. Acute blood loss likely from upper GI bleeding (could have PUD, gastritis, etc from asa, motrin, prednisone usage). Iron studies c/w iron deficiency. B12/folate wnl. Aspirin/motrin held. Seen by GI - no plans for EGD at this time. Does have upcoming Dinh procedure in [place]. GI recommending holding aspirin x 1. NO NSAIDs at d/c. Cont PPI bid. Cont carafate qid. 2. Pulmonary fibrosis with exacerbation - wean prednisone to 30mg in am. finish abx course. 3. right-sided pneumonia - augmentin course x 10 days. stable. 4. dysphagia - speech consult appreciated; has previous h/o Schatzki's ring requiring dilatation; symptoms likely from such. slippery diet recommended. 5. presumed upper GI bleeding w/ acute blood loss anemia - see above. 6. constipation - resolved. 7. hypothyroidism - continue synthroid. 8. CAD s/p stents several years ago - unfortunately need to hold aspirin due to GI bleeding. Cont statin. No ischemic sx's at this time. 9. 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 10. FEN - advance diet to full liquids; BMP in am. 11. DVT proph - SCDs only as chemical means are contraindicated. 12. mild edema - lasix 20mg po x 1. I don't see/hear evidence of pulmonary edema despite PRBCs overnight. updated by phone this evening possible d/c tomorrow pending AM labs Continued [facility] stay due to: multiple IV medications needed, other (GI bleeding) Discharge planning: home
[2017-11-22] MEDS: ALBUT/IPRATROP 3MG/0.5MG NEB 3 ML VIAL INH SCH ×2 (02:01→07:28)
[2017-11-22 05:20] VITALS: BP 107/66; PULSE 62; TEMP 36.8; O2SAT 100
[2017-11-22] MEDS: LEVOTHYROXINE 25 MCG TAB PO SCH (05:38)
[2017-11-22] MEDS: SUCRALFATE 1 GM/10 ML UDC PO SCH ×2 (05:38→12:06)
[2017-11-22 06:46] LABS: HEMATOCRIT 31.2 % (37-47); HEMOGLOBIN 10.1 g/dL (12.0-16.0); MEAN CELL VOLUME 85.2 fL (80-100); MEAN CORPUSCULAR HEMOGLOBIN 27.6 pg (25-34); MEAN CORPUSCULAR HGB CONC 32.4 g/dl (32-36); MEAN PLATELET VOLUME 8.2 fL (7.4-10.4); PLATELET COUNT 260 K/uL (130-400); RED CELL DISTRIBUTION WIDTH CV 16.7 % (11.5-14.5); RED CELL DISTRIBUTION WIDTH SD 51.2 fL (36.4-46.3); WHITE BLOOD COUNT 8.14 K/uL (4.8-10.8)
[2017-11-22 07:20] LABS: CALCIUM 8.6 mg/dl (8.5-10.1); CREATININE 0.72 mg/dl (0.60-1.20); POTASSIUM 3.9 mmol/L (3.5-5.1)
[2017-11-22 07:29] VITALS: PULSE 67; O2SAT 96
[2017-11-22 08:13] VITALS: BP 130/81; PULSE 64; TEMP 36.8; O2SAT 100
[2017-11-22] MEDS: CALCIUM 600MG + VIT D 400 IU TAB PO SCH (08:32)
[2017-11-22] MEDS: AMOXICILLIN/CLAVULANATE TAB 875 MG TAB PO SCH (08:32)
[2017-11-22] MEDS: FERROUS SULFATE 325 MG TAB PO SCH ×2 (08:32→12:07)
[2017-11-22] MEDS: LACTOBACILLUS ACIDOPHILUS (FLORANEX) TAB PO SCH ×2 (08:32→12:06)
[2017-11-22] MEDS: BuPROPion XL 300 MG TABCR PO SCH (08:32)
[2017-11-22] MEDS: INSULIN ASPART 100 UNITS/ML 3 ML PEN SC SCH ×2 (08:33→12:07)
[2017-11-22] MEDS ORDERED: PANTOprazole SOD 40 MG TAB PO SCH (09:00)
--- NOTE | 2017-11-22 10:07 | Gastroenterology Progress Note ---
Progress Note Date of Service: Nov 22, 2017 Subjective Pt evaluation today including: conversation w/ patient, chart review, lab review, review of inpatient medication list Patient is currently without any GI complaints such as: abdominal pain, nausea with vomiting, or overt GIB. States she is planned to have an upper endoscopy at [facility] as an outpatient followed by hiatus hernia repair. Continues BID Protonix. H&H remains stable at 10.1 and 31.2 today. Review of Systems Constitutional: No problem reported Respiratory: No problem reported Cardiac: No problem reported Abdomen: + see HPI Medications Current Inpatient Medications Medications (Trade) Dose Ordered Sig/Gordon Route Start Time Stop Time Status Last Admin Dose Admin Atorvastatin Calcium (Lipitor Tab) 80 mg HS PO 11/17/17 21:00 12/17/17 20:59 11/21/17 20:44 80 MG Bupropion HCl (Wellbutrin-Xl Tab) 300 mg QAM PO 11/17/17 08:00 12/17/17 08:59 11/22/17 08:32 300 MG Calcium/Vitamin D (Caltrate Plus Tab) 1 tab QAM PO 11/17/17 08:00 12/17/17 08:59 11/22/17 08:32 1 TAB Levothyroxine Sodium (Synthroid Tab) 25 mcg DAILYBB PO 11/17/17 06:30 12/17/17 06:59 11/22/17 05:38 25 MCG Acetaminophen (Tylenol Tab) 650 mg Q4H PRN PO 11/17/17 04:30 12/17/17 04:29 Al Hydrox/Mg Hydrox/Simethicone (Maalox Max Susp) 15 ml Q4H PRN PO 11/17/17 04:30 12/17/17 04:29 11/18/17 01:39 15 ML Magnesium Hydroxide (Milk Of Magnesia Susp) 30 ml Q6H PRN PO 11/17/17 04:30 12/17/17 04:29 Polyethylene (Miralax Powder Packet) 17 gm DAILY PRN PO 11/17/17 04:30 12/17/17 04:29 11/19/17 17:31 17 GM Ondansetron HCl (Zofran Inj) 4 mg Q6H PRN IV 11/17/17 04:30 12/17/17 04:29 11/18/17 00:11 4 MG Albuterol/ Ipratropium (Duoneb) 3 ml Q6R INH 11/17/17 09:00 12/17/17 08:59 11/22/17 07:28 3 ML Albuterol Sulfate (Ventolin 0.083% 2.5MG/3ML Neb) 2.5 mg Q4H PRN INH 11/17/17 04:30 12/17/17 04:29 Insulin Aspart (novoLOG ASPART) SLIDING SCALE If C... ACHS SC 11/17/17 16:30 12/17/17 16:29 11/21/17 20:46 1 UNITS Glucose (Glucose 40% Gel) 15-30 GRAMS 15 GRAMS... UD PRN PO 11/17/17 13:45 12/17/17 13:44 Glucose (Glucose Chew Tab) 4-8 Tablets 4 Tabl... UD PRN PO 11/17/17 13:45 12/17/17 13:44 Dextrose (Dextrose 50% 50ML Syringe) 25-50ML OF 50% DW IV FOR... UD PRN IV 11/17/17 13:45 12/17/17 13:44 Glucagon (Glucagon Inj) 1 mg UD PRN SQ 11/17/17 13:45 12/17/17 13:44 Lactobacillus Acidophilus (Floranex Tab) 4 tab TIDM PO 11/18/17 08:00 12/18/17 07:59 11/22/17 08:32 4 TAB Amoxicillin/ Clavulanate Potassium (Augmentin Tab) 875 mg BIDM PO 11/19/17 17:00 11/26/17 16:59 11/22/17 08:32 875 MG Ferrous Sulfate (Feosol Tab) 325 mg TID PO 11/20/17 20:00 12/20/17 19:59 11/22/17 08:32 325 MG Sucralfate (Carafate Susp) 1 gm ACHS PO 11/20/17 16:30 12/20/17 16:29 11/22/17 05:38 1 GM Prednisone (PredniSONE TAB) 30 mg DAILY PO 11/22/17 09:00 12/01/17 10:09 11/22/17 08:32 30 MG Pantoprazole Sodium (Protonix Tab) 40 mg BID PO 11/22/17 09:00 12/22/17 08:59 11/22/17 08:32 40 MG Objective Vital Signs Date Time Temp Pulse Resp B/P (MAP) Pulse Ox O2 Delivery O2 Flow Rate FiO2 11/22/17 08:45 Nasal Cannula 2.0 11/22/17 08:13 36.8 64 20 130/81 (97) 100 2.0 11/22/17 07:29 67 16 96 Nasal Cannula 2.0 11/22/17 05:20 36.8 62 20 107/66 (80) 100 Room Air 11/22/17 04:00 Nasal Cannula 2.0 11/21/17 23:31 36.9 79 18 95/54 (68) 99 2.0 11/21/17 23:15 Nasal Cannula 2.0 11/21/17 21:27 86 16 98 Nasal Cannula 2.0 11/21/17 20:00 98 Nasal Cannula 2.0 11/21/17 19:43 36.6 84 18 118/72 (87) 98 Nasal Cannula 2.0 11/21/17 16:15 36.8 80 18 123/76 (92) 93 Nasal Cannula 2.0 11/21/17 16:00 98 Nasal Cannula 2.0 11/21/17 14:50 74 18 98 Nasal Cannula 2.0 11/21/17 13:04 36.9 78 16 116/70 (85) 98 Room Air 11/21/17 12:00 98 Nasal Cannula 2.0 Physical Exam General Appearance: no apparent distress Neck: supple Respiratory/Chest: lungs clear Cardiovascular: regular rate, rhythm Abdomen: normal bowel sounds, non tender, soft Extremities: no pedal edema Neurologic/Psych: alert, normal mood/affect, oriented x 3 Skin: warm/dry Laboratory Results Last 24 Hours Test 11/21/17 11:52 11/21/17 12:11 11/21/17 16:31 11/21/17 20:24 Bedside Glucose 107 mg/dl 185 mg/dl 203 mg/dl Hemoglobin 10.2 g/dL Hematocrit 31.6 % Test 11/22/17 06:16 11/22/17 07:54 White Blood Count 8.14 K/uL Red Blood Count 3.66 M/uL Hemoglobin 10.1 g/dL Hematocrit 31.2 % Mean Corpuscular Volume 85.2 fL Mean Corpuscular Hemoglobin 27.6 pg Mean Corpuscular Hemoglobin Concent 32.4 g/dl RDW Standard Deviation 51.2 fL RDW Coefficient of Variation 16.7 % Platelet Count 260 K/uL Mean Platelet Volume 8.2 fL Sodium Level 136 mmol/L Potassium Level 3.9 mmol/L Chloride Level 102 mmol/L Carbon Dioxide Level 32 mmol/L Anion Gap 2.0 mmol/L Blood Urea Nitrogen 16 mg/dl Creatinine 0.72 mg/dl Est Creatinine Clear Calc Drug Dose 66.6 ml/min Estimated GFR () 97.7 Estimated GFR (Non- 84.3 BUN/Creatinine Ratio 21.9 Random Glucose 87 mg/dl Calcium Level 8.6 mg/dl Magnesium Level 2.2 mg/dl Bedside Glucose 83 mg/dl Assessment and Plan Patient is a 72 year-old female seen yesterday by Dr. Sarmiento in regard to melena (now resolved) in the setting of high dose Prednisone and aspirin with planned outpatient GI work up at [facility] in [place], [place]. 1. Resume aspirin in [address] Sarmiento's recommendation. 2. Continue Pantoprazole 40 mg BID. 3. Follow up with [facility] upon discharge for ongoing GI work up. 4. Supportive care per primary team. Agree with MICHAEL Dowling as above Patient was discharged prior to my evaluation.
[2017-11-22 11:57] VITALS: BP 94/51; PULSE 68; TEMP 36.6; O2SAT 99
[2017-11-22 12:23] VITALS: BP 94/51; PULSE 68; TEMP 36.6; O2SAT 99
[2017-11-22] MEDS ORDERED: FRRS300 PO (12:32)
[2017-11-22] MEDS ORDERED: SPACMIS7 PO (12:32)
[2017-11-22] MEDS ORDERED: PRVHFAIN PO (12:32)
== END 2017-11-22 13:50 | disposition home or self-care (01) | DRG 177 ==
LOC: C.EDB 20:50 → C.4E 11-17 04:30 → ENRESERV 11-17 05:02 → C.MED 11-20 20:18
PROVIDERS: ADMIT Internal Medicine; ATTEND Internal Medicine
DX: J69.0 Pneumonitis due to inhalation of food and vomit (principal); J96.21 Acute and chronic respiratory failure with hypoxia; D62 Acute posthemorrhagic anemia; K92.2 Gastrointestinal hemorrhage, unspecified; E03.9 Hypothyroidism, unspecified; E78.5 Hyperlipidemia, unspecified; I25.10 Atherosclerotic heart disease of native coronary artery without angina pectoris; J84.10 Pulmonary fibrosis, unspecified; Z99.81 Dependence on supplemental oxygen; Z80.3 Family history of malignant neoplasm of breast; Z88.6 Allergy status to analgesic agent; Z79.52 Long term (current) use of systemic steroids; Z79.82 Long term (current) use of aspirin; F32.9 Major depressive disorder, single episode, unspecified; F41.9 Anxiety disorder, unspecified; D50.9 Iron deficiency anemia, unspecified; R13.10 Dysphagia, unspecified; K59.00 Constipation, unspecified; Z95.5 Presence of coronary angioplasty implant and graft; E09.9 Drug or chemical induced diabetes mellitus without complications; T38.0X5A Adverse effect of glucocorticoids and synthetic analogues, initial encounter; J84.17 Other interstitial pulmonary diseases with fibrosis in diseases classified elsewhere

== ENCOUNTER → 2017-11-24 | Outpatient (CLI) | payer OTHER, MEDICARE ==
[~2017-11-24] MED LIST changes: +AMOX1TAB43 PO; -ASPI81TA28 PO; +FRRS300 PO; -IBUP-1050 PO; -LANS15CA15 PO; +LANS30CA41 PO; +LCTX PO; -MILK140C PO; +MILK175C3 PO; -OSEL75CA12 PO; +OXGN; +PRED10TA PO; +PRVHFAIN PO; +SPACMIS7 PO; -VBRT100 PO
[2017-11-24 15:45] LABS: BASO % 0.1 %; BASO ABS # 0.01 K/uL (0-0.2); EOS % 1.5 %; EOS ABS # 0.16 K/uL (0-0.5); HEMATOCRIT 33.5 % (37-47); HEMOGLOBIN 10.7 g/dL (12.0-16.0); IG# 0.16 K/uL (0.00-0.02); LYMPH % 8.7 %; LYMPH ABS # 0.95 K/uL (1.2-3.4); MEAN CORPUSCULAR HEMOGLOBIN 27.8 pg (25-34); MEAN CORPUSCULAR HGB CONC 31.9 g/dl (32-36); MEAN PLATELET VOLUME 8.8 fL (7.4-10.4); MONO % 8.3 %; MONO ABS # 0.91 K/uL (0.11-0.59); NEUT % 79.9 %; NEUT ABS # 8.72 K/uL (1.4-6.5); PLATELET COUNT 274 K/uL (130-400); RED CELL DISTRIBUTION WIDTH CV 16.9 % (11.5-14.5); RED CELL DISTRIBUTION WIDTH SD 53.4 fL (36.4-46.3); WHITE BLOOD COUNT 10.91 K/uL (4.8-10.8)
== END | disposition home or self-care (01) ==
LOC: C.LAB 14:16
PROVIDERS: ATTEND Internal Medicine
DX: D64.9 Anemia, unspecified (principal)

== ENCOUNTER → 2017-11-25 | Outpatient (CLI) | payer OTHER, MEDICARE ==
[2017-11-25 13:44] LABS: HEMATOCRIT 34.5 % (37-47); MEAN CELL VOLUME 87.3 fL (80-100); MEAN CORPUSCULAR HEMOGLOBIN 27.8 pg (25-34); MEAN CORPUSCULAR HGB CONC 31.9 g/dl (32-36); PLATELET COUNT 265 K/uL (130-400); RED CELL DISTRIBUTION WIDTH CV 16.8 % (11.5-14.5); RED CELL DISTRIBUTION WIDTH SD 53.8 fL (36.4-46.3); WHITE BLOOD COUNT 11.38 K/uL (4.8-10.8)
== END | disposition home or self-care (01) ==
LOC: C.LABBC 12:09
PROVIDERS: ATTEND Physician Assistant Medical
DX: K92.2 Gastrointestinal hemorrhage, unspecified (principal)

== ENCOUNTER → 2017-12-16 | Outpatient (CLI) | payer OTHER, MEDICARE ==
--- NOTE | 2017-12-16 12:40 | DIAGNOSTIC IMAGING REPORT ---
CHEST 2 VIEWS ROUTINE CLINICAL HISTORY: COUGH COMPARISON STUDY: 11/16/2017 FINDINGS: The cardiac images so contours remain stable. There are extensive interstitial pulmonary fibrotic changes similar to the preceding study. There is no acute parenchymal consolidation. The bones are osteopenic. There is evidence for multiple prior lumbar and thoracic vertebroplasty's IMPRESSION: Interstitial pulmonary fibrotic change. No evidence of acute parenchymal consolidation Electronically signed by: Hai Mendez M.D. 12/16/2017 12:38 PM Dictated Date/Time: 12/16/2017 12:37 PM
[2017-12-16 13:05] LABS: HEMATOCRIT 34.9 % (37-47); HEMOGLOBIN 10.7 g/dL (12.0-16.0); MEAN CELL VOLUME 89.9 fL (80-100); MEAN CORPUSCULAR HEMOGLOBIN 27.6 pg (25-34); MEAN CORPUSCULAR HGB CONC 30.7 g/dl (32-36); MEAN PLATELET VOLUME 8.8 fL (7.4-10.4); PLATELET COUNT 265 K/uL (130-400); RED CELL DISTRIBUTION WIDTH CV 18.8 % (11.5-14.5); RED CELL DISTRIBUTION WIDTH SD 62.3 fL (36.4-46.3); WHITE BLOOD COUNT 7.83 K/uL (4.8-10.8)
== END | disposition home or self-care (01) ==
LOC: C.RADBC 11:15
PROVIDERS: ATTEND Physician Assistant
DX: R05 Cough (principal); D64.9 Anemia, unspecified; K92.2 Gastrointestinal hemorrhage, unspecified; J84.10 Pulmonary fibrosis, unspecified

== ENCOUNTER 2019-10-16 12:24 | Inpatient (IN) ==
[2019-10-16] MEDS ORDERED: ALBUT/IPRATROP 3MG/0.5MG NEB 3 ML VIAL NEB STA (12:42)
[2019-10-16 13:22] LABS: Basophils % (auto) 0.1 %; Eosinophils % (auto) 0.2 %; Hematocrit (blood only) 32.5 % (37-47); Hemoglobin 10.3 g/dL (12.0-16.0); Immature Granulocytes % (auto) 0.4 %; Lymphocytes # (auto) 0.88 K/uL (1.2-3.4); Lymphocytes % (auto) 6.6 %; Mean Corpuscular Hemoglobin 31.1 pg (25-34); Mean Corpuscular Hgb Conc 31.7 g/dL (32-36); Mean Corpuscular Volume 98.2 fL (80-100); Mean Platelet Volume 9.6 fL (7.4-10.4); Monocytes # (auto) 0.86 K/uL (0.11-0.59); Monocytes % (auto) 6.4 %; Neutrophils % (auto) 86.3 %; Platelet Count 184 K/uL (130-400); RDW Coefficient of Variation 13.8 % (11.5-14.5); RDW Standard Deviation 49.3 fL (36.4-46.3); Red Blood Count 3.31 M/uL (4.2-5.4); White Blood Count 13.34 K/uL (4.8-10.8)
[2019-10-16 13:23] LABS: Basophils # (auto) 0.01 K/uL (0-0.2); Eosinophils # (auto) 0.03 K/uL (0-0.5); Immature Granulocytes # (auto) 0.06 K/uL (0.00-0.02)
--- NOTE | 2019-10-16 13:24 | XRay Report ---
XR chest 1V portable CLINICAL HISTORY: SOB dyspnea COMPARISON STUDY: 09/13/2019 FINDINGS: Moderate cardiomegaly. Slightly progressive interstitial change of both hemithoraces. This suggests a component of congestive failure superimposed upon chronic fibrotic change. Diaphragms are smooth. IMPRESSION: Mild congestive failure superimposed upon diffuse chronic fibrotic change. ACT 112: Negative or not required by law. The above report was generated using voice recognition software. It may contain grammatical, syntax or spelling errors. Electronically signed by: Jose Ascencio M.D. 10/16/2019 1:23 PM
[2019-10-16 13:30] LABS: Base Excess VBG 6.3 mEq/L; Oxygen Saturation VBG 79.6 %; pH VBG 7.49 (7.36-7.41)
[2019-10-16 13:37] LABS: INR 1.2 (0.9-1.1); Partial Thromboplastin Ratio 0.9; Partial Thromboplastin Time 25.7 Seconds (21.0-31.0); Prothrombin Time 12.5 Seconds (9.0-12.0)
[2019-10-16 13:44] LABS: Albumin Level 2.7 gm/dl (3.4-5.0); BUN Creatinine Ratio 28.1 (10-20); Calcium 8.5 mg/dl (8.5-10.1); Creatinine Clr Calc Pharmacy 64.3 ml/min; Est GFR (African American) 101.6; Est GFR (Non-African American) 87.6; Magnesium 2.1 mg/dl (1.8-2.4); Potassium 3.6 mmol/L (3.5-5.1)
[2019-10-16] MEDS ORDERED: SODIUM CHLORIDE 0.9% 1000ML 250 ML IV ONE (13:46)
[2019-10-16 13:52] LABS: Albumin Globulin Ratio 0.7 (0.9-2); Bilirubin,Total 1.1 mg/dl (0.2-1); Globulin 3.8 gm/dl (2.5-4.0); Total Protein 6.5 gm/dl (6.4-8.2); Troponin I 0.3 ng/ml (0-0.045)
[2019-10-16] MEDS ORDERED: ONDANSETRON INJ 2 MG/ML 2 ML VIAL IV STA (14:07)
--- NOTE | 2019-10-16 15:45 | History & Physical Report ---
Date of Service October 16, 2019 Assessment & Plan (1) Acute and chronic respiratory failure: Admits to PCU on telemetry, Vital signs every 4 hours, Duo nebs every 4 hours scheduled and PRN 2 hours per RT, Solu-Medrol 40 mg IV twice daily and taper down Continue home inhalers:Albuterol sulfate 2 puffs every 6 hours as needed, Breo Ellipta 1 inhalation nightly, Started empirically Zosyn and doxycycline to cover for atypicals for possible pneumonia. Blood culture and sputum culture pending, If no further suspicion of pneumonia please discontinue antibiotics in 24 to 48 hours. Patient has leukocytosis of 13,000, continue monitoring and trending down. DVT prophylaxis Lovenox 40 mg subcu daily. Consult pulmonary for severe idiopathic pulmonary fibrosis Full code Present on Admission?: Yes (2) Elevated troponin: Elevated troponin to 0.3, likely due to demand ischemia related to acute on chronic respiratory failure. Trend down Consult cardiology TTE pending Aspirin 3241 p.o. Present on Admission?: Yes (3) Abnormal EKG: TTE pending As discussed above Present on Admission?: Yes (4) Interstitial lung disease: Consults pulmonary, Continue DuoNeb, steroids and taper down, BiPAP, albuterol HFA and Brio Ellipta. Patient was considering to have lung transplant and had evaluation in May 2019 by . We reviewed the letter from [facility]. There was concerns regarding her comorbidities related to coronary artery disease large, elevated panel reactive antibodies to 35 and fragility. There were also concerned that patient small size has a very narrow window and prolonged time on the transplant list. They made final decision from the committee that she cannot be listed for lung transplantation. They recommended her current medical regimen for interstitial lung disease and continue supplemental oxygen. Present on Admission?: Yes (5) Vertebral compression fracture: (6) Depression: Stable, continue bupropion 300 mg p.o. every morning. Present on Admission?: Yes (7) Hyperlipidemia: Lipid panel pending. Continue atorvastatin 80 mg p.o. nightly. Split into 2 pills for patient to be able to swallow. Present on Admission?: Yes (8) Hypothyroidism: TSH pending, continue levothyroxine 25 MCG's p.o. every morning. 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 Monitor electrolytes, Strict in and outs, Daily weight, Present on Admission?: Yes History of Present Illness Chief Complaint: worsening SOB, acute on chronic respiratory failure Primary Care Provider: Fernie Alas MD The patient is a 74 years old female with past medical history of severe interstitial lung disease, anemia, depression, hyperlipidemia, hypothyroidism, coronary artery disease, gastroparesis, hiatal hernia status post fundoplication at [facility], osteoporosis, primary pulmonary lymphoma, who was brought by EMS after her family called reporting that patient is increasingly short of breath and in the past 24 hours she required 15 L of oxygen. 1 week ago patient had fundoplication done at [facility] for hiatal hernia and that procedure went without issues. It is now that patient is recovering poorly and feeling increasingly short of breath. Patient denies fever, chills, chest pain, abdominal pain, frequency, urgency, hemoptysis, nausea, vomiting. Patient is using at home CPAP. In the ER patient needed to be placed on BiPAP to keep oxygenation above 88%. Labs are reviewed: WBC is 13.34, hemoglobin 10.3, hematocrit 32.5, platelets 184, PT 12.5, INR 1.2, APTT 25.7, VBG 7.49, PCO2 41, PO2 44, sodium 140, potassium 3.6, chloride 106, carbon dioxide 29, anion gap 5, BUN 19, creatinine 0.0 66, GFR 87, glucose 152, and hemoglobin A1c checked on September 07, 2018 was 6.1, calcium 8.5, magnesium 2.1, total bilirubin 1.1, AST 6 4, ALT 48, alkaline phosphatase 236, troponin 0.3, BNP 10,081, total protein 6.5, Albumin 2.7, globulin 3.8. Influenza A&B negative. Blood cultures pending, sputum cultures pending. Chest x-ray shows moderate cardiomegaly. Slightly progressive interstitial changes of both hemithoraces. This suggests a component of congestive failure superimposed upon chronic fibrotic change. Diaphragms are smooth. EKG normal sinus rhythm, with T wave abnormality considering ischemic inferior ischemia and anterior ischemia when compared to September 13, 2019 T wave inversion is obvious in the inferior and anterior leads. Decision was made to admit patient to PCU on telemetry for acute on chronic respiratory failure, congestive heart failure and possible pneumonia. Allergies Allergy/AdvReac Type Severity Reaction Status Date / Time adhesive Allergy Intermediate ITCHY, Verified 10/16/19 13:01 "BLISTERY" SKIN WITH SOME TAPE/BANDAIDS Home Medications Home Medications Medication Instructions Recorded Confirmed Type Breo Ellipta 1 inh INHALATION HS 08/30/18 10/16/19 History albuterol sulfate 1 - 2 puff INHALATION Q6H PRN 08/30/18 10/16/19 History aspirin [Aspir-81] 81 mg PO QAM 08/30/18 10/16/19 History calcium carbonate-vitamin D3 1,000 mg PO QAM 08/30/18 10/16/19 History [Calcium 500 + D] milk thistle 175 mg PO QAM 08/30/18 10/16/19 History Prolia 60 mg SUBCUT DIRECTED 09/06/18 10/16/19 History vit C,E,zinc,copper-veule9z 250 1 cap PO DAILY 02/15/19 10/16/19 History mg-lutein 5 mg-zeaxanthin 1 mg capsule bupropion HCl 300 mg 24 hr tablet, 300 mg PO QAM #90 tab 03/06/19 10/16/19 Rx extended release cholecalciferol (vitamin D3) 50 4,000 units PO QAM cap 03/07/19 10/16/19 History mcg (2,000 unit) capsule coenzyme Q10 60 mg tablet 60 mg PO DAILY 03/07/19 10/16/19 History lansoprazole 15 mg delayed 30 mg PO BID tab 03/07/19 10/16/19 History release,disintegrating tablet lidocaine 4 % topical patch 1 patch TOP DAILY PRN 03/07/19 10/16/19 History prednisone 1 mg tablet 10 mg PO DAILY tab 03/16/19 10/16/19 History levothyroxine 25 mcg tablet 25 mcg PO QAM #90 tab 03/27/19 10/16/19 Rx nitroglycerin 0.4 mg sublingual 0.4 mg SUBLINGUAL UD PRN #25 tab 03/31/19 10/16/19 Rx tablet atorvastatin 80 mg tablet 80 mg PO HS #90 tab 06/22/19 10/16/19 Rx acetaminophen 500 mg/15 mL oral 1,000 mg PO TID PRN #240 ml 10/13/19 10/16/19 Rx liquid ibuprofen 200 mg capsule 400 mg PO Q6H PRN cap 10/13/19 10/16/19 History magnesium hydroxide 400 mg/5 mL 30 ml PO DAILY PRN #360 ml 10/13/19 10/16/19 Rx oral suspension ondansetron 4 mg disintegrating 4 mg PO Q8H PRN #30 tab 10/13/19 10/16/19 Rx tablet oxycodone 5 mg/5 mL oral solution 5 mg PO Q6H PRN #15 ml 10/13/19 10/16/19 Rx pantoprazole 40 mg tablet,delayed 40 mg PO DAILY #30 tab 10/13/19 10/16/19 Rx release rituximab-pvvr 10 mg/mL 375 mg IV .Q3-4Months #50 ml 10/13/19 10/16/19 Rx concentrate,intravenous simethicone 80 mg chewable tablet 80 mg PO Q4H PRN #30 tab 10/13/19 10/16/19 Rx vitamin E (dl, acetate) 1,000 unit 1,000 units PO DAILY #30 cap 10/13/19 10/16/19 Rx capsule sennosides [senna] 10 ml PO HS 10/16/19 10/16/19 History Past Med/Surg History Medical History Anemia HX Chronic back pain Chronic steroid use SINCE 05/2009 Depression GERD (gastroesophageal reflux disease) GI bleed 12/2017 [facility] Hiatal hernia History of anesthesia reaction SLOW TO WAKE UP WITH TKA-2012 [facility] Hyperlipidemia Hypothyroidism Myocardial Infarction 2013 On home oxygen therapy 2L/MIN AT REST 3-6 L/MIN WITH ACTIVITY Pneumonia 12/[address] [facility] [place] Syncope HX- A RESULT OF HEART MED WAS ON IN THE PAST Surgical History History of cardiac cath 3 STENTS PLACED 2013 [facility] 2017 [facility] [place]-NO STENTS NEEDED History of section X 2 History of kyphoplasty X 6 TIMES (7 LEVELS WERE DONE TOTAL) History of laminectomy History of total knee replacement RIGHT Family History Unknown Cancer Dementia Asthma Hay fever Lung infection Mother Cancer Sister Dementia Father Lung infection Social History Preferred Language: Swedish Communication Ability: Effective Visual Impairment: Diminished Hearing Ability: Normal 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 Required: No Beliefs That Will Affect Care: None marital status: Current Living Situation: Spouse current occupational status: retired Other Information That Helps Us Care for You: No Feels Safe at Home: Yes Safety Concerns: Feels Safe At This Time Smoking Status: Never smoker Second Hand Exposure: No ( A CHILD) ; Hx Alcohol Use: Yes Alcohol type: wine and hard liquor Hx Substance Use: No Childhood Exposure to Second-Hand Smoke: Yes caffeine: Yes Dental Care, Regularly: Yes Physical Activity Frequency: Does not Exercise Physical Activity Frequency Comment: unable on regular basis Seatbelt Use: always Sunscreen Use: Yes Review of Systems Review of Systems: All systems reviewed & are unremarkable except as noted in HPI & below Physical Exam Constitutional: WD/WN, vitals as above well developed, + ill appearing and + obese Eyes: PERRL, conjunctivae normal, anicteric sclerae ENMT: external ear and nose normal, oropharynx normal Neck: trachea midline, no thyromegaly Respiratory: normal respiratory effort, + respiratory distress, + labored breathing, + uses accessory muscles, + hyperresonance to percussion, + tachypneic, + prolonged expiratory phase, + audible wheezes, + nasal flaring and + pursed lip breathing Auscultation: + crackles, + rales and + wheezes Cardiovascular: RRR, no murmur, no edema Gastrointestinal (Abdomen): normal bowel sounds, soft, nontender, no hepatosplenomegaly Musculoskeletal: no cyanosis or clubbing, extremities motor strength 5/5 Skin: no rashes, warm and dry Neurologic: patellar DTR's 2+ bilat, sensation intact Psychiatric: A+Ox3, euthymic affect Lymphatic: no cervical or axillary lymphadenopathy Results & Data Vital Signs (Past 12 Hours) Vital Signs Temp Pulse Pulse Resp BP Pulse Ox 10/16/19 15:00 81 31 H 88 L 10/16/19 14:54 81 33 H 123/86 83 L 10/16/19 14:30 80 34 H 99 10/16/19 14:16 82 38 H 91 10/16/19 14:00 81 26 H 92 10/16/19 13:30 88 34 H 97 10/16/19 13:00 87 36 H 93 10/16/19 12:58 36.7 C 90 34 H 116/73 44 L 10/16/19 12:57 86 37 H 92 10/16/19 12:43 91 H 30 H 10/16/19 12:35 87 39 H 95 10/16/19 12:29 91 H 36 H 116/73 Code Status & VTE Plan Code Status Full code VTE Prophylaxis Plan VTE Prophylaxis will be ordered: Yes PG Care Time/CCT Total # of Minutes Spent Total Time Spent with Patient: Total time spent is greater than 50% in coordination of care (as documented) at patient's floor/unit and/or counseling patient: Coding Level of Care Code 60656 Initial Inpt Care Lvl 3 Diagnoses Acute and chronic respiratory failure J96.20 Elevated troponin R79.89 Abnormal EKG R94.31 Interstitial lung disease J84.9 Vertebral compression fracture M48.50XA Depression F32.9 Hyperlipidemia E78.5 Hypothyroidism E03.9 3-vessel coronary artery disease I25.10 Impaired fasting glucose R73.01 Primary pulmonary lymphoma C85.99 Congestive heart failure I50.9
[2019-10-16] MEDS ORDERED: NITROGLYCERIN SL 0.4 MG/TAB TAB SL PRN (15:50)
[2019-10-16] MEDS ORDERED: RITUXIMAB PVVR IV SCH (15:50)
[2019-10-16] MEDS ORDERED: ALUMINUM/MAGNESIUM SUSP 30 ML UDC PO PRN (15:50)
[2019-10-16] MEDS ORDERED: ACETAMINOPHEN 325 MG TAB PO PRN (15:50)
[2019-10-16] MEDS ORDERED: ALBUT/IPRATROP 3MG/0.5MG NEB 3 ML VIAL NEB PRN (15:50)
[2019-10-16] MEDS ORDERED: IBUPROFEN 200 MG TAB PO PRN (15:50)
[2019-10-16] MEDS ORDERED: LIDOCAINE 5% 1 PATCH TD PRN (15:50)
[2019-10-16] MEDS ORDERED: PIPERACILL/TAZOBAC CONSULT ACTIVE PRN (15:50)
[2019-10-16] MEDS ORDERED: NON-FORMULARY MEDICATION (Denosumab 60 MG) SQ SCH (15:50)
[2019-10-16] MEDS ORDERED: MAGNESIUM HYDROXIDE SUSP 30 ML UDC PO PRN ×2 (15:50)
[2019-10-16] MEDS ORDERED: ALBUTEROL HFA 8 GM INHALER INH PRN (15:50)
[2019-10-16] MEDS ORDERED: ONDANSETRON 4 MG OD TAB PO PRN (15:50)
[2019-10-16] MEDS ORDERED: OXYCODONE HCL SOLN 5 MG/5 ML UDC PO PRN (15:50)
[2019-10-16] MEDS ORDERED: ASPIRIN 81 MG CHEW PO STA (16:01)
[2019-10-16] MEDS ORDERED: PIPERACILLIN/TAZOBACTAM 3.375 GM in DEXTROSE 5% 100 ML/100 ML BAG IV STA (16:16)
[2019-10-16] MEDS: FUROSEMIDE 40 MG in SYRINGE 0 ML IV SCH (16:57)
[2019-10-16] MEDS: ENOXAPARIN INJ 40 MG/0.4 ML SYR SQ SCH (17:00)
--- NOTE | 2019-10-16 18:47 | Emergency Department Note ---
Entered by Karin Mckenzie acting as a scribe for Haider Morrow MD History of Present Illness General Chief complaint: Shortness of Breath/Dyspnea Stated complaint: diff. breathing Time Seen by Provider: 10/16/19 12:25 Source: family (daughter) History of Present Illness Onset (ago): week(s) 1 Location: mouth (shortness of breath) Pain Consistency: + other (worsening) Relieved By: + other (sitting down) Associated symptoms: + other (low oxygen saturation) The patient is a 74 year old F who presents to the Emergency Room with complaints of worsening shortness of breath that started 1 week ago. The majority of the HPI was provided by the patients daughter. She states that the patient recently had surgery at [facility] in [place], [place], performed by Dr. Sidhu. She notes that the patient had fundoplication surgery. She adds that for the past week, ever since the surgery, the patient has been experiencing shortness of breath. She notes that the patients shortness of breath is better when the patient sits down. She notes that the patient had an oxygen saturation of 90%, prior to the surgery. She adds that ever since the surgery, the patients oxygen saturation has been dropping when the patient walks, sleeps, and in the morning. She adds that the patient receives 15L of oxygen while she walks. She states that today, the patients oxygen saturation was at 50%. She no carlos that she called [facility], due to the patients symptoms. She adds that she was told to bring the patient into the ED. She states that the patients pellet machine operator is Dr. Crowell at [facility] in [place], [place]. She adds that the patient has seen Dr. Yarbrough, pellet machine operator, locally. She notes that the patient is not yet able to eat solid food due to her surgery. She adds that the patient ate an ice pop and had water to drink, this morning. Home Medications Home Medications Medication Instructions Recorded Confirmed Type Breo Ellipta 1 inh INHALATION HS 08/30/18 10/16/19 History albuterol sulfate 1 - 2 puff INHALATION Q6H PRN 08/30/18 10/16/19 History aspirin [Aspir-81] 81 mg PO QAM 08/30/18 10/16/19 History calcium carbonate-vitamin D3 1,000 mg PO QAM 08/30/18 10/16/19 History [Calcium 500 + D] milk thistle 175 mg PO QAM 08/30/18 10/16/19 History Prolia 60 mg SUBCUT DIRECTED 09/06/18 10/16/19 History vit C,E,zinc,copper-fbpjx1y 250 1 cap PO DAILY 02/15/19 10/16/19 History mg-lutein 5 mg-zeaxanthin 1 mg capsule bupropion HCl 300 mg 24 hr tablet, 300 mg PO QAM #90 tab 03/06/19 10/16/19 Rx extended release cholecalciferol (vitamin D3) 50 4,000 units PO QAM cap 03/07/19 10/16/19 Hi story mcg (2,000 unit) capsule coenzyme Q10 60 mg tablet 60 mg PO DAILY 03/07/19 10/16/19 History lansoprazole 15 mg delayed 30 mg PO BID tab 03/07/19 10/16/19 History release,disintegrating tablet lidocaine 4 % topical patch 1 patch TOP DAILY PRN 03/07/19 10/16/19 History prednisone 1 mg tablet 10 mg PO DAILY tab 03/16/19 10/16/19 History levothyroxine 25 mcg tablet 25 mcg PO QAM #90 tab 03/27/19 10/16/19 Rx nitroglycerin 0.4 mg sublingual 0.4 mg SUBLINGUAL UD PRN #25 tab 03/31/19 10/16/19 Rx tablet atorvastatin 80 mg tablet 80 mg PO HS #90 tab 06/22/19 10/16/19 Rx acetaminophen 500 mg/15 mL oral 1,000 mg PO TID PRN #240 ml 10/13/19 10/16/19 Rx liquid ibuprofen 200 mg capsule 400 mg PO Q6H PRN cap 10/13/19 10/16/19 History magnesium hydroxide 400 mg/5 mL 30 ml PO DAILY PRN #360 ml 10/13/19 10/16/19 Rx oral suspension ondansetron 4 mg disintegrating 4 mg PO Q8H PRN #30 tab 10/13/19 10/16/19 Rx tablet oxycodone 5 mg/5 mL oral solution 5 mg PO Q6H PRN #15 ml 10/13/19 10/16/19 Rx pantoprazole 40 mg tablet,delayed 40 mg PO DAILY #30 tab 10/13/19 10/16/19 Rx release rituximab-pvvr 10 mg/mL 375 mg IV .Q3-4Months #50 ml 10/13/19 10/16/19 Rx concentrate,intravenous simethicone 80 mg chewable tablet 80 mg PO Q4H PRN #30 tab 10/13/19 10/16/19 Rx vitamin E (dl, acetate) 1,000 unit 1,000 units PO DAILY #30 cap 10/13/19 10/16/19 Rx capsule sennosides [senna] 10 ml PO HS 10/16/19 10/16/19 History Allergies Allergy/AdvReac Type Severity Reaction Status Date / Time adhesive Allergy Intermediate ITCHY, Verified 10/16/19 13:01 "BLISTERY" SKIN WITH SOME TAPE/BANDAIDS Past Med/Surg History Medical History Anemia HX Chronic back pain Chronic steroid use SINCE 05/2009 Depression GERD (gastroesophageal reflux disease) GI bleed 12/2017 [facility] Hiatal hernia History of anesthesia reaction SLOW TO WAKE UP WITH TKA-2012 [facility] Hyperlipidemia Hypothyroidism Myocardial Infarction 2013 On home oxygen therapy 2L/MIN AT REST 3-6 L/MIN WITH ACTIVITY Pneumonia 12/[address] [facility]OW[facility]LL [facility] Syncope HX- A RESULT OF HEART MED WAS ON IN THE PAST Surgical History History of cardiac cath 3 STENTS PLACED 2013 [facility] 2017 [facility]-NO STENTS NEEDED History of section X 2 History of kyphoplasty X 6 TIMES (7 LEVELS WERE DONE TOTAL) History of laminectomy History of total knee replacement RIGHT Family History Unknown Cancer Dementia Asthma Hay fever Lung infection Mother Cancer Sister Dementia Father Lung infection Social History Preferred Language: Salvadorean Communication Ability: Effective Visual Impairment: Diminished Hearing Ability: Normal Poultry Killer Required: No Beliefs That Will Affect Care: None marital status: Current Living Situation: Spouse current occupational status: retired Feels Safe at Home: Yes Smoking Status: Never smoker Second Hand Exposure: No ( A CHILD) ; Hx Alcohol Use: Yes Alcohol type: wine and hard liquor Hx Substance Use: No Childhood Exposure to Second-Hand Smoke: Yes caffeine: Yes Dental Care, Regularly: Yes Physical Activity Frequency: Does not Exercise Physical Activity Frequency Comment: unable on regular basis Seatbelt Use: always Sunscreen Use: Yes Review of Systems See HPI for pertinent positives & negatives. and A total of 10 systems reviewed and were otherwise negative Physical Exam Vital Signs Vital Signs - 24 hr 10/16/19 12:29 10/16/19 12:35 10/16/19 12:42 Temperature Temperature Source Pulse Rate 91 H 87 Pulse Rate [Forehead] Pulse Rate from SpO2 Sensor Respiratory Rate 36 H 39 H Respiratory Effort / Characteristics Spontaneous Respiratory Pattern Tachypnea Blood Pressure 116/73 Blood Pressure Mean 92 Pulse Oximetry 95 Oxygen Delivery Method BiPAP Fraction of Inspired Oxygen 100 Sepsis Recent Fever Within 48 Hours Sepsis New/Unexplained Change in Mental Status Sepsis Action Taken by Nursing 10/16/19 12:43 10/16/19 12:55 10/16/19 12:57 Temperature Temperature Source Pulse Rate 91 H Pulse Rate [Forehead] 86 Pulse Rate from SpO2 Sensor Respiratory Rate 30 H 37 H Respiratory Effort / Characteristics Spontaneous Respiratory Pattern Blood Pressure Blood Pressure Mean Pulse Oximetry 92 Oxygen Delivery Method BiPAP BiPAP Fraction of Inspired Oxygen 80 80 Sepsis Recent Fever Within 48 Hours Sepsis New/Unexplained Change in Mental Status Sepsis Action Taken by Nursing 10/16/19 12:58 10/16/19 13:00 10/16/19 13:30 Temperature 36.7 C Temperature Source Oral Pulse Rate 90 87 88 Pulse Rate [Forehead] Pulse Rate from SpO2 Sensor 82 83 Respiratory Rate 34 H 36 H 34 H Respiratory Effort / Characteristics Respiratory Pattern Blood Pressure 116/73 Blood Pressure Mean 87 Pulse Oximetry 44 L 93 97 Oxygen Delivery Method Fraction of Inspired Oxygen Sepsis Recent Fever Within 48 Hours No Sepsis New/Unexplained Change in Mental Status No Sepsis Action Taken by Nursing No Action Required 10/16/19 14:00 10/16/19 14:16 10/16/19 14:30 Temperature Temperature Source Pulse Rate 81 82 80 Pulse Rate [Forehead] Pulse Rate from SpO2 Sensor 82 79 Respiratory Rate 26 H 38 H 34 H Respiratory Effort / Characteristics Spontaneous Respiratory Pattern Tachypnea Blood Pressure Blood Pressure Mean Pulse Oximetry 92 91 99 Oxygen Delivery Method Fraction of Inspired Oxygen 80 Sepsis Recent Fever Within 48 Hours Sepsis New/Unexplained Change in Mental Status Sepsis Action Taken by Nursing GENERAL: Patient is in moderate respiratory distress. HEENT: No acute trauma, normocephalic atraumatic, mucous membranes moist, no nasal congestion, no scleral icterus. NECK: No stridor, no adenopathy, no meningismus, trachea is midline. LUNGS: Diminished breath sounds on right, crackles present, no wheezing, increased respiratory rate. Moderate respiratory distress. HEART: Without murmurs gallops or rubs, regular rate and rhythm. ABDOMEN: Soft, nontender, bowel sounds positive, no hernias, no peritonitis. EXTREMITIES: No cyanosis or edema, full range of motion of all the joints without pain or difficulty, no signs for acute trauma. NEUROLOGIC: Oriented x 3, no acute motor or sensory deficits, no focal weakness. SKIN: No rash, no jaundice, no diaphoresis. Course Course 1226: The patient was evaluated in room C6. A complete history and physical exam was performed. 1345: I updated the patient and her family on the patient's test results. The patient states that she is feeling well. I informed them that I will talk to [facility]. 1348: I reviewed the patient's case with Emily who is an geriatric nurse assistant for Dr. Sidhu, Surgeon [facility]. She states that she spoke with the patient's family this morning. She notes that they do not want the patient to go back to [place], [place]. She adds that the goal is to stabilize the patient and get the patient back home. 1355: The patient has an elevated troponin. 1403: I reviewed the patient's case with Dr. Leary, [facility] Hospitalist. She will evaluate the patient for further management. Administered Medications Albuterol (Duoneb) 3 ml NEB QIDR JAMES Stop: 11/15/19 18:59 Last Admin: 10/16/19 19:07 Dose: 3 ml Documented by: [id number] Enoxaparin Sodium (Lovenox) 40 mg SQ Q24H JAMES Stop: 11/15/19 17:59 Last Admin: 10/16/19 17:00 Dose: 40 mg Documented by: [id number] Furosemide 40 mg/ Syringe 4 mls @ 4 mls/min IV DAILY JAMES Stop: 11/15/19 16:29 Last Admin: 10/16/19 16:57 Dose: 4 mls/min Documented by: [id number] Discontinued Medications Albuterol (Duoneb) 3 ml NEB NOW STA Stop: 10/16/19 12:43 Last Admin: 10/16/19 12:53 Dose: 3 ml Documented by: [id number] Aspirin (Aspirin Chew) 324 mg PO NOW STA Stop: 10/16/19 16:02 Last Admin: 10/16/19 17:21 Dose: Not Given Documented by: [id number] Sodium Chloride (Nss 1000ml) 250 mls @ 999 mls/hr IV .Q16M ONE Stop: 10/16/19 14:01 Last Infusion: 10/16/19 14:38 Dose: 0 mls/hr Documented by: [id number] Admin: 10/16/19 14:22 Dose: 999 mls/hr Documented by: [id number] Piperacillin Sod/Tazobactam (Sod 3.375 gm/ Dextrose) 100 ml in 115 mls @ 230 mls/hr IV NOW STA Stop: 10/16/19 16:45 Last Infusion: 10/16/19 17:29 Dose: 0 mls/hr Documented by: [id number] Admin: 10/16/19 16:59 Dose: 230 mls/hr Documented by: [id number] Ondansetron HCl (Zofran) 4 mg IV NOW STA Stop: 10/16/19 14:08 Last Admin: 10/16/19 14:22 Dose: 4 mg Documented by: [id number] Critical Care Time Critical Care Time: Yes Total Critical Care Time: 47 I have personally spent 47 minutes of critical care time in the direct management of this patient. This includes bedside care, interpretation of diagnostic studies, and testing, discussion with consultants, patient, and family members, and other required patient management activities. This 47 minutes is in excess of all separately billable procedures. Medical Decision Making Differential Diagnosis Differential diagnosis includes: pneumothorax, CHF, PNA, bronchitis, exacerbation of pulmonary fibrosis, [place], cardiac ischemia, electrolyte imbalance Medical Records Attestation: I reviewed the patient's medical records. Home Medications Current Medication List: was personally reviewed by me Laboratory Data Attestation: I reviewed the patient's lab results. Result diagrams: 10/16/19 13:10 10/16/19 13:10 Lab Results 10/16/19 10/16/19 10/16/19 Range/Units 13:10 13:10 13:10 WBC 13.34 H (4.8-10.8) K/uL RBC 3.31 L (4.2-5.4) M/uL Hgb 10.3 L (12.0-16.0) g/dL Hct 32.5 L (37-47) % MCV 98.2 (80-100) fL MCH 31.1 (25-34) pg MCHC 31.7 L (32-36) g/dL RDW Std Deviation 49.3 H (36.4-46.3) fL RDW Coeff of [place] 13.8 (11.5-14.5) % Plt Count 184 (130-400) K/uL MPV 9.6 (7.4-10.4) fL Immature Gran % (Auto) 0.4 % Neut % (Auto) 86.3 % Lymph % (Auto) 6.6 % [place] % (Auto) 6.4 % Eos % (Auto) 0.2 % Baso % (Auto) 0.1 % Immature Gran # (Auto) 0.06 H (0.00-0.02) K/uL Neut # (Auto) 11.50 H (1.4-6.5) K/uL Lymph # (Auto) 0.88 L (1.2-3.4) K/uL [place] # (Auto) 0.86 H (0.11-0.59) K/uL Eos # (Auto) 0.03 (0-0.5) K/uL Baso # (Auto) 0.01 (0-0.2) K/uL PT 12.5 H (9.0-12.0) Seconds INR 1.2 H (0.9-1.1) APTT 25.7 (21.0-31.0) Seconds PTT Ratio 0.9 VBG pH (7.36-7.41) VBG pCO2 (38-50) mmHg VBG pO2 mmHg VBG HCO3 mmol/L VBG O2 Saturation % VBG Base Excess mEq/L Barometric Pressure mm/Hg Sodium 140 (136-145) mmol/L Potassium 3.6 (3.5-5.1) mmol/L Chloride 106 (98-107) mmol/L Carbon Dioxide 29 (21-32) mmol/L Anion Gap 5.0 (3-11) BUN 19 H (7-18) mg/dl Creatinine 0.66 (0.6-1.2) mg/dl Est Cr Clr Drug Dosing 64.3 ml/min Est GFR ( Amer) 101.6 Est GFR (Non-Af Amer) 87.6 BUN/Creatinine Ratio 28.1 H (10-20) Glucose 152 H (70-99) mg/dl Calcium 8.5 (8.5-10.1) mg/dl Magnesium 2.1 (1.8-2.4) mg/dl Total Bilirubin 1.1 H (0.2-1) mg/dl AST 64 H (15-37) U/L ALT 48 (12-78) U/L Alkaline Phosphatase 236 H (45-117) U/L Troponin I 0.300 H* (0-0.045) ng/ml NT-Pro-B Natriuret Pep (0-900) pg/ml Total Protein 6.5 (6.4-8.2) gm/dl Albumin 2.7 L (3.4-5.0) gm/dl Globulin 3.8 (2.5-4.0) gm/dl Albumin/Globulin Ratio 0.7 L (0.9-2) TSH (0.300-4.500) uIu/ml 10/16/19 10/16/19 10/16/19 Range/Units 13:10 13:10 13:10 WBC (4.8-10.8) K/uL RBC (4.2-5.4) M/uL Hgb (12.0-16.0) g/dL Hct (37-47) % MCV (80-100) fL MCH (25-34) pg MCHC (32-36) g/dL RDW Std Deviation (36.4-46.3) fL RDW Coeff of [place] (11.5-14.5) % Plt Count (130-400) K/uL MPV (7.4-10.4) fL Immature Gran % (Auto) % Neut % (Auto) % Lymph % (Auto) % [place] % (Auto) % Eos % (Auto) % Baso % (Auto) % Immature Gran # (Auto) (0.00-0.02) K/uL Neut # (Auto) (1.4-6.5) K/uL Lymph # (Auto) (1.2-3.4) K/uL [place] # (Auto) (0.11-0.59) K/uL Eos # (Auto) (0-0.5) K/uL Baso # (Auto) (0-0.2) K/uL PT (9.0-12.0) Seconds INR (0.9-1.1) APTT (21.0-31.0) Seconds PTT Ratio VBG pH 7.49 H (7.36-7.41) VBG pCO2 41 (38-50) mmHg VBG pO2 44 mmHg VBG HCO3 30 mmol/L VBG O2 Saturation 79.6 % VBG Base Excess 6.3 mEq/L Barometric Pressure 738.9 mm/Hg Sodium (136-145) mmol/L Potassium (3.5-5.1) mmol/L Chloride (98-107) mmol/L Carbon Dioxide (21-32) mmol/L Anion Gap (3-11) BUN (7-18) mg/dl Creatinine (0.6-1.2) mg/dl Est Cr Clr Drug Dosing ml/min Est GFR ( Amer) Est GFR (Non-Af Amer) BUN/Creatinine Ratio (10-20) Glucose (70-99) mg/dl Calcium (8.5-10.1) mg/dl Magnesium (1.8-2.4) mg/dl Total Bilirubin (0.2-1) mg/dl AST (15-37) U/L ALT (12-78) U/L Alkaline Phosphatase (45-117) U/L Troponin I (0-0.045) ng/ml NT-Pro-B Natriuret Pep 14533 H (0-900) pg/ml Total Protein (6.4-8.2) gm/dl Albumin (3.4-5.0) gm/dl Globulin (2.5-4.0) gm/dl Albumin/Globulin Ratio (0.9-2) TSH 2.690 (0.300-4.500) uIu/ml Imaging Data Radiologist's Impression: Radiology results as stated below per my review and the radiologist's interpretation: XR chest 1V portable CLINICAL HISTORY: SOB dyspnea COMPARISON STUDY: 09/13/2019 FINDINGS: Moderate cardiomegaly. Slightly progressive interstitial change of both hemithoraces. This suggests a component of congestive failure superimposed upon chronic fibrotic change. Diaphragms are smooth. IMPRESSION: Mild congestive failure superimposed upon diffuse chronic fibrotic change. ACT 112: Negative or not required by law. The above report was generated using voice recognition software. It may contain grammatical, syntax or spelling errors. Electronically signed by: Jose Ascencio M.D. 10/16/2019 1:23 PM ECG Data Attestation: I personally reviewed and interpreted this ECG as follows: Indication: + SOB/dyspnea Rate (beats per minute): 88 Rhythm: + normal sinus ECG ST segments: + T-wave inversions (Inferior and anterior) ECG Findings: + Other (QTc 447); no PVCs Comparison ECG Date: from (09/13/19) Change: the following changes noted (The inverted T-waves are new.) Blood Pressure Blood Pressure Findings: Elevated blood pressure Blood Pressure Disposition: further management by hospitalist TRACY Narrative There is a mild leukocytosis at 13,000, this could be consistent with infection or the stress of her situation. The patient was somewhat anemic but this is baseline looking back at previous testing. There was a normal platelet count. No worrisome coagulopathy. VBG did not show any significant acidosis. The O2 l evel was somewhat low as would be expected with her dyspnea. No significant electrolyte abnormality or kidney failure. There were a few subtle liver enzyme elevations. The patient appeared to be in a euthyroid state. EKG showed a sinus rhythm with some inverted T waves which were new findings. No ST elevation on her EKG. The patient did have a slight troponin elevation at 0.3, this could be consistent with a cardiac injury or strain or possibly even mismatch. Chest film showed significant pulmonary fibrosis although, the film looked similar to previous films. Radiology questioned the possibility of some CHF. BNP was elevated at over 10,000. The patient presented in respiratory distress. She was immediately placed on BiPAP. She did better on BiPAP. Her respiratory rate decreased and she seemed less short of breath. She was given a DuoNeb. She received IV Zofran for nausea. She received a small bolus of IV saline, 250 cc. I did speak to [facility]. They know the patient well. They did not feel the need for emergent transfer. The patient has end-stage pulmonary fibrosis. It seems that her recent surgery has flared up her underlying lung disease. Hospitalization and stabilization was felt appropriate at our hospital. I spoke to the patient and her family, I spoke with case management, the on-call hospitalist has been consulted. Of note, despite the findings of potential CHF by radiology, the patient has not had much to eat or drink and actually feels dehydrated. She does have a history of coronary artery disease and the findings on EKG are somewhat concerning. Further cardiac work-up is warranted. Continuous Cardiac Monitoring: An order was placed for continuous cardiac monitoring. The monitor shows a rate of 81 with normal sinus rhythm. Impression & Plan Hypoxia, Pulmonary fibrosis, Respiratory distress, Abnormal EKG, Elevated troponin Discharge Plan Visit Data *Final* Discharge Date/Time: 10/16/19 15:11 Chief Complaint: Shortness of Breath/Dyspnea Stated Complaint: diff. breathing ED Provider: Haider Morrow Discharge Problem: Hypoxia, Pulmonary fibrosis, Respiratory distress, Abnormal EKG, Elevated troponin Patient Disposition: Admitted As Inpatient Discharge Instructions Interventions: ED Discharge Assessment Last Done: 10/16/19 15:11 The scribe's documentation has been prepared under my direction and personally reviewed by me in its entirety. I confirm that the note above accurately reflects all work, treatment, procedures, and medical decision making performed by me.
[2019-10-16] MEDS: ALBUT/IPRATROP 3MG/0.5MG NEB 3 ML VIAL NEB SCH (19:07)
[2019-10-16] MEDS: DOXYCYCLINE HYCLATE 100 MG in DEXTROSE 5% 100 ML IV SCH (20:03)
[2019-10-16] MEDS: methylPREDNISolone 40 MG in SYRINGE 0 ML IV SCH (20:03)
[2019-10-16] MEDS ORDERED: SENNA 8.8 MG/5 ML UDP PO SCH (21:00)
[2019-10-16] MEDS: FLUTICASONE/VILANTEROL 100/25MCG 14 PUFFS/INHALER INH SCH (21:21)
[2019-10-16] MEDS: ATORVASTATIN 40 MG TAB PO SCH (21:21)
[2019-10-16] MEDS: PANTOprazole 40 MG TAB PO SCH (21:22)
[2019-10-16] MEDS: SENNA 17.6 MG/10 ML UDP PO SCH (21:22)
[2019-10-16] MEDS: PIPERACILLIN/TAZOBACTAM 3.375 GM in DEXTROSE 5% 100 ML IV SCH (22:02)
[2019-10-17] MEDS: PIPERACILLIN/TAZOBACTAM 3.375 GM in DEXTROSE 5% 100 ML IV SCH ×2 (05:53→14:42)
[2019-10-17 05:54] LABS: Estimated Average Glucose 120 mg/dl; Hemoglobin A1C 5.8 % (4.5-5.6)
[2019-10-17] MEDS: LEVOTHYROXINE SODIUM 25 MCG TABLET PO SCH (05:54)
--- NOTE | 2019-10-17 06:29 | Ultrasound Report ---
US liver CLINICAL HISTORY: elevated transminases abnormal liver function tests COMPARISON STUDY: No previous studies for comparison. FINDINGS: Normal appearance to the liver. Pancreas is unremarkable. Gallbladder is normal. Common bile duct measures 3 mm. Right kidney is negative for hydronephrosis. IMPRESSION: Normal study. ACT 112: Negative or not required by law. The above report was generated using voice recognition software. It may contain grammatical, syntax or spelling errors. Electronically signed by: Jose Ascencio M.D. 10/17/2019 6:27 AM
[2019-10-17] MEDS ORDERED: PERFLUTREN LIPID MICROSPHERE (DEFINITY) IV ONE (07:10)
[2019-10-17] MEDS: ALBUT/IPRATROP 3MG/0.5MG NEB 3 ML VIAL NEB SCH ×4 (07:17→19:55)
[2019-10-17] MEDS: SIMETHICONE 80 MG CHEW PO PRN (07:32)
[2019-10-17] MEDS: MULTIVITAMIN TAB PO SCH (08:00)
[2019-10-17] MEDS: TOCOPHERYL, DL-ALPHA 400 UNITS CAP PO SCH (08:00)
[2019-10-17] MEDS: CALCIUM 600MG + VIT D 400 IU TAB PO SCH (08:01)
[2019-10-17] MEDS: CHOLECALCIFEROL 1,000 UNITS 25 MCG TAB PO SCH (08:01)
[2019-10-17] MEDS: ASPIRIN 81 MG ECTAB PO SCH (08:01)
[2019-10-17] MEDS: PANTOprazole 40 MG TAB PO SCH ×2 (08:02→20:59)
[2019-10-17] MEDS: BuPROPion XL 300 MG TABCR PO SCH (08:02)
[2019-10-17 08:07] LABS: Hematocrit (blood only) 32.1 % (37-47); Hemoglobin 10.3 g/dL (12.0-16.0); Immature Granulocytes # (auto) 0.03 K/uL (0.00-0.02); Immature Granulocytes % (auto) 0.3 %; Lymphocytes # (auto) 0.42 K/uL (1.2-3.4); Lymphocytes % (auto) 3.7 %; Mean Corpuscular Hemoglobin 31.8 pg (25-34); Mean Corpuscular Hgb Conc 32.1 g/dL (32-36); Mean Corpuscular Volume 99.1 fL (80-100); Mean Platelet Volume 9.7 fL (7.4-10.4); Monocytes # (auto) 0.49 K/uL (0.11-0.59); Monocytes % (auto) 4.3 %; Neutrophils # (auto) 10.43 K/uL (1.4-6.5); Neutrophils % (auto) 91.7 %; Platelet Count 192 K/uL (130-400); RDW Coefficient of Variation 13.9 % (11.5-14.5); RDW Standard Deviation 49.9 fL (36.4-46.3); Red Blood Count 3.24 M/uL (4.2-5.4); White Blood Count 11.37 K/uL (4.8-10.8)
[2019-10-17 08:38] LABS: Albumin Level 2.7 gm/dl (3.4-5.0); BUN Creatinine Ratio 28.7 (10-20); Calcium 8.5 mg/dl (8.5-10.1); Creatinine Clr Calc Pharmacy 57.7 ml/min; Est GFR (African American) 93.2; Est GFR (Non-African American) 80.4; Potassium 3.8 mmol/L (3.5-5.1)
[2019-10-17 08:45] LABS: Albumin Globulin Ratio 0.7 (0.9-2); Bilirubin,Total 1.1 mg/dl (0.2-1); Globulin 3.9 gm/dl (2.5-4.0); Total Protein 6.6 gm/dl (6.4-8.2); Troponin I 0.252 ng/ml (0-0.045)
[2019-10-17] MEDS ORDERED: PANTOprazole 40 MG TAB PO SCH (09:00)
[2019-10-17] MEDS ORDERED: predniSONE 10 MG TABLET PO SCH (09:00)
[2019-10-17] MEDS ORDERED: NON-FORMULARY MEDICATION (Milk Thistle 175 MG) PO SCH (09:00)
[2019-10-17] MEDS ORDERED: COENZYME Q10 60 MG PO SCH (09:00)
[2019-10-17] MEDS: DOXYCYCLINE HYCLATE 100 MG in DEXTROSE 5% 100 ML IV SCH ×2 (09:35→20:58)
[2019-10-17] MEDS: methylPREDNISolone 40 MG in SYRINGE 0 ML IV SCH ×2 (09:36→20:59)
[2019-10-17] MEDS: FUROSEMIDE 40 MG in SYRINGE 0 ML IV SCH (09:36)
--- NOTE | 2019-10-17 10:28 | XCELERA ---
[id number] \\[email or web address]\[email or web address]\[id number]
--- NOTE | 2019-10-17 11:45 | Electrocardiogram Report ---
Test Reason : Blood Pressure : / mmHG Vent. Rate : 088 BPM Atrial Rate : 088 BPM P-R Int : 162 ms QRS Dur : 084 ms QT Int : 370 ms P-R-T Axes : 025 013 -16 degrees QTc Int : 447 ms Normal sinus rhythm T wave abnormality, consider inferior ischemia T wave abnormality, consider anterior ischemia Abnormal ECG When compared with ECG of 13-SEP-2019 12:31, T wave inversion now evident in Inferior leads T wave inversion now evident in Anterior leads Confirmed by Amor Tony ([id number] on 10/17/2019 11:45:24 AM Referred By: Confirmed By:Amor Tony
--- NOTE | 2019-10-17 14:07 | Cardiology Consultation ---
Date of Consultation October 17, 2019 Assessment & Plan (1) Demand ischemia: Given cardiac catheterization less than a year ago showing nonocclusive disease, absence of chest pain prior to/during current hospitalization, and nonspecific ECG findings, all in the context of extreme physiologic stress of respiratory distress, most likely explanation for her troponin elevation is supply/demand mismatch. As such, mainstay of treatment is management of her respiratory status. (2) CAD (coronary artery disease): Details in HPI. Believed to be nonocclusive at this time. She did have remote stents at the time of non-STEMI in 2013. (3) Congestive heart failure: Mild volume overload on admission which seems to have resolved, neck veins suggest she is euvolemic currently. Continue furosemide 40 mg IV daily to maintain current volume status, titrate m based on weight and exam. (4) Acute and chronic respiratory failure: Per primary team. (5) Pulmonary fibrosis: End-stage, potential candidate for lung transplant (although this is uncertain, she has been turned down at 2 of 3 institutions and the third is pending). (6) S/P laparoscopic fundoplication: The physiologic stress of undergoing a procedure as well as potential volume loading at that time may have tipped the balance in a patient with poor cardiopulmonary reserve. No apparent complications directly from the procedure. (7) Cor pulmonale: Right heart findings are significantly more pronounced than just 2 years ago. Monitor for hypotension or azotemia, since she may be more volume sensitive and require a higher preload if she does have pulmonary hypertension at baseline. History of Present Illness Reason for Consultation: Elevated troponin Requesting Physician: Immanuel Killian DO Attending Physician: Immanuel Killian DO History of Present Illness 74-year-old woman with complex past medical history who is a candidate for lung transplantation due to end-stage pulmonary fibrosis, she underwent fundoplication gastric surgery 1 week ago at [facility], never quite felt back to baseline, admitted 10/16/2019 with respiratory distress. Her cardiac history includes bare-metal stents at the time of a non-STEMI in 2013 (2 in the mid RCA and one in the mid LAD), a cardiac catheterization as part of her lung transplant preoperative evaluation in November 2018 showed only a 60% OM1 lesion with an iFR of 0.96 (nonocclusive). She requires significant oxygen supplementation at baseline, however she became increasingly dyspneic and required up to 15 L/min of oxygen the day of admission and therefore called EMS. As noted, she had hiatal hernia repair a week ago, never quite felt better, then became severely dyspneic. She denies chest pain at any time. No subjective palpitations, presyncope or syncope. No edema at any time. No fever, chills, nausea, vomiting, or abdominal pain. Evaluation here showed significant bronchospasm on exam, treated with inhaled beta agonists and BiPAP. Chest x-ray showed mild congestive failure superimposed upon diffuse chronic fibrotic change, she was given diuretics. ECG showed no T inversions fairly diffusely, no ST depression or elevation. As noted, no chest pain. Troponin ricky from 0.3 to 0.4 before dropping to 0.2 for the next 2 draws. Echocardiogram showed normal LV systolic function with no regional wall motion abnormalities. Right ventricle was moderate to severely dilated with moderate to severely reduced systolic function and evidence of right/left heart interaction. Right ventricular systolic pressure in the 50-60 mmHg range. Compared with 2018 study, the right ventricle is more dilated and less contractile, there was evidence of right/left heart interaction, and right ventricular systolic pressure had further increased. At the time of my evaluation, she had an intermittent nonproductive cough, but no complaints at rest. She remains on oxygen supplementation and has dyspnea with minimal activity. Allergies Allergy/AdvReac Type Severity Reaction Status Date / Time adhesive Allergy Intermediate ITCHY, Verified 10/16/19 13:01 "BLISTERY" SKIN WITH SOME TAPE/BANDAIDS Home Medications Home Medications Medication Instructions Recorded Confirmed Type Breo Ellipta 1 inh INHALATION HS 08/30/18 10/16/19 History albuterol sulfate 1 - 2 puff INHALATION Q6H PRN 08/30/18 10/16/19 History aspirin [Aspir-81] 81 mg PO QAM 08/30/18 10/16/19 History calcium carbonate-vitamin D3 1,000 mg PO QAM 08/30/18 10/16/19 History [Calcium 500 + D] milk thistle 175 mg PO QAM 08/30/18 10/16/19 History Prolia 60 mg SUBCUT DIRECTED 09/06/18 10/16/19 History vit C,E,zinc,copper-[id number] 250 1 cap PO DAILY 02/15/19 10/16/19 History mg-lutein 5 mg-zeaxanthin 1 mg capsule bupropion HCl 300 mg 24 hr tablet, 300 mg PO QAM #90 tab 03/06/19 10/16/19 Rx extended release cholecalciferol (vitamin D3) 50 4,000 units PO QAM cap 03/07/19 10/16/19 History mcg (2,000 unit) capsule coenzyme Q10 60 mg tablet 60 mg PO DAILY 03/07/19 10/16/19 History lansoprazole 15 mg delayed 30 mg PO BID tab 03/07/19 10/16/19 History release,disintegrating tablet lidocaine 4 % topical patch 1 patch TOP DAILY PRN 03/07/19 10/16/19 History prednisone 1 mg tablet 10 mg PO DAILY tab 03/16/19 10/16/19 History levothyroxine 25 mcg tablet 25 mcg PO QAM #90 tab 03/27/19 10/16/19 Rx nitroglycerin 0.4 mg sublingual 0.4 mg SUBLINGUAL UD PRN #25 tab 03/31/19 10/16/19 Rx tablet atorvastatin 80 mg tablet 80 mg PO HS #90 tab 06/22/19 10/16/19 Rx acetaminophen 500 mg/15 mL oral 1,000 mg PO TID PRN #240 ml 10/13/19 10/16/19 Rx liquid ibuprofen 200 mg capsule 400 mg PO Q6H PRN cap 10/13/19 10/16/19 History magnesium hydroxide 400 mg/5 mL 30 ml PO DAILY PRN #360 ml 10/13/19 10/16/19 Rx oral suspension ondansetron 4 mg disintegrating 4 mg PO Q8H PRN #30 tab 10/13/19 10/16/19 Rx tablet oxycodone 5 mg/5 mL oral solution 5 mg PO Q6H PRN #15 ml 10/13/19 10/16/19 Rx pantoprazole 40 mg tablet,delayed 40 mg PO DAILY #30 tab 10/13/19 10/16/19 Rx release rituximab-pvvr 10 mg/mL 375 mg IV .Q3-4Months #50 ml 10/13/19 10/16/19 Rx concentrate,intravenous simethicone 80 mg chewable tablet 80 mg PO Q4H PRN #30 tab 10/13/19 10/16/19 Rx vitamin E (dl, acetate) 1,000 unit 1,000 units PO DAILY #30 cap 10/13/19 10/16/19 Rx capsule sennosides [senna] 10 ml PO HS 10/16/19 10/16/19 History Patient History Medical History (Updated 10/17/19 @ 15:01 by Amor Tony MD) Anemia HX CAD (coronary artery disease) Chronic back pain Chronic steroid use SINCE 05/2009 Depression GERD (gastroesophageal reflux disease) GI bleed 12/2017 [facility] Hiatal hernia History of anesthesia reaction SLOW TO WAKE UP WITH TKA-2012 [facility] Hyperlipidemia Hypothyroidism Myocardial Infarction (2013) On home oxygen therapy 2L/MIN AT REST 3-6 L/MIN WITH ACTIVITY Pneumonia 12/2017 Primary pulmonary lymphoma (Inactive) [facility] by multiple consultants to be quiescent given the lack of progression since 2008. Pulmonary fibrosis DR [facility] S/p bare metal coronary artery stent (2013) Syncope HX- A RESULT OF HEART MED WAS ON IN THE PAST Surgical History (Updated 10/17/19 @ 14:59 by Amor Tony MD) History of section X 2 History of kyphoplasty X 6 TIMES (7 LEVELS WERE DONE TOTAL) History of laminectomy History of total knee replacement RIGHT S/P cardiac cath (11/2018) 60% OM1 (iFR 0.96) S/P laparoscopic fundoplication (10/2019) Family History Hay fever Unknown Lung infection Unknown Father Dementia Unknown Sister Cancer Unknown Mother Asthma Unknown Social History Preferred Language: [place] Citizen Communication Ability: Effective Visual Impairment: Diminished Hearing Ability: Normal Executive Community Planning Required: No Beliefs That Will Affect Care: None marital status: Current Living Situation: Spouse current occupational status: retired Feels Safe at Home: Yes Smoking Status: Never smoker Second Hand Exposure: No ( A CHILD) ; Hx Alcohol Use: Yes Alcohol type: wine and hard liquor Hx Substance Use: No Childhood Exposure to Second-Hand Smoke: Yes caffeine: Yes Dental Care, Regularly: Yes Physical Activity Frequency: Does not Exercise Physical Activity Frequency Comment: unable on regular basis Seatbelt Use: always Sunscreen Use: Yes Review of Systems Constitutional: + fatigue; no fever, no chills, no weight loss and no weight gain Eyes: no problem reported Ear, Nose, Mouth, Throat: no problem reported Respiratory: as per Subjective / HPI, + cough and + dyspnea Cardiovascular: as per Subjective / HPI Gastrointestinal: as per Subjective / HPI; no abdominal pain Genitourinary: no problem reported Musculoskeletal: no myalgia Integumentary: no rash and no new lesions Neurologic: no falls and no syncope Psychiatric: no problem reported Hematologic / Lymphatic: no easy bleeding and no easy bruising Physical Exam Physical Exam: Normal habitus elderly white female who appears chronically ill but not acutely distressed. Afebrile. BP normotensive (low normal range), pulse in the 70-80 bpm range, respirations in the low to mid 20/min range. Skin: No ecchymoses or generalized lesions. HEENT: Unremarkable. Neck: Jugular venous pulse just above the clavicle with wide respiratory variation, no carotid bruits. Lungs: Decreased breath sounds, diffuse "dry" crackles both lungs, no obvious wheezing. No abdominal paradox, intercostal muscle retraction, or nasal flaring. Cardiac: Faint heart tones, regular rhythm, no obvious murmur. Abdomen: Soft and nontender. Extremities: No edema, peripheral pulses intact. Neuro: Normal affect, nonfocal grossly. Results & Data ([facility]) Diagnostic Findings Chest x-ray showed mild congestive failure superimposed upon diffuse chronic fibrotic change. Initial ECG showed sinus rhythm with anterior and inferior T wave inversions which were new compared with 09/13/2019 ECG. Repeat ECG was similar later that day. No ECG from today. Echocardiogram results as noted in HPI. PG Care Time/CCT Total # of Minutes Spent Total Time Spent with Patient: Total time spent is greater than 50% in coordination of care (as documented) at patient's floor/unit and/or counseling patient: Coding Level of Care Code 63026 Initial Inpt Care Lvl 3 Diagnoses Demand ischemia I24.8 CAD (coronary artery disease) I25.10 Congestive heart failure I50.9 Acute and chronic respiratory failure J96.20 Pulmonary fibrosis J84.10 S/P laparoscopic fundoplication Z98.890 Cor pulmonale I27.81
[2019-10-17] MEDS: ENOXAPARIN INJ 40 MG/0.4 ML SYR SQ SCH (17:38)
--- NOTE | 2019-10-17 18:06 | Pulmonary Consultation ---
Date of Consultation October 17, 2019 Assessment & Plan (1) Acute and chronic respiratory failure: Patient has severe and advanced fibrotic lung disease. She had a recent Dinh fundoplication and developed a perioperative pulmonary complication. She also has chronic secondary pulmonary hypertension from her interstitial lung disease. The setback that she is having currently is not surprising in the setting of the fact that she was recently intubated for this Dinh fundoplication. She did have a mildly elevated procalcitonin. Would recommend de-escalating antibiotics to ceftriaxone and doxycycline. I would recommend treating her for 7 days with antibiotics. I would recommend getting our palliative care partners involved as she has very advanced disease and seems to have a bit of a disconnect with her disease process and her prognosis. In one thought process she is telling me that she would like a lung transplant, but in another thought she is telling me that she has had enough of dealing with her interstitial lung disease. She tells me that her also has advanced Alzheimer's dementia. I did meet with who appears appropriate and actually mentally intact. Apparently the drives her around to her appointments. The patient told me at one point that she uses 5 L of oxygen at baseline without exertion and then 7 L with exertion. Her indicated that she uses 10 L of oxygen with exertion. I think that her prognosis overall is quite poor. I do not think a bronchoscopy is indicated and would likely that her at significant risk for needing intubation. I think it is reasonable to continue a higher dose of steroids at this time for hypoxemic respiratory failure in the setting of inflammatory lung disease. Agree with diuresis in the setting of cor pulmonale. Hopefully, we may be able to get her back to her baseline oxygen requirements, but I am not certain of this. Additionally, it does appear that she has been turned out for lung transplant in numerous facilities. I do think that she would be a very poor candidate for lung transplantation given her advanced age, comorbidities and poor rehab potential. (2) Cor pulmonale: (3) Pulmonary fibrosis: (4) Interstitial lung disease: (5) Secondary pulmonary hypertension: History of Present Illness Reason for Consultation: Pulmonary fibrosis Requesting Physician: Hospitalist team Attending Physician: Immanuel Killian DO History of Present Illness 74-year-old female with a past medical history of interstitial lung disease on chronic prednisone and recently started on rituximab for concerns of possible lymphoma, chronic hypoxemic respiratory failure on 5 to 10 L of oxygen with exertion, underlying mixed connective tissue disorder, severe esophageal dysmotility who recently underwent a Dinh fundoplication on October 09, 2019 who presented to the hospital due to increasing shortness of breath since her surgery. She was actually seen by dispatcher chief oil at [facility] where she underwent a Dinh fundoplication recently. She had a prior lung biopsy in 2008 from a wedge biopsy that demonstrated low-grade B-cell lymphoma arising in the background of usual interstitial pneumonia in the setting of a mixed connective tissue disorder. She has been on 10 mg of prednisone. She sees an oncologist. It is felt that her lymphoma is limited to her lungs and that she may have Sjogren's syndrome. She is seen today laying in her bed on 70% FiO2 and 40 L of oxygen. She is saturating 92%. She notes that her dyspnea and coughing has improved since admission. She has not had any fevers. She denies any chest pain currently. She notes that the sound from the high flow nasal cannula is very loud and that her "eyeballs feel cold". She has been started on 40 mg Solu-Medrol twice daily, furosemide 40 mg twice daily, Zosyn and doxycycline. Echocardiogram performed today demonstrates an EF of 55 to 60%. Severe right ventricular dilation and a right ventricular systolic pressure 50 to 60 mmHg. Chest x-ray demonstrates chronic fibrotic changes and mild congestive heart failure. Procalcitonin yesterday was 0.52. White count was elevated to 13,340 on admission. It is improved to 11,370 today. Allergies Allergy/AdvReac Type Severity Reaction Status Date / Time adhesive Allergy Intermediate ITCHY, Verified 10/16/19 13:01 "BLISTERY" SKIN WITH SOME TAPE/BANDAIDS Home Medications Home Medications Medication Instructions Recorded Confirmed Type Breo Ellipta 1 inh INHALATION HS 08/30/18 10/16/19 History albuterol sulfate 1 - 2 puff INHALATION Q6H PRN 08/30/18 10/16/19 History aspirin [Aspir-81] 81 mg PO QAM 08/30/18 10/16/19 History calcium carbonate-vitamin D3 1,000 mg PO QAM 08/30/18 10/16/19 History [Calcium 500 + D] milk thistle 175 mg PO QAM 08/30/18 10/16/19 History Prolia 60 mg SUBCUT DIRECTED 09/06/18 10/16/19 History vit C,E,zinc,copper-[id number] 250 1 cap PO DAILY 02/15/19 10/16/19 History mg-lutein 5 mg-zeaxanthin 1 mg capsule bupropion HCl 300 mg 24 hr tablet, 300 mg PO QAM #90 tab 03/06/19 10/16/19 Rx extended release cholecalciferol (vitamin D3) 50 4,000 units PO QAM cap 03/07/19 10/16/19 History mcg (2,000 unit) capsule coenzyme Q10 60 mg tablet 60 mg PO DAILY 03/07/19 10/16/19 History lansoprazole 15 mg delayed 30 mg PO BID tab 03/07/19 10/16/19 History release,disintegrating tablet lidocaine 4 % topical patch 1 patch TOP DAILY PRN 03/07/19 10/16/19 History prednisone 1 mg tablet 10 mg PO DAILY tab 03/16/19 10/16/19 History levothyroxine 25 mcg tablet 25 mcg PO QAM #90 tab 03/27/19 10/16/19 Rx nitroglycerin 0.4 mg sublingual 0.4 mg SUBLINGUAL UD PRN #25 tab 03/31/19 10/16/19 Rx tablet atorvastatin 80 mg tablet 80 mg PO HS #90 tab 06/22/19 10/16/19 Rx acetaminophen 500 mg/15 mL oral 1,000 mg PO TID PRN #240 ml 10/13/19 10/16/19 Rx liquid ibuprofen 200 mg capsule 400 mg PO Q6H PRN cap 10/13/19 10/16/19 History magnesium hydroxide 400 mg/5 mL 30 ml PO DAILY PRN #360 ml 10/13/19 10/16/19 Rx oral suspension ondansetron 4 mg disintegrating 4 mg PO Q8H PRN #30 tab 10/13/19 10/16/19 Rx tablet oxycodone 5 mg/5 mL oral solution 5 mg PO Q6H PRN #15 ml 10/13/19 10/16/19 Rx pantoprazole 40 mg tablet,delayed 40 mg PO DAILY #30 tab 10/13/19 10/16/19 Rx release rituximab-pvvr 10 mg/mL 375 mg IV .Q3-4Months #50 ml 10/13/19 10/16/19 Rx concentrate,intravenous simethicone 80 mg chewable tablet 80 mg PO Q4H PRN #30 tab 10/13/19 10/16/19 Rx vitamin E (dl, acetate) 1,000 unit 1,000 units PO DAILY #30 cap 10/13/19 10/16/19 Rx capsule sennosides [senna] 10 ml PO HS 10/16/19 10/16/19 History Patient History Medical History Anemia HX CAD (coronary artery disease) Chronic back pain Chronic steroid use SINCE 05/2009 Depression GERD (gastroesophageal reflux disease) GI bleed 12/2017 [facility] Hiatal hernia History of anesthesia reaction SLOW TO WAKE UP WITH TKA-2012 [facility] Hyperlipidemia Hypothyroidism Myocardial Infarction (2013) On home oxygen therapy 2L/MIN AT REST 3-6 L/MIN WITH ACTIVITY Pneumonia 12/2017 Primary pulmonary lymphoma (Inactive) [place] by multiple consultants to be quiescent given the lack of progression since 2008. Pulmonary fibrosis [facility] S/p bare metal coronary artery stent (2013) Syncope HX- A RESULT OF HEART MED WAS ON IN THE PAST Surgical History History of section X 2 History of kyphoplasty X 6 TIMES (7 LEVELS WERE DONE TOTAL) History of laminectomy History of total knee replacement RIGHT S/P cardiac cath (11/2018) 60% OM1 (iFR 0.96) S/P laparoscopic fundoplication (10/2019) Family History Unknown Cancer Dementia Asthma Hay fever Lung infection Mother Cancer Sister Dementia Father Lung infection Social History Preferred Language: [place] Communication Ability: Effective Visual Impairment: Diminished Hearing Ability: Normal [place] [employer] Required: No Beliefs That Will Affect Care: None marital status: Current Living Situation: Spouse current occupational status: retired Feels Safe at Home: Yes Smoking Status: Never smoker Second Hand Exposure: No ( A CHILD) ; Hx Alcohol Use: Yes Alcohol type: wine and hard liquor Hx Substance Use: No Childhood Exposure to Second-Hand Smoke: Yes caffeine: Yes Dental Care, Regularly: Yes Physical Activity Frequency: Does not Exercise Physical Activity Frequency Comment: unable on regular basis Seatbelt Use: always Sunscreen Use: Yes Review of Systems Review of Systems: All systems reviewed & are unremarkable except as noted in HPI & below Physical Exam Constitutional: Chronically ill-appearing 74-year-old female lying in bed with a high flow nasal cannula in place. Eyes: PERRL, conjunctivae normal, anicteric sclerae ENMT: external ear and nose normal, oropharynx normal Neck: normal visual inspection Respiratory: Diffuse dry inspiratory Velcro crackles noted on inspiration Cardiovascular: RRR, no murmur, no edema Gastrointestinal (Abdomen): normal bowel sounds, soft, nontender, no hepatosplenomegaly Healing surgical scars noted Musculoskeletal: no cyanosis or clubbing, extremities motor strength 5/5 Skin: no rashes, warm and dry Neurologic: PERRL, EOMI, accommodation nl, no face palsy, no dysarthria Psychiatric: A+Ox3, euthymic affect Results & Data ([facility]) Vital Signs (Past 12 Hours) Vital Signs Temp Pulse Pulse Resp BP Pulse Ox 10/17/19 15:48 97.5 F L 72 22 100/64 92 10/17/19 15:45 97.7 F 76 19 97/60 L 90 10/17/19 15:38 80 10/17/19 15:05 77 22 93 10/17/19 15:03 75 22 93 10/17/19 11:50 93 10/17/19 11:36 98.1 F 79 23 100/69 92 10/17/19 11:10 71 20 92 10/17/19 11:08 79 20 89 L 10/17/19 07:45 77 25 H 90 10/17/19 07:20 71 23 92 10/17/19 07:19 69 10/17/19 07:18 97.7 F 71 20 92 10/17/19 07:17 71 23 92 PG Care Time/CCT Total # of Minutes Spent Total Time Spent with Patient: Total time spent is greater than 50% in coordination of care (as documented) at patient's floor/unit and/or counseling patient: Coding Level of Care Code 63446 Initial Inpt Care Lvl 3 Diagnoses Acute and chronic respiratory failure J96.20 Cor pulmonale I27.81 Pulmonary fibrosis J84.10 Interstitial lung disease J84.9 Secondary pulmonary hypertension
--- NOTE | 2019-10-17 19:13 | Hospitalist Progress Note ---
Date of Service October 17, 2019 Assessment & Plan (1) Acute and chronic respiratory failure: ddx being CHF related (easily could have had some acute L sided precipitating acute R sided CHF - especially given that she seems to be feeling better and main intervention that would have changed her situation quickly besides increase in FiO2 would have been lasix) vs infectious (todd noted, trying to obtain CT to better look at lung parenchyma, continue empiric abx for now) vs PE (CT ordered, currently appears to be relatively stable and on 40mg enoxaparin proph dosing - so would hesitate to increase without probable cause) vs very frail baseline made worse by decreased reserve/deconditioning from surgery vs worsening of baseline illness -continue diuresis and follow closely for L and/or R sided acute CHF -continue empiric abx, supportive care, serial labs, serial exams, CT once possible -DVT proph dosing lovenox for now, CT chest once able; venous dopplers if CT unable to be obtained -ongoing increased FiO2 and supportive care -appreciate insurance consultant input (2) Elevated troponin: Elevated troponin to 0.3, likely due to demand ischemia related to acute on chronic respiratory failure. does not appear to be a primary cardiac problem (3) Abnormal EKG: as above (4) Interstitial lung disease: concerning - appears to have been deemed not a transplant candidate. continue supportive care. palliative consult to discuss further what her goals would be. (5) Vertebral compression fracture: (6) Depression: Stable, continue bupropion 300 mg p.o. every morning. (7) Hyperlipidemia: Continue atorvastatin 80 mg p.o. nightly. Split into 2 pills for patient to be able to swallow. (8) Hypothyroidism: TSH normal, continue levothyroxine 25 MCG's p.o. every morning. (9) 3-vessel coronary artery disease: see above, appearing stable (10) Impaired fasting glucose: A1c reasonable given circumstances. 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 (13) DVT prophylaxis: lovenox - see above (14) Discharge planning issues: telemetry for now, continue at current level of care - definitely will need some form of improvement in oxygenation to be able to get to where she could be safe at home. palliative consult to assist in goals of care planning. Admission and Anticipated Discharge Date Admission Date: October 16, 2019 Subjective breathing feels better than when she came in. basically started to notice worse hypoxia even prior to radha - then worsened after surgery - now hypoxic without significant FiO2. no new cough, no f/c/s. no change in sputum tried to get CT but pt unable to maintain sats even to get transported down. insurance consultant input appreciated. Review of Systems Review of Systems: All systems reviewed & are unremarkable except as noted in HPI & below Physical Exam Physical Exam: gen aao, pleasant, surprisingly little distress despite need for 60% FiO2 at the time i see her. heent nc at mmm. lungs coarse throughout but no focal findings, mild accessory muscle use at worst. no cyanosis. no focal neuro deficits. skin no rashes no pallor or icterus. CXR noted Results & Data ([facility]) Vital Signs (Past 12 Hours) Vital Signs Temp Pulse Pulse Resp BP Pulse Ox 10/17/19 15:48 97.5 F L 72 22 100/64 92 10/17/19 15:45 97.7 F 76 19 97/60 L 90 10/17/19 15:38 80 10/17/19 15:05 77 22 93 10/17/19 15:03 75 22 93 10/17/19 11:50 93 10/17/19 11:36 98.1 F 79 23 100/69 92 10/17/19 11:10 71 20 92 10/17/19 11:08 79 20 89 L 10/17/19 07:45 77 25 H 90 10/17/19 07:20 71 23 92 10/17/19 07:19 69 10/17/19 07:18 97.7 F 71 20 92 10/17/19 07:17 71 23 92 PG Care Time/CCT Total # of Minutes Spent Total Time Spent with Patient: Total time spent is greater than 50% in coordination of care (as documented) at patient's floor/unit and/or counseling patient: Coding Level of Care Code 99789 Subseq Hosp Care Lvl 3 Diagnoses Acute and chronic respiratory failure J96.20 Elevated troponin R79.89 Abnormal EKG R94.31 Interstitial lung disease J84.9 Vertebral compression fracture M48.50XA Depression F32.9 Hyperlipidemia E78.5 Hypothyroidism E03.9 3-vessel coronary artery disease I25.10 Impaired fasting glucose R73.01 Primary pulmonary lymphoma C85.99 Congestive heart failure I50.9 DVT prophylaxis Z29.9 Discharge planning issues Z02.9
[2019-10-17] MEDS: cefTRIAXone SODIUM 2,000 MG in DEXTROSE 5% 50 ML IV SCH (19:32)
[2019-10-17] MEDS: FLUTICASONE/VILANTEROL 100/25MCG 14 PUFFS/INHALER INH SCH (21:00)
[2019-10-17] MEDS: SENNA 17.6 MG/10 ML UDP PO SCH (21:00)
[2019-10-17] MEDS: ATORVASTATIN 40 MG TAB PO SCH (21:00)
[2019-10-18] MEDS: LEVOTHYROXINE SODIUM 25 MCG TABLET PO SCH (05:41)
[2019-10-18 06:56] LABS: Hematocrit (blood only) 33.6 % (37-47); Hemoglobin 10.6 g/dL (12.0-16.0); Immature Granulocytes # (auto) 0.04 K/uL (0.00-0.02); Immature Granulocytes % (auto) 0.3 %; Lymphocytes # (auto) 0.39 K/uL (1.2-3.4); Mean Corpuscular Hemoglobin 31.2 pg (25-34); Mean Corpuscular Hgb Conc 31.5 g/dL (32-36); Mean Corpuscular Volume 98.8 fL (80-100); Mean Platelet Volume 9.5 fL (7.4-10.4); Monocytes % (auto) 3.8 %; Neutrophils % (auto) 92.9 %; Platelet Count 238 K/uL (130-400); RDW Coefficient of Variation 13.9 % (11.5-14.5); RDW Standard Deviation 49.6 fL (36.4-46.3); White Blood Count 13.13 K/uL (4.8-10.8)
[2019-10-18] MEDS: ALBUT/IPRATROP 3MG/0.5MG NEB 3 ML VIAL NEB SCH ×4 (06:57→19:13)
[2019-10-18 07:30] LABS: BUN Creatinine Ratio 34.8 (10-20); Creatinine Clr Calc Pharmacy 53.4 ml/min; Est GFR (African American) 84.8; Est GFR (Non-African American) 73.1; Potassium 3.2 mmol/L (3.5-5.1)
[2019-10-18] MEDS: methylPREDNISolone 40 MG in SYRINGE 0 ML IV SCH ×2 (07:55→20:02)
[2019-10-18] MEDS: FUROSEMIDE 40 MG in SYRINGE 0 ML IV SCH (07:55)
[2019-10-18] MEDS: CHOLECALCIFEROL 1,000 UNITS 25 MCG TAB PO SCH (07:56)
[2019-10-18] MEDS: CALCIUM 600MG + VIT D 400 IU TAB PO SCH (07:56)
[2019-10-18] MEDS: TOCOPHERYL, DL-ALPHA 400 UNITS CAP PO SCH (07:56)
[2019-10-18] MEDS: BuPROPion XL 300 MG TABCR PO SCH (07:56)
[2019-10-18] MEDS: PANTOprazole 40 MG TAB PO SCH ×2 (07:56→20:02)
[2019-10-18] MEDS: ASPIRIN 81 MG ECTAB PO SCH (07:56)
[2019-10-18] MEDS: MULTIVITAMIN TAB PO SCH (07:56)
[2019-10-18] MEDS: cefTRIAXone SODIUM 2,000 MG in DEXTROSE 5% 50 ML IV SCH (08:50)
[2019-10-18] MEDS: DOXYCYCLINE HYCLATE 100 MG in DEXTROSE 5% 100 ML IV SCH ×2 (09:31→20:02)
[2019-10-18] MEDS: POTASSIUM CHLORIDE PWD 20 MEQ PACK PO SCH ×3 (09:31→20:03)
--- NOTE | 2019-10-18 12:36 | Pulmonology Progress Note ---
Date of Service October 18, 2019 Assessment & Plan (1) Acute and chronic respiratory failure: Patient has severe and advanced fibrotic lung disease. She had a recent Dinh fundoplication and developed a perioperative pulmonary complication. She also has chronic secondary pulmonary hypertension from her interstitial lung disease. The setback that she is having currently is not surprising in the setting of the fact that she was recently intubated for this Dinh fundoplication. I would recommend treating her for 7 days with antibiotics. I would recommend getting our palliative care partners involved as she has very advanced disease. I think that her prognosis overall is quite poor. I do not think a bronchoscopy is indicated and would likely that her at significant risk for needing intubation. I think it is reasonable to continue a higher dose of steroids at this time for hypoxemic respiratory failure in the setting of inflammatory lung disease. Agree with diuresis in the setting of cor pulmonale. Hopefully, we may be able to get her back to her baseline oxygen requirements, but I am not certain of this. Additionally, it does appear that she has been turned down for lung transplant in numerous facilities. I do think that she would be a very poor candidate for lung transplantation given her advanced age, comorbidities and poor rehab potential. I discussed this with the patient's daughter and we did have a lengthy discussion at bedside. I emphasized that the goal at this point should be focusing on symptoms. We are weaning down the high flow nasal cannula very slowly to 30 L and 70% FiO2. She desaturates very easily with talking. She actually desaturated down to 60% as I was talking to her. (2) Cor pulmonale: (3) Pulmonary fibrosis: (4) Interstitial lung disease: (5) Secondary pulmonary hypertension: Subjective The patient notes that she feels better. Her cough is improved and dyspnea has also improved. She notes that at home she often desaturates down to 30% with exertion. She usually has to oxygen concentrator hooked up at the same time to increase the flow to 10 L. She denies any chest pain currently. No fevers. Physical Exam Eyes: PERRL, conjunctivae normal, anicteric sclerae ENMT: external ear and nose normal, oropharynx normal Neck: normal visual inspection Respiratory: + labored breathing, + abnormal respiratory pattern and + tachypneic Auscultation: + crackles Cardiovascular: RRR, no murmur, no edema Gastrointestinal (Abdomen): normal bowel sounds, soft, nontender, no hepatosplenomegaly Musculoskeletal: no cyanosis or clubbing, extremities motor strength 5/5 Skin: no rashes, warm and dry Neurologic: PERRL, EOMI, accommodation nl, no face palsy, no dysarthria Psychiatric: A+Ox3, euthymic affect Results & Data ([facility]) Vital Signs (Past 12 Hours) Vital Signs Temp Pulse Resp BP Pulse Ox 10/18/19 11:53 97.5 F L 88 21 108/67 91 10/18/19 11:40 83 22 83 L 10/18/19 11:39 83 22 83 L 10/18/19 07:52 97.9 F 78 26 H 98/62 L 97 10/18/19 06:57 79 20 91 10/18/19 03:36 98.1 F 77 20 100/63 89 L 10/18/19 03:33 74 20 91 PG Care Time/CCT Total # of Minutes Spent Total Time Spent with Patient: Total time spent is greater than 50% in coordination of care (as documented) at patient's floor/unit and/or counseling patient: Coding Level of Care Code 99017 Subseq Hosp Care Lvl 3 Diagnoses Acute and chronic respiratory failure J96.20 Cor pulmonale I27.81 Pulmonary fibrosis J84.10 Interstitial lung disease J84.9 Secondary pulmonary hypertension
--- NOTE | 2019-10-18 12:51 | Cardiology Progress Note ---
Date of Service October 18, 2019 Assessment & Plan (1) Demand ischemia: As noted, evaluation suggests that the most likely explanation for her troponin elevation is supply/demand mismatch. As such, mainstay of treatment is management of her respiratory status. (2) CAD (coronary artery disease): No evidence of ongoing myocardial ischemia or acute myocardial infarction. (3) Congestive heart failure: Volume status appears favorable, neck veins minimally elevated but this is likely baseline for her given evidence for cor pulmonale on her echocardiogram. Continue furosemide 40 mg IV daily to maintain current volume status, she is not azotemic but is borderline hypotensive, if this becomes an issue could hold diuretic temporarily. (4) Acute and chronic respiratory failure: Per primary team. (5) Pulmonary fibrosis: As per pulmonary consultation, appears to be end-stage. (6) S/P laparoscopic fundoplication: (7) Cor pulmonale: Right heart findings are significantly more pronounced than just 2 years ago. Monitor for hypotension or azotemia, since she may be more volume sensitive and require a higher preload if she does have pulmonary hypertension at baseline. Admission and Anticipated Discharge Date Admission Date: October 16, 2019 Subjective Uneventful night. Patient with paroxysmal nonproductive cough. No chest pain, subjective palpitations, lightheadedness, presyncope or syncope. Weight unchanged. Blood pressure low normal, heart rate 70-88 bpm, respirations 2025. Physical Exam Physical Exam: Normal habitus elderly white female who appears chronically ill but not acutely distressed. Skin: No ecchymoses or generalized lesions. HEENT: Unremarkable. Neck: Jugular venous pulse just above the clavicle with wide respiratory variation, no carotid bruits. Lungs: Decreased breath sounds, scattered "dry" crackles both lungs, no obvious wheezing. No abdominal paradox, intercostal muscle retraction, or nasal flaring. Cardiac: Faint heart tones, regular rhythm, no obvious murmur. Abdomen: Soft and nontender. Extremities: No edema, peripheral pulses intact. Neuro: Normal affect, nonfocal grossly. Results & Data ([facility]) Vital Signs (Past 12 Hours) Vital Signs Temp Pulse Resp BP Pulse Ox 10/18/19 11:53 97.5 F L 88 21 108/67 91 10/18/19 11:40 83 22 83 L 10/18/19 11:39 83 22 83 L 10/18/19 07:52 97.9 F 78 26 H 98/62 L 97 10/18/19 06:57 79 20 91 10/18/19 03:36 98.1 F 77 20 100/63 89 L 10/18/19 03:33 74 20 91 Laboratory Results 10/18/19 06:40 Potassium 3.2 L D BUN 28 H Creatinine 0.80 PG Care Time/CCT Total # of Minutes Spent Total Time Spent with Patient: Total time spent is greater than 50% in coordination of care (as documented) at patient's floor/unit and/or counseling patient: Coding Level of Care Code 48508 Subseq Hosp Care Lvl 3 Diagnoses Demand ischemia I24.8 CAD (coronary artery disease) I25.10 Congestive heart failure I50.9 Acute and chronic respiratory failure J96.20 Pulmonary fibrosis J84.10 S/P laparoscopic fundoplication Z98.890 Cor pulmonale I27.81
[2019-10-18] MEDS: ENOXAPARIN INJ 40 MG/0.4 ML SYR SQ SCH (17:37)
[2019-10-18] MEDS: SENNA 17.6 MG/10 ML UDP PO SCH (20:02)
[2019-10-18] MEDS: ATORVASTATIN 40 MG TAB PO SCH (20:02)
[2019-10-18] MEDS: FLUTICASONE/VILANTEROL 100/25MCG 14 PUFFS/INHALER INH SCH (20:03)
--- NOTE | 2019-10-18 20:35 | Hospitalist Progress Note ---
Date of Service October 18, 2019 Assessment & Plan (1) Acute and chronic respiratory failure: Appears her primary problem is her severe and advanced fibrotic lung disease. As stated by per pulmonary national sales consultant, she had a recent Dinh fundoplication and developed a perioperative pulmonary complication. She also has chronic secondary pulmonary hypertension from her interstitial lung disease. The setback that she is having currently is not surprising in the setting of the fact that she was recently intubated for this Dinh fundoplication. will continue to treat with antibiotics and titrate her oxygen. -continue diuresis and follow closely for L and/or R sided acute CHF -continue empiric abx, supportive care -DVT proph dosing lovenox for now, -ongoing increased FiO2 and supportive care -appreciate national sales consultant input D/W had brief discussion with palliative care, as patient is openly discussing about her . will continue to monitor. (2) Elevated troponin: Elevated troponin to 0.4, likely due to demand ischemia related to acute o n chronic respiratory failure. does not appear to be a primary cardiac problem (3) Abnormal EKG: as above (4) Interstitial lung disease: concerning - appears to have been deemed not a transplant candidate. continue supportive care. palliative consult to discuss further what her goals would be. (5) Vertebral compression fracture: (6) Depression: Stable, continue bupropion 300 mg p.o. every morning. (7) Hyperlipidemia: Continue atorvastatin 80 mg p.o. nightly. Split into 2 pills for patient to be able to swallow. (8) Hypothyroidism: TSH normal, continue levothyroxine 25 MCG's p.o. every morning. (9) Impaired fasting glucose: A1c reasonable given circumstances. (10) Congestive heart failure: see above - probably elements of both L and R sided acute CHF - continue cautious diuresis. (11) DVT prophylaxis: lovenox - see above (12) Discharge planning issues: telemetry for now, continue at current level of care - definitely will need some form of improvement in oxygenation to be able to get to where she could be safe at home. palliative consult to assist in goals of care planning. Admission and Anticipated Discharge Date Admission Date: October 16, 2019 Subjective Patient reports she feels slightly better today. She still requires high flow oxygen but it has been titrated down to 30 liters/min. She states she understands she is dying from this condition. And feels like she has about 6 months left in her life. She was discussing options with her spouse who was at bedside. Despite this, she feels she can still "improve" and would like to use her scooter to move around in her house and use a slightly larger one for when she is outdoors. Her main goal is to continue to titrate her oxygen down to a level where she can go back home. Review of Systems Review of Systems: All systems reviewed & are unremarkable except as noted in HPI & below Physical Exam Physical Exam: Constitutional: WD/WN, vitals as above well developed, + obese Eyes: PERRL, conjunctivae normal, anicteric sclerae ENMT: external ear and nose normal, oropharynx normal Neck: trachea midline, no thyromegaly Respiratory: normal respiratory effort, + respiratory distress, + labored breathing, + uses accessory muscles, + hyperresonance to percussion, + tachypneic, + prolonged expiratory phase, + audible wheezes, + nasal flaring and + pursed lip breathing Auscultation: + crackles, + rales and + wheezes Cardiovascular: RRR, no murmur, no edema Gastrointestinal (Abdomen): normal bowel sounds, soft, nontender, no hepatosplenomegaly Musculoskeletal: no cyanosis or clubbing, extremities motor strength 5/5 Skin: no rashes, warm and dry Neurologic: patellar DTR's 2+ bilat, sensation intact Psychiatric: A+Ox3, euthymic affect Lymphatic: no cervical or axillary lymphadenopathy Results & Data ([facility]) Vital Signs (Past 12 Hours) Vital Signs Temp Pulse Pulse Resp BP BP Pulse Ox 10/18/19 19:21 36.9 C 79 19 109/70 88 L 10/18/19 19:16 79 20 92 10/18/19 19:14 79 20 92 10/18/19 16:00 75 10/18/19 15:20 36.8 C 77 20 102/63 93 10/18/19 15:07 88 20 91 10/18/19 11:53 36.4 C L 88 21 108/67 91 10/18/19 11:40 83 22 83 L 10/18/19 11:39 83 22 83 L PG Care Time/CCT Total # of Minutes Spent Total Time Spent with Patient: Total time spent is greater than 50% in coordination of care (as documented) at patient's floor/unit and/or counseling patient: Coding Level of Care Code 77075 Subseq Hosp Care Lvl 3 Diagnoses Acute and chronic respiratory failure J96.20 Elevated troponin R79.89 Abnormal EKG R94.31 Interstitial lung disease J84.9 Vertebral compression fracture M48.50XA Depression F32.9 Hyperlipidemia E78.5 Hypothyroidism E03.9 Impaired fasting glucose R73.01 Congestive heart failure I50.9 DVT prophylaxis Z29.9 Discharge planning issues Z02.9 Time Spent (min) 35
[2019-10-19] MEDS: LEVOTHYROXINE SODIUM 25 MCG TABLET PO SCH (05:26)
[2019-10-19 06:58] LABS: Basophils # (auto) 0.01 K/uL (0-0.2); Basophils % (auto) 0.1 %; Hematocrit (blood only) 32.7 % (37-47); Hemoglobin 10.4 g/dL (12.0-16.0); Immature Granulocytes # (auto) 0.05 K/uL (0.00-0.02); Immature Granulocytes % (auto) 0.3 %; Lymphocytes # (auto) 0.32 K/uL (1.2-3.4); Lymphocytes % (auto) 2.2 %; Mean Corpuscular Hemoglobin 31.2 pg (25-34); Mean Corpuscular Hgb Conc 31.8 g/dL (32-36); Mean Corpuscular Volume 98.2 fL (80-100); Mean Platelet Volume 9.6 fL (7.4-10.4); Monocytes # (auto) 0.82 K/uL (0.11-0.59); Monocytes % (auto) 5.6 %; Neutrophils # (auto) 13.42 K/uL (1.4-6.5); Neutrophils % (auto) 91.8 %; Platelet Count 272 K/uL (130-400); RDW Standard Deviation 50.7 fL (36.4-46.3); Red Blood Count 3.33 M/uL (4.2-5.4); White Blood Count 14.62 K/uL (4.8-10.8)
[2019-10-19] MEDS: ALBUT/IPRATROP 3MG/0.5MG NEB 3 ML VIAL NEB SCH ×4 (07:08→19:27)
[2019-10-19 07:33] LABS: Creatinine Clr Calc Pharmacy 57.3 ml/min; Est GFR (African American) 87.4; Est GFR (Non-African American) 75.4
[2019-10-19] MEDS: methylPREDNISolone 40 MG in SYRINGE 0 ML IV SCH ×2 (08:38→21:21)
[2019-10-19] MEDS: ASPIRIN 81 MG ECTAB PO SCH (08:39)
[2019-10-19] MEDS: CHOLECALCIFEROL 1,000 UNITS 25 MCG TAB PO SCH (08:39)
[2019-10-19] MEDS: FUROSEMIDE 40 MG in SYRINGE 0 ML IV SCH (08:39)
[2019-10-19] MEDS: CALCIUM 600MG + VIT D 400 IU TAB PO SCH (08:39)
[2019-10-19] MEDS: TOCOPHERYL, DL-ALPHA 400 UNITS CAP PO SCH (08:39)
[2019-10-19] MEDS: MULTIVITAMIN TAB PO SCH (08:40)
[2019-10-19] MEDS: BuPROPion XL 300 MG TABCR PO SCH (08:40)
[2019-10-19] MEDS: POTASSIUM CHLORIDE PWD 20 MEQ PACK PO SCH ×3 (08:40→21:24)
[2019-10-19] MEDS: PANTOprazole 40 MG TAB PO SCH ×2 (08:40→21:23)
[2019-10-19] MEDS: cefTRIAXone SODIUM 2,000 MG in DEXTROSE 5% 50 ML IV SCH (08:44)
[2019-10-19] MEDS: DOXYCYCLINE HYCLATE 100 MG in DEXTROSE 5% 100 ML IV SCH ×2 (08:44→21:21)
--- NOTE | 2019-10-19 14:12 | Cardiology Progress Note ---
Date of Service October 19, 2019 Assessment & Plan (1) Congestive heart failure: Volume status appears favorable, neck veins suggest she is euvolemic. Would recommend repeat weight (inaccurate reading today). Continue furosemide 40 mg IV daily to maintain current volume status. (2) Demand ischemia: No ongoing symptoms to suggest myocardial ischemia. (3) CAD (coronary artery disease): No evidence of ongoing myocardial ischemia or acute myocardial infarction. (4) Acute and chronic respiratory failure: (5) Pulmonary fibrosis: (6) S/P laparoscopic fundoplication: (7) Cor pulmonale: Right heart findings are significantly more pronounced than just 2 years ago. Monitor for hypotension or azotemia, since she may be more volume sensitive and require a higher preload if she does have pulmonary hypertension at baseline. Cardiac status stable. Will sign off, but will be available should she have any change in clinical status or further cardiac issues. Thank you for the opportunity to participate in her care. Admission and Anticipated Discharge Date Admission Date: October 16, 2019 Subjective Uneventful night. Coughing less. No chest pain, subjective palpitations, lightheadedness, presyncope or syncope. Weight today inaccurate (doubtful she gained 14 pounds overnight). Input/output fairly even over the past 24 hours. Normotensive past 24 hours. Heart rate predominantly in the 70s. Physical Exam Physical Exam: Normal habitus elderly white female who appears chronically ill but not acutely distressed. Skin: No ecchymoses or generalized lesions. HEENT: Unremarkable. Neck: Jugular venous pulse at the clavicle with wide respiratory variation, no carotid bruits. Lungs: Decreased breath sounds, scattered "dry" crackles both lungs, no obvious wheezing. No abdominal paradox, intercostal muscle retraction, or nasal flaring. Cardiac: Faint heart tones, regular rhythm, no obvious murmur. Abdomen: Soft and nontender. Extremities: No edema, peripheral pulses intact. Neuro: Normal affect, nonfocal grossly. Results & Data ([facility]) Vital Signs (Past 12 Hours) Creatinine stable at 0.78. PG Care Time/CCT Total # of Minutes Spent Total Time Spent with Patient: Total time spent is greater than 50% in coordination of care (as documented) at patient's floor/unit and/or counseling patient: Coding Level of Care Code 65373 Subseq Hosp Care Lvl 3 Diagnoses Congestive heart failure I50.9 Demand ischemia I24.8 CAD (coronary artery disease) I25.10 Acute and chronic respiratory failure J96.20 Pulmonary fibrosis J84.10 S/P laparoscopic fundoplication Z98.890 Cor pulmonale I27.81
--- NOTE | 2019-10-19 15:40 | XRay Report ---
XR chest 1V portable CLINICAL HISTORY: Worsening shortness of breath. History of diuresis. COMPARISON STUDY: 10/16/2019 FINDINGS: The heart remains enlarged. There are low lung volumes. There are diffuse bilateral opaciti es, likely representing congestive failure superimposed on chronic lung disease. No large pleural eff usions are visualized. There is evidence for multiple prior vertebroplasties.[ IMPRESSION: 1. Persistent bilateral interstitial opacities, likely representing mild congestive failure superimpo sed on chronic lung disease. The x-ray findings are slightly more conspicuous, likely secondary to a hypoventilatory study ACT 112: Negative or not required by law. Electronically signed by: Hai Mendez M.D. 10/19/2019 3:38 PM
[2019-10-19] MEDS: ENOXAPARIN INJ 40 MG/0.4 ML SYR SQ SCH (18:30)
[2019-10-19] MEDS: FLUTICASONE/VILANTEROL 100/25MCG 14 PUFFS/INHALER INH SCH (21:22)
[2019-10-19] MEDS: SENNA 17.6 MG/10 ML UDP PO SCH (21:25)
[2019-10-19] MEDS: ATORVASTATIN 40 MG TAB PO SCH (21:25)
--- NOTE | 2019-10-19 22:45 | Hospitalist Progress Note ---
Date of Service October 19, 2019 Assessment & Plan (1) Acute and chronic respiratory failure: Appears her primary problem is her severe and advanced fibrotic lung disease. As stated by per pulmonary health consultant, she had a recent Dinh fundoplication and developed a perioperative pulmonary complication. She also has chronic secondary pulmonary hypertension from her interstitial lung disease. The setback that she is having currently is not surprising in the setting of the fact that she was recently intubated for this Dinh fundoplication. will continue to treat with antibiotics and titrate her oxygen. -continue diuresis and follow closely for L and/or R sided acute CHF -continue empiric abx, supportive care -DVT proph dosing lovenox for now, -ongoing increased FiO2 (currently FIO2 with 30 liters/min) and supportive care -appreciate health consultant input D/W had brief discussion with palliative care, as patient is openly discussing about her . will continue to monitor. (2) Elevated troponin: Elevated troponin to 0.4, likely due to demand ischemia related to acute on chronic respiratory failure. does not appear to be a primary cardiac problem (3) Abnormal EKG: as above (4) Interstitial lung disease: concerning - appears to have been deemed not a transplant candidate. continue supportive care. palliative consult to discuss further what her goals would be. (5) Vertebral compression fracture: (6) Depression: Stable, continue bupropion 300 mg p.o. every morning. (7) Hyperlipidemia: Continue atorvastatin 80 mg p.o. nightly. Split into 2 pills for patient to be able to swallow. (8) Hypothyroidism: TSH normal, continue levothyroxine 25 MCG's p.o. every morning. (9) Impaired fasting glucose: A1c reasonable given circumstances. (10) Congestive heart failure: see above - probably elements of both L and R sided acute CHF - continue cautious diuresis. (11) DVT prophylaxis: lovenox - see above (12) Discharge planning issues: telemetry for now, continue at current level of care - definitely will need some form of improvement in oxygenation to be able to get to where she could be safe at home. palliative consult to assist in goals of care planning. Admission and Anticipated Discharge Date Admission Date: October 16, 2019 Subjective 74 yo female reports no new symptoms. She feels slightly better, but continues to require same amount of oxygen. Review of Systems Review of Systems: All systems reviewed & are unremarkable except as noted in HPI & below Physical Exam Physical Exam: Constitutional: WD/WN, vitals as above well developed, + obese Eyes: PERRL, conjunctivae normal, anicteric sclerae ENMT: external ear and nose normal, oropharynx normal Neck: trachea midline, no thyromegaly Respiratory: normal respiratory effort, Auscultation: + crackles, + rales and + wheezes Cardiovascular: RRR, no murmur, no edema Gastrointestinal (Abdomen): normal bowel sounds, soft, nontender, no hepatosplenomegaly Musculoskeletal: no cyanosis or clubbing, extremities motor strength 5/5 Skin: no rashes, warm and dry Neurologic: patellar DTR's 2+ bilat, sensation intact Psychiatric: A+Ox3, euthymic affect Lymphatic: no cervical or axillary lymphadenopathy Results & Data ([facility]) Vital Signs (Past 12 Hours) Vital Signs Temp Pulse Pulse Resp BP BP Pulse Ox 10/19/19 19:28 79 20 96 10/19/19 19:27 79 20 96 10/19/19 19:10 36.7 C 71 18 109/68 93 10/19/19 15:37 81 18 94 10/19/19 15:10 75 10/19/19 15:05 36.6 C 73 18 103/64 90 10/19/19 11:56 75 18 89 L 10/19/19 11:18 36.9 C 75 24 112/65 89 L PG Care Time/CCT Total # of Minutes Spent Total Time Spent with Patient: Total time spent is greater than 50% in coordination of care (as documented) at patient's floor/unit and/or counseling patient: Coding Level of Care Code 52629 Subseq Hosp Care Lvl 2 Diagnoses Acute and chronic respiratory failure J96.20 Elevated troponin R79.89 Abnormal EKG R94.31 Interstitial lung disease J84.9 Vertebral compression fracture M48.50XA Depression F32.9 Hyperlipidemia E78.5 Hypothyroidism E03.9 Impaired fasting glucose R73.01 Congestive heart failure I50.9 DVT prophylaxis Z29.9 Discharge planning issues Z02.9 Time Spent (min) 25
[2019-10-20] MEDS: LEVOTHYROXINE SODIUM 25 MCG TABLET PO SCH (06:18)
[2019-10-20 06:20] LABS: Hematocrit (blood only) 37.7 % (37-47); Immature Granulocytes # (auto) 0.08 K/uL (0.00-0.02); Immature Granulocytes % (auto) 0.5 %; Lymphocytes # (auto) 0.38 K/uL (1.2-3.4); Lymphocytes % (auto) 2.6 %; Mean Corpuscular Hemoglobin 31.7 pg (25-34); Mean Corpuscular Hgb Conc 31.8 g/dL (32-36); Mean Corpuscular Volume 99.7 fL (80-100); Mean Platelet Volume 9.7 fL (7.4-10.4); Monocytes # (auto) 0.52 K/uL (0.11-0.59); Monocytes % (auto) 3.5 %; Neutrophils # (auto) 13.67 K/uL (1.4-6.5); Neutrophils % (auto) 93.4 %; Platelet Count 309 K/uL (130-400); RDW Coefficient of Variation 14.1 % (11.5-14.5); Red Blood Count 3.78 M/uL (4.2-5.4); White Blood Count 14.65 K/uL (4.8-10.8)
[2019-10-20] MEDS: ALBUT/IPRATROP 3MG/0.5MG NEB 3 ML VIAL NEB SCH ×5 (07:07→19:49)
--- NOTE | 2019-10-20 08:51 | Palliative Care Consultation ---
Date of Consultation October 20, 2019 Assessment & Plan (1) Goals of care, counseling/discussion: -74 year old female patient with PMH severe interstitial lung disease, anemia, depression, hyperlipidemia, hypothyroidism, coronary artery disease, gastroparesis, hiatal hernia status post fundoplication at [facility], osteoporosis, primary pulmonary lymphoma, who presented to the ED with increased SOB and increased oxygen requirements. Fundoplication procedure was just done a week and half ago. She was admitted for acute on chronic respiratory failure, CHF exacerbation and possible pneumonia. Patient initially was placed on Bipap and is now on high-flow nasal cannula. It has been extremely difficult to wean patient's oxygen. She was initially on 40LPM, attempted to wean to 30LPM, now back up 35LPM and a high FiO2. Pulmonology consulted who recommends steroids, abx for 7 days, continue to attempt weaning. Prognosis seems poor. Cardiology also consulted-- continuing 40mg IV Lasix at this time and patient now seems euvolemic. Given patient's severe lung disease and poor prognosis, palliative care is consulted to discuss goals of care. -Met with patient, her daughter Dixie, and Jus. -Patient is on HFNC at 35LPM and 75% FiO2. She is SOB with talking, but pleasant and talkative. -Patient and family still feel that this episode is due to the recent surgery as the surgeon told them that this could potentially happen. Dixie states that patient was told this could take 6-8 weeks to recover from. -patient and family did acknowledge the fact that patient has advanced stage illness that is not curable. patient states that she is not afraid to , she just does not think that time is mow. -patient plans to continue pushing forward and hoping to recover. -We discussed discharge planning issues. I suggested considering LTACH for pulmonary rehab and a prolonged weaning process from the high-flow nasal cannula. Patient and family willing to learn about this option. they are aware that HFNC can only be done in hospital or LTACH. -Patient is hoping to eventually get back home where she lives with her . at baseline, she ambulates and has fair functional status. -We will continue to follow for support. (2) Acute and chronic respiratory failure: (3) Interstitial lung disease: (4) Congestive heart failure: History of Present Illness Attending Physician: Hi Priest History of Present Illness This 74 year old female patient with PMH severe interstitial lung disease, anemia, depression, hyperlipidemia, hypothyroidism, coronary artery disease, gastroparesis, hiatal hernia status post fundoplication at [facility], osteoporosis, primary pulmonary lymphoma, who presented to the ED with increased SOB and increased oxygen requirements. Fundoplication procedure was just done a week and half ago. She was admitted for acute on chronic respiratory failure, CHF exacerbation and possible pneumonia. Patient initially was placed on Bipap and is now on high-flow nasal cannula. It has been extremely difficult to wean patient's oxygen. She was initially on 40LPM, attempted to wean to 30LPM, now back up 35LPM and a high FiO2. Pulmonology consulted who recommends steroids, abx for 7 days, continue to attempt weaning. Prognosis seems poor. Cardiology also consulted-- continuing 40mg IV Lasix at this time and patient now seems euvolemic. Given patient's severe lung disease and poor prognosis, palliative care is consulted to discuss goals of care. Thank you kindly for this consult. Palliative care team will follow as needed. Allergies Allergy/AdvReac Type Severity Reaction Status Date / Time adhesive Allergy Intermediate ITCHY, Verified 10/16/19 13:01 "BLISTERY" SKIN WITH SOME TAPE/BANDAIDS Home Medications Home Medications Medication Instructions Recorded Confirmed Type Breo Ellipta 1 inh INHALATION HS 08/30/18 10/16/19 History albuterol sulfate 1 - 2 puff INHALATION Q6H PRN 08/30/18 10/16/19 History aspirin [Aspir-81] 81 mg PO QAM 08/30/18 10/16/19 History calcium carbonate-vitamin D3 1,000 mg PO QAM 08/30/18 10/16/19 History [Calcium 500 + D] milk thistle 175 mg PO QAM 08/30/18 10/16/19 History Prolia 60 mg SUBCUT DIRECTED 09/06/18 10/16/19 History vit C,E,zinc,copper-uvxrv2y 250 1 cap PO DAILY 02/15/19 10/16/19 History mg-lutein 5 mg-zeaxanthin 1 mg capsule bupropion HCl 300 mg 24 hr tablet, 300 mg PO QAM #90 tab 03/06/19 10/16/19 Rx extended release cholecalciferol (vitamin D3) 50 4,000 units PO QAM cap 03/07/19 10/16/19 History mcg (2,000 unit) capsule coenzyme Q10 60 mg tablet 60 mg PO DAILY 03/07/19 10/16/19 History lansoprazole 15 mg delayed 30 mg PO BID tab 03/07/19 10/16/19 History release,disintegrating tablet lidocaine 4 % topical patch 1 patch TOP DAILY PRN 03/07/19 10/16/19 History prednisone 1 mg tablet 10 mg PO DAILY tab 03/16/19 10/16/19 History levothyroxine 25 mcg tablet 25 mcg PO QAM #90 tab 03/27/19 10/16/19 Rx nitroglycerin 0.4 mg sublingual 0.4 mg SUBLINGUAL UD PRN #25 tab 03/31/19 10/16/19 Rx tablet atorvastatin 80 mg tablet 80 mg PO HS #90 tab 06/22/19 10/16/19 Rx acetaminophen 500 mg/15 mL oral 1,000 mg PO TID PRN #240 ml 10/13/19 10/16/19 Rx liquid ibuprofen 200 mg capsule 400 mg PO Q6H PRN cap 10/13/19 10/16/19 History magnesium hydroxide 400 mg/5 mL 30 ml PO DAILY PRN #360 ml 10/13/19 10/16/19 Rx oral suspension ondansetron 4 mg disintegrating 4 mg PO Q8H PRN #30 tab 10/13/19 10/16/19 Rx tablet oxycodone 5 mg/5 mL oral solution 5 mg PO Q6H PRN #15 ml 10/13/19 10/16/19 Rx pantoprazole 40 mg tablet,delayed 40 mg PO DAILY #30 tab 10/13/19 10/16/19 Rx release rituximab-pvvr 10 mg/mL 375 mg IV .Q3-4Months #50 ml 10/13/19 10/16/19 Rx concentrate,intravenous simethicone 80 mg chewable tablet 80 mg PO Q4H PRN #30 tab 10/13/19 10/16/19 Rx vitamin E (dl, acetate) 1,000 unit 1,000 units PO DAILY #30 cap 10/13/19 10/16/19 Rx capsule sennosides [senna] 10 ml PO HS 10/16/19 10/16/19 History Patient History Medical History (Updated 10/20/19 @ 08:50 by MICHAEL Infante) Anemia HX CAD (coronary artery disease) Chronic back pain Chronic steroid use SINCE 05/2009 Depression GERD (gastroesophageal reflux disease) GI bleed 12/2017 [facility] Hiatal hernia History of anesthesia reaction SLOW TO WAKE UP WITH TKA-2012 [facility] Hyperlipidemia Hypothyroidism Myocardial Infarction (2013) On home oxygen therapy 2L/MIN AT REST 3-6 L/MIN WITH ACTIVITY Pneumonia 12/2017 Primary pulmonary lymphoma (Inactive) Mccammon by multiple consultants to be quiescent given the lack of progression since 2008. Pulmonary fibrosis DR [facility] S/p bare metal coronary artery stent (2013) Secondary pulmonary hypertension Syncope HX- A RESULT OF HEART MED WAS ON IN THE PAST Surgical History History of section X 2 History of kyphoplasty X 6 TIMES (7 LEVELS WERE DONE TOTAL) History of laminectomy History of total knee replacement RIGHT S/P cardiac cath (11/2018) 60% OM1 (iFR 0.96) S/P laparoscopic fundoplication (10/2019) Family History Unknown Cancer Dementia Asthma Hay fever Lung infection Mother Cancer Sister Dementia Father Lung infection Social History Preferred Language: Korean Communication Ability: Effective Visual Impairment: Diminished Hearing Ability: Normal [employer] Required: No Beliefs That Will Affect Care: None marital status: Current Living Situation: Spouse current occupational status: retired Feels Safe at Home: Yes Smoking Status: Never smoker Second Hand Exposure: No ( A CHILD) ; Hx Alcohol Use: Yes Alcohol type: wine and hard liquor Hx Substance Use: No Childhood Exposure to Second-Hand Smoke: Yes caffeine: Yes Dental Care, Regularly: Yes Physical Activity Frequency: Does not Exercise Physical Activity Frequency Comment: unable on regular basis Seatbelt Use: always Sunscreen Use: Yes Results & Data Vital Signs (Past 12 Hours) Vital Signs Temp Pulse Pulse Resp BP BP Pulse Ox 10/20/19 07:30 36.4 C L 68 20 114/76 96 10/20/19 07:12 65 21 92 10/20/19 07:07 65 21 90 10/20/19 03:56 36.6 C 66 22 119/69 92 10/20/19 03:29 74 18 97 10/20/19 00:00 71 10/19/19 23:24 36.8 C 70 22 136/78 93 10/19/19 23:22 77 20 93 PG Care Time/CCT Total # of Minutes Spent Total Time Spent with Patient: Total time spent is greater than 50% in coordination of care (as documented) at patient's floor/unit and/or counseling patient:70 minutes. Coding Level of Care Code 51782 Inpt Consult Level 3 Diagnoses Goals of care, counseling/discussion Z71.89 Acute and chronic respiratory failure J96.20 Interstitial lung disease J84.9 Congestive heart failure I50.9 Time Spent (min) 70
[2019-10-20 09:42] LABS: BUN Creatinine Ratio 35.1 (10-20); Calcium 10.3 mg/dl (8.5-10.1); Est GFR (African American) 82.3; Potassium 5.1 mmol/L (3.5-5.1)
[2019-10-20] MEDS: methylPREDNISolone 40 MG in SYRINGE 0 ML IV SCH (09:49)
[2019-10-20] MEDS: FUROSEMIDE 40 MG in SYRINGE 0 ML IV SCH (09:49)
[2019-10-20] MEDS: DOXYCYCLINE HYCLATE 100 MG in DEXTROSE 5% 100 ML IV SCH ×2 (09:59→20:13)
[2019-10-20] MEDS: cefTRIAXone SODIUM 2,000 MG in DEXTROSE 5% 50 ML IV SCH (09:59)
[2019-10-20] MEDS: TOCOPHERYL, DL-ALPHA 400 UNITS CAP PO SCH (10:00)
[2019-10-20] MEDS: MULTIVITAMIN TAB PO SCH (10:00)
[2019-10-20] MEDS: CALCIUM 600MG + VIT D 400 IU TAB PO SCH (10:00)
[2019-10-20] MEDS: PANTOprazole 40 MG TAB PO SCH ×2 (10:00→20:17)
[2019-10-20] MEDS: CHOLECALCIFEROL 1,000 UNITS 25 MCG TAB PO SCH (10:01)
[2019-10-20] MEDS: BuPROPion XL 300 MG TABCR PO SCH (10:01)
[2019-10-20] MEDS: ASPIRIN 81 MG ECTAB PO SCH (10:01)
[2019-10-20] MEDS: POLYETHYLENE (MIRALAX) 17 GM PACK PO PRN (10:16)
--- NOTE | 2019-10-20 13:21 | Pulmonology Progress Note ---
Date of Service October 20, 2019 Assessment & Plan (1) Acute and chronic respiratory failure: I had a lengthy discussion with the patient and the . Patient is requiring 35 L and 75% FiO2 today. She appears more tachypneic. Chest x-ray reviewed from yesterday which appears that she is mildly worsening interstitial alveolar infiltrates. She essentially has end-stage pulmonary fibrosis that went into an exacerbation posterior Dinh fundoplication surgery. Patient is not ready for palliative care at this time. She is still full code. She is inquiring about going home with supplemental oxygen. I reiterated that it would be impossible for her to be discharged home or to a nursing facility with high flow nasal cannula. She may need to be transitioned to an LTAC at this point. I do think that her prognosis is very poor. also raise concerns about possibly starting her on pirfenidone and/or nintedanib. I indicated that these medications are used for idiopathic pulmonary fibrosis and systemic sclerosis related ILD/pulmonary hypertension. These are medications used on a chronic basis and not in the acute setting. We can try a higher dose of steroids and I have increased her to 125 mg IV 3 times daily of Solu-Medrol. We can try this for 3 days. She is at risk for complications relating to higher doses of steroids including GI bleeding, diabetes and cataracts. We went over these risks and she is willing to accept the risks. She is currently on Protonix twice daily. Recommend continued diuresis. Again, her prognosis is extremely poor and I would recommend palliative/hospice care at this point (2) Cor pulmonale: (3) Pulmonary fibrosis: (4) Interstitial lung disease: (5) Secondary pulmonary hypertension: Subjective Patient more tachypneic and short of breath today. She is not coughing. No chest pain. No fevers. Physical Exam Eyes: PERRL, conjunctivae normal, anicteric sclerae ENMT: external ear and nose normal, oropharynx normal Neck: normal visual inspection Respiratory: + labored breathing, + abnormal respiratory pattern and + tachypneic Auscultation: + crackles Cardiovascular: RRR, no murmur, no edema Gastrointestinal (Abdomen): normal bowel sounds, soft, nontender, no hepatosplenomegaly Musculoskeletal: no cyanosis or clubbing, extremities motor strength 5/5 Skin: no rashes, warm and dry Neurologic: PERRL, EOMI, accommodation nl, no face palsy, no dysarthria Psychiatric: A+Ox3, euthymic affect Results & Data ([facility]) Vital Signs (Past 12 Hours) Vital Signs Temp Pulse Pulse Resp BP BP Pulse Ox 10/20/19 11:59 78 21 89 L 10/20/19 11:58 78 20 89 L 10/20/19 11:42 97.7 F 79 20 145/74 H 88 L 10/20/19 11:30 70 10/20/19 10:01 90 10/20/19 07:30 97.5 F L 68 20 114/76 96 10/20/19 07:12 65 21 92 10/20/19 07:07 65 21 90 10/20/19 03:56 97.9 F 66 22 119/69 92 10/20/19 03:29 74 18 97 PG Care Time/CCT Total # of Minutes Spent Total Time Spent with Patient: Total time spent is greater than 50% in coordination of care (as documented) at patient's floor/unit and/or counseling patient: Coding Level of Care Code 09213 Subseq Hosp Care Lvl 3 Diagnoses Acute and chronic respiratory failure J96.20 Cor pulmonale I27.81 Pulmonary fibrosis J84.10 Interstitial lung disease J84.9 Secondary pulmonary hypertension
--- NOTE | 2019-10-20 13:52 | XRay Report ---
SINGLE VIEW CHEST CLINICAL HISTORY: Hypoxia. Interstitial lung disease. FINDINGS: An AP, portable, upright chest radiograph is compared to study dated 10/19/2019 and correlat ed with chest CT dated 08/29/2018. The examination is degraded by portable technique and patient rotat ion. The heart is enlarged. There are low lung volumes with changes of chronic interstitial lung dis ease. There is likely superimposed congestive failure. Trace pleural effusions are suspected. No pneu mothorax is seen. The skeletal structures are osteopenic. Vertebroplasty change is noted at several t horacic levels. IMPRESSION: 1. Cardiomegaly with changes of chronic interstitial lung disease. 2. There is evidence of superimposed congestive failure. ACT 112: Negative or not required by law. Electronically signed by: Haider Pedersen M.D. 10/20/2019 1:51 PM
[2019-10-20] MEDS: methylPREDNISolone 125 MG in SYRINGE 0 ML IV SCH ×2 (14:04→20:18)
[2019-10-20] MEDS: ENOXAPARIN INJ 40 MG/0.4 ML SYR SQ SCH (18:30)
[2019-10-20] MEDS: FLUTICASONE/VILANTEROL 100/25MCG 14 PUFFS/INHALER INH SCH (20:14)
[2019-10-20] MEDS: ATORVASTATIN 40 MG TAB PO SCH (20:16)
[2019-10-20] MEDS: SENNA 17.6 MG/10 ML UDP PO SCH (20:17)
--- NOTE | 2019-10-20 23:02 | Hospitalist Progress Note ---
Date of Service October 20, 2019 Assessment & Plan (1) Acute and chronic respiratory failure: Appears her primary problem is her severe and advanced fibrotic lung disease. As stated by per pulmonary bus info consultant, she had a recent Dinh fundoplication and developed a perioperative pulmonary complication. She also has chronic secondary pulmonary hypertension from her interstitial lung disease. The setback that she is having currently is not surprising in the setting of the fact that she was recently intubated for this Dinh fundoplication. will continue to treat with antibiotics and titrate her oxygen. -continue diuresis and follow closely for L and/or R sided acute CHF -continue empiric abx, supportive care -DVT proph dosing lovenox for now, -ongoing increased FiO2 (currently FIO2 with 35 liters/min) and supportive care -increased steroids as per pulmonary on 10/19 -appreciate bus info consultant input D/W had brief discussion with palliative care, as patient is openly discussing about her . will continue to monitor. (2) Elevated troponin: Elevated troponin to 0.4, likely due to demand ischemia related to acute on chronic respiratory failure. does not appear to be a primary cardiac problem (3) Abnormal EKG: as above (4) Interstitial lung disease: concerning - appears to have been deemed not a transplant candidate. continue supportive care. palliative consult to discuss further what her goals would be. (5) Vertebral compression fracture: (6) Depression: Stable, continue bupropion 300 mg p.o. every morning. (7) Hyperlipidemia: Continue atorvastatin 80 mg p.o. nightly. Split into 2 pills for patient to be able to swallow. (8) Hypothyroidism: TSH normal, continue levothyroxine 25 MCG's p.o. every morning. (9) Impaired fasting glucose: A1c reasonable given circumstances. (10) Congestive heart failure: see above - probably elements of both L and R sided acute CHF - continue cautious diuresis. (11) DVT prophylaxis: lovenox - see above (12) Discharge planning issues: telemetry for now, continue at current level of care - definitely will need some form of improvement in oxygenation to be able to get to where she could be safe at home. palliative consult to assist in goals of care planning. Admission and Anticipated Discharge Date Admission Date: October 16, 2019 Subjective Patient reports feeling mildly better after receiving a higher dose of her sterids today. Her daughter is at bedside and her questions were answered. Explained that she has not improved much over past few days. Review of Systems Review of Systems: All systems reviewed & are unremarkable except as noted in HPI & below Physical Exam Physical Exam: Constitutional: WD/WN, vitals as above well developed, + obese Eyes: PERRL, conjunctivae normal, anicteric sclerae ENMT: external ear and nose normal, oropharynx normal Neck: trachea midline, no thyromegaly Respiratory: normal respiratory effort, Auscultation: + crackles, no wheezing. Cardiovascular: RRR, no murmur, no edema Gastrointestinal (Abdomen): normal bowel sounds, soft, nontender, no hepatosplenomegaly Musculoskeletal: no cyanosis or clubbing, extremities motor strength 5/5 Skin: no rashes, warm and dry Neurologic: patellar DTR's 2+ bilat, sensation intact Psychiatric: A+Ox3, euthymic affect Lymphatic: no cervical or axillary lymphadenopathy Results & Data ([facility]) Vital Signs (Past 12 Hours) Vital Signs Temp Pulse Pulse Pulse Resp BP Pulse Ox 10/20/19 19:49 74 20 93 10/20/19 19:19 36.5 C 77 21 106/73 94 10/20/19 16:00 77 10/20/19 15:47 36.6 C 71 20 111/69 98 10/20/19 15:23 75 77 22 97 10/20/19 15:22 77 22 97 10/20/19 11:59 78 21 89 L 10/20/19 11:58 78 20 89 L 10/20/19 11:42 36.5 C 79 20 145/74 H 88 L 10/20/19 11:30 70 PG Care Time/CCT Total # of Minutes Spent Total Time Spent with Patient: Total time spent is greater than 50% in coordination of care (as documented) at patient's floor/unit and/or counseling patient: Coding Level of Care Code 26484 Subseq Hosp Care Lvl 2 Diagnoses Acute and chronic respiratory failure J96.20 Elevated troponin R79.89 Abnormal EKG R94.31 Interstitial lung disease J84.9 Vertebral compression fracture M48.50XA Depression F32.9 Hyperlipidemia E78.5 Hypothyroidism E03.9 Impaired fasting glucose R73.01 Congestive heart failure I50.9 DVT prophylaxis Z29.9 Discharge planning issues Z02.9 Time Spent (min) 25
[2019-10-20] MEDS ORDERED: PHARMACY GLYCEMIC MGMT CONSULT PRN (23:13)
[2019-10-21] MEDS ORDERED: GLUCOSE 40% GEL 15 GM TUBE PO PRN (00:30)
[2019-10-21] MEDS ORDERED: INSULIN ASPART 100 UNITS/ML 3 ML PEN SQ ONE (00:30)
[2019-10-21] MEDS ORDERED: DEXTROSE 50% 50 ML SYRINGE IV PRN (00:30)
[2019-10-21] MEDS ORDERED: GLUCOSE 10 TABS/TUBE PO PRN (00:30)
[2019-10-21] MEDS ORDERED: GLUCAGON FOR INJ 1 MG VIAL IM PRN (00:30)
[2019-10-21] MEDS ORDERED: CARBOHYDRATES FOR HYPOGLYCEMIA PO PRN (00:30)
[2019-10-21] MEDS: LEVOTHYROXINE SODIUM 25 MCG TABLET PO SCH (05:07)
[2019-10-21] MEDS: ALBUT/IPRATROP 3MG/0.5MG NEB 3 ML VIAL NEB SCH ×4 (07:04→19:10)
[2019-10-21 07:08] LABS: Basophils # (auto) 0.01 K/uL (0-0.2); Basophils % (auto) 0.1 %; Hemoglobin 12.3 g/dL (12.0-16.0); Immature Granulocytes # (auto) 0.11 K/uL (0.00-0.02); Immature Granulocytes % (auto) 0.6 %; Lymphocytes % (auto) 2.3 %; Mean Corpuscular Hemoglobin 31.6 pg (25-34); Mean Corpuscular Hgb Conc 32.4 g/dL (32-36); Mean Corpuscular Volume 97.7 fL (80-100); Monocytes # (auto) 0.51 K/uL (0.11-0.59); Monocytes % (auto) 2.9 %; Neutrophils # (auto) 16.58 K/uL (1.4-6.5); Neutrophils % (auto) 94.1 %; Platelet Count 323 K/uL (130-400); RDW Coefficient of Variation 14.2 % (11.5-14.5); RDW Standard Deviation 50.3 fL (36.4-46.3); Red Blood Count 3.89 M/uL (4.2-5.4); White Blood Count 17.61 K/uL (4.8-10.8)
[2019-10-21] MEDS: FUROSEMIDE 40 MG in SYRINGE 0 ML IV SCH (08:23)
[2019-10-21] MEDS: methylPREDNISolone 125 MG in SYRINGE 0 ML IV SCH ×3 (08:23→20:30)
[2019-10-21] MEDS: PANTOprazole 40 MG TAB PO SCH ×2 (08:24→20:30)
[2019-10-21] MEDS: BuPROPion XL 300 MG TABCR PO SCH (08:24)
[2019-10-21] MEDS: ASPIRIN 81 MG ECTAB PO SCH (08:24)
[2019-10-21] MEDS: MULTIVITAMIN TAB PO SCH (08:24)
[2019-10-21] MEDS: CALCIUM 600MG + VIT D 400 IU TAB PO SCH (08:24)
[2019-10-21] MEDS: CHOLECALCIFEROL 1,000 UNITS 25 MCG TAB PO SCH (08:24)
[2019-10-21] MEDS: TOCOPHERYL, DL-ALPHA 400 UNITS CAP PO SCH (08:24)
[2019-10-21] MEDS: cefTRIAXone SODIUM 2,000 MG in DEXTROSE 5% 50 ML IV SCH (08:35)
[2019-10-21] MEDS: DOXYCYCLINE HYCLATE 100 MG in DEXTROSE 5% 100 ML IV SCH ×2 (08:35→20:30)
[2019-10-21] MEDS: POLYETHYLENE (MIRALAX) 17 GM PACK PO PRN (08:36)
[2019-10-21] MEDS: INSULIN ASPART 100 UNITS/ML 3 ML PEN SQ SCH ×4 (08:37→20:34)
--- NOTE | 2019-10-21 10:01 | Pharmacy Report ---
Glycemic Control Consultation - Date of Service October 21, 2019 - Scope Scope: Glycemic Pharmacist consulted for glycemic control and to write orders per [facility] inpatient glycemic control protocol. - Objective Weight: 68 kg Accuchecks BSG (last 24hrs): 10/20/19 10/21/19 23:57 07:09 POC Glucose 211 H 192 H HbA1c: Hemoglobin A1c 5.8 % (4.5-5.6) H 10/16/19 13:10 - Recent Pertinent Medications Outpatient Anti-diabetic Regimen: * N/A * A1c = 5.8 % - 10/16/19 Risk Factors for Insulin Resistance: * Steroids: solm 125 mg tid * Diet: T2DM - Assessment & Plan Assessment & Plan: ASSESSMENT: * 74 year old with chronic respiratory failure and advanced fibrotic lung disease. Pharmacy consulted for glycemic management. * Pulmonary trialing high dose steroids (solm 125 mg iv q 8 hr x 3 days) to see if any improvement * Patient's A1C classifies her as pre-diabetic (note, value could be altered d/t various disease states such as anemia, hypothyroidism) - currently no diabetic medications at home. * Patient with steroid induced hyperglycemia from steroids. Will utilize basal/bolus insulin for glycemic management. Will plan to start basal at lunch time to see BSG trend PLAN FOR INPATIENT GLYCEMIC CONTROL: * Basal insulin * Lantus 15 units x 1 (0.2 units/kg) * Lantus HS per scale - for BSG <160 - no insulin, 160-200 - 8 units, greater than 200 - 12 units) * Bolus insulin * NovoLog per scale ACHS or Q6hrs while NPO * Goal Range: Low 110 mg/dL - High 140 mg/dL * Correction Factor: 25 mg/dL/unit * Nutritional / Prandial insulin per carb ratio of 1 unit per 8 grams CHO consumed * Please note that the plan above was derived based on current level of insulin resistance and hospital stress. These recommendations are appropriate for inpatient admission only. Plan of care upon discharge will need to be reassessed to avoid potential outpatient hypo/hyperglycemia. Thank you.
--- NOTE | 2019-10-21 12:25 | Pulmonology Progress Note ---
Date of Service October 21, 2019 Assessment & Plan (1) Acute and chronic respiratory failure: I had another lengthy discussion with the patient's daughter in person and the patient today. I indicated that she is not showing any significant improvement. We are continuing with 125 mg 3 times daily of IV Solu-Medrol for 3 days. She is starting to have issues with hyperglycemia. The daughter had numerous questions about discharging the patient home with a 40 L of oxygen. I indicated to her that this would be impossible. She is telling me that there is a thoracic surgeon in [facility] who indicated to her that it is possible to discharge the patient on 40 L of oxygen. I am not aware of anything that the patient can be discharged on to utilize that high amounts of oxygen at home. I do recommend palliative care measures at this point as it is unlikely that she will respond to high doses of steroids. She has been essentially bedbound minimal improvement of symptoms. Palliative care is following. I also instructed to the daughter that it is probably best to avoid coming to the hospital as she is currently sick with an upper respiratory illness. She indicated that she would prefer to be at the patient's bedside given that she knows that she is dying. (2) Cor pulmonale: (3) Pulmonary fibrosis: (4) Interstitial lung disease: (5) Secondary pulmonary hypertension: Subjective Patient is lying in bed and very tachypneic. She does not have any significant difference from the day before. No coughing. No fevers. Still very short of breath with exertion. Has not gotten out of bed since admission. Physical Exam Eyes: PERRL, conjunctivae normal, anicteric sclerae ENMT: external ear and nose normal, oropharynx normal Neck: normal visual inspection Respiratory: + labored breathing, + abnormal respiratory pattern and + tachypneic Auscultation: + crackles Cardiovascular: RRR, no murmur, no edema Gastrointestinal (Abdomen): normal bowel sounds, soft, nontender, no hepatosplenomegaly Musculoskeletal: no cyanosis or clubbing, extremities motor strength 5/5 Skin: no rashes, warm and dry Neurologic: PERRL, EOMI, accommodation nl, no face palsy, no dysarthria Psychiatric: A+Ox3, euthymic affect Results & Data ([facility]) Vital Signs (Past 12 Hours) Vital Signs Temp Pulse Pulse Resp BP BP Pulse Ox 10/21/19 12:17 98.1 F 80 17 114/73 89 L 10/21/19 11:18 63 10/21/19 10:46 76 20 92 10/21/19 10:45 76 20 92 10/21/19 07:40 97.5 F L 65 22 113/68 91 10/21/19 07:06 72 20 95 10/21/19 07:04 72 20 95 10/21/19 03:42 74 20 97 10/21/19 03:32 98.2 F 65 22 107/67 96 10/21/19 00:37 67 PG Care Time/CCT Total # of Minutes Spent Total Time Spent with Patient: Total time spent is greater than 50% in coordination of care (as documented) at patient's floor/unit and/or counseling patient: Coding Level of Care Code 88931 Subseq Hosp Care Lvl 3 Diagnoses Acute and chronic respiratory failure J96.20 Cor pulmonale I27.81 Pulmonary fibrosis J84.10 Interstitial lung disease J84.9 Secondary pulmonary hypertension
[2019-10-21] MEDS ORDERED: INSULIN GLARGINE SOLOSTAR 100 UNITS/ML 3 ML PEN SC ONE (12:30)
[2019-10-21] MEDS: ENOXAPARIN INJ 40 MG/0.4 ML SYR SQ SCH (17:19)
[2019-10-21] MEDS: FLUTICASONE/VILANTEROL 100/25MCG 14 PUFFS/INHALER INH SCH (20:29)
[2019-10-21] MEDS: ATORVASTATIN 40 MG TAB PO SCH (20:29)
[2019-10-21] MEDS: SENNA 17.6 MG/10 ML UDP PO SCH (20:30)
[2019-10-21] MEDS: INSULIN GLARGINE SOLOSTAR 100 UNITS/ML 3 ML PEN SC SCH (20:34)
--- NOTE | 2019-10-21 22:22 | Hospitalist Progress Note ---
Date of Service October 21, 2019 Assessment & Plan (1) Acute and chronic respiratory failure: Appears her primary problem is her severe and advanced fibrotic lung disease. As stated by per pulmonary application consultant, she had a recent Dinh fundoplication and developed a perioperative pulmonary complication. She also has chronic secondary pulmonary hypertension from her interstitial lung disease. The setback that she is having currently is not surprising in the setting of the fact that she was recently intubated for this Dinh fundoplication. will continue to treat with antibiotics and titrate her oxygen. -continue diuresis and follow closely for L and/or R sided acute CHF -continue empiric abx, supportive care -DVT proph dosing lovenox for now, -ongoing increased FiO2 (currently FIO2 with 35 liters/min) and supportive care -increased steroids as per pulmonary on 10/19 -appreciate application consultant input D/W patient and daughter, patient appears to be resigned that she is not improving. Her daughter however feels like she may still "bounce back" (2) Elevated troponin: Elevated troponin to 0.4, likely due to demand ischemia related to acute on chronic respiratory failure. does not appear to be a primary cardiac problem (3) Abnormal EKG: as above (4) Interstitial lung disease: concerning - appears to have been deemed not a transplant candidate. continue supportive care. palliative consult to discuss further what her goals would be. (5) Vertebral compression fracture: (6) Depression: Stable, continue bupropion 300 mg p.o. every morning. (7) Hyperlipidemia: Continue atorvastatin 80 mg p.o. nightly. Split into 2 pills for patient to be able to swallow. (8) Hypothyroidism: TSH normal, continue levothyroxine 25 MCG's p.o. every morning. (9) Impaired fasting glucose: A1c reasonable given circumstances. (10) Congestive heart failure: see above - probably elements of both L and R sided acute CHF - continue cautious diuresis. (11) DVT prophylaxis: lovenox - see above (12) Discharge planning issues: telemetry for now, continue at current level of care - definitely will need some form of improvement in oxygenation to be able to get to where she could be safe at home. palliative consult to assist in goals of care planning. Admission and Anticipated Discharge Date Admission Date: October 16, 2019 Subjective Patient reports no significant change today. She continues to require same amount of oxygen today. Review of Systems Review of Systems: All systems reviewed & are unremarkable except as noted in HPI & below Physical Exam Physical Exam: Constitutional: WD/WN, vitals as above well developed, + obese Eyes: PERRL, conjunctivae normal, anicteric sclerae ENMT: external ear and nose normal, oropharynx normal Neck: trachea midline, no thyromegaly Respiratory: normal respiratory effort, Auscultation: + crackles, no wheezing. Cardiovascular: RRR, no murmur, no edema Gastrointestinal (Abdomen): normal bowel sounds, soft, nontender, no hepatosplenomegaly Musculoskeletal: no cyanosis or clubbing, extremities motor strength 5/5 Skin: no rashes, warm and dry Neurologic: patellar DTR's 2+ bilat, sensation intact Psychiatric: A+Ox3, euthymic affect Lymphatic: no cervical or axillary lymphadenopathy Results & Data ([facility]) Vital Signs (Past 12 Hours) Vital Signs Temp Pulse Pulse Resp BP BP Pulse Ox 10/21/19 22:13 66 18 93 10/21/19 19:14 87 22 89 L 10/21/19 19:13 87 22 89 L 10/21/19 19:10 36.7 C 86 21 113/66 88 L 10/21/19 15:29 83 118/77 10/21/19 15:18 87 22 93 10/21/19 15:16 87 22 93 10/21/19 15:14 36.7 C 77 20 88/64 L 88 L 10/21/19 12:17 36.7 C 80 17 114/73 89 L 10/21/19 11:18 63 10/21/19 10:46 76 20 92 10/21/19 10:45 76 20 92 PG Care Time/CCT Total # of Minutes Spent Total Time Spent with Patient: Total time spent is greater than 50% in coordination of care (as documented) at patient's floor/unit and/or counseling patient: Coding Level of Care Code 09046 Subseq Hosp Care Lvl 2 Diagnoses Acute and chronic respiratory failure J96.20 Elevated troponin R79.89 Abnormal EKG R94.31 Interstitial lung disease J84.9 Vertebral compression fracture M48.50XA Depression F32.9 Hyperlipidemia E78.5 Hypothyroidism E03.9 Impaired fasting glucose R73.01 Congestive heart failure I50.9 DVT prophylaxis Z29.9 Discharge planning issues Z02.9 Time Spent (min) 25
[2019-10-22] MEDS: INSULIN ASPART 100 UNITS/ML 3 ML PEN SQ SCH ×6 (00:03→21:00)
[2019-10-22] MEDS: LEVOTHYROXINE SODIUM 25 MCG TABLET PO SCH (04:32)
[2019-10-22 07:06] LABS: Creatinine Clr Calc Pharmacy 41.1 ml/min; Est GFR (Non-African American) 52.6
[2019-10-22] MEDS: ALBUT/IPRATROP 3MG/0.5MG NEB 3 ML VIAL NEB SCH ×4 (07:10→18:53)
--- NOTE | 2019-10-22 07:31 | XRay Report ---
XR chest 1V portable CLINICAL HISTORY: Follow up diuresis and steroids COMPARISON STUDY: 10/20/2019 FINDINGS: The heart remains enlarged. There is radiographic evidence of interstitial pulmonary fibrot ic change. There is equivocal superimposed pulmonary vascular congestion. There is no lobar consolida tion. There is evidence for multiple prior vertebroplasties.[ IMPRESSION: 1. Radiographic evidence of chronic interstitial lung disease 2. An element of superimposed pulmonary vascular congestion cannot be excluded. 3. No significant change from the preceding study ACT 112: Negative or not required by law. Electronically signed by: Hai Mendez M.D. 10/22/2019 7:29 AM
[2019-10-22] MEDS: FUROSEMIDE 40 MG in SYRINGE 0 ML IV SCH (08:14)
[2019-10-22] MEDS: ASPIRIN 81 MG ECTAB PO SCH (08:15)
[2019-10-22] MEDS: INSULIN GLARGINE SOLOSTAR 100 UNITS/ML 3 ML PEN SC SCH ×2 (08:15→21:00)
[2019-10-22] MEDS: BuPROPion XL 300 MG TABCR PO SCH (08:15)
[2019-10-22] MEDS: MULTIVITAMIN TAB PO SCH (08:15)
[2019-10-22] MEDS: methylPREDNISolone 125 MG in SYRINGE 0 ML IV SCH ×3 (08:15→20:13)
[2019-10-22] MEDS: CALCIUM 600MG + VIT D 400 IU TAB PO SCH (08:15)
[2019-10-22] MEDS: TOCOPHERYL, DL-ALPHA 400 UNITS CAP PO SCH (08:15)
[2019-10-22] MEDS: CHOLECALCIFEROL 1,000 UNITS 25 MCG TAB PO SCH (08:15)
[2019-10-22] MEDS: cefTRIAXone SODIUM 2,000 MG in DEXTROSE 5% 50 ML IV SCH (08:50)
[2019-10-22] MEDS ORDERED: INSULIN GLARGINE SOLOSTAR 100 UNITS/ML 3 ML PEN SC SCH (09:00)
[2019-10-22] MEDS: PANTOprazole 40 MG TAB PO SCH ×2 (09:00→20:12)
--- NOTE | 2019-10-22 10:23 | Pharmacy Report ---
Pharmacy Glycemic Short Note 2 - Date of Service October 22, 2019 - Glycemic Short BSG Results (Last 24 hours): 10/21/19 10/21/19 10/21/19 11:52 16:05 20:02 POC Glucose 199 H 189 H 238 H 10/21/19 10/22/19 10/22/19 23:54 04:07 07:05 POC Glucose 186 H 195 H 171 H ASSESSMENT: 10/21: * Patient received total of 51 units of insulin yesterday, of which 27 were basal insulin * Fasting BSG slightly improved at 171 mg/dL - will titrate up basal insulin * Tighten CF/CR this morning PLAN FOR INPATIENT GLYCEMIC CONTROL: * Hold outpatient oral diabetes medications * Basal insulin * Lantus 20 units Qam * Lantus HS per scale - 10 units if BSG <200, 15 units if BSG 200 or greater * Bolus insulin - tighten * NovoLog per scale ACHS or Q6hrs while NPO * Goal Range: Low 110 mg/dL - High 140 mg/dL * Correction Factor: 20 mg/dL/unit * Nutritional / Prandial insulin per carb ratio of 1 unit per 7 grams CHO consumed
[2019-10-22] MEDS: DOXYCYCLINE HYCLATE 100 MG in DEXTROSE 5% 100 ML IV SCH ×2 (11:37→20:29)
--- NOTE | 2019-10-22 14:24 | Pulmonology Progress Note ---
Date of Service October 22, 2019 Assessment & Plan (1) Acute and chronic respiratory failure: Today is day 3 of high-dose Solu-Medrol (125 mg 3 times daily). She does seem to be responding a bit as she is only on 25 L and 50% FiO2 which is down from yesterday. We can likely begin titrating down the dose of Solu-Medrol tomorrow. She is also being diuresed cautiously. Again as outlined in my previous notes, I suspect that her prognosis is guarded to poor. Recommend continued discussion with palliative care. (2) Cor pulmonale: (3) Pulmonary fibrosis: (4) Interstitial lung disease: (5) Secondary pulmonary hypertension: Subjective Patient is sitting in bed with her daughter present. Her daughter is recording her on a video camera. The patient feels better today and she is eating more. She has a mildly nonproductive cough today. No fevers or chills. No chest pain. Physical Exam Eyes: PERRL, conjunctivae normal, anicteric sclerae ENMT: external ear and nose normal, oropharynx normal Neck: normal visual inspection Respiratory: + labored breathing, + abnormal respiratory pattern and + tachypneic Auscultation: + crackles Cardiovascular: RRR, no murmur, no edema Gastrointestinal (Abdomen): normal bowel sounds, soft, nontender, no hepatosplenomegaly Musculoskeletal: no cyanosis or clubbing, extremities motor strength 5/5 Skin: no rashes, warm and dry Neurologic: PERRL, EOMI, accommodation nl, no face palsy, no dysarthria Psychiatric: A+Ox3, euthymic affect Results & Data ([facility]) Vital Signs (Past 12 Hours) Vital Signs Temp Pulse Resp BP BP Pulse Ox 10/22/19 11:41 98.2 F 73 18 99/63 L 92 10/22/19 11:21 71 18 94 10/22/19 11:18 71 18 94 10/22/19 07:28 98.2 F 68 18 103/66 98 10/22/19 07:15 73 18 94 10/22/19 07:14 73 18 94 10/22/19 04:12 98.1 F 69 20 109/62 93 10/22/19 03:14 64 16 99 PG Care Time/CCT Total # of Minutes Spent Total Time Spent with Patient: Total time spent is greater than 50% in coordination of care (as documented) at patient's floor/unit and/or counseling patient: Coding Level of Care Code 49472 Subseq Hosp Care Lvl 2 Diagnoses Acute and chronic respiratory failure J96.20 Cor pulmonale I27.81 Pulmonary fibrosis J84.10 Interstitial lung disease J84.9 Secondary pulmonary hypertension
[2019-10-22] MEDS: ENOXAPARIN INJ 40 MG/0.4 ML SYR SQ SCH (17:29)
[2019-10-22] MEDS: SENNA 17.6 MG/10 ML UDP PO SCH (20:12)
[2019-10-22] MEDS: FLUTICASONE/VILANTEROL 100/25MCG 14 PUFFS/INHALER INH SCH (20:12)
[2019-10-22] MEDS: ATORVASTATIN 40 MG TAB PO SCH (20:12)
--- NOTE | 2019-10-22 22:02 | Hospitalist Progress Note ---
Date of Service October 22, 2019 Assessment & Plan (1) Acute and chronic respiratory failure: Appears her primary problem is her severe and advanced fibrotic lung disease. As stated by per pulmonary event management consultant, she had a recent Dinh fundoplication and developed a perioperative pulmonary complication. She also has chronic secondary pulmonary hypertension from her interstitial lung disease. The setback that she is having currently is not surprising in the setting of the fact that she was recently intubated for this Dinh fundoplication. will continue to treat with antibiotics and titrate her oxygen. -Patient was diuresising with lasix due to her L and/or R sided acute CHF but c reatinine is slowly rising. will hold AM dose and check creatinine on 10/22. Patient at this time, does appear euvolemic. -continue empiric abx, supportive care -DVT proph dosing lovenox for now, -ongoing increased FiO2 (currently FIO2 with 35 liters/min) and supportive care -increased steroids as per pulmonary on 10/19 -will continue steroids, may consider titrating down on 10/22; will defer to pulm onary service. May need PCP prophylaxis if panning to use high dose steroids chronically (>20mg/day for >1 month) -appreciate event management consultant input (2) Elevated troponin: Elevated troponin to 0.4, likely due to demand ischemia related to acute on chronic respiratory failure. does not appear to be a primary cardiac problem (3) Abnormal EKG: as above (4) Interstitial lung disease: concerning - appears to have been deemed not a transplant candidate. continue supportive care. palliative consult to discuss further what her goals would be. (5) Vertebral compression fracture: (6) Depression: Stable, continue bupropion 300 mg p.o. every morning. (7) Hyperlipidemia: Continue atorvastatin 80 mg p.o. nightly. Split into 2 pills for patient to be able to swallow. (8) Hypothyroidism: TSH normal, continue levothyroxine 25 MCG's p.o. every morning. (9) Impaired fasting glucose: A1c reasonable given circumstances. (10) Congestive heart failure: see above - probably elements of both L and R sided acute CHF - continue cautious diuresis. (11) DVT prophylaxis: lovenox - see above (12) Discharge planning issues: telemetry for now, continue at current level of care - definitely will need some form of improvement in oxygenation to be able to get to where she could be safe at home. palliative consult to assist in goals of care planning. Admission and Anticipated Discharge Date Admission Date: October 16, 2019 Subjective Patient has no new complaints. Her is at bedside. Patient states she feels better and is now on 25 liters with FIO2 of 50 which is a improvement from 35 liters the day before. Review of Systems Review of Systems: All systems reviewed & are unremarkable except as noted in HPI & below Physical Exam Physical Exam: Constitutional: WD/WN, vitals as above well developed, + obese Eyes: PERRL, conjunctivae normal, anicteric sclerae ENMT: external ear and nose normal, oropharynx normal Neck: trachea midline, no thyromegaly Respiratory: normal respiratory effort, Auscultation: + crackles, no wheezing. Cardiovascular: RRR, no murmur, no edema Gastrointestinal (Abdomen): normal bowel sounds, soft, nontender, no hepatosplenomegaly Musculoskeletal: no cyanosis or clubbing, extremities motor strength 5/5 Skin: no rashes, warm and dry Neurologic: patellar DTR's 2+ bilat, sensation intact Psychiatric: A+Ox3, euthymic affect Lymphatic: no cervical or axillary lymphadenopathy Results & Data ([facility]) Vital Signs (Past 12 Hours) Vital Signs Temp Pulse Resp BP BP Pulse Ox 10/22/19 19:31 36.8 C 79 19 96/61 L 90 10/22/19 18:53 92 H 20 91 10/22/19 15:33 36.8 C 77 20 102/56 L 91 10/22/19 14:55 80 18 95 10/22/19 14:48 80 18 95 10/22/19 11:41 36.8 C 73 18 99/63 L 92 10/22/19 11:21 71 18 94 10/22/19 11:18 71 18 94 PG Care Time/CCT Total # of Minutes Spent Total Time Spent with Patient: Total time spent is greater than 50% in coordination of care (as documented) at patient's floor/unit and/or counseling patient: Coding Level of Care Code 48938 Subseq Hosp Care Lvl 2 Diagnoses Acute and chronic respiratory failure J96.20 Elevated troponin R79.89 Abnormal EKG R94.31 Interstitial lung disease J84.9 Vertebral compression fracture M48.50XA Depression F32.9 Hyperlipidemia E78.5 Hypothyroidism E03.9 Impaired fasting glucose R73.01 Congestive heart failure I50.9 DVT prophylaxis Z29.9 Discharge planning issues Z02.9 Time Spent (min) 25
[2019-10-23] MEDS: LEVOTHYROXINE SODIUM 25 MCG TABLET PO SCH (05:21)
[2019-10-23] MEDS: ALBUT/IPRATROP 3MG/0.5MG NEB 3 ML VIAL NEB SCH ×4 (07:00→19:57)
[2019-10-23 08:05] LABS: Hematocrit (blood only) 39.2 % (37-47); Hemoglobin 12.6 g/dL (12.0-16.0); Mean Corpuscular Hemoglobin 31.7 pg (25-34); Mean Corpuscular Hgb Conc 32.1 g/dL (32-36); Mean Corpuscular Volume 98.5 fL (80-100); Mean Platelet Volume 9.8 fL (7.4-10.4); Platelet Count 352 K/uL (130-400); RDW Coefficient of Variation 14.3 % (11.5-14.5); RDW Standard Deviation 50.8 fL (36.4-46.3); Red Blood Count 3.98 M/uL (4.2-5.4); White Blood Count 20.19 K/uL (4.8-10.8)
[2019-10-23 08:33] LABS: Basophils # (auto) 0.01 K/uL (0-0.2); Immature Granulocytes # (auto) 0.09 K/uL (0.00-0.02); Immature Granulocytes % (auto) 0.4 %; Lymphocytes % (auto) 4.5 %; Monocytes # (auto) 0.52 K/uL (0.11-0.59); Monocytes % (auto) 2.6 %; Neutrophils # (auto) 18.67 K/uL (1.4-6.5); Neutrophils % (auto) 92.5 %
[2019-10-23 08:38] LABS: BUN Creatinine Ratio 44.2 (10-20); Calcium 9.4 mg/dl (8.5-10.1); Creatinine Clr Calc Pharmacy 40.7 ml/min; Est GFR (African American) 60.3; Potassium 3.9 mmol/L (3.5-5.1)
[2019-10-23] MEDS: methylPREDNISolone 125 MG in SYRINGE 0 ML IV SCH ×3 (08:42→20:28)
[2019-10-23] MEDS: CHOLECALCIFEROL 1,000 UNITS 25 MCG TAB PO SCH (08:42)
[2019-10-23] MEDS: MULTIVITAMIN TAB PO SCH (08:43)
[2019-10-23] MEDS: CALCIUM 600MG + VIT D 400 IU TAB PO SCH (08:43)
[2019-10-23] MEDS: TOCOPHERYL, DL-ALPHA 400 UNITS CAP PO SCH (08:43)
[2019-10-23] MEDS: PANTOprazole 40 MG TAB PO SCH ×2 (08:43→20:28)
[2019-10-23] MEDS: FUROSEMIDE 40 MG in SYRINGE 0 ML IV SCH (08:43)
[2019-10-23] MEDS: BuPROPion XL 300 MG TABCR PO SCH (08:43)
[2019-10-23] MEDS: ASPIRIN 81 MG ECTAB PO SCH (08:43)
[2019-10-23] MEDS: INSULIN ASPART 100 UNITS/ML 3 ML PEN SQ SCH ×4 (08:44→20:40)
[2019-10-23] MEDS: cefTRIAXone SODIUM 2,000 MG in DEXTROSE 5% 50 ML IV SCH (08:53)
[2019-10-23] MEDS: DOXYCYCLINE HYCLATE 100 MG in DEXTROSE 5% 100 ML IV SCH (08:55)
[2019-10-23] MEDS ORDERED: INSULIN GLARGINE SOLOSTAR 100 UNITS/ML 3 ML PEN SC SCH (09:00)
--- NOTE | 2019-10-23 10:28 | Pulmonology Progress Note ---
Date of Service October 23, 2019 Assessment & Plan (1) Acute and chronic respiratory failure: Impression: 74-year-old female with advanced interstitial lung disease and secondary pulmonary hypertension admitted with acute on chronic hypoxemic respiratory failure. Recommendations: 1. Interstitial lung disease with acute on chronic hypoxemic respiratory failure: We will continue to treat any potential reversible causes. Continue steroids at the current time. She is currently receiving 125 mg of Solu-Medrol every 8 hours. Would consider tapering once the patient is showing some clinica l improvement. She is at high risk of steroid complications, however there does not appear to be any significant alternative currently. She has completed a course of doxycycline and this can be discontinued. See below regarding pulmonary hypertension and cor pulmonale. 2. Acute on chronic hypoxemic respiratory failure: Given the patient's echo, it is quite possible she may have a right to left shunt which may be contributing to some of her hypoxemia. This may be very difficult if not impossible to correct. I do not see much utility in repeating her echocardiogram at the current time to evaluate for PFO or ASD but may have the barker operator look into it a little closer if we are unable to wean her oxygen down. She is receiving daily Lasix with a creatinine of 1.05. Her bicarb is elevated at around 35. Blood gas this admission did not show evidence of hypercarbia. She is -5 L this hospitalization. Would continue gentle attempts at diuresis with attention to kidney function. Diamox may be required. 3. Disposition: The patient is not eligible for consideration of discharge until her oxygen needs can safely be met at home. Palliative care is engaged and agree with continued efforts to define goals of therapy for this patient. Should she deteriorate and require mechanical ventilation, I think it is highly unlikely she would ever come off of the ventilator and her 90-day mortality would be over 90% based on prior studies of patients with ILD undergoing mechanical ventilation. We will continue to follow with you (2) Cor pulmonale: (3) Pulmonary fibrosis: (4) Interstitial lung disease: (5) Secondary pulmonary hypertension: Subjective Patient seen and examined. EMR reviewed. Discussed case with Dr. Blair. The patient thinks that she is feeling a little bit better. She states her breathing is less labored. She is down to 40 L/min at 60% FiO2 with saturations that are in the however she does desaturate down into the low 80s when she talks. She appears more comfortable. She denies any cough or sputum production. No chest pain or palpitations. She is not had any significant wheezing. No significant lower extremity edema. Physical Exam Eyes: PERRL, conjunctivae normal, anicteric sclerae ENMT: external ear and nose normal, oropharynx normal Neck: normal visual inspection Respiratory: + labored breathing, + abnormal respiratory pattern and + tachypneic Auscultation: + crackles Cardiovascular: RRR, no murmur, no edema Gastrointestinal (Abdomen): normal bowel sounds, soft, nontender, no hepatosplenomegaly Musculoskeletal: no cyanosis or clubbing, extremities motor strength 5/5 Skin: no rashes, warm and dry Neurologic: PERRL, EOMI, accommodation nl, no face palsy, no dysarthria Psychiatric: A+Ox3, euthymic affect Results & Data ([facility]) Vital Signs (Past 12 Hours) Vital Signs Temp Pulse Pulse Resp BP BP Pulse Ox 10/23/19 07:08 36.4 C L 68 20 119/72 97 10/23/19 07:00 76 20 96 10/23/19 03:34 71 20 82 L 10/23/19 03:32 36.7 C 68 20 125/77 93 10/23/19 00:52 72 22 92 10/22/19 23:08 36.9 C 74 19 115/68 94 10/22/19 22:57 72 Laboratory Results 10/23/19 07:42 10/23/19 07:42 Diagnostic Findings Echocardiogram from 10/17/2019 showed an ejection fraction of 55 to 60% with concentric LVH. Septum was flattened with RV pressure overload. Right ventricle moderately to severely dilated with right ventricular systolic function moderately to severely reduced. Moderate mitral regurgitation was noted. Right ventricular systolic pressure estimated at 50-60. There was no comment on right to left shunt, ASD, or PFO. Her prior films were extensively reviewed. No new imaging today. PG Care Time/CCT Total # of Minutes Spent Total Time Spent with Patient: Total time spent is greater than 50% in coordination of care (as documented) at patient's floor/unit and/or counseling patient: Coding Level of Care Code 39788 Subseq Hosp Care Lvl 3 Diagnoses Acute and chronic respiratory failure J96.20 Cor pulmonale I27.81 Pulmonary fibrosis J84.10 Interstitial lung disease J84.9 Secondary pulmonary hypertension Time Spent (min) 35
--- NOTE | 2019-10-23 10:30 | Hospitalist Progress Note ---
Date of Service October 23, 2019 Assessment & Plan (1) Acute and chronic respiratory failure: Secondary to severe diffuse interstitial lung disease with baseline prior to Dinh's 5L at rest with 7L on exertion O2. Currently having difficulty weaning O2 down from FiO2 60% on high flow. Patient feeling symptomatically better since high dose steroids started as per pulmonology management. Patient continues to appear euvolemic on exam Mild procalcitonin elevation on admission, would be very difficult to tell if she has true bacterial PNA on CXR or exam. Given lack of reversible causes agree with trial course of antibiotics to see whether this improves her symptoms. Will defer continued antibiotic management to pulmonology at this time. Appreciate palliative management with possible discharge on high flow O2 on hospice. (2) Elevated troponin: Secondary to demand ischemia. (3) Interstitial lung disease: Continue solu-medrol as per pulmonology management. Recently started on rituximab March 2019. Appreciate ongoing pulmonology and palliative management. (4) Abnormal EKG: Appreciate cardiology consult. "Cardiac catheterization less than a year ago showing nonocclusive disease, absence of chest pain prior to/during current hospitalization, and nonspecific ECG findings, all in the context of extreme physiologic stress of respiratory distress, most likely explanation for her troponin elevation is supply/demand mismatch." (5) Vertebral compression fracture: Multilevel lower thoracic and lumbar spine compression fractures s/p multilevel kyphoplasty. Conservative management at this time. No pain noted by patient. (6) Depression: Stable, continue bupropion 300 mg p.o. every morning. (7) Hyperlipidemia: Continue atorvastatin 80 mg p.o. nightly. Split into 2 pills for patient to be able to swallow. (8) Hypothyroidism: TSH 2.69, continue levothyroxine 25 MCG's p.o. every morning. (9) Impaired fasting glucose: HbA1C 5.8. No active management at this time. Nutritional status much more important. Diet changed to regular. (10) Congestive heart failure: Acute right sided related to severe pulmonary disease as above. Difficult to interpret CXR in setting of chronic interstitial lung disease. No significant change with Cr or CXR findings with diuresis. Not on diuretics at home. Will continue lasix 40mg IV daily for now and monitor Cr. (11) DVT prophylaxis: Lovenox 40mg SQ daily (12) Discharge planning issues: Can be transferred to med/surg. Telemetry SR 60s (50-80s overnight) occasional PVCs. Appreciate palliative management with trying to get high flow O2 set up for home with potentially hospice. Admission and Anticipated Discharge Date Admission Date: October 16, 2019 Subjective Patient reports improvement since admission although still has a very high O2 requirement. Ongoing shortness of breath on exertion but similar to her baseline with increased O2. Mild productive yellow cough continuing. Able to talk in long sentences without issue and could have full conversations with me today. Reports goal to return home and follow up with palliative care on discharge. No concern for aspirations from patient. Swallowing fine following Dinh's Fundoplication, no on minced and moist diet. Review of Systems 2 Review of Systems: All systems reviewed & are unremarkable except as noted in HPI & below Physical Exam Constitutional: well developed and + ill appearing (chronically); no acute distress Eyes: + anicteric sclerae; normal pupil size ENMT: external ear and nose normal, oropharynx normal Neck: trachea midline, no thyromegaly Respiratory: + respiratory distress, + labored breathing, + uses accessory muscles and able to speak in complete sentences; no audible wheezes and no pursed lip breathing Auscultation: + crackles (fine thorughout but good air entry); no wheezes Cardiovascular: Rate/Rhythm: regular rate and regular rhythm Heart Sounds: no murmur Vessels: no JVD Extremities: normal capillary refill; no calf tenderness and no pedal edema Gastrointestinal (Abdomen): normal bowel sounds, soft, nontender, no hepatosplenomegaly Skin: no rashes, warm and dry Neurologic: moves all extremities and awake; not confused Psychiatric: A+Ox3, euthymic affect Lymphatic: no cervical or axillary lymphadenopathy Results & Data ([facility]) Vital Signs (Past 12 Hours) Vital Signs Temp Pulse Pulse Resp BP BP Pulse Ox 10/23/19 10:20 66 10/23/19 07:08 36.4 C L 68 20 119/72 97 10/23/19 07:00 76 20 96 10/23/19 03:34 71 20 82 L 10/23/19 03:32 36.7 C 68 20 125/77 93 10/23/19 00:52 72 22 92 10/22/19 23:08 36.9 C 74 19 115/68 94 10/22/19 22:57 72 PG Care Time/CCT Total # of Minutes Spent Total Time Spent with Patient: Total time spent is greater than 50% in coordination of care (as documented) at patient's floor/unit and/or counseling patient: Coding Level of Care Code 01432 Subseq Hosp Care Lvl 3 Diagnoses Acute and chronic respiratory failure J96.20 Elevated troponin R79.89 Interstitial lung disease J84.9 Abnormal EKG R94.31 Vertebral compression fracture S32.000D Encounter type: subsequent encounter Lumbar vertebra fracture level: unspecified lumbar vertebra Fracture healing: with routine healing Fracture of vertebra location: lumbar Depression F32.9 Depression Type: unspecified Hyperlipidemia E78.2 Hyperlipidemia type: mixed hyperlipidemia Hypothyroidism E03.9 Hypothyroidism type: acquired Impaired fasting glucose R73.01 Congestive heart failure I50.811 Heart failure type: right-sided Heart failure chronicity: acute DVT prophylaxis Z29.9 Discharge planning issues Z02.9 (1) Vertebral compression fracture Encounter type: subsequent encounter Lumbar vertebra fracture level: unspecified lumbar vertebra Fracture healing: with routine healing Fracture of vertebra location: lumbar Qualified Code(s): S32.000D - Wedge compression fracture of unspecified lumbar vertebra, subsequent encounter for fracture with routine healing (2) Depression Depression Type: unspecified Qualified Code(s): F32.9 - Major depressive disorder, single episode, unspecified (3) Hyperlipidemia Hyperlipidemia type: mixed hyperlipidemia Qualified Code(s): E78.2 - Mixed hyperlipidemia (4) Hypothyroidism Hypothyroidism type: acquired Qualified Code(s): E03.9 - Hypothyroidism, unspecified (5) Congestive heart failure Heart failure type: right-sided Heart failure chronicity: acute Qualified Code(s): I50.811 - Acute right heart failure
--- NOTE | 2019-10-23 12:14 | Palliative Care Progress Note ---
Date of Service October 23, 2019 Assessment & Plan (1) Goals of care, counseling/discussion: -Patient doing a little better over the weekend. Today, she states, "I feel the best I've felt this morning." -Was down to 25LPM and 50% FiO2, but it did have to be increased overnight to 40LPM and 60% FIO2. She is on high-dose steroids, continuing the oxygen weaning process. -Patient states that she is not afraid to . However, she is not ready yet. She stated, "I still have things I want to do, and people to see." She did state though that if she continues to worsen at home, she will consider transitioning to hospice at that time. We talked about what that would entail. -Patient states her goal is to go home, visit with friends and family, and live out the rest of her days at home. However, she is still undecided on whether or not she would want to come back to the hospital for treatment. (2) Acute and chronic respiratory failure: (3) Interstitial lung disease: (4) Congestive heart failure: Subjective Patient is AA&O X4. Pleasant and talkative States she is feeling well today. Review of Systems Review of Systems: Const: + weakness ENMT: No dysphagia Resp: + SOB at reset and exertion, no cough Cardio: No chest pain, no edema GI: No abdominal pain, no N/V MS: No musculoskeletal pain Neuro: No confusion Psych: No anxiety, no depression Physical Exam Constitutional: + frail appearing; no acute distress and + not healthy appearing ENMT: external ear and nose normal, oropharynx normal Respiratory: + labored breathing and + tachypneic Auscultation: + diminished lung sounds Cardiovascular: Rate/Rhythm: regular rate and regular rhythm Extremities: no edema Gastrointestinal (Abdomen): Percussion/Palpation: abdomen soft; abdomen nontender Neurologic: moves all extremities and awake; not confused Psychiatric: A+Ox3, euthymic affect Insight: excellent insight Results & Data Vital Signs (Past 12 Hours) Vital Signs Temp Pulse Pulse Resp BP BP Pulse Ox 10/23/19 11:01 78 20 96 10/23/19 10:58 36.3 C L 72 20 117/57 L 97 10/23/19 10:20 66 10/23/19 07:08 36.4 C L 68 20 119/72 97 10/23/19 07:00 76 20 96 10/23/19 03:34 71 20 82 L 10/23/19 03:32 36.7 C 68 20 125/77 93 10/23/19 00:52 72 22 92 PG Care Time/CCT Total # of Minutes Spent Total Time Spent with Patient: Total time spent is greater than 50% in coordination of care (as documented) at patient's floor/unit and/or counseling patient: 35 minutes. Coding Level of Care Code 44781 Subseq Hosp Care Lvl 3 Diagnoses Goals of care, counseling/discussion Z71.89 Acute and chronic respiratory failure J96.20 Interstitial lung disease J84.9 Congestive heart failure I50.9 Time Spent (min) 35
--- NOTE | 2019-10-23 12:35 | Pharmacy Report ---
Glycemic Control Progress Note - Date of Service October 23, 2019 - Scope Glycemic Pharmacist consulted for glycemic control to write orders per [facility] inpatient glycemic control protocol. - Objective Accuchecks BSG(last 24 hours):: 10/22/19 10/22/19 10/23/19 16:10 20:24 07:15 Glucose POC Glucose 143 H 161 H 167 H 10/23/19 10/23/19 07:42 11:26 Glucose 167 H POC Glucose 100 H HbA1c:: Hemoglobin A1c 5.8 % (4.5-5.6) H 10/16/19 13:10 - Recent Pertinent Medications The patient is currently receiving: * Basal insulin: Lantus 8 units in the morning and 10 units in the evening * Correctional Insulin: Novolog Correction per scale ACHS Goal Range: Low 110 mg/dL - High 140 mg/dL Correction Factor: 20 mg/dL/unit * Prandial insulin: Per carb ratio of 1 unit per 7 grams CHO consumed - Outpatient Anti-Diabetic Meds N/A - Assessment & Plan ASSESSMENT: * See progress note from 10/21/2019 for more background info, in short: * Pt receiving SQ basal bolus insulin regimen for hyperglycemia secondary to steroids (continuing on Solu-Medrol 125 mg IV TID). * Patient is currently receiving an average of 43 units of insulin per day * 18 units of basal insulin * 25 units of prandial/correctional insulin * BSGs ranging 121 - 171 mg/dl over the past 24hrs * Changes needed to insulin regimen: * AM Fasting BSG = 167 mg/dl. This is slightly above goal range for patient based on inpatient targets and co-morbidities. The patient's BSGs are trending downwards --- 192 mg/dL to 171 mg/dL to 167 mg/dL with stable steroid dosing. This dosing is to continue. Will reduce Lantus dosing slig htly to 14-16 units possible today. * Post-prandial BSGs are actually well controlled. Attempted a tightening of carbohydrate ratio for breakfast but patient's BSG dropped from 167 mg/dL to 100 mg/dL. Return to previous parameters. * Total daily dose = ~40 units. PLAN FOR INPATIENT GLYCEMIC CONTROL: * Decreasing Lantus to 7 units SQ BID (9 units if BSG greater than 180 mg/dL) * Continuing correction factor of 20 mg/dl/unit * Continuing carb ratio of 1 unit per 7 grams CHO consumed * Continuing goal range of Low 110 mg/dL - High 140 mg/dL RECOMMENDATIONS FOR DISCHARGE: * TBD * Please note that the plan above was derived based on current level of insulin resistance and hospital stress. These recommendations are appropriate for inmt tient admission only. Plan of care upon discharge will need to be reassessed to avoid potential outpatient hypo/hyperglycemia. Thank you.
[2019-10-23] MEDS: ENOXAPARIN INJ 40 MG/0.4 ML SYR SQ SCH (18:42)
[2019-10-23] MEDS: FLUTICASONE/VILANTEROL 100/25MCG 14 PUFFS/INHALER INH SCH (20:28)
[2019-10-23] MEDS: ATORVASTATIN 40 MG TAB PO SCH (20:28)
[2019-10-23] MEDS: SENNA 17.6 MG/10 ML UDP PO SCH (20:29)
[2019-10-23] MEDS: INSULIN GLARGINE SOLOSTAR 100 UNITS/ML 3 ML PEN SC SCH (20:39)
[2019-10-24] MEDS: LEVOTHYROXINE SODIUM 25 MCG TABLET PO SCH (05:36)
[2019-10-24] MEDS: ALBUT/IPRATROP 3MG/0.5MG NEB 3 ML VIAL NEB SCH ×4 (07:47→18:48)
[2019-10-24] MEDS: INSULIN ASPART 100 UNITS/ML 3 ML PEN SQ SCH ×4 (09:08→20:44)
[2019-10-24] MEDS: INSULIN GLARGINE SOLOSTAR 100 UNITS/ML 3 ML PEN SC SCH ×2 (09:09→20:42)
[2019-10-24] MEDS: CHOLECALCIFEROL 1,000 UNITS 25 MCG TAB PO SCH (09:09)
[2019-10-24] MEDS: BuPROPion XL 300 MG TABCR PO SCH (09:09)
[2019-10-24] MEDS: MULTIVITAMIN TAB PO SCH (09:09)
[2019-10-24] MEDS: TOCOPHERYL, DL-ALPHA 400 UNITS CAP PO SCH (09:09)
[2019-10-24] MEDS: CALCIUM 600MG + VIT D 400 IU TAB PO SCH (09:10)
[2019-10-24] MEDS: methylPREDNISolone 125 MG in SYRINGE 0 ML IV SCH ×3 (09:10→21:13)
[2019-10-24] MEDS: ASPIRIN 81 MG ECTAB PO SCH (09:10)
[2019-10-24] MEDS: PANTOprazole 40 MG TAB PO SCH ×2 (09:11→21:13)
[2019-10-24] MEDS: FUROSEMIDE 40 MG in SYRINGE 0 ML IV SCH (09:11)
--- NOTE | 2019-10-24 12:25 | Pharmacy Report ---
Pharmacy Glycemic Short Note 2 - Date of Service October 24, 2019 - Glycemic Short BSG Results (Last 24 hours): 10/23/19 10/23/19 10/24/19 17:16 20:34 08:08 POC Glucose 180 H 169 H 181 H ASSESSMENT: 10/23 * BSGs well controlled over the last 24 hrs * Fasting AM BSG elevated this AM however, FBS 181 with 14 units basal insulin on board. High dose IV steroids continue. Will titrate up basal insulin doses. * Last 3 BSGs trending higher, will increase prandial insulin doses as well - but only a small change as basal insulin dose increasing PLAN FOR INPATIENT GLYCEMIC CONTROL: * Hold outpatient oral diabetes medications * Basal insulin - increase * Lantus SQ BID per scale: * 7 units if BSG less than 160 * 11 units if BSG greater than 160 * Bolus insulin - increase prandial * NovoLog per scale ACHS or Q6hrs while NPO * Goal Range: Low 110 mg/dL - High 140 mg/dL * Correction Factor: 25 mg/dL/unit * Nutritional / Prandial insulin per carb ratio of 1 unit per 6 grams CHO consumed
--- NOTE | 2019-10-24 16:39 | Hospitalist Progress Note ---
Date of Service October 24, 2019 Assessment & Plan (1) Acute and chronic respiratory failure: Secondary to severe diffuse interstitial lung disease with baseline prior to Dinh's 5L at rest with 7L on exertion O2. Currently having difficulty weaning O2 down from high flow. Patient feeling symptomatically better since high dose steroids and antibiotics started as per pulmonology management. Patient continues to appear euvolemic on exam but also no significant change of Cr with IV dosing of lasix Mild procalcitonin elevation on admission, would be very difficult to tell if she has true bacterial PNA on CXR or exam. Given lack of reversible causes agree with trial course of antibiotics to see whether this improves her symptoms. Will defer continued antibiotic management to pulmonology at this time. Appreciate palliative management with possible discharge on high flow O2 on hospice. (2) Elevated troponin: Secondary to demand ischemia. (3) Interstitial lung disease: Continue solu-medrol as per pulmonology management. 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 Appreciate ongoing pulmonology and palliative management. (4) Abnormal EKG: Appreciate cardiology consult. "Cardiac catheterization less than a year ago showing nonocclusive disease, absence of chest pain prior to/during current hospitalization, and nonspecific ECG findings, all in the context of extreme physiologic stress of respiratory distress, most likely explanation for her troponin elevation is supply/demand mismatch." (5) Vertebral compression fracture: Multilevel lower thoracic and lumbar spine compression fractures s/p multilevel kyphoplasty. Conservative management at this time. No pain noted by patient. (6) Depression: Stable, continue bupropion 300 mg p.o. every morning. (7) Hyperlipidemia: Continue atorvastatin 80 mg p.o. nightly. Split into 2 pills for patient to be able to swallow. (8) Hypothyroidism: TSH 2.69, continue levothyroxine 25 MCG's p.o. every morning. (9) Impaired fasting glucose: HbA1C 5.8. No active management at this time. Nutritional status much more important. Diet changed to regular. (10) Congestive heart failure: Acute right sided related to severe pulmonary disease as above. Difficult to interpret CXR in setting of chronic interstitial lung disease. No significant change with Cr or CXR findings with diuresis. Not on diuretics at home. Will continue lasix 40mg IV daily for now and monitor Cr. (11) DVT prophylaxis: Lovenox 40mg SQ daily (12) Discharge planning issues: Continue on med/surg Appreciate palliative management with trying to get high flow O2 set up for home with potentially hospice vs. LTAC. Admission and Anticipated Discharge Date Admission Date: October 16, 2019 Subjective Patient currently on 35% high flow O2. No significant change from previous day with shortness of breath. Review of Systems Review of Systems: All systems reviewed & are unremarkable except as noted in HPI & below Physical Exam Constitutional: well developed, + ill appearing (chronically) and + frail appearing; no acute distress Eyes: + anicteric sclerae; normal pupil size Neck: normal visual inspection Respiratory: normal respiratory effort; no respiratory distress Auscultation: + crackles (fine thorughout but good air entry to bases); no rales and no wheezes Cardiovascular: Rate/Rhythm: regular rate and regular rhythm Heart Sounds: no murmur Vessels: no JVD Extremities: normal capillary refill; no calf tenderness, no pedal edema and no edema Gastrointestinal (Abdomen): Percussion/Palpation: abdomen soft; abdomen nontender Skin: no rashes, warm and dry Neurologic: moves all extremities and awake; not confused Psychiatric: A+Ox3, euthymic affect Insight: excellent insight Results & Data ([facility]) Vital Signs (Past 12 Hours) Vital Signs Temp Pulse Resp BP Pulse Ox 10/24/19 15:13 36.5 C 72 16 107/67 90 10/24/19 14:59 70 24 86 L 10/24/19 14:57 70 24 86 L 10/24/19 11:43 73 18 91 10/24/19 07:47 67 18 91 10/24/19 06:58 36.8 C 71 20 129/78 88 L 10/24/19 04:42 74 18 90 PG Care Time/CCT Total # of Minutes Spent Total Time Spent with Patient: Total time spent is greater than 50% in coordination of care (as documented) at patient's floor/unit and/or counseling patient: Coding Level of Care Code 00214 Subseq Hosp Care Lvl 2 Diagnoses Acute and chronic respiratory failure J96.20 Elevated troponin R79.89 Interstitial lung disease J84.9 Abnormal EKG R94.31 Vertebral compression fracture S32.000D Encounter type: subsequent encounter Fracture healing: with routine healing Fracture of vertebra location: lumbar Lumbar vertebra fracture level: unspecified lumbar vertebra Depression F32.9 Depression Type: unspecified Hyperlipidemia E78.2 Hyperlipidemia type: mixed hyperlipidemia Hypothyroidism E03.9 Hypothyroidism type: acquired Impaired fasting glucose R73.01 Congestive heart failure I50.811 Heart failure chronicity: acute Heart failure type: right-sided DVT prophylaxis Z29.9 Discharge planning issues Z02.9 (1) Congestive heart failure Heart failure chronicity: acute Heart failure type: right-sided Qualified Code(s): I50.811 - Acute right heart failure (2) Depression Depression Type: unspecified Qualified Code(s): F32.9 - Major depressive disorder, single episode, unspecified (3) Hyperlipidemia Hyperlipidemia type: mixed hyperlipidemia Qualified Code(s): E78.2 - Mixed hyperlipidemia (4) Hypothyroidism Hypothyroidism type: acquired Qualified Code(s): E03.9 - Hypothyroidism, unspecified (5) Vertebral compression fracture Encounter type: subsequent encounter Fracture healing: with routine healing Fracture of vertebra location: lumbar Lumbar vertebra fracture level: unspecified lumbar vertebra Qualified Code(s): S32.000D - Wedge compression fracture of unspecified lumbar vertebra, subsequent encounter for fracture with routine healing
--- NOTE | 2019-10-24 17:20 | Pulmonology Progress Note ---
Date of Service October 24, 2019 Assessment & Plan (1) Interstitial lung disease: Patient with advanced interstitial lung disease and pulmonary fibrosis Evaluated outpatient facilities Most likely not a candidate for transplant or other treatment. Continue steroids at 125 every 8 hours until significant clinical improvement Patient understands that she is at high risk for steroid complication but currently states that she has no symptoms. Continue high flow oxygen. Currently at 35 L/min and FiO2 of 35 (2) Acute and chronic respiratory failure: Patient with chronic lung disease Potential reversible causes are being addressed Patient completed course of doxycycline Continue diuresis for cor pulmonale * Currently -6.5 L this admission At this time we have been unable to successfully wean off of high flow O2 Efforts are being made by case management to find an alternative source other than acute care Patient may be considered for LTACH -recommend referral with select specialty to begin process (3) Secondary pulmonary hypertension: Continue supplemental O2 Continue diuretics Patient continues to seek out options regarding lung transplant Thank you for including us in the care of this patient. We will continue to follow him with you. Subjective Attending: Dr. Chi Patient seen and examined in room. Patient is in bed with high flow oxygen. No acute distress. She can speak in full sentences without dyspnea with a high flow. Patient denies any chest pain or tightness. She does have persistent shortness of breath. She has some sputum production but it is not expectorated as she states that she swallows it. She denies any hemoptysis. FiO2 was able to be decreased to 35% today. Patient continues with high flow at 35 L/min. Patient reports minimal improvement. Continues with high flow. No fever or chills or sweats. Review of Systems Review of Systems: All systems reviewed & are unremarkable except as noted in HPI & below Physical Exam Physical Exam: GENERAL : No acute distress EYES: No icterus, gaze conjugate NOSE: No evidence of epistaxis MOUTH: No lesions or candidiasis NECK: Supple LUNGS: Crackles in the right middle lobe. Scattered bronchospasms. HEART: Regular, rate in the 90s ABDOMEN: Soft, NT, ND, BS Present EXTREMITIES: No LE edema, pedal pulses intact NEURO: A&OX3 Results & Data ([facility]) Vital Signs (Past 12 Hours) Vital Signs Temp Pulse Resp BP Pulse Ox 10/24/19 15:13 36.5 C 72 16 107/67 90 10/24/19 14:59 70 24 86 L 10/24/19 14:57 70 24 86 L 10/24/19 11:43 73 18 91 10/24/19 07:47 67 18 91 10/24/19 06:58 36.8 C 71 20 129/78 88 L Laboratory Results 10/23/19 07:42 10/23/19 07:42 Diagnostic Findings No new images since 10/22/2019 PG Care Time/CCT Total # of Minutes Spent Total Time Spent with Patient: Total time spent is greater than 50% in coordination of care (as documented) at patient's floor/unit and/or counseling patient: 25 minutes Coding Level of Care Code 93664 Subseq Hosp Care Lvl 2 Diagnoses Interstitial lung disease J84.9 Acute and chronic respiratory failure J96.20 Secondary pulmonary hypertension
[2019-10-24] MEDS: ENOXAPARIN INJ 40 MG/0.4 ML SYR SQ SCH (18:27)
[2019-10-24] MEDS: FLUTICASONE/VILANTEROL 100/25MCG 14 PUFFS/INHALER INH SCH (21:12)
[2019-10-24] MEDS: SENNA 17.6 MG/10 ML UDP PO SCH (21:13)
[2019-10-24] MEDS: ATORVASTATIN 40 MG TAB PO SCH (21:13)
[2019-10-25] MEDS: LEVOTHYROXINE SODIUM 25 MCG TABLET PO SCH (05:21)
[2019-10-25 06:23] LABS: BUN Creatinine Ratio 46.7 (10-20); Calcium 8.9 mg/dl (8.5-10.1); Creatinine Clr Calc Pharmacy 45.9 ml/min; Est GFR (African American) 69.8; Est GFR (Non-African American) 60.2; Potassium 3.6 mmol/L (3.5-5.1)
[2019-10-25] MEDS: ALBUT/IPRATROP 3MG/0.5MG NEB 3 ML VIAL NEB SCH ×4 (07:27→19:21)
--- NOTE | 2019-10-25 08:49 | Pharmacy Report ---
Pharmacy Glycemic Short Note 2 - Date of Service October 25, 2019 - Glycemic Short BSG Results (Last 24 hours): 10/24/19 10/24/19 10/24/19 12:15 17:23 20:33 Glucose POC Glucose 118 H 105 H 160 H 10/25/19 10/25/19 05:25 07:59 Glucose 148 H POC Glucose 152 H ASSESSMENT: * BSGs well controlled over past 24 hours, ranging 105-181 mg/dL * Patient received 44 units of insulin yesterday (20 units of basal, 24 units of prandial/correctional) * Fasting BSG this morning of 152 mg/dL - will increase basal to 12 units BID * Given A1c of 5.8% - hyperglycemia is most certainly steroid-induced * Patient continues on Solu-medrol 125 mg IV TID - will follow and scale back when steroids are tapered PLAN FOR INPATIENT GLYCEMIC CONTROL: * Hold outpatient oral diabetes medications * Basal insulin - continue * Lantus 12 units SC BID * Bolus insulin - tighten CF * NovoLog per scale ACHS or Q6hrs while NPO * Goal Range: Low 110 mg/dL - High 140 mg/dL * Correction Factor: 20 mg/dL/unit * Nutritional / Prandial insulin per carb ratio of 1 unit per 6 grams CHO consumed PLAN FOR DISCHARGE: * To be determined - will follow * Will depend on whether or not patient is discharged with steroids and the dose of those steroids * A1c of 5.8% on prednisone 10 mg PO daily - antidiabetic medications probably not necessary if discharged back on this regimen
[2019-10-25] MEDS: BuPROPion XL 300 MG TABCR PO SCH (09:06)
[2019-10-25] MEDS: TOCOPHERYL, DL-ALPHA 400 UNITS CAP PO SCH (09:06)
[2019-10-25] MEDS: MULTIVITAMIN TAB PO SCH (09:06)
[2019-10-25] MEDS: CHOLECALCIFEROL 1,000 UNITS 25 MCG TAB PO SCH (09:06)
[2019-10-25] MEDS: CALCIUM 600MG + VIT D 400 IU TAB PO SCH (09:06)
[2019-10-25] MEDS: ASPIRIN 81 MG ECTAB PO SCH (09:07)
[2019-10-25] MEDS: PANTOprazole 40 MG TAB PO SCH ×2 (09:07→20:59)
[2019-10-25] MEDS: INSULIN ASPART 100 UNITS/ML 3 ML PEN SQ SCH ×4 (09:08→20:51)
[2019-10-25] MEDS: FUROSEMIDE 40 MG in SYRINGE 0 ML IV SCH (09:08)
[2019-10-25] MEDS: methylPREDNISolone 125 MG in SYRINGE 0 ML IV SCH ×3 (09:08→20:59)
[2019-10-25] MEDS: INSULIN GLARGINE SOLOSTAR 100 UNITS/ML 3 ML PEN SC SCH ×2 (09:09→20:51)
--- NOTE | 2019-10-25 16:21 | Pulmonology Progress Note ---
Date of Service October 25, 2019 Assessment & Plan (1) Acute and chronic respiratory failure: Impression: 74-year-old female with advanced interstitial lung disease and secondary pulmonary hypertension admitted with acute on chronic hypoxemic respiratory failure. Recommendations: 1. Interstitial lung disease with acute on chronic hypoxemic respiratory failure: We will continue to treat any potential reversible causes. Continue steroids at the current time. She is currently receiving 125 mg of Solu-Medrol every 8 hours. If she demonstrates continued improvement, may consider decreasi ng over the next 24hours. She is at high risk of steroid complications, however there does not appear to be any significant alternative currently. Recommend calcium and vitamin D supplementation. She has completed a course of doxycycline and this can be discontinued. See below regarding pulmonary hypertension and cor pulmonale. 2. Acute on chronic hypoxemic respiratory failure: Given the patient's echo, it is quite possible she may have a right to left shunt which may be contributing to some of her hypoxemia. This may be very difficult if not impossible to correct. I do not see much utility in repeating her echocardiogram at the current time to evaluate for PFO or ASD. She is receiving daily Lasix with a creatinine of 0.94. Her bicarb is elevated at around 35. Blood gas this adm ission did not show evidence of hypercarbia. She is -6 L this hospitalization. She is mildly alkalotic. We will add 1 dose of Diamox today and follow her serum bicarb. Continue to treat all potential reversible causes. It is unclear if she is improving with diuresis, recent antibiotics, or steroids. 3. Disposition: I had a long discussion with the patient at bedside and called her daughter, Moni, on the phone. The patient and daughter are amenable to meeting with hospice to discuss about what that would look like. The patient's desire is to ultimately go home. I advised her that her current oxygen saturation is prohibitive unless the patient were going home with purely palliative measures which certainly would be an option. Both the patient and her daughter would like to continue aggressive care at this point time to see what reversibility might be obtained. They both understand that this is likely a terminal disease and the patient's desire is to pass away at home. I advised them that if this is the ultimate desire, we would need to do this sooner rather than later as if we wait until clinical worsening, transport home may be unachievable. We also briefly discussed transition to a long-term acute care facility or potentially [facility] although I am unclear if they could provide the patient with appropriate respiratory support. We will continue to follow with you (2) Cor pulmonale: (3) Pulmonary fibrosis: (4) Interstitial lung disease: (5) Secondary pulmonary hypertension: Subjective Patient seen and examined. EMR reviewed. She believes she is feeling slightly better. She has been able to wean her oxygen is now down to 30% 30 L/min. She is not really coughing or expectorating any phlegm. She continues to experience significant oxygen desaturations associated with any talking, moving, or eating. No chest pain or palpitations and no significant lower extremity edema. Review of Systems Review of Systems: Unchanged from prior Physical Exam Physical Exam: GENERAL : No acute distress EYES: No icterus, gaze conjugate NOSE: No evidence of epistaxis MOUTH: No lesions or candidiasis NECK: Supple LUNGS: Crackles in the right middle lobe. Scattered bronchospasms. HEART: Regular, rate in the 90s ABDOMEN: Soft, NT, ND, BS Present EXTREMITIES: No LE edema, pedal pulses intact NEURO: A&OX3 Results & Data ([facility]) Vital Signs (Past 12 Hours) Vital Signs Temp Pulse Resp BP Pulse Ox 10/25/19 15:49 74 20 90 10/25/19 11:25 88 L 10/25/19 11:24 76 19 88 L 10/25/19 07:31 91 10/25/19 07:28 71 21 91 10/25/19 06:53 36.7 C 69 18 111/69 90 Laboratory Results 10/23/19 07:42 10/25/19 05:25 Diagnostic Findings No new films PG Care Time/CCT Total # of Minutes Spent Total Time Spent with Patient: Total time spent is greater than 50% in coordination of care (as documented) at patient's floor/unit and/or counseling patient: Coding Level of Care Code 46887 Subseq Hosp Care Lvl 3 Diagnoses Acute and chronic respiratory failure J96.20 Cor pulmonale I27.81 Pulmonary fibrosis J84.10 Interstitial lung disease J84.9 Secondary pulmonary hypertension
[2019-10-25] MEDS ORDERED: acetaZOLAMIDE 250 MG TAB PO SCH (16:30)
[2019-10-25] MEDS: ENOXAPARIN INJ 40 MG/0.4 ML SYR SQ SCH (18:18)
[2019-10-25] MEDS: FLUTICASONE/VILANTEROL 100/25MCG 14 PUFFS/INHALER INH SCH (20:58)
[2019-10-25] MEDS: SENNA 17.6 MG/10 ML UDP PO SCH (20:59)
[2019-10-25] MEDS: ATORVASTATIN 40 MG TAB PO SCH (20:59)
[2019-10-26 05:43] LABS: BUN Creatinine Ratio 54.6 (10-20); Calcium 8.8 mg/dl (8.5-10.1); Creatinine Clr Calc Pharmacy 44.1 ml/min; Est GFR (African American) 66.3; Est GFR (Non-African American) 57.2; Potassium 3.3 mmol/L (3.5-5.1)
[2019-10-26] MEDS: LEVOTHYROXINE SODIUM 25 MCG TABLET PO SCH (06:00)
[2019-10-26] MEDS: ALBUT/IPRATROP 3MG/0.5MG NEB 3 ML VIAL NEB SCH ×4 (07:09→19:19)
[2019-10-26] MEDS ORDERED: POTASSIUM CHLORIDE 20 MEQ TABCR PO ONE (08:15)
--- NOTE | 2019-10-26 08:27 | Hospitalist Progress Note ---
Date of Service October 25, 2019 Assessment & Plan (1) Acute and chronic respiratory failure: Secondary to severe diffuse interstitial lung disease with baseline prior to Dinh's 5L at rest with 7L on exertion O2. Currently having difficulty weaning O2 down from high flow, now on 30% FiO2 30L /min Patient feeling symptomatically better since high dose steroids and antibiotics started as per pulmonology management. Patient continues to appear euvolemic on exam but also no significant change of Cr with IV dosing of lasix. Discussed with Dr Chi and no available high flow O2 at home therefore option would be going home on hospice with "inadequate" O2 vs. LTAC if unable to wean. Pt reports continuing wish to keep going with IV steroids and antibiotics at this time. (2) Elevated troponin: Secondary to demand ischemia. (3) Interstitial lung disease: Continue solu-medrol as per pulmonology management. Recently started on rituximab March 2019 by her automatic oven operator. Appreciate ongoing pulmonology and palliative management. (4) Abnormal EKG: Appreciate cardiology consult. "Cardiac catheterization less than a year ago showing nonocclusive disease, absence of chest pain prior to/during current hospitalization, and nonspecific ECG findings, all in the context of extreme physiologic stress of respiratory distress, most likely explanation for her troponin elevation is supply/demand mismatch." (5) Vertebral compression fracture: Multilevel lower thoracic and lumbar spine compression fractures s/p multilevel kyphoplasty. Conservative management at this time. No pain noted by patient. (6) Depression: Stable, continue bupropion 300 mg p.o. every morning. (7) Hyperlipidemia: Continue atorvastatin 80 mg p.o. nightly. Split into 2 pills for patient to be able to swallow. (8) Hypothyroidism: TSH 2.69, continue levothyroxine 25 MCG's p.o. every morning. (9) Impaired fasting glucose: HbA1C 5.8. No active management at this time. Nutritional status much more important. Diet changed to regular. (10) Congestive heart failure: Acute right sided related to severe pulmonary disease as above. Difficult to interpret CXR in setting of chronic interstitial lung disease. No significant change with Cr or CXR findings with diuresis. Not on diuretics at home. Will continue lasix 40mg IV daily for now and monitor Cr. (11) DVT prophylaxis: Lovenox 40mg SQ daily (12) Discharge planning issues: Continue on med/surg Appreciate palliative management as patient likely to go home on hospice at some point. Hopefully decision will be made soon as if she deteriorates patient and family aware she may not be stable for transfer home. Admission and Anticipated Discharge Date Admission Date: October 16, 2019 Subjective Patient still talking in complete sentences. She feels mildly improved over the last 3-4 days and is now down to 30% FiO2. No chest pain, cough, orthopnea, PND, palpitations, leg edema. Review of Systems Review of Systems: All systems reviewed & are unremarkable except as noted in HPI & below Physical Exam Constitutional: well developed, + ill appearing (chronically) and + frail appearing; no acute distress Eyes: + anicteric sclerae; normal pupil size ENMT: external ear and nose normal, oropharynx normal Neck: normal visual inspection Respiratory: normal respiratory effort; no respiratory distress Cardiovascular: Extremities: no pedal edema Neurologic: moves all extremities and awake; not confused Psychiatric: A+Ox3, euthymic affect Insight: excellent insight Results & Data ([facility]) Vital Signs (Past 12 Hours) Vital Signs Temp Pulse Resp BP Pulse Ox 10/26/19 07:16 73 20 90 10/26/19 07:12 73 18 90 10/26/19 07:00 36.9 C 72 18 124/75 91 10/26/19 02:34 68 18 93 10/25/19 23:25 73 20 92 10/25/19 23:03 22 88 L 10/25/19 22:57 37.0 C 77 16 125/79 89 L 10/25/19 22:40 84 L PG Care Time/CCT Total # of Minutes Spent Total Time Spent with Patient: Total time spent is greater than 50% in coordination of care (as documented) at patient's floor/unit and/or counseling patient: Coding Level of Care Code 41218 Subseq Hosp Care Lvl 1 Diagnoses Acute and chronic respiratory failure J96.21 Respiratory failure complication: hypoxia Elevated troponin R79.89 Interstitial lung disease J84.9 Abnormal EKG R94.31 Vertebral compression fracture S32.000D Encounter type: subsequent encounter Fracture of vertebra location: lumbar Lumbar vertebra fracture level: unspecified lumbar vertebra Fracture healing: with routine healing Depression F32.9 Depression Type: unspecified Hyperlipidemia E78.2 Hyperlipidemia type: mixed hyperlipidemia Hypothyroidism E03.9 Hypothyroidism type: acquired Impaired fasting glucose R73.01 Congestive heart failure I50.811 Heart failure type: right-sided Heart failure chronicity: acute DVT prophylaxis Z29.9 Discharge planning issues Z02.9 (1) Acute and chronic respiratory failure Respiratory failure complication: hypoxia Qualified Code(s): J96.21 - Acute and chronic respiratory failure with hypoxia (2) Vertebral compression fracture Encounter type: subsequent encounter Fracture of vertebra location: lumbar Lumbar vertebra fracture level: unspecified lumbar vertebra Fracture healing: with routine healing Qualified Code(s): S32.000D - Wedge compression fracture of unspecified lumbar vertebra, subsequent encounter for fracture with routine healing (3) Depression Depression Type: unspecified Qualified Code(s): F32.9 - Major depressive disorder, single episode, unspecified (4) Hyperlipidemia Hyperlipidemia type: mixed hyperlipidemia Qualified Code(s): E78.2 - Mixed hyperlipidemia (5) Hypothyroidism Hypothyroidism type: acquired Qualified Code(s): E03.9 - Hypothyroidism, unspecified (6) Congestive heart failure Heart failure type: right-sided Heart failure chronicity: acute Qualified Code(s): I50.811 - Acute right heart failure
[2019-10-26] MEDS: ASPIRIN 81 MG ECTAB PO SCH (09:00)
[2019-10-26] MEDS: MULTIVITAMIN TAB PO SCH (09:00)
[2019-10-26] MEDS: CALCIUM 600MG + VIT D 400 IU TAB PO SCH (09:00)
[2019-10-26] MEDS: BuPROPion XL 300 MG TABCR PO SCH (09:00)
[2019-10-26] MEDS: TOCOPHERYL, DL-ALPHA 400 UNITS CAP PO SCH (09:00)
[2019-10-26] MEDS: PANTOprazole 40 MG TAB PO SCH ×2 (09:01→21:55)
[2019-10-26] MEDS: CHOLECALCIFEROL 1,000 UNITS 25 MCG TAB PO SCH (09:01)
[2019-10-26] MEDS: INSULIN ASPART 100 UNITS/ML 3 ML PEN SQ SCH ×4 (09:10→21:52)
[2019-10-26] MEDS: INSULIN GLARGINE SOLOSTAR 100 UNITS/ML 3 ML PEN SC SCH ×2 (09:11→21:53)
[2019-10-26] MEDS: methylPREDNISolone 125 MG in SYRINGE 0 ML IV SCH ×2 (09:20→13:13)
[2019-10-26] MEDS: FUROSEMIDE 40 MG in SYRINGE 0 ML IV SCH (09:20)
--- NOTE | 2019-10-26 10:16 | Pharmacy Report ---
Pharmacy Glycemic Short Note 2 - Date of Service October 26, 2019 - Glycemic Short BSG Results (Last 24 hours): 10/25/19 10/25/19 10/25/19 11:53 17:03 20:38 Glucose POC Glucose 190 H 70 102 H 10/26/19 10/26/19 04:32 08:03 Glucose 173 H POC Glucose 140 H ASSESSMENT: * BSGs reasonably well controlled over past 24 hours, ranging 70-190 mg/dL * Patient received 48 units of insulin yesterday (24 units of basal, 24 units of prandial/correctional) * Fasting BSG this morning of 140 mg/dL - will continue current basal dose of 12 units BID * Given A1c of 5.8% - hyperglycemia is most certainly steroid-induced * Solu-Medrol decreased to 60 mg IV TID starting this evening * Will slightly loosen CF given significant drop from lunch to dinner yesterday (190->70 mg/dL) PLAN FOR INPATIENT GLYCEMIC CONTROL: * Hold outpatient oral diabetes medications * Basal insulin - continue * Lantus 12 units SC BID * Bolus insulin - loosen CF/CR from yesterday given steroid taper * NovoLog per scale ACHS or Q6hrs while NPO * Goal Range: Low 110 mg/dL - High 140 mg/dL * Correction Factor: 25 mg/dL/unit * Nutritional / Prandial insulin per carb ratio of 1 unit per 8 grams CHO consumed PLAN FOR DISCHARGE: * To be determined - will follow * Will depend on whether or not patient is discharged with steroids and the dose of those steroids * A1c of 5.8% on prednisone 10 mg PO daily - antidiabetic medications probably not necessary if discharged back on this regimen
--- NOTE | 2019-10-26 13:12 | Pulmonology Progress Note ---
Date of Service October 26, 2019 Assessment & Plan (1) Acute and chronic respiratory failure: Impression: 74-year-old female with advanced interstitial lung disease and secondary pulmonary hypertension admitted with acute on chronic hypoxemic respiratory failure. Recommendations: --Acute on chronic hypoxic respiratory failure Likely secondary to exacerbation of underlying ILD/IPF on top of grade 1 diastolic heart failure And has been -7.5 L since admission --> creatinine still maintaining, elevated BUN likely secondary diuresis would recommend Cutting down on diuresis Patient is on Solu-Medrol 125 mg every 8 hours right now. We will go down to 60 mg every 8 hours as there is improvement in her respiratory status. --Pulmonary hypertension Combination of type II and type III Treat underlying cause Patient was given 1 dose of Diamox on 10/25/2019 as she was developing contraction alkalosis by my colleague. Bicarb today is 30. --Disposition The ultimate goal of the patient is to be home. She understand that she has uncurable lung disease. Given that there is improvement in her respiratory status there is a possibility that she might be able to go home on oxygen. Palliative care are on board. Plan: We will try to see how patient tolerates oxygen mask by keeping oxygen sat uration 88 to 92%. Given the patient is on high-dose Solu-Medrol continue with PPI twice daily. Will discontinue ibuprofen as I do not want the patient to be on any NSAIDs. Respiratory failure complication: hypoxia Qualified Code(s): J96.21 - Acute and chronic respiratory failure with hypoxia (2) Cor pulmonale: (3) Pulmonary fibrosis: (4) Interstitial lung disease: (5) Secondary pulmonary hypertension: Subjective Patient seen and examined at bedside. No acute distress, no adverse events overnight Patient states that overall her breathing is improved compared to when she came to the hospital. Denies any chest pain Appetite is better. No nausea or vomiting. No headache, no dizziness. At the time of examination patient was saturating 87-88% on 30 L high flow and 35% FiO2. Went up on high flow 35 L with her oxygenation improving to 92- 93% Review of Systems Review of Systems: All systems reviewed & are unremarkable except as noted in HPI & below Physical Exam Physical Exam: Constitutional: No acute distress, cachectic HEENT: EOMI, PERRLA, moist mucous membranes Respiratory system: Decreased air entry bilaterally, positive dry Velcro crackles, no wheeze, no rhonchi CVS: S1-S2 positive, no murmurs or gallops Abdomen: Soft, nontender, nondistended, positive bowel sounds x4 Extremities: +2 pulses bilaterally radialis/ dorsalis pedis, no cyanosis, positive edema bilateral lower extremity Neuro: Awake alert oriented x3 Psych: Normal mood and affect Skin: no rashes, warm and dry Lymphatic: no cervical or axillary lymphadenopathy Results & Data ([facility]) Vital Signs (Past 12 Hours) Vital Signs Temp Pulse Pulse Resp BP Pulse Ox 10/26/19 11:44 70 20 92 10/26/19 11:37 93 10/26/19 11:17 99 10/26/19 11:16 98 10/26/19 11:15 100 10/26/19 10:21 88 L 10/26/19 10:15 66 L 10/26/19 10:10 74 L 10/26/19 09:50 100 10/26/19 07:16 73 20 90 10/26/19 07:12 73 18 90 10/26/19 07:00 36.9 C 72 18 124/75 91 10/26/19 02:34 68 18 93 10/23/19 07:42 10/26/19 04:32 PG Care Time/CCT Total # of Minutes Spent Total Time Spent with Patient: Total time spent is greater than 50% in research coordinator rdination of care (as documented) at patient's floor/unit and/or counseling patient: Coding [place] [address] Subseq Hosp Care Lvl 3 Patient Type Established Diagnoses Acute and chronic respiratory failure J96.21 Respiratory failure complication: hypoxia Cor pulmonale I27.81 Pulmonary fibrosis J84.10 Interstitial lung disease J84.9 Secondary pulmonary hypertension
--- NOTE | 2019-10-26 16:11 | Hospitalist Progress Note ---
Date of Service October 26, 2019 Assessment & Plan (1) Acute and chronic respiratory failure: Secondary to severe diffuse interstitial lung disease with baseline prior to Dinh's 5L at rest with 7L on exertion O2. Currently having difficulty weaning O2 down from high flow, now on 30% FiO2 30L /min Patient feeling symptomatically better since high dose steroids and antibiotics started as per pulmonology management. Patient continues to appear euvolemic on exam but also no significant change of Cr with IV dosing of lasix. Pt reports continuing wish to keep going with IV steroids and antibiotics at this time. (2) Elevated troponin: Secondary to demand ischemia. (3) Interstitial lung disease: Continue solu-medrol as per pulmonology management. Recently started on rituximab March 2019 by her flight engineer inspector - although no indication to continue this. Appreciate ongoing pulmonology and palliative management. (4) Abnormal EKG: Appreciate cardiology consult. "Cardiac catheterization less than a year ago showing nonocclusive disease, absence of chest pain prior to/during current hospitalization, and nonspecific ECG findings, all in the context of extreme physiologic stress of respiratory distress, most likely explanation for her troponin elevation is supply/demand mismatch." (5) Vertebral compression fracture: Multilevel lower thoracic and lumbar spine compression fractures s/p multilevel kyphoplasty. Conservative management at this time. No pain noted by patient. (6) Depression: Stable, continue bupropion 300 mg p.o. every morning. (7) Hyperlipidemia: Continue atorvastatin 80 mg p.o. nightly. Split into 2 pills for patient to be able to swallow. (8) Hypothyroidism: TSH 2.69, continue levothyroxine 25 MCG's p.o. every morning. (9) Impaired fasting glucose: HbA1C 5.8. No active management at this time. Nutritional status much more important. Diet changed to regular. (10) Congestive heart failure: Acute right sided related to severe pulmonary disease as above. Difficult to interpret CXR in setting of chronic interstitial lung disease. No significant change with Cr or CXR findings with diuresis. Not on diuretics at home. Will continue lasix 40mg IV daily for now and monitor Cr. (11) DVT prophylaxis: Lovenox 40mg SQ daily (12) Discharge planning issues: Continue on med/surg Appreciate palliative management as patient likely to go home on hospice at some point. Hopefully decision will be made soon as if she deteriorates patient and family aware she may not be stable for transfer home. Admission and Anticipated Discharge Date Admission Date: October 16, 2019 Subjective Patient reports continued mild improvement in shortness of breath. No cough, orthopnea, PND, palpitations or leg swelling. Review of Systems Review of Systems: All systems reviewed & are unremarkable except as noted in HPI & below Physical Exam Constitutional: well developed, + ill appearing (chronically) and + frail appearing; no acute distress Eyes: + anicteric sclerae; normal pupil size ENMT: external ear and nose normal, oropharynx normal Neck: normal visual inspection Respiratory: normal respiratory effort; no respiratory distress Auscultatio n: + crackles (fine thorughout but good air entry to bases); no rales and no wheezes Cardiovascular: Rate/Rhythm: regular rate and regular rhythm Heart Sounds: no murmur Extremities: no pedal edema Gastrointestinal (Abdomen): Inspection/Auscultation: normal bowel sounds Percussion/Palpation: abdomen soft; abdomen nontender Musculoskeletal: no cyanosis or clubbing, extremities motor strength 5/5 Skin: no rashes, warm and dry Neurologic: moves all extremities and awake; not confused Psychiatric: A+Ox3, euthymic affect Insight: excellent insight Lymphatic: no cervical or axillary lymphadenopathy Results & Data ([facility]) Vital Signs (Past 12 Hours) Vital Signs Temp Pulse Pulse Resp BP BP Pulse Ox 10/26/19 15:09 36.6 C 81 18 118/79 93 10/26/19 14:25 72 18 99 10/26/19 11:44 70 20 92 10/26/19 11:37 93 10/26/19 11:17 99 10/26/19 11:16 98 10/26/19 11:15 100 10/26/19 10:21 88 L 10/26/19 10:15 66 L 10/26/19 10:10 74 L 10/26/19 09:50 100 10/26/19 07:16 73 20 90 10/26/19 07:12 73 18 90 10/26/19 07:00 36.9 C 72 18 124/75 91 PG Care Time/CCT Total # of Minutes Spent Total Time Spent with Patient: Total time spent is greater than 50% in coordination of care (as documented) at patient's floor/unit and/or counseling patient: Coding Level of Care Code 51593 Subseq Hosp Care Lvl 2 Diagnoses Acute and chronic respiratory failure J96.21 Respiratory failure complication: hypoxia Elevated troponin R79.89 Interstitial lung disease J84.9 Abnormal EKG R94.31 Vertebral compression fracture S32.000D Encounter type: subsequent encounter Fracture healing: with routine healing Fracture of vertebra location: lumbar Lumbar vertebra fracture level: unspecified lumbar vertebra Depression F32.9 Depression Type: unspecified Hyperlipidemia E78.2 Hyperlipidemia type: mixed hyperlipidemia Hypothyroidism E03.9 Hypothyroidism type: acquired Impaired fasting glucose R73.01 Congestive heart failure I50.811 Heart failure chronicity: acute Heart failure type: right-sided DVT prophylaxis Z29.9 Discharge planning issues Z02.9 (1) Acute and chronic respiratory failure Respiratory failure complication: hypoxia Qualified Code(s): J96.21 - Acute and chronic respiratory failure with hypoxia (2) Congestive heart failure Heart failure chronicity: acute Heart failure type: right-sided Qualified Code(s): I50.811 - Acute right heart failure (3) Depression Depression Type: unspecified Qualified Code(s): F32.9 - Major depressive disorder, single episode, unspecified (4) Hyperlipidemia Hyperlipidemia type: mixed hyperlipidemia Qualified Code(s): E78.2 - Mixed hyperlipidemia (5) Hypothyroidism Hypothyroidism type: acquired Qualified Code(s): E03.9 - Hypothyroidism, unspecified (6) Vertebral compression fracture Encounter type: subsequent encounter Fracture healing: with routine healing Fracture of vertebra location: lumbar Lumbar vertebra fracture level: unspecified lumbar vertebra Qualified Code(s): S32.000D - Wedge compression fracture of unspecified lumbar vertebra, subsequent encounter for fracture with routine healing
[2019-10-26] MEDS: ENOXAPARIN INJ 40 MG/0.4 ML SYR SQ SCH (18:07)
[2019-10-26] MEDS: ATORVASTATIN 40 MG TAB PO SCH (21:54)
[2019-10-26] MEDS: FLUTICASONE/VILANTEROL 100/25MCG 14 PUFFS/INHALER INH SCH (21:54)
[2019-10-26] MEDS: SENNA 17.6 MG/10 ML UDP PO SCH (21:56)
[2019-10-26] MEDS: methylPREDNISolone 60 MG in SYRINGE 0 ML IV SCH (21:56)
[2019-10-27] MEDS: LEVOTHYROXINE SODIUM 25 MCG TABLET PO SCH (05:47)
[2019-10-27 06:57] LABS: BUN Creatinine Ratio 56.2 (10-20); Calcium 8.9 mg/dl (8.5-10.1); Est GFR (African American) 73.5; Est GFR (Non-African American) 63.4; Potassium 3.9 mmol/L (3.5-5.1)
[2019-10-27] MEDS: ALBUT/IPRATROP 3MG/0.5MG NEB 3 ML VIAL NEB SCH ×4 (07:02→19:14)
--- NOTE | 2019-10-27 08:09 | Pulmonology Progress Note ---
Date of Service October 27, 2019 Assessment & Plan (1) Acute and chronic respiratory failure: Impression: 74-year-old female with advanced interstitial lung disease and secondary pulmonary hypertension admitted with acute on chronic hypoxemic respiratory failure. Recommendations: --Acute on chronic hypoxic respiratory failure Likely secondary to exacerbation of underlying ILD/IPF on top of grade 1 diastolic heart failure And has been -7.6 L since admission --> creatinine still maintaining, elevated BUN likely secondary diuresis would recommend cutting down on diuresis On Solu-Medrol 60 mg every 8 hours. We will try to taper it off to p.o. in the next couple of days. Leukocytosis likely secondary to steroids. --Pulmonary hypertension Combination of type II and type III Treat underlying cause Patient was given 1 dose of Diamox on 10/25/2019 as she was developing contraction alkalosis by my colleague. --Disposition The ultimate goal of the patient is to be home. She understand that she has uncurable lung disease. Given that there is improvement in her respiratory status there is a possibility that she might be able to go home on oxygen. Palliative care are on board. Plan: Continue with facemask oxygen supplementation to keep saturation above 88%. Given the patient is on high-dose Solu-Medrol continue with PPI twice daily. Will titrate down Solu-Medrol to 40 mg twice daily tomorrow. Respiratory failure complication: hypoxia Qualified Code(s): J96.21 - Acute and chronic respiratory failure with hypoxia (2) Cor pulmonale: (3) Pulmonary fibrosis: (4) Interstitial lung disease: (5) Secondary pulmonary hypertension: Subjective Patient seen and examined at bedside. Mild respiratory distress, no adverse events overnight. States that the breathing has improved. Denies any chest pain, no dizziness, no headache, no nausea or vomiting. Good appetite. Patient states that she usually gets short of breath even at home on slight exertion. It takes her a couple of minutes to grasp her breath then she feels better. Patient did not require high flow all throughout the night. Patient was on facemask 3 L initially saturating 92% with heart rate of 78 at rest while talking she desaturated to 83% oxygen was increased to 5 L and she improved to 89%. Review of Systems Review of Systems: All systems reviewed & are unremarkable except as noted in HPI & below Physical Exam Physical Exam: Constitutional: cachectic, mild respiratory distress HEENT: EOMI, PERRLA, moist mucous membranes Respiratory system: Decreased air entry bilaterally, positive dry Velcro crackles, no wheeze, no rhonchi CVS: S1-S2 positive, no murmurs or gallops Abdomen: Soft, nontender, nondistended, positive bowel sounds x4 Extremities: +2 pulses bilaterally radialis/ dorsalis pedis, no cyanosis, no edema, no clubbing Neuro: Awake alert oriented x3 Psych: Normal mood and affect Skin: no rashes, warm and dry Lymphatic: no cervical or axillary lymphadenopathy Results & Data ([facility]) Vital Signs (Past 12 Hours) Vital Signs Temp Pulse Resp BP BP Pulse Ox 10/27/19 07:08 36.4 C L 81 18 130/83 97 10/27/19 07:02 65 18 93 10/26/19 23:00 36.4 C L 75 16 122/81 93 10/23/19 07:42 10/27/19 05:41 PG Care Time/CCT Total # of Minutes Spent Total Time Spent with Patient: Total time spent is greater than 50% in coordination of care (as documented) at patient's floor/unit and/or counseling patient: Coding Level of Care Code 05690 Subseq Hosp Care Lvl 3 Diagnoses Acute and chronic respiratory failure J96.21 Respiratory failure complication: hypoxia Cor pulmonale I27.81 Pulmonary fibrosis J84.10 Interstitial lung disease J84.9 Secondary pulmonary hypertension
[2019-10-27] MEDS: PANTOprazole 40 MG TAB PO SCH ×2 (08:46→20:45)
[2019-10-27] MEDS: MULTIVITAMIN TAB PO SCH (08:46)
[2019-10-27] MEDS: CHOLECALCIFEROL 1,000 UNITS 25 MCG TAB PO SCH (08:47)
[2019-10-27] MEDS: BuPROPion XL 300 MG TABCR PO SCH (08:47)
[2019-10-27] MEDS: TOCOPHERYL, DL-ALPHA 400 UNITS CAP PO SCH (08:48)
[2019-10-27] MEDS: CALCIUM 600MG + VIT D 400 IU TAB PO SCH (08:49)
[2019-10-27] MEDS: ASPIRIN 81 MG ECTAB PO SCH (08:49)
[2019-10-27] MEDS: INSULIN ASPART 100 UNITS/ML 3 ML PEN SQ SCH ×4 (08:53→20:46)
[2019-10-27] MEDS: methylPREDNISolone 60 MG in SYRINGE 0 ML IV SCH ×3 (08:54→20:43)
[2019-10-27] MEDS: FUROSEMIDE 40 MG in SYRINGE 0 ML IV SCH (08:55)
[2019-10-27] MEDS ORDERED: INSULIN GLARGINE SOLOSTAR 100 UNITS/ML 3 ML PEN SC SCH (09:00)
--- NOTE | 2019-10-27 10:14 | Pharmacy Report ---
Pharmacy Glycemic Short Note 2 - Date of Service October 27, 2019 - Glycemic Short BSG Results (Last 24 hours): 10/26/19 10/26/19 10/26/19 12:09 17:13 20:38 Glucose POC Glucose 104 H 204 H 210 H 10/27/19 10/27/19 05:41 08:09 Glucose 156 H POC Glucose 143 H ASSESSMENT: * BSGs ranging 104-210 mg/dL yesterday * Patient received 37 units of insulin yesterday (24 units of basal, 13 units of prandial/correctional) * Fasting BSG this morning of 143 mg/dL - will increase basal insulin * Given A1c of 5.8% - hyperglycemia is most certainly steroid-induced * Solu-Medrol 60 mg IV TID continues PLAN FOR INPATIENT GLYCEMIC CONTROL: * Basal insulin - increase * Lantus scale 12-15 units SC BID (see EHR for details) * Bolus insulin - continue * NovoLog per scale ACHS or Q6hrs while NPO * Goal Range: Low 100 mg/dL - High 140 mg/dL * Correction Factor: 25 mg/dL/unit * Nutritional / Prandial insulin per carb ratio of 1 unit per 8 grams CHO consumed PLAN FOR DISCHARGE: * To be determined - will follow * Will depend on whether or not patient is discharged with steroids and the dose of those steroids * A1c of 5.8% on prednisone 10 mg PO daily - antidiabetic medications probably not necessary if discharged back on this regimen
--- NOTE | 2019-10-27 15:30 | Palliative Care Progress Note ---
Date of Service October 27, 2019 Assessment & Plan (1) Goals of care, counseling/discussion: -Patient is now on oxymask and is actually saturating pretty well. During my visit she was on 5L and O2 sat was 85-90%. When nursing put her on the bedpan, her sats dropped to the 40s. -Patient now states that she wants to go home with hospice -While I was in the room, we called her daughter Dixie and spoke on speaker phone. Dixie is in agreement with home hospice. Dixei is working tirelessly to try to get the patient a high-flow nasal cannula machine for home. Case management is assisting me with this issue. -Patient does not have pain or discomfort other than the SOB. Patient does not want to start taking morphine at this time, but would of course utilize Roxanol PRN if needed. -Physician updated as well. -PPS 30%. (2) Acute and chronic respiratory failure: (3) Interstitial lung disease: (4) Congestive heart failure: Subjective Patient is doing okay on oxymask 5-10LPM. She gets extremely SOB and hypoxic with any movement. Plan now is for patient to go home with hospice. Review of Systems Review of Systems: no pain + SOB no chest pain no N/V no anxiety or depression Physical Exam Constitutional: + frail appearing; no acute distress and + not healthy appearing ENMT: external ear and nose normal, oropharynx normal Respiratory: + labored breathing and + tachypneic Auscultation: + diminished lung sounds Cardiovascular: Rate/Rhythm: regular rate and regular rhythm Extremities: no edema Gastrointestinal (Abdomen): Percussion/Palpation: abdomen soft; abdomen nontender Neurologic: moves all extremities and awake; not confused Psychiatric: A+Ox3, euthymic affect Results & Data Vital Signs (Past 12 Hours) Vital Signs Temp Pulse Resp BP Pulse Ox 10/27/19 15:14 36.5 C 77 18 119/74 91 10/27/19 13:42 93 10/27/19 12:56 93 10/27/19 10:52 78 20 90 10/27/19 07:08 36.4 C L 81 18 130/83 97 10/27/19 07:02 65 18 93 PG Care Time/CCT Total # of Minutes Spent Total Time Spent with Patient: Total time spent is greater than 50% in coordination of care (as documented) at patient's floor/unit and/or counseling patient: 65 minutes Prolonged Care Time Prolonged Care Time: Yes 65 Coding Level of Care Code 43304 Subseq Hosp Care Lvl 3 Diagnoses Goals of care, counseling/discussion Z71.89 Acute and chronic respiratory failure J96.21 Respiratory failure complication: hypoxia Interstitial lung disease J84.9 Congestive heart failure I50.811 Heart failure type: right-sided Heart failure chronicity: acute Additional Codes Prolonged Care Time - Prolonged Care Time: Yes ([id number]) Time Spent (min) 65 (1) Acute and chronic respiratory failure Respiratory failure complication: hypoxia Qualified Code(s): J96.21 - Acute and chronic respiratory failure with hypoxia (2) Congestive heart failure Heart failure type: right-sided Heart failure chronicity: acute Qualified Code(s): I50.811 - Acute right heart failure
[2019-10-27] MEDS: ENOXAPARIN INJ 40 MG/0.4 ML SYR SQ SCH (18:00)
[2019-10-27] MEDS: FLUTICASONE/VILANTEROL 100/25MCG 14 PUFFS/INHALER INH SCH (20:41)
[2019-10-27] MEDS: INSULIN GLARGINE SOLOSTAR 100 UNITS/ML 3 ML PEN SC SCH (20:42)
[2019-10-27] MEDS: SENNA 17.6 MG/10 ML UDP PO SCH (20:44)
[2019-10-27] MEDS: ATORVASTATIN 40 MG TAB PO SCH (20:44)
--- NOTE | 2019-10-27 23:59 | Hospitalist Progress Note ---
Date of Service October 27, 2019 Assessment & Plan (1) Acute and chronic respiratory failure: Secondary to severe diffuse interstitial lung disease with baseline prior to Dinh's 5L at rest with 7L on exertion O2. Now managing to wean O2 down to 5-10L which is a good sign. Although significan tly desaturated with any exertion. Patient feeling symptomatically better since high dose steroids as per pulmonology management. Patient continues to appear euvolemic on exam but also no significant change of Cr with IV dosing of lasix. (2) Elevated troponin: Secondary to demand ischemia. (3) Interstitial lung disease: Continue solu-medrol as per pulmonology management. 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 Appreciate ongoing pulmonology and palliative management. (4) Abnormal EKG: Appreciate cardiology consult. "Cardiac catheterization less than a year ago showing nonocclusive disease, absence of chest pain prior to/during current hospitalization, and nonspecific ECG findings, all in the context of extreme physiologic stress of respiratory distress, most likely explanation for her troponin elevation is supply/demand mismatch." (5) Vertebral compression fracture: Multilevel lower thoracic and lumbar spine compression fractures s/p multilevel kyphoplasty. Conservative management at this time. No pain noted by patient. (6) Depression: Stable, continue bupropion 300 mg p.o. every morning. (7) Hyperlipidemia: Continue atorvastatin 80 mg p.o. nightly. Split into 2 pills for patient to be able to swallow. (8) Hypothyroidism: TSH 2.69, continue levothyroxine 25 MCG's p.o. every morning. (9) Impaired fasting glucose: HbA1C 5.8. No active management at this time. Nutritional status much more important. Diet changed to regular. (10) Congestive heart failure: Acute right sided related to severe pulmonary disease as above. Difficult to interpret CXR in setting of chronic interstitial lung disease. No significant change with Cr or CXR findings with diuresis. Not on diuretics at home. Will continue lasix 40mg IV daily for now and monitor Cr. (11) DVT prophylaxis: Lovenox 40mg SQ daily (12) Discharge planning issues: Continue on med/surg Appreciate palliative management as patient likely to go home on hospice at some point once medically optimized. Admission and Anticipated Discharge Date Admission Date: October 16, 2019 Subjective Patient is doing okay on oxymask 5-10LPM. She gets extremely SOB and hypoxic with any movement. Feels significantly improved in shortness of breath since high doses of steroids started at the beginning of the week. Plan now is for patient to go home with hospice but still trying to wean O2 as much as possible. Review of Systems Review of Systems: All systems reviewed & are unremarkable except as noted in HPI & below Physical Exam Constitutional: well developed and + frail appearing; no acute distress Eyes: + anicteric sclerae; normal pupil size ENMT: external ear and nose normal, oropharynx normal Respiratory: normal respiratory effort; no respiratory distress Skin: no rashes, warm and dry Neurologic: moves all extremities and awake; not confused Psychiatric: A+Ox3, euthymic affect Insight: excellent insight Results & Data ([facility]) Vital Signs (Past 12 Hours) Vital Signs Temp Pulse Resp BP BP Pulse Ox 10/27/19 23:05 36.9 C 82 24 115/74 87 L 10/27/19 19:16 75 20 89 L 10/27/19 15:28 74 20 91 10/27/19 15:14 36.5 C 77 18 119/74 91 10/27/19 13:42 93 10/27/19 12:56 93 PG Care Time/CCT Total # of Minutes Spent Total Time Spent with Patient: Total time spent is greater than 50% in coordination of care (as documented) at patient's floor/unit and/or counseling patient: Coding Level of Care Code 78475 Subseq Hosp Care Lvl 1 Diagnoses Acute and chronic respiratory failure J96.21 Respiratory failure complication: hypoxia Elevated troponin R79.89 Interstitial lung disease J84.9 Abnormal EKG R94.31 Vertebral compression fracture S32.000D Encounter type: subsequent encounter Fracture of vertebra location: lumbar Lumbar vertebra fracture level: unspecified lumbar vertebra Fracture healing: with routine healing Depression F32.9 Depression Type: unspecified Hyperlipidemia E78.2 Hyperlipidemia type: mixed hyperlipidemia Hypothyroidism E03.9 Hypothyroidism type: acquired Impaired fasting glucose R73.01 Congestive heart failure I50.811 Heart failure type: right-sided Heart failure chronicity: acute DVT prophylaxis Z29.9 Discharge planning issues Z02.9 (1) Acute and chronic respiratory failure Respiratory failure complication: hypoxia Qualified Code(s): J96.21 - Acute and chronic respiratory failure with hypoxia (2) Vertebral compression fracture Encounter type: subsequent encounter Fracture of vertebra location: lumbar Lumbar vertebra fracture level: unspecified lumbar vertebra Fracture healing: with routine healing Qualified Code(s): S32.000D - Wedge compression fracture of unspecified lumbar vertebra, subsequent encounter for fracture with routine healing (3) Depression Depression Type: unspecified Qualified Code(s): F32.9 - Major depressive disorder, single episode, unspecified (4) Hyperlipidemia Hyperlipidemia type: mixed hyperlipidemia Qualified Code(s): E78.2 - Mixed hyperlipidemia (5) Hypothyroidism Hypothyroidism type: acquired Qualified Code(s): E03.9 - Hypothyroidism, unspecified (6) Congestive heart failure Heart failure type: right-sided Heart failure chronicity: acute Qualified Code(s): I50.811 - Acute right heart failure
[2019-10-28] MEDS: LEVOTHYROXINE SODIUM 25 MCG TABLET PO SCH (05:36)
[2019-10-28 06:04] LABS: BUN Creatinine Ratio 63.2 (10-20); Calcium 9.2 mg/dl (8.5-10.1); Creatinine Clr Calc Pharmacy 49.1 ml/min; Est GFR (African American) 75.5; Est GFR (Non-African American) 65.2; Potassium 4.1 mmol/L (3.5-5.1)
[2019-10-28] MEDS: ALBUT/IPRATROP 3MG/0.5MG NEB 3 ML VIAL NEB SCH ×4 (07:51→19:30)
[2019-10-28] MEDS: ASPIRIN 81 MG ECTAB PO SCH (08:41)
[2019-10-28] MEDS: TOCOPHERYL, DL-ALPHA 400 UNITS CAP PO SCH (08:41)
[2019-10-28] MEDS: CALCIUM 600MG + VIT D 400 IU TAB PO SCH (08:41)
[2019-10-28] MEDS: MULTIVITAMIN TAB PO SCH (08:42)
[2019-10-28] MEDS: PANTOprazole 40 MG TAB PO SCH ×2 (08:42→20:25)
[2019-10-28] MEDS: BuPROPion XL 300 MG TABCR PO SCH (08:42)
[2019-10-28] MEDS: CHOLECALCIFEROL 1,000 UNITS 25 MCG TAB PO SCH (08:43)
[2019-10-28] MEDS: methylPREDNISolone 60 MG in SYRINGE 0 ML IV SCH (08:44)
[2019-10-28] MEDS: FUROSEMIDE 40 MG in SYRINGE 0 ML IV SCH (08:44)
[2019-10-28] MEDS: INSULIN ASPART 100 UNITS/ML 3 ML PEN SQ SCH ×4 (08:45→20:40)
[2019-10-28] MEDS: INSULIN GLARGINE SOLOSTAR 100 UNITS/ML 3 ML PEN SC SCH ×2 (08:45→20:39)
--- NOTE | 2019-10-28 13:44 | Pulmonology Progress Note ---
Date of Service October 28, 2019 Assessment & Plan (1) Acute and chronic respiratory failure: Impression: 74-year-old female with advanced interstitial lung disease and secondary pulmonary hypertension admitted with acute on chronic hypoxemic respiratory failure. Recommendations: --Acute on chronic hypoxic respiratory failure Likely secondary to exacerbation of underlying ILD/IPF on top of grade 1 diastolic heart failure And has been -7.8 L since admission --> creatinine still maintaining On Solu-Medrol. We will try to taper it off to p.o. in the next couple of days. Leukocytosis likely secondary to steroids. --Pulmonary hypertension Combination of type II and type III Treat underlying cause Patient was given 1 dose of Diamox on 10/25/2019 as she was developing contraction alkalosis by my colleague. --Disposition The ultimate goal of the patient is to be home. She understand that she has uncurable lung disease. Given that there is improvement in her respiratory status there is a possibility that she might be able to go home on oxygen. Palliative care are on board. Plan: Continue with facemask oxygen supplementation to keep saturation above 88%. Given the patient is on high-dose Solu-Medrol continue with PPI twice daily. Titrate down Solu-Medrol to 40 mg twice daily. Goal is to transition patient to p.o. in the next couple of days. Patient has been tolerating facemask oxygen for last 2 days. Will DC high flow. Decrease the frequency of nebulized treatment from every 4 to every 6 hours. Please note the above document was generated using voice recognition software. It may contain grammatical, syntax or spelling errors. Respiratory failure complication: hypoxia Qualified Code(s): J96.21 - Acute and chronic respiratory failure with hypoxia (2) Cor pulmonale: (3) Pulmonary fibrosis: (4) Interstitial lung disease: (5) Secondary pulmonary hypertension: Subjective Patient seen and examined at bedside. No acute distress, no adverse events overnight. Today the time of examination she is breathing more comfortably than yesterday. Denies any chest pain, no cough, no fever or chills. Good appetite. At the time of examination patient was saturating 91% on 4 L nasal cannula at rest. She did desaturate to 89 while she was talking with me. She has not used the high flow since last 48 hours. Will discontinue high flow. Review of Systems Review of Systems: All systems reviewed & are unremarkable except as noted in HPI & below Physical Exam Physical Exam: Constitutional: cachectic, HEENT: EOMI, PERRLA, moist mucous membranes Respiratory system: Decreased air entry bilaterally, positive dry Velcro crackles, no wheeze, no rhonchi CVS: S1-S2 positive, no murmurs or gallops Abdomen: Soft, nontender, nondistended, positive bowel sounds x4 Extremities: +2 pulses bilaterally radialis/ dorsalis pedis, no cyanosis, no edema, no clubbing Neuro: Awake alert oriented x3 Psych: Normal mood and affect G/U: No [place] Skin: no rashes, warm and dry Lymphatic: no cervical or axillary lymphadenopathy Results & Data ([facility]) Vital Signs (Past 12 Hours) Vital Signs Temp Pulse Resp BP Pulse Ox 10/28/19 13:34 76 16 96 10/28/19 13:08 94 10/28/19 07:51 72 16 94 10/28/19 07:18 36.6 C 74 20 114/68 93 10/23/19 07:42 10/28/19 04:41 PG Care Time/CCT Total # of Minutes Spent Total Time Spent with Patient: Total time spent is greater than 50% in coordination of care (as documented) at patient's floor/unit and/or counseling patient: Coding Level of Care Code 58918 Subseq Hosp Care Lvl 3 Diagnoses Acute and chronic respiratory failure J96.21 Respiratory failure complication: hypoxia Cor pulmonale I27.81 Pulmonary fibrosis J84.10 Interstitial lung disease J84.9 Secondary pulmonary hypertension
--- NOTE | 2019-10-28 14:07 | Pharmacy Report ---
Pharmacy Glycemic Short Note 2 - Date of Service October 28, 2019 - Glycemic Short BSG Results (Last 24 hours): 10/27/19 10/27/19 10/28/19 17:14 20:37 04:41 Glucose 100 H POC Glucose 102 H 147 H 10/28/19 10/28/19 08:15 12:17 Glucose POC Glucose 95 104 H ASSESSMENT: 10/28/19 * BSGs 87-156mg/dl over past 24 hours, 36 units of insulin required, 27 units basal. * Fasting blood sugar 95mg/dl and Solu-Medrol decreased to 40mg IV Q12H. * Decrease Lantus to prevent hypoglycemia. 10/27/19 * BSGs ranging 104-210 mg/dL yesterday * Patient received 37 units of insulin yesterday (24 units of basal, 13 units of prandial/correctional) * Fasting BSG this morning of 143 mg/dL - will increase basal insulin * Given A1c of 5.8% - hyperglycemia is most certainly steroid-induced * Solu-Medrol 60 mg IV TID continues PLAN FOR INPATIENT GLYCEMIC CONTROL: * Basal insulin - decrease * Lantus scale 10-12 units SC BID (10 units for BSG < 180mg/dl, 12 units for BSG 180mg/dl or greater) * Bolus insulin - continue * NovoLog per scale ACHS or Q6hrs while NPO * Goal Range: Low 100 mg/dL - High 140 mg/dL * Correction Factor: 25 mg/dL/unit * Nutritional / Prandial insulin per carb ratio of 1 unit per 8 grams CHO consumed PLAN FOR DISCHARGE: * To be determined - will follow * Will depend on whether or not patient is discharged with steroids and the dose of those steroids * A1c of 5.8% on prednisone 10 mg PO daily - antidiabetic medications probably not necessary if discharged back on this regimen
[2019-10-28] MEDS: ENOXAPARIN INJ 40 MG/0.4 ML SYR SQ SCH (18:02)
[2019-10-28] MEDS: SENNA 17.6 MG/10 ML UDP PO SCH (20:24)
[2019-10-28] MEDS: FLUTICASONE/VILANTEROL 100/25MCG 14 PUFFS/INHALER INH SCH (20:24)
[2019-10-28] MEDS: methylPREDNISolone 40 MG in SYRINGE 0 ML IV SCH (20:25)
[2019-10-28] MEDS: ATORVASTATIN 40 MG TAB PO SCH (20:25)
[2019-10-29] MEDS: ALBUT/IPRATROP 3MG/0.5MG NEB 3 ML VIAL NEB SCH ×4 (01:38→19:18)
[2019-10-29] MEDS: LEVOTHYROXINE SODIUM 25 MCG TABLET PO SCH (05:38)
[2019-10-29 06:08] LABS: BUN Creatinine Ratio 64.7 (10-20); Calcium 9.3 mg/dl (8.5-10.1); Creatinine Clr Calc Pharmacy 50.8 ml/min; Est GFR (African American) 78.8
--- NOTE | 2019-10-29 08:06 | XRay Report ---
XR chest 1V portable HISTORY: 74 years-old Female ?improved pulmonary vascular congestion follow-up study in a patient wi th pulmonary vascular congestion COMPARISON: Chest radiograph 10/22/2019, chest CT 08/29/2018. TECHNIQUE: Portable AP view of the chest FINDINGS: Cardiac silhouette is enlarged. There is suggestion of decreased pulmonary vascular congestion. Chron ic right lung volume loss. Chronic reticular interstitial opacities are redemonstrated. No pneumothor ax, large pleural effusion or definite overt pulmonary edema. No lobar airspace consolidation. Chroni c appearing fractures of the lower right lateral hemithorax. Degenerative changes of the shoulders an d spine. IMPRESSION: 1. Cardiomegaly with decreased pulmonary vascular congestion. 2. Chronic interstitial lung disease. ACT 112: Negative or not required by law. The above report was generated using voice recognition software. It may contain grammatical, syntax o r spelling errors. Electronically signed by: Franc Bermudez M.D. 10/29/2019 8:04 AM
[2019-10-29] MEDS: CALCIUM 600MG + VIT D 400 IU TAB PO SCH (08:44)
[2019-10-29] MEDS: ASPIRIN 81 MG ECTAB PO SCH (08:44)
[2019-10-29] MEDS: MULTIVITAMIN TAB PO SCH (08:45)
[2019-10-29] MEDS: CHOLECALCIFEROL 1,000 UNITS 25 MCG TAB PO SCH (08:46)
[2019-10-29] MEDS: PANTOprazole 40 MG TAB PO SCH ×2 (08:46→21:10)
[2019-10-29] MEDS: TOCOPHERYL, DL-ALPHA 400 UNITS CAP PO SCH (08:47)
[2019-10-29] MEDS: BuPROPion XL 300 MG TABCR PO SCH (08:47)
[2019-10-29] MEDS: methylPREDNISolone 40 MG in SYRINGE 0 ML IV SCH (08:48)
[2019-10-29] MEDS: INSULIN GLARGINE SOLOSTAR 100 UNITS/ML 3 ML PEN SC SCH (08:49)
[2019-10-29] MEDS: INSULIN ASPART 100 UNITS/ML 3 ML PEN SQ SCH ×4 (08:51→21:12)
[2019-10-29] MEDS ORDERED: FUROSEMIDE 40 MG TAB PO SCH (09:00)
--- NOTE | 2019-10-29 09:48 | Pharmacy Report ---
Pharmacy Glycemic Short Note 2 - Date of Service October 29, 2019 - Glycemic Short BSG Results (Last 24 hours): 10/28/19 10/28/19 10/28/19 12:17 17:02 20:22 Glucose POC Glucose 104 H 112 H 104 H 10/29/19 10/29/19 04:55 08:00 Glucose 122 H POC Glucose 115 H ASSESSMENT: 10/29/19 * BSGs 95-122mg/dl over past 24 hours, 19 units of insulin required, 10 units basal. * Fasting blood sugar 115mg/dl and Solu-Medrol decreased to 40mg IV Q12H yesterday, patient requiring less insulin as steroids taper. * Decrease Lantus further and loosen CF/CR to prevent hypoglycemia. 10/28/19 * BSGs 87-156mg/dl over past 24 hours, 36 units of insulin required, 27 units basal. * Fasting blood sugar 95mg/dl and Solu-Medrol decreased to 40mg IV Q12H. * Decrease Lantus to prevent hypoglycemia. 10/27/19 * BSGs ranging 104-210 mg/dL yesterday * Patient received 37 units of insulin yesterday (24 units of basal, 13 units of prandial/correctional) * Fasting BSG this morning of 143 mg/dL - will increase basal insulin * Given A1c of 5.8% - hyperglycemia is most certainly steroid-induced * Solu-Medrol 60 mg IV TID continues PLAN FOR INPATIENT GLYCEMIC CONTROL: * Basal insulin - decrease * Lantus scale 0-10 units SC BID (0 units for BSG < 120mg/dl, 5 units for BSG 120-180mg/dl, 10 units for BSG > 180mg/dl) * Bolus insulin * NovoLog per scale ACHS or Q6hrs while NPO * CHANGE: Goal Range: Low 110 mg/dL - High 140 mg/dL * LOOSEN: Correction Factor: 35 mg/dL/unit * LOOSEN: Nutritional / Prandial insulin per carb ratio of 1 unit per 11 grams CHO consumed PLAN FOR DISCHARGE: * To be determined - will follow * Will depend on whether or not patient is discharged with steroids and the dose of those steroids * A1c of 5.8% on prednisone 10 mg PO daily - antidiabetic medications probably not necessary if discharged back on this regimen
--- NOTE | 2019-10-29 10:27 | Pulmonology Progress Note ---
Date of Service October 29, 2019 Assessment & Plan (1) Acute and chronic respiratory failure: Impression: 74-year-old female with advanced interstitial lung disease and secondary pulmonary hypertension admitted with acute on chronic hypoxemic respiratory failure. Recommendations: 1. Interstitial lung disease with acute on chronic hypoxemic respiratory failure: She appears significantly improved with diuretics steroids and treatment with antibiotics. This point time will transition to oral steroids with plans for a 2-week taper. We will initiate her on prednisone 30 mg daily with directions to decrease by 5 mg every week until off. 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 2. Acute on chronic hypoxemic respiratory failure: Significantly improved. Would maintain her on a stable dose of oral diuretics in the outpatient setting. 3. Disposition: From a pulmonary standpoint, the patient's oxygen requirement can be safely met at home and she is okay from our standpoint to be dismissed to home. Agree with continued PT and OT evaluations to ensure that she is safe at home unless she plans on going home with home hospice. Will sign off at this time. Please call if we can be of additional assistance. Respiratory failure complication: hypoxia Qualified Code(s): J96.21 - Acute and chronic respiratory failure with hypoxia (2) Cor pulmonale: (3) Pulmonary fibrosis: (4) Interstitial lung disease: (5) Secondary pulmonary hypertension: Subjective Patient feels that she is breathing better. She is down to conventional oxygen at 4 L/min. She is not coughing, wheezing, or expectorating phlegm. She is not been out of bed. Review of Systems Review of Systems: Unchanged from prior Physical Exam Constitutional: WD/WN, vitals as above Neck: trachea midline, no thyromegaly Respiratory: normal respiratory effort; no respiratory distress, no retractions and does not use accessory muscles Auscultation: + crackles Cardiovascular: RRR, no murmur, no edema Gastrointestinal (Abdomen): normal bowel sounds, soft, nontender, no hepatosplenomegaly Musculoskeletal: Extremities: extremities normal to inspection Skin: no rashes, warm and dry Neurologic: Nonfocal exam Lymphatic: no cervical lymphadenopathy Results & Data ([facility]) Vital Signs (Past 12 Hours) Vital Signs Temp Pulse Resp BP BP Pulse Ox 10/29/19 07:40 71 16 98 10/29/19 07:31 95 10/29/19 07:09 36.5 C 74 20 111/70 96 10/29/19 01:39 75 16 94 10/28/19 23:10 36.6 C 75 18 129/83 94 Laboratory Results 10/23/19 07:42 10/29/19 04:55 Diagnostic Findings Chest x-ray from today was independently reviewed. There are persistent fibrotic changes more prominent on the right than the left. PG Care Time/CCT Total # of Minutes Spent Total Time Spent with Patient: Total time spent is greater than 50% in coordination of care (as documented) at patient's floor/unit and/or counseling patient: Coding Level of Care Code 90242 Subseq Hosp Care Lvl 2 Diagnoses Acute and chronic respiratory failure J96.21 Respiratory failure complication: hypoxia Cor pulmonale I27.81 Pulmonary fibrosis J84.10 Interstitial lung disease J84.9 Secondary pulmonary hypertension
[2019-10-29] MEDS: SIMETHICONE 80 MG CHEW PO PRN (17:08)
[2019-10-29] MEDS: POLYETHYLENE (MIRALAX) 17 GM PACK PO PRN (17:13)
[2019-10-29] MEDS: ENOXAPARIN INJ 40 MG/0.4 ML SYR SQ SCH (17:40)
[2019-10-29] MEDS: FLUTICASONE/VILANTEROL 100/25MCG 14 PUFFS/INHALER INH SCH (21:09)
[2019-10-29] MEDS: ATORVASTATIN 40 MG TAB PO SCH (21:10)
[2019-10-29] MEDS: SENNA 17.6 MG/10 ML UDP PO SCH (21:11)
[2019-10-30] MEDS: ALBUT/IPRATROP 3MG/0.5MG NEB 3 ML VIAL NEB SCH ×3 (01:13→13:35)
[2019-10-30 05:39] LABS: BUN Creatinine Ratio 55.1 (10-20); Calcium 8.7 mg/dl (8.5-10.1); Creatinine Clr Calc Pharmacy 46.9 ml/min; Est GFR (African American) 71.6; Est GFR (Non-African American) 61.8; Potassium 3.7 mmol/L (3.5-5.1)
[2019-10-30] MEDS: SIMETHICONE 80 MG CHEW PO PRN (06:27)
[2019-10-30] MEDS: LEVOTHYROXINE SODIUM 25 MCG TABLET PO SCH (06:28)
--- NOTE | 2019-10-30 07:37 | Hospitalist Progress Note ---
Date of Service October 28, 2019 Assessment & Plan (1) Acute and chronic respiratory failure: Secondary to severe diffuse interstitial lung disease with baseline prior to Dinh's 5L at rest with 7L on exertion O2. Now managing to wean O2 down to 5-7L which is back to her baseline but she is s eriously deconditioned and significantly desaturates with any exertion or talking. Patient feeling symptomatically better since high dose steroids as per pulmonology management. Patient continues to appear euvolemic on exam but also no significant change of Cr with IV dosing of lasix, will switch to PO lasix 40mg. (2) Elevated troponin: Secondary to demand ischemia. (3) Interstitial lung disease: Continue to wean solu-medrol as per pulmonology management. Appreciate ongoing pulmonology and palliative management. (4) Abnormal EKG: Appreciate cardiology consult. "Cardiac catheterization less than a year ago showing nonocclusive disease, absence of chest pain prior to/during current hospitalization, and nonspecific ECG findings, all in the context of extreme physiologic stress of respiratory distress, most likely explanation for her troponin elevation is supply/demand mismatch." (5) Vertebral compression fracture: Multilevel lower thoracic and lumbar spine compression fractures s/p multilevel kyphoplasty. Conservative management at this time. No pain noted by patient. (6) Depression: Stable, continue bupropion 300 mg p.o. every morning. (7) Hyperlipidemia: Continue atorvastatin 80 mg p.o. nightly. Split into 2 pills for patient to be able to swallow. (8) Hypothyroidism: TSH 2.69, continue levothyroxine 25 MCG's p.o. every morning. (9) Impaired fasting glucose: HbA1C 5.8. No active management at this time. Nutritional status much more important. Diet changed to regular. (10) Congestive heart failure: Acute right sided related to severe pulmonary disease as above. Difficult to interpret CXR in setting of chronic interstitial lung disease. No significant change with Cr or CXR findings with diuresis. Not on diuretics at home. Will start to wean lasix to PO 40mg daily. (11) DVT prophylaxis: Lovenox 40mg SQ daily (12) Discharge planning issues: Continue on med/surg Appreciate palliative management as patient likely to go home on hospice at some point once medically optimized. Admission and Anticipated Discharge Date Admission Date: October 16, 2019 Subjective Continues to do well on weaning O2 approximately 5 LPM. Feels significantly improved in shortness of breath since high doses of steroids started at the beginning of the week. Plan now is for patient to go home with hospice but still trying to wean O2 as much as possible prior to discharge, possibly Wednesday or Wednesday. Review of Systems Review of Systems: All systems reviewed & are unremarkable except as noted in HPI & below Physical Exam Constitutional: well developed and + frail appearing; no acute distress Eyes: + anicteric sclerae; normal pupil size ENMT: external ear and nose normal, oropharynx normal Neck: normal visual inspection Respiratory: normal respiratory effort; no respiratory distress Skin: no rashes, warm and dry Neurologic: moves all extremities and awake; not confused Psychiatric: A+Ox3, euthymic affect Insight: excellent insight Results & Data ([facility]) Vital Signs (Past 12 Hours) Vital Signs Temp Pulse Pulse Resp BP Pulse Ox 10/30/19 01:13 70 16 90 10/29/19 22:56 36.5 C 83 18 127/87 97 PG Care Time/CCT Total # of Minutes Spent Total Time Spent with Patient: Total time spent is greater than 50% in coordination of care (as documented) at patient's floor/unit and/or counseling patient: Coding Level of Care Code 43079 Subseq Hosp Care Lvl 1 Diagnoses Acute and chronic respiratory failure J96.21 Respiratory failure complication: hypoxia Elevated troponin R79.89 Interstitial lung disease J84.9 Abnormal EKG R94.31 Vertebral compression fracture S32.000D Encounter type: subsequent encounter Fracture of vertebra location: lumbar Lumbar vertebra fracture level: unspecified lumbar vertebra Fracture healing: with routine healing Depression F32.9 Depression Type: unspecified Hyperlipidemia E78.2 Hyperlipidemia type: mixed hyperlipidemia Hypothyroidism E03.9 Hypothyroidism type: acquired Impaired fasting glucose R73.01 Congestive heart failure I50.811 Heart failure type: right-sided Heart failure chronicity: acute DVT prophylaxis Z29.9 Discharge planning issues Z02.9 (1) Acute and chronic respiratory failure Respiratory failure complication: hypoxia Qualified Code(s): J96.21 - Acute and chronic respiratory failure with hypoxia (2) Vertebral compression fracture Encounter type: subsequent encounter Fracture of vertebra location: lumbar Lumbar vertebra fracture level: unspecified lumbar vertebra Fracture healing: with routine healing Qualified Code(s): S32.000D - Wedge compression fracture of unspecified lumbar vertebra, subsequent encounter for fracture with routine healing (3) Depression Depression Type: unspecified Qualified Code(s): F32.9 - Major depressive disorder, single episode, unspecified (4) Hyperlipidemia Hyperlipidemia type: mixed hyperlipidemia Qualified Code(s): E78.2 - Mixed hyperlipidemia (5) Hypothyroidism Hypothyroidism type: acquired Qualified Code(s): E03.9 - Hypothyroidism, unspecified (6) Congestive heart failure Heart failure type: right-sided Heart failure chronicity: acute Qualified Code(s): I50.811 - Acute right heart failure
--- NOTE | 2019-10-30 07:44 | Hospitalist Progress Note ---
Date of Service October 29, 2019 Assessment & Plan (1) Acute and chronic respiratory failure: Secondary to severe diffuse interstitial lung disease with baseline prior to Dinh's 5L at rest with 7L on exertion O2. Now managing to wean O2 down to 4-7L which is back to her baseline but she kasia ins seriously deconditioned and significantly desaturates with any exertion or talking. Patient feeling symptomatically better since high dose steroids as per pulmonology management. Patient continues to appear euvolemic on exam but also no significant change of Cr with IV dosing of lasix, will continue to wean lasix to 20mg PO daily. (2) Elevated troponin: Secondary to demand ischemia. (3) Interstitial lung disease: Continue to wean solu-medrol as per pulmonology management. Appreciate ongoing pulmonology and palliative management. (4) Abnormal EKG: Appreciate cardiology consult. "Cardiac catheterization less than a year ago showing nonocclusive disease, absence of chest pain prior to/during current hospitalization, and nonspecific ECG findings, all in the context of extreme physiologic stress of respiratory distress, most likely explanation for her troponin elevation is supply/demand mismatch." (5) Vertebral compression fracture: Multilevel lower thoracic and lumbar spine compression fractures s/p multilevel kyphoplasty. Conservative management at this time. No pain noted by patient. (6) Depression: Stable, continue bupropion 300 mg p.o. every morning. (7) Hyperlipidemia: Continue atorvastatin 80 mg p.o. nightly. Split into 2 pills for patient to be able to swallow. (8) Hypothyroidism: TSH 2.69, continue levothyroxine 25 MCG's p.o. every morning. (9) Impaired fasting glucose: HbA1C 5.8. No active management at this time. Nutritional status much more important. Diet changed to regular. (10) Congestive heart failure: Acute right sided related to severe pulmonary disease as above. Difficult to interpret CXR in setting of chronic interstitial lung disease. No significant change with Cr or CXR findings with diuresis. Not on diuretics at home. Will continue to wean lasix to PO 20mg daily. (11) DVT prophylaxis: Lovenox 40mg SQ daily (12) Discharge planning issues: Continue on med/surg Appreciate palliative management as patient likely to go home on hospice at some point once medically optimized. Admission and Anticipated Discharge Date Admission Date: October 16, 2019 Subjective Continues to do well on weaning O2 approximately 4-7 LPM. Feels significantly improved in shortness of breath since high doses of steroids started at the beginning of the week although not much changes day to day. Review of Systems Review of Systems: All systems reviewed & are unremarkable except as noted in HPI & below Physical Exam Constitutional: well developed and + frail appearing; no acute distress Eyes: + anicteric sclerae; normal pupil size ENMT: external ear and nose normal, oropharynx normal Neck: normal visual inspection Respiratory: normal respiratory effort; no respiratory distress Cardiovascular: Extremities: no pedal edema Gastrointestinal (Abdomen): Inspection/Auscultation: normal bowel sounds Percussion/Palpation: abdomen soft; abdomen nontender Skin: no rashes, warm and dry Neurologic: moves all extremities and awake; not confused Psychiatric: A+Ox3, euthymic affect Insight: excellent insight Results & Data ([facility]) Vital Signs (Past 12 Hours) Vital Signs Temp Pulse Pulse Resp BP BP Pulse Ox 10/30/19 07:33 86 18 96 10/30/19 07:15 37.0 C 80 18 120/83 97 10/30/19 01:13 70 16 90 10/29/19 22:56 36.5 C 83 18 127/87 97 PG Care Time/CCT Total # of Minutes Spent Total Time Spent with Patient: Total time spent is greater than 50% in coordination of care (as documented) at patient's floor/unit and/or counseling patient: Coding Level of Care Code 45609 Subseq Hosp Care Lvl 1 Diagnoses Acute and chronic respiratory failure J96.21 Respiratory failure complication: hypoxia Elevated troponin R79.89 Interstitial lung disease J84.9 Abnormal EKG R94.31 Vertebral compression fracture S32.000D Encounter type: subsequent encounter Fracture of vertebra location: lumbar Lumbar vertebra fracture level: unspecified lumbar vertebra Fracture healing: with routine healing Depression F32.9 Depression Type: unspecified Hyperlipidemia E78.2 Hyperlipidemia type: mixed hyperlipidemia Hypothyroidism E03.9 Hypothyroidism type: acquired Impaired fasting glucose R73.01 Congestive heart failure I50.811 Heart failure type: right-sided Heart failure chronicity: acute DVT prophylaxis Z29.9 Discharge planning issues Z02.9 (1) Acute and chronic respiratory failure Respiratory failure complication: hypoxia Qualified Code(s): J96.21 - Acute and chronic respiratory failure with hypoxia (2) Vertebral compression fracture Encounter type: subsequent encounter Fracture of vertebra location: lumbar Lumbar vertebra fracture level: unspecified lumbar vertebra Fracture healing: with routine healing Qualified Code(s): S32.000D - Wedge compression fracture of unspecified lumbar vertebra, subsequent encounter for fracture with routine healing (3) Depression Depression Type: unspecified Qualified Code(s): F32.9 - Major depressive disorder, single episode, unspecified (4) Hyperlipidemia Hyperlipidemia type: mixed hyperlipidemia Qualified Code(s): E78.2 - Mixed hyperlipidemia (5) Hypothyroidism Hypothyroidism type: acquired Qualified Code(s): E03.9 - Hypothyroidism, unspecified (6) Congestive heart failure Heart failure type: right-sided Heart failure chronicity: acute Qualified Code(s): I50.811 - Acute right heart failure
[2019-10-30] MEDS ORDERED: SOD PHOSPHATE/SOD BIPHOSPHATE ENEMA 132 ML BTL PR PRN (08:17)
--- NOTE | 2019-10-30 08:40 | Pharmacy Report ---
Pharmacy Glycemic Short Note 2 - Date of Service October 30, 2019 - Glycemic Short BSG Results (Last 24 hours): 10/29/19 10/29/19 10/29/19 12:13 16:56 20:50 Glucose POC Glucose 153 H 130 H 116 H 10/30/19 10/30/19 04:38 08:08 Glucose 84 POC Glucose 84 ASSESSMENT: 10/30/19 * 74 yo F with good A1c, not on any outpatient anti-diabetic medications * Pharmacy consulted for steroid-induced hyperglycemia * Steroids have been tapered to Prednisone 30 mg PO Daily, insulin requirements decreasing * Will continue to hold AM basal insulin given fasting BSG of 84 mg/dL today * Will utilize correction factor only for glycemic control * Per hospitalist note: "patient likely to go home on hospice at some point once medically optimized." PLAN FOR INPATIENT GLYCEMIC CONTROL: * Basal insulin - held * Bolus insulin * NovoLog per scale ACHS or Q6hrs while NPO * Goal Range: Low 110 mg/dL - High 140 mg/dL * TIGHTEN: Correction Factor: 30 mg/dL/unit * No carb ratio PLAN FOR DISCHARGE: * To be determined - will follow * A1c of 5.8% on prednisone 10 mg PO daily - antidiabetic medications probably not necessary if discharged back on this regimen
[2019-10-30] MEDS ORDERED: FUROSEMIDE 20 MG TAB PO SCH (09:00)
[2019-10-30] MEDS ORDERED: predniSONE 10 MG TABLET PO SCH (09:00)
[2019-10-30] MEDS: ASPIRIN 81 MG ECTAB PO SCH (09:09)
[2019-10-30] MEDS: MULTIVITAMIN TAB PO SCH (09:10)
[2019-10-30] MEDS: CALCIUM 600MG + VIT D 400 IU TAB PO SCH (09:10)
[2019-10-30] MEDS: TOCOPHERYL, DL-ALPHA 400 UNITS CAP PO SCH (09:10)
[2019-10-30] MEDS: CHOLECALCIFEROL 1,000 UNITS 25 MCG TAB PO SCH (09:11)
[2019-10-30] MEDS: BuPROPion XL 300 MG TABCR PO SCH (09:17)
[2019-10-30] MEDS: PANTOprazole 40 MG TAB PO SCH (09:18)
[2019-10-30] MEDS: INSULIN ASPART 100 UNITS/ML 3 ML PEN SQ SCH ×2 (09:28→13:11)
--- NOTE | 2019-10-30 10:12 | Discharge Summary ---
Date of Service October 30, 2019 Admission HPI Per Admitting Provider The patient is a 74 years old female with past medical history of severe interstitial lung disease, anemia, depression, hyperlipidemia, hypothyroidism, coronary artery disease, gastroparesis, hiatal hernia status post fundoplication at [facility], osteoporosis, primary pulmonary lymphoma, who was brought by EMS after her family called reporting that patient is increasingly short of breath and in the past 24 hours she required 15 L of oxygen. 1 week ago patient had fundoplication done at [facility] for hiatal hernia and that procedure went without issues. It is now that patient is recovering poorly and feeling i ncreasingly short of breath. Patient denies fever, chills, chest pain, abdominal pain, frequency, urgency, hemoptysis, nausea, vomiting. Patient is using at home CPAP. In the ER patient needed to be placed on BiPAP to keep oxygenation above 88%. Labs are reviewed: WBC is 13.34, hemoglobin 10.3, hematocrit 32.5, platelets 184, PT 12.5, INR 1.2, APTT 25.7, VBG 7.49, PCO2 41, PO2 44, sodium 140, potassium 3.6, chloride 106, carbon dioxide 29, anion gap 5, BUN 19, creatinine 0.0 66, GFR 87, glucose 152, and hemoglobin A1c checked on September 07, 2018 was 6.1, calcium 8.5, magnesium 2.1, total bilirubin 1.1, AST 64, ALT 48, alkaline phosphatase 236, troponin 0.3, BNP 10,081, total protein 6.5, Albumin 2.7, globulin 3.8. Influenza A&B negative. Blood cultures pending, sputum cultures pending. Chest x-ray shows moderate cardiomegaly. Slightly progressive interstitial changes of both hemithoraces. This suggests a component of congestive failure superimposed upon chronic fibrotic change. Diaphragms are smooth. EKG normal sinus rhythm, with T wave abnormality considering ischemic inferior ischemia and anterior ischemia when compared to September 13, 2019 T wave inversion is obvious in the inferior and anterior leads. Decision was made to admit patient to PCU on telemetry for acute on chronic respiratory failure, congestive heart failure and possible pneumonia. Admission Exam Per Admitting Provider Constitutional: WD/WN, vitals as above well developed, + ill appearing and + obese Eyes: PERRL, conjunctivae normal, anicteric sclerae ENMT: external ear and nose normal, oropharynx normal Neck: trachea midline, no thyromegaly Respiratory: normal respiratory effort, + respiratory distress, + labored breathing, + uses accessory muscles, + hyperresonance to percussion, + tachypneic, + prolonged expiratory phase, + audible wheezes, + nasal flaring and + pursed lip breathing Auscultation: + crackles, + rales and + wheezes Cardiovascular: RRR, no murmur, no edema Gastrointestinal (Abdomen): normal bowel sounds, soft, nontender, no hepatosplenomegaly Musculoskeletal: no cyanosis or clubbing, extremities motor strength 5/5 Skin: no rashes, warm and dry Neurologic: patellar DTR's 2+ bilat, sensation intact Psychiatric: A+Ox3, euthymic affect Lymphatic: no cervical or axillary lymphadenopathy Principal Diagnosis Acute on Chronic Respiratory Failure, Interstitial Lung Disease, Pulmonary Lymphoma Discharge Exam Constitutional well developed, + cachectic and + frail appearing; no acute distress Eyes + anicteric sclerae and PERRL ENMT Ears: no hearing impairment Nose: no external nose abnormality Neck trachea midline, no thyromegaly Respiratory normal respiratory effort and able to speak in complete sentences; no respiratory distress and no labored breathing Auscultation: + diminished lung sounds Cardiovascular Rate/Rhythm: regular rate and regular rhythm Heart Sounds: no murmur Vessels: no JVD Gastrointestinal (Abdomen) normal bowel sounds, soft, nontender, no hepatosplenomegaly Musculoskeletal Head/Neck/Chest: normocephalic and head atraumatic Skin no rashes, warm and dry Neurologic PERRL, EOMI, accommodation nl, no face palsy, no dysarthria Psychiatric Orientation: alert and oriented x 3 Lymphatic no cervical or axillary lymphadenopathy Discharge Data Allergies Allergy/AdvReac Type Severity Reaction Status Date / Time adhesive Allergy Intermediate ITCHY, Verified 10/16/19 13:01 "BLISTERY" SKIN WITH SOME TAPE/BANDAIDS Consultations 10/16/19 14:29 ED Decision to Admit Stat 10/16/19 15:50 Consult Pulmonology Routine 10/16/19 16:23 Consult Cardiology Routine 10/17/19 18:53 Consult Palliative Care Routine Ordered Studies 10/16/19 23:03 liver Urgent CXR 10/18 CXR 10/19 CXR 10/21 CXR 10/28 CXR Hospital Course (1) Acute and chronic respiratory failure: * On admission, required up to 15L and BiPAP. Patient also with underlying interstitial lung disease and primary pulmonary lymphoma (previously receiving rituximab). * Secondary to severe diffuse interstitial lung disease with baseline prior to Dinh's 5L at rest with 7L on exertion O2. * Managed to wean back to 4-7L via NC. which is back to her baseline but she remains seriously deconditioned and significantly desaturates with any exertion or talking. Patient 92% on 4L. * Patient continued to appear euvolemic on exam but also no significant change of Cr with IV dosing of lasix. * Lasix weaned to 20mg PO daily--> continued at 20mg PO daily at discharge * Prednisone taper --30mg for one week, taper by 5 mg weekly until completed course * Set up with [facility] -- also sent with nebulizer, wheelchair, and low catheter supplies (2) Elevated troponin: * Elevated but trended down. * Secondary to demand ischemia. (3) Interstitial lung disease: * Continued to wean steroids as above per pulmonology recommendations. (4) Abnormal EKG: * Cardiology consult. "Cardiac catheterization less than a year ago showing nonocclusive disease, absence of chest pain prior to/during current hospitalization, and nonspecific ECG findings, all in the context of extreme physiologic stress of respiratory distress, most likely explanation for her troponin elevation is supply/demand mismatch." (5) Vertebral compression fracture: * Multilevel lower thoracic and lumbar spine compression fractures s/p multilevel kyphoplasty. * Conservative management at this time. No pain noted by patient. (6) Depression: * Stable * Continued home bupropion 300 mg p.o. every morning (7) Hyperlipidemia: * Continued atorvastatin 80 mg p.o. nightly. Split into 2 pills for patient to be able to swallow. (8) Hypothyroidism: * TSH 2.69 * Continued levothyroxine 25 MCG's p.o. every morning. (9) Impaired fasting glucose: * HbA1C 5.8. No active management at this time. Nutritional status much more important. Diet changed to regular. * No need for anti-hyperglycemic agents per most recent pharmacy note, as morning glucose <100 on BMP and patient not on any medications at home (10) Congestive heart failure: * Acute right sided related to severe pulmonary disease as above. Difficult to interpret CXR in setting of chronic interstitial lung disease. No significant change with Cr or CXR findings with diuresis. Not on diuretics at home. * Lasix weaned as above (11) DVT prophylaxis: * Lovenox 40mg SQ daily while inpatient (12) Discharge planning issues: * Patient set up with [facility] at discharge Patient discharged to home with home hospice. (13) Candidiasis of mouth and esophagus: Total Time Total Time Spent Total Time Spent (In Minutes): 65 Discharge Plan Discharge Items Patient Disposition: Hospice - Home Reason For Visit: ACUTE ON CHRONIC RESPIRATORY FAILURE Discharge Diagnosis: You have been hospitalized for an acute medical problem. During your stay at [facility], we have made an effort to correct the problem that brought you to the hospital while keeping you as comfortable as possible. Medications were used to bring your condition under control and your discharge instructions will include directions for any medications you should take after leaving the hospital. Please make sure you see your Primary Care Provider as part of your follow up plan. Goals: You have been hospitalized for an acute medical problem. During your stay at [facility], we have made an effort to correct the problem that brought you to the hospital while keeping you as comfortable as possible. Medications were used to bring your condition under control and your discharge instructions will include directions for any medications you should take after leaving the hospital. Please make sure you see your Primary Care Provider as part of your follow up plan. Activity: As commented below Activity Comment: As tolerated Non-emergency contact: Primary Care Provider Call non-emergency contact if: you have any medication questions Follow-up/Referrals: Fernie Alas MD [Primary Care Provider] - Diet: Heart Healthy Addtl Attending Provider Instructions: You are being sent home with hospice. As decided by the pulmonary team, you have been sent precription to continue a steroid taper (you have been receiving prednisone while inpatient). * You will continue taking the 30mg by mouth daily for one week and then decrease by 5mg weekly until tapered off. * You will begin taking 25mg daily on 11/04 You are also being sent with a maintenance dose of lasix at 20mg by mouth, once daily. Your pantoprazole was increased to 40mg by mouth twice daily to prevent symptoms of reflux. You had been getting this twice daily while in the hospital. You have been provided a Low catheter for comfort and is to be management by home nursing. Please report to the emergency room if you have any symptoms that are concerning for you. Hospice should arrive to your house this evening with medical supplies and prescriptions have been sent for your medical supplies. If you have any questions, please contact your primary care provider. It has been a pleasure being a part of the medical team providing for you while you have been hospitalized. Take care! Pending Studies at Discharge: No Stand-Alone Forms: [facility] Medications and DC Order Prescriptions: New prednisone 10 mg Tablet 30 mg PO DAILY Qty: 73.5 RF: 0 pantoprazole 40 mg Tablet,Delayed Release (Dr/Ec) 40 mg PO BID Qty: 60 RF: 0 furosemide 20 mg Tablet 20 mg PO QAM 30 Days Qty: 30 RF: 0 nystatin 100,000 unit/mL suspension 1 ml BUCCAL QID 7 Days Qty: 28 RF: 0 Continued bupropion HCl 300 mg tablet extended release 24 hr 300 mg PO QAM Qty: 90 RF: 3 levothyroxine 25 mcg tablet 25 mcg PO QAM Qty: 90 RF: 3 atorvastatin 80 mg tablet 80 mg PO HS Qty: 90 RF: 1 ibuprofen 200 mg capsule 400 mg PO Q6H PRN (Reason: Pain) RF: 0 simethicone [Gas Relief (simethicone)] 80 mg tablet,chewable 80 mg PO Q4H PRN (Reason: abdominal bloating) Qty: 30 RF: 0 lidocaine 4 % adhesive patch,medicated 1 patch TOP DAILY PRN (Reason: Pain) RF: 0 nitroglycerin [Nitrostat] 0.4 mg tablet, sublingual 0.4 mg Sublingual UD PRN (Reason: Chest Pain) Qty: 25 RF: 0 aspirin [Aspir-81] 81 mg Tablet,Delayed Release (Dr/Ec) 81 mg PO QAM RF: 0 Breo Ellipta 100-25 mcg/dose Blister With Device 1 inh INHALATION HS RF: 0 Prolia 60 mg/mL Syringe 60 mg subcut DIRECTED RF: 0 sennosides [senna] 8.8 mg/5 mL syrup 10 ml PO HS RF: 0 Discontinued pantoprazole 40 mg tablet,delayed release (DR/EC) 40 mg PO DAILY Qty: 30 RF: 2 rituximab-pvvr 10 mg/mL concentrate 375 mg IV .Q3-4Months Qty: 50 RF: 0 lansoprazole 15 mg tablet,disintegrat, delay rel 30 mg PO BID RF: 0 prednisone 1 mg tablet 10 mg PO DAILY RF: 0 No Action haloperidol lactate 2 mg/mL concentrate 1 mg PO Q4H PRN (Reason: nausea and vomiting) RF: 0 acetaminophen 650 mg suppository 650 mg VA Q4H PRNRF: 0 hyoscyamine sulfate [Levsin/SL] 0.125 mg tablet, sublingual 0.125 mg SL Q4H PRN (Reason: terminal secretions) RF: 0 lorazepam [Ativan] 1 mg tablet 0.5 mg sublingual Q4H PRN (Reason: anxiety, Shortness of breath) RF: 0 morphine concentrate 20 mg/mL syringe 5 mg SL Q2H PRN (Reason: pain) RF: 0 Discharge Orders: Discharge Order (Routine); Ordered 10/30/19 Ordered By: Gayle Torres/Other Patient Handouts: Oxygen Use Safety, Ventilators, Respirators, CPAP Dc, ARDS Admission Data Admit Date/Time: 10/16/19 14:35 Attending Provider: Wyatt Mcrae Admit Provider: Rajinder Leary Primary Care Provider: Fernie Alas Other Providers: [facility],Home Healthcare ; Rajinder Leary ; Jen Sanchez ; Puneet Kim ; Alondra Truong Other Interventions: Discharge Summary Assessment (RN) Last Done: 10/30/19 14:13 DC Date/Time DO NOT enter until pt leaves facility: 10/30/19 16:20 Supervising Physician Co-Signing Physician Notes Attending Attestation & Discharge Note: Pt seen/examined, chart reviewed, discharge care plan d/w CHLOE Willis. I agree w/ the howard components of her discharge documentation. 74yo female with chronic hypoxic resp failure 2nd to advanced interstitial lung disease. Presented with acute/chronic resp failure necessitating use of BIPAP. Ultimately was weaned down to NC O2 after receiving steroids and supportive care. Discussions were held with patient and given her advanced lung disease she opted to return home with hospice. Prior to d/c [facility] was arranged for home. Discharge exam: gen - NAD mouth - extensive thrush plaques heart - RRR, s1, s2, 2/6 systolic murmur LLSB lungs - bibasilar rales abd - soft NT ext - no edema Patient will take course of nystatin swish after d/c for oral candidiasis/thrush. Wyatt Mcrae MD Coding Level of Care Code D/C Day Management >30 mins Diagnoses Acute and chronic respiratory failure J96.21 Respiratory failure complication: hypoxia Elevated troponin R79.89 Interstitial lung disease J84.9 Abnormal EKG R94.31 Vertebral compression fracture S32.000D Encounter type: subsequent encounter Fracture healing: with routine healing Fracture of vertebra location: lumbar Lumbar vertebra fracture level: unspecified lumbar vertebra Depression F32.9 Depression Type: unspecified Hyperlipidemia E78.2 Hyperlipidemia type: mixed hyperlipidemia Hypothyroidism E03.9 Hypothyroidism type: acquired Impaired fasting glucose R73.01 Congestive heart failure I50.811 Heart failure chronicity: acute Heart failure type: right-sided DVT prophylaxis Z29.9 Discharge planning issues Z02.9 Candidiasis of mouth and esophagus B37.81; B37.0
== END 2019-10-30 16:20 | disposition hospice, home (50) | DRG 196 ==
LOC: ED 12:24 → SUATTDRO 14:35 → 2S 14:35 → 3W 10-23 13:17